=== PATIENT | female | born 1940 | race Caucasian/White ===

== ENCOUNTER 2016-12-24 16:09 | Inpatient (IN) | payer OTHER ==
--- NOTE | 2016-12-24 16:29 | CPEKG ---
Heart Rate: 126 RR Interval: 476 QRSD Interval: 78 QT Interval: 280 QTC Interval: 406 QRS [place]: -33 T Wave [place]: 169 EKG Severity - ABNORMAL ECG - EKG Impression: ATRIAL FIBRILLATION, V-RATE 95-158 EKG Impression: LEFT AXIS DEVIATION EKG Impression: PROBABLE LVH WITH SECONDARY REPOL ABNRM EKG Impression: ANTERIOR Q WAVES, POSSIBLY DUE TO LVH Electronically Signed By: Letty Arceo 24-Dec-2016 21:12:29
--- NOTE | 2016-12-24 16:29 | EDPHY ---
H & P Time Seen by Provider: 12/24/16 16:26 HPI/ROS: CHIEF COMPLAINT: Tachycardia HISTORY OF PRESENT ILLNESS: The patient is a 76-year-old female with a history of atrial fibrillation who presents from Urgent Care for tachycardia. Onset rapid heart rate evening and persistent since then. Associated with vague chest discomfort. No other associated symptoms. No known alleviating or aggravating factors. She took her usual medications today, without recent change in dosing. She is also complaining of increased urinary frequency and dysuria. No abdominal pain, vomiting, diarrhea, fever. She is anticoagulated on Warfarin. REVIEW OF SYSTEMS: A complete 10-point review of systems was performed and is negative except for those items mentioned in the HPI. Past Medical/Surgical History: Atrial fibrillation, hypertension, hyperlipidemia, hypothyroidism, pacemaker, TIA, 3 cardiac stents, L4/L5 fusion, right hip replacement, tonsillectomy, sleep apnea, vertigo. Social History: Former smoker. Smoking Status: Former smoker Physical Exam: General Appearance: Alert, pleasant Eyes: Pupils equal and round, no conjunctival pallor or injection ENT, Mouth: Mucous membranes moist Neck: Normal inspection Respiratory: Lungs are clear to auscultation Cardiovascular: Irregularly irregular tachycardia Gastrointestinal: Abdomen is soft and non-tender Neurological: A&O, nonfocal exam Skin: Warm and dry, no rash Extremities: Nontender, no pedal edema Psychiatric: Mood and affect normal Constitutional: Initial Vital Signs Temperature (C) 36.3 C 12/24/16 16:22 Heart Rate 148 H 12/24/16 16:22 Respiratory Rate 18 12/24/16 16:22 Blood Pressure 152/110 H 12/24/16 16:22 O2 Sat (%) 94 12/24/16 16:22 O2 Delivery Mode Room Air O2 (L/minute) 2 Allergies/Adverse Reactions: diphenhydramine HCl [From Benadryl] Allergy (Mild, Verified 12/24/16 16:24) Anxiety amiodarone Allergy (Verified 12/24/16 19:38) Rash rosuvastatin calcium [From Crestor] Allergy (Verified 12/24/16 19:38) Swelling/ Rash Home Medications: Medication Instructions Recorded Cholecalciferol Vit D3 [Vitamin D3 4,000 units PO DAILY 03/18/13 2000 units] Herbals/Supplements -Info Only 1 each PO AD 05/21/13 LORazepam [Ativan (*)] 0.25 mg PO HS PRN 03/18/13 Levothyroxine [Synthroid 75 mcg 75 mcg PO DAILY06 03/18/13 (*)] Nitroglycerin [Nitrostat 0.4 mg 0.4 mg SL PRN PRN 03/18/13 (*)] Digoxin [Lanoxin 0.125 mg] 0.125 mg PO DAILY 10/02/13 Diltiazem Xr [Dilacor Xr 180 MG 180 mg PO DAILY@1800 10/02/13 (RX)] Acetaminophen [Tylenol ES 500 mg 500 mg PO BID PRN 02/13/14 (*)] Ipratropium 0.06% Nasal [Atrovent 1 sprays EACHNARE DAILY PRN 02/13/14 0.06% Nasal] Warfarin Sodium [Coumadin 1MG (*)] 1 mg PO TUTHSA@16 11/12/14 Warfarin Sodium [Coumadin 2MG (*)] 2 mg PO SUMOWEFR@16 11/12/14 Aspirin EC [Aspirin EC 325 mg (*)] 325 mg PO DAILY PRN 12/24/16 Atorvastatin Calcium [Lipitor 20 20 mg PO HS 12/24/16 mg (*)] Clopidogrel Bisulfate [Plavix (*)] 75 mg PO DAILY 12/24/16 Loratadine [Claritin 10 mg] 10 mg PO DAILY 12/24/16 Losartan Potassium [Cozaar 25 mg 25 mg PO HS 12/24/16 (*)] Losartan Potassium [Cozaar 25 mg 50 mg PO DAILY 12/24/16 (*)] Medical Decision Making ED Course/Re-evaluation: Patient presents in rapid atrial fibrillation. An IV was established and labs ordered. EKG obtained. 10mg IV Diltiazem bolus and Diltiazem drip 5mg/hr IV administered for rapid afib. Repeat heart rate 90-100. Blood pressure remained adequate. I re-evaluated the patient x2. She felt much better with heart rate reduction. Patient's urine consistent with UTI. Keflex 500 mg orally given. Urine culture was sent. 1755: Consulted with Dr. Rojas, hospitalist. He accepts admission. This patient utilized 35 minutes of critical care time exclusive of unbundled procedures. Differential Diagnosis: Differential diagnosis includes though it is not limited to pneumonia, pneumothorax, pulmonary embolism, aortic dissection, pericarditis, acute coronary syndrome. - Data Points Laboratory Results: Laboratory Results 12/24/16 16:32 12/25/16 06:00 Microbiology Results: MICROBIOLOGY 12/24/16 16:35 Urine,Clean Catch Urine Culture - Preliminary Escherichia Coli Medications Given: Discontinued Medications Cephalexin HCl (Keflex) 500 mg PO EDNOW ONE PRN Reason: Protocol Stop: 12/24/16 17:21 Last Admin: 12/24/16 17:43 Dose: 500 mg Diltiazem HCl (Cardizem 25 Mg/5 Ml Vial) 10 mg IVP EDNOW ONE Stop: 12/24/16 16:57 Last Admin: 12/24/16 17:05 Dose: 10 mg Diltiazem HCl 125 mg/ Dextrose 125 mls @ 0 mls/hr IV EDNOW ONE; As Directed PRN Reason: Protocol Stop: 12/24/16 16:57 Last Admin: 12/24/16 18:19 Dose: 125 mls Sodium Chloride (Ns) 1,000 mls @ 125 mls/hr IV CONT JALEESA Stop: 06/22/17 18:29 Last Admin: 12/24/16 21:13 Dose: 1,000 mls Departure - Departure Disposition: [facility] Inpatient Acute Clinical Impression: Atrial fibrillation with RVR UTI (urinary tract infection) Qualifiers: Urinary tract infection type: site unspecified Hematuria presence: without hematuria Qualified Code(s): N39.0 - Urinary tract infection, site not specified Condition: Fair Report Scribed for: Letty Arceo Report Scribed by: Ehsan Shields Date of Report: 12/24/16 Time of Report: 16:28 Physician Review and Approval Statement: 12/24/16 16:28 Portions of this note were transcribed by a medical secretary receptionist. I personally performed a history, physical exam, medical decision making, and confirmed accuracy of information the transcribed note.
[2016-12-24 16:45] LABS: % IMMATURE GRANULYOCYTES 0.4 % (0.0-1.1); ABSOLUTE IMMATURE GRANULOCYTES 0.05 10^3/uL (0.00-0.10); ADD DIFF? NO; ADD MORPH? NO; ADD SCAN? NO; ATYPICAL LYMPHOCYTE FLAG 0 (0-99); FRAGMENT RBC FLAG 0 (0-99); HEMATOCRIT 44.4 % (38.0-47.0); HEMOGLOBIN 15.2 g/dL (12.6-16.3); LEFT SHIFT FLG 0 (0-99); LIPEMIA HEMOLYSIS FLAG 90 (0-99); MEAN CELL HEMOGLOBIN 33.3 pg (27.9-34.1); MEAN CELL HEMOGLOBIN CONCENTR. 34.2 g/dL (32.4-36.7); MEAN CELL VOLUME 97.4 fL (81.5-99.8); MEAN PLATELET VOLUME 9.5 fL (8.7-11.7); PLATELET CLUMPS FLAG 10 (0-99); PLATELET COUNT 215 10^3/uL (150-400); RED BLOOD CELL COUNT 4.56 10^6/uL (4.18-5.33); RED CELL DISTRIBUTION WIDTH 13.4 % (11.5-15.2)
[2016-12-24 16:55] LABS: INR 1.88 (0.83-1.16); PROTIME(PATIENT) 21.7 SEC (12.0-15.0)
[2016-12-24] MEDS ORDERED: DILTIAZEM 125 MG in D5W 125 ML IV ONE (16:56)
[2016-12-24] MEDS ORDERED: DILTIAZEM 25 MG/5 ML VIAL IVP ONE (16:56)
[2016-12-24 17:03] LABS: ANION GAP 12 mEq/L (8-16); CALCIUM 9.9 mg/dL (8.5-10.4); CARBON DIOXIDE 22 mEq/l (22-31); CHLORIDE 103 mEq/L (97-110); CREATININE 0.9 mg/dL (0.6-1.0); GLOMERULAR FILTRATION RATE > 60; GLUCOSE 110 mg/dL (70-100); POTASSIUM 3.8 mEq/L (3.5-5.2); SODIUM 137 mEq/L (134-144)
[2016-12-24 17:08] LABS: COLOR YELLOW; LEUKOCYTE ESTERASE,URINE 3+ (NEGATIVE); NITRITE,URINE NEGATIVE (NEGATIVE)
[2016-12-24 17:13] LABS: TROPONIN I < 0.012 ng/mL (0-0.034)
[2016-12-24 17:17] LABS: BACTERIA 2+ /hpf (NONE SEEN); MUCUS TRACE /lpf (NONE-1+); RBC,URINE 50-182 /hpf (0-3); WBC,URINE 50-182 /hpf (0-3)
[2016-12-24] MEDS ORDERED: CEPHALEXIN 500 MG CAP PO ONE (17:20)
[2016-12-24] MEDS ORDERED: ONDANSETRON DISINTEGRATING 4 MG TAB PO PRN (18:29)
[2016-12-24] MEDS ORDERED: ONDANSETRON 4 MG/2 ML VIAL IVP PRN (18:29)
[2016-12-24] MEDS ORDERED: DILTIAZEM 125 MG in D5W 125 ML IV SCH (18:30)
[2016-12-24] MEDS ORDERED: NS 1,000 ML IV SCH (18:30)
--- NOTE | 2016-12-24 19:01 | GHP ---
DATE OF ADMISSION: 12/24/2016 HISTORY OF PRESENT ILLNESS: The patient is a pleasant 76-year-old female with a history of atrial f ibrillation and coronary artery disease who presents with fluttering in her chest, as well as dysuri a and urgency that began last night. She also has had some shaking chills. She does not commonly g et urinary tract infections, but she had somewhat abrupt-onset urgency last night. She has had some subjective fevers. No chills. No cough. No sputum. She has had some vague chest pressure. Rega rding her atrial fibrillation, she is uncertain of when she is in and out of it. She is on metoprol ol and a beta megan. No heart failure symptoms. REVIEW OF SYSTEMS: A complete 10-point review of systems was conducted and negative except as noted in the HPI. PAST MEDICAL HISTORY: 1. Atrial fibrillation. 2. Coronary artery disease with stents. 3. Hypertension. 4. Hyperlipidemia. ALLERGIES: Benadryl, amiodarone, and rosuvastatin. HOME MEDICATIONS: Losartan, Percocet, warfarin, Prasugrel, fish oil, nitroglycerin, metoprolol mayb e, levothyroxine, Ativan, ipratropium, diltiazem, digoxin, vitamin D3, atorvastatin, aspirin, Tyleno l. SOCIAL HISTORY: 2-3 glasses of wine a day. Lives alone in [place]. Originally from [place]. Lived [facility] for much of her life. FAMILY HISTORY: Parents . PHYSICAL EXAMINATION: VITAL SIGNS: Temp 36.3, blood pressure 150/110, pulse 148 and now 90, breath ing 18 times a minute, 94% on room air. GENERAL: No acute distress. HEENT: Sclerae anicteric. O ropharynx clear. Mucous membranes are moist. NECK: Supple, without lymphadenopathy or JVD. LUNGS : Clear to auscultation bilaterally. HEART: S1, S2. ABDOMEN: Soft, nontender, nondistended. LO WER EXTREMITIES: Without edema. Calves nontender. SKIN: Without rash. NEUROLOGIC: Exam is nonf ocal. LABORATORY DATA: INR is 1.9. White count 14, hematocrit 44, platelets 215,000. Sodium 137, potass ium 3.8, chloride 103, bicarb 22, BUN 11, creatinine 0.9, glucose 110. Troponin less than 0.012. U A is positive with 50-180 red cells, 50-180 white cells, 3+ leukocyte esterase, and 2+ bacteria. To x screen: Digoxin level is 1.2. EKG interpreted by me shows rapid atrial fibrillation at 126, with borderline left axis deviation. She has ST depression in V5, V6, I, and L. I have discussed the case with Dr. Joanne Arceo. ASSESSMENT AND PLAN: This is a 76-year-old female with rapid atrial fibrillation and a urinary trac t infection. 1. Urinary tract infection with subjective fever and leukocytosis. Warrants IV antibiotics. We wi ll start ceftriaxone. 2. Sepsis. She has a rapid heart rate, focus of infection, and leukocytosis. This is sepsis. We will treat it. She will receive IV fluids. 3. Atrial fibrillation, rapid, in the setting of infection. We will treat with a diltiazem drip. We will reconcile her medicines when available. 4. Atrial fibrillation/stroke prevention. She is anticoagulated. 5. Prophylaxis. She is therapeutically anticoagulated. 6. Disposition: Observation status. /[id number]/MODL
[2016-12-24] MEDS ORDERED: ASPIRIN EC 325 MG TAB PO PRN (20:02)
[2016-12-24] MEDS ORDERED: NITROGLYCERIN 0.4 MG BTL SL PRN (20:02)
[2016-12-24] MEDS ORDERED: IPRATROPIUM 0.06% NASAL SPRAY EACHNARE PRN (20:02)
[2016-12-24] MEDS: ATORVASTATIN CALCIUM 20 MG TAB PO SCH (21:35)
[2016-12-24] MEDS: LOSARTAN POTASSIUM 25 MG TAB PO SCH (21:35)
[2016-12-24] MEDS: ACETAMINOPHEN 325 MG TAB PO PRN (21:57)
[2016-12-24] MEDS: LORazepam 0.5 MG TAB PO PRN (22:53)
[2016-12-24] MEDS: oxyCODONE IR 5 MG TAB PO PRN (22:54)
[2016-12-25] MEDS: LEVOTHYROXINE 75 MCG TAB PO SCH (05:59)
[2016-12-25 06:34] LABS: ANION GAP 8 mEq/L (8-16); CALCIUM 9.3 mg/dL (8.5-10.4); CARBON DIOXIDE 24 mEq/l (22-31); CHLORIDE 106 mEq/L (97-110); CREATININE 0.8 mg/dL (0.6-1.0); GLOMERULAR FILTRATION RATE > 60; GLUCOSE 115 mg/dL (70-100); POTASSIUM 4.3 mEq/L (3.5-5.2); SODIUM 138 mEq/L (134-144)
[2016-12-25] MEDS: ACETAMINOPHEN 325 MG TAB PO PRN (08:23)
[2016-12-25] MEDS: LOSARTAN POTASSIUM 25 MG TAB PO SCH ×2 (08:24→21:00)
[2016-12-25] MEDS: CHOLECALCIFEROL VIT D3 2,000 UNITS TAB/CAP PO SCH (08:24)
[2016-12-25] MEDS: CETIRIZINE 10 MG TAB PO SCH (08:24)
[2016-12-25] MEDS: DIGOXIN 125 MCG TAB PO SCH (08:24)
[2016-12-25] MEDS: CLOPIDOGREL BISULFATE 75 MG TAB PO SCH (08:24)
[2016-12-25] MEDS ORDERED: DILTIAZEM CD 180 MG CAP PO SCH ×2 (09:06→18:00)
[2016-12-25 09:32] LABS: INR 1.7 (0.83-1.16)
[2016-12-25] MEDS: DILTIAZEM CD 180 MG CAP PO SCH (10:44)
--- NOTE | 2016-12-25 13:01 | PDCARCONS ---
Cardiology Consult Reason for Consult: Atrial fibrillation Chief Complaint: difficulty urinating with fever and chills Requesting Physician: Bob History of Present Illness: 76-year-old female well known to me history of coronary artery disease with PCI , history of CVA in the setting of paroxysmal atrial fibrillation chronically anticoagulated with a permanent pacemaker, hypertension, and hyperlipidemia admitted to the hospital with a several day history of increasing weakness complicated by difficulty urinating and urinary frequency. She was found to be in atrial fibrillation with a rapid ventricular response of 140 beats per minute she had stable blood pressure. She was also found to have a urinary tract infection has been started on therapy. She is feeling improved overall weak. Patient has known coronary disease she had an acute coronary syndrome in 2014. At that time she received PCI of the LAD and right coronary. She had a permanent pacemaker replaced in 2014. her left ventricular function has been preserved. I have not seen her since 2014. Blood pressure and hyperlipidemia been well controlled. Cardiac review of systems is negative for chest pain, shortness of breath, PND , orthopnea. She has had no peripheral edema. She does suffer from some mild to moderate cognitive dysfunction. History Information - Allergies/Home Medication List Allergies/Adverse Reactions: diphenhydramine HCl [From Benadryl] Allergy (Mild, Verified 12/24/16 16:24) Anxiety amiodarone Allergy (Verified 12/24/16 19:38) Rash rosuvastatin calcium [From Crestor] Allergy (Verified 12/24/16 19:38) Swelling/ Rash Home Medications: Cholecalciferol Vit D3 [Vitamin D3 2000 units] 4,000 units PO DAILY 03/18/13 [ Last Taken 11/09/14] Herbals/Supplements -Info Only 1 each PO AD 03/18/13 [Last Taken 02/07/14] LORazepam [Ativan (*)] 0.25 mg PO HS PRN 03/18/13 [Last Taken 02/07/14] Levothyroxine [Synthroid 75 mcg (*)] 75 mcg PO DAILY06 03/18/13 [Last Taken ] Nitroglycerin [Nitrostat 0.4 mg (*)] 0.4 mg SL PRN PRN 03/18/13 [Last Taken 08:00] Digoxin [Lanoxin 0.125 mg] 0.125 mg PO DAILY 10/02/13 [Last Taken 12/24/16] Diltiazem Xr [Dilacor Xr 180 MG (RX)] 180 mg PO DAILY@1800 10/02/13 [Last Taken 12/23/16] Acetaminophen [Tylenol ES 500 mg (*)] 500 mg PO BID PRN 02/13/14 [Last Taken Unknown] Ipratropium 0.06% Nasal [Atrovent 0.06% Nasal] 1 sprays EACHNARE DAILY PRN 02/13 [Last Taken Unknown] Warfarin Sodium [Coumadin 1MG (*)] 1 mg PO TUTHSA@16 11/12/14 [Last Taken ] Warfarin Sodium [Coumadin 2MG (*)] 2 mg PO SUMOWEFR@16 11/12/14 [Last Taken ] Aspirin EC [Aspirin EC 325 mg (*)] 325 mg PO DAILY PRN 12/24/16 [Last Taken Unknown] Atorvastatin Calcium [Lipitor 20 mg (*)] 20 mg PO HS 12/24/16 [Last Taken ] Clopidogrel Bisulfate [Plavix (*)] 75 mg PO DAILY 12/24/16 [Last Taken 12/24/16] Loratadine [Claritin 10 mg] 10 mg PO DAILY 12/24/16 [Last Taken 12/23/16] Losartan Potassium [Cozaar 25 mg (*)] 25 mg PO HS 12/24/16 [Last Taken 12/23/16] Losartan Potassium [Cozaar 25 mg (*)] 50 mg PO DAILY 12/24/16 [Last Taken ] I have personally reviewed and updated: family history, medical history, social history, surgical history - Past Medical History atrial fibrillation, coronary artery disease, CVA, hypertension, hyperlipidemia - Surgical History Reports: pacemaker/AICD - Family History Positive for: non-pertinent - Social History Smoking Status: Former smoker Cardiac History - Cardiac History Past Cardiac History: CAD, PCI, PACEMAKER Cardiac Risk Factors: hypertension (>140/90), lipidemia, age > 65 Physical Exam Temp Pulse Resp BP Pulse Ox 36.4 C 84 19 144/95 H 96 12/25/16 08:00 12/25/16 10:44 12/25/16 08:00 12/25/16 10:44 12/25/16 08:00 O2 (L/minute) 2 Lab and Imaging 12/24/16 16:32 12/25/16 06:00 WBC 14.02 10^3/uL (3.80-9.50) H 12/24/16 16:32 RBC 4.56 10^6/uL (4.18-5.33) 12/24/16 16:32 Hgb 15.2 g/dL (12.6-16.3) 12/24/16 16:32 Hct 44.4 % (38.0-47.0) 12/24/16 16:32 MCV 97.4 fL (81.5-99.8) 12/24/16 16:32 MCH 33.3 pg (27.9-34.1) 12/24/16 16:32 MCHC 34.2 g/dL (32.4-36.7) 12/24/16 16:32 RDW 13.4 % (11.5-15.2) 12/24/16 16:32 Plt Count 215 10^3/uL (150-400) 12/24/16 16:32 MPV 9.5 fL (8.7-11.7) 12/24/16 16:32 Neut % (Auto) 85.6 % (39.3-74.2) H 12/24/16 16:32 Lymph % (Auto) 8.0 % (15.0-45.0) L 12/24/16 16:32 [place] % (Auto) 5.5 % (4.5-13.0) 12/24/16 16:32 Eos % (Auto) 0.2 % (0.6-7.6) L 12/24/16 16:32 Baso % (Auto) 0.3 % (0.3-1.7) 12/24/16 16:32 Nucleat RBC Rel Count 0.0 % (0.0-0.2) 12/24/16 16:32 Absolute Neuts (auto) 12.01 10^3/uL (1.70-6.50) H 12/24/16 16:32 Absolute Lymphs (auto) 1.12 10^3/uL (1.00-3.00) 12/24/16 16:32 Absolute Monos (auto) 0.77 10^3/uL (0.30-0.80) 12/24/16 16:32 Absolute Eos (auto) 0.03 10^3/uL (0.03-0.40) 12/24/16 16:32 Absolute Basos (auto) 0.04 10^3/uL (0.02-0.10) 12/24/16 16:32 Absolute Nucleated RBC 0.00 10^3/uL (0-0.01) 12/24/16 16:32 Immature Gran % 0.4 % (0.0-1.1) 12/24/16 16:32 Immature Gran # 0.05 10^3/uL (0.00-0.10) 12/24/16 16:32 PT 20.0 SEC (12.0-15.0) H 12/25/16 09:20 INR 1.70 (0.83-1.16) H 12/25/16 09:20 Sodium 138 mEq/L (134-144) 12/25/16 06:00 Potassium 4.3 mEq/L (3.5-5.2) 12/25/16 06:00 Chloride 106 mEq/L (97-110) 12/25/16 06:00 Carbon Dioxide 24 mEq/l (22-31) 12/25/16 06:00 Anion Gap 8 mEq/L (8-16) 12/25/16 06:00 BUN 12 mg/dL (7-23) 12/25/16 06:00 Creatinine 0.8 mg/dL (0.6-1.0) 12/25/16 06:00 Estimated GFR > 60 12/25/16 06:00 Glucose 115 mg/dL (70-100) H 12/25/16 06:00 Calcium 9.3 mg/dL (8.5-10.4) 12/25/16 06:00 Troponin I 0.015 ng/mL (0-0.034) 12/24/16 21:45 Urine Color YELLOW 12/24/16 16:35 Urine Appearance MODERATELY TURBID 12/24/16 16:35 Urine pH 7.0 (5.0-7.5) 12/24/16 16:35 Ur Specific [place] 1.015 (1.002-1.030) 12/24/16 16:35 Urine Protein 2+ (NEGATIVE) H 12/24/16 16:35 Urine Ketones NEGATIVE (NEGATIVE) 12/24/16 16:35 Urine Blood 3+ (NEGATIVE) H 12/24/16 16:35 Urine Nitrate NEGATIVE (NEGATIVE) 12/24/16 16:35 Urine Bilirubin NEGATIVE (NEGATIVE) 12/24/16 16:35 Urine Urobilinogen NEGATIVE EU (0.2-1.0) 12/24/16 16:35 Ur Leukocyte Esterase 3+ (NEGATIVE) H 12/24/16 16:35 Urine RBC 50-182 /hpf (0-3) H 12/24/16 16:35 Urine WBC 50-182 /hpf (0-3) H 12/24/16 16:35 Ur Epithelial Cells NONE SEEN /lpf (NONE-1+) 12/24/16 16:35 Urine Bacteria 2+ /hpf (NONE SEEN) H 12/24/16 16:35 Urine Mucus TRACE /lpf (NONE-1+) 12/24/16 16:35 Urine Glucose NEGATIVE (NEGATIVE) 12/24/16 16:35 Digoxin 1.2 ng/mL (0.8-2.0) 12/24/16 16:30 A/P Assessment: Impression: Atrial fibrillation with rapid ventricular response. Patient has longstanding history of this off and on. She is on beta-megan and did for rate control. ECG suggest that she has been using her medication with ST-T changes consistent with chronic digoxin use. We have attempted to use antiarrhythmics in the past for chronic rhythm management, she is intolerant of amiodarone. Her atrial fibrillation has been complicated by CVA. She is properly anticoagulated. Her rate control is improving as treatment for her urinary tract infection begins. There is no evidence of unstable angina or heart failure based on clinical history, exam, laboratory. Patient is on dual antiplatelet therapy for history of multivessel PCI in the setting of acute coronary syndrome. Risk factors have been well modified. Plan: recommendations are to continue chronic anticoagulation. Continue rate control with beta-megan and digoxin. Continue aggressive treatment for underlying urinary tract infection with clinical follow-up. No indications for cardioversion at this point. No indications for further evaluation for progressive coronary disease. We will follow up with her during her hospitalization and as an outpatient. Past Medical History - Personal History Current Tetanus/Diphtheria Vaccine: Unsure Tetanus Vaccine Date: UNKNOWN - Medical/Surgical History Hx Asthma: Yes Hx Chronic Respiratory Disease: No Hx Cardiac Disease: Yes Hx Diabetes: No Hx Renal Disease: No Hx Alcoholism: No Hx Cirrhosis: No Hx HIV/AIDS: No Hx Splenectomy or Spleen Trauma: No Other PMH: medical- afib, HTN, HLD, hypothyroid, pacemaker, O2 hs, 2009 TIA. surgical- x3 stents 2000, L 4-5 fusion, R hip replaced, tonsilectomy, tendon transplant, cervical conization, sleep apnea, PVD, TIA, vertigo - Social History Smoking Status: Former smoker Review of Systems - Review of Systems Constitutional: chills, fever, weakness Respiratory: no symptoms reported Cardiac: palpitations. denies: chest pain, edema, irregular heart rate, lightheadedness Gastrointestinal/Abdominal: no symptoms reported Genitourinary: frequency, urgency Musculoskelatal: joint pain Skin: no symptoms Neurological: no symptoms
[2016-12-25] MEDS ORDERED: WARFARIN SODIUM 2 MG TAB PO SCH (16:00)
--- NOTE | 2016-12-25 16:25 | HOSPPROG ---
Hospitalist Progress Note Assessment/Plan: 76 yo F w/hx of A fib and CAD presenting with chest fluttering and urinary burning found to be in a fib w/rvr and to have UTI # a fib w/rvr: longstanding hx of this, appreciate Dr. Sheppard's evaluation. Has been on a dilt gtt and transitioned back to her usual home meds, likely driven by infection as next. Continue dilt/dig and warfarin. # UTI: with culture s/s pending, continue ctx for now and will tailor when more information available # acute encephalopathy: patient with evidence of delerium in the setting of likely underlying dementia. Has had some agitation as the day goes on suggestive of ing. # sepsis: in setting of uti, meeting sirs with leukocytosis and tachycardia, improved hr, will recheck cbc in am # CAD: continue op meds # dispo: observation status, will likely need < 48 hours stay for eval/mgmt of above Patient new to my care. Old records reviewed and summarized as above. Subjective: no significant overnight events, patient currently feeling better, no more burning with urination Objective: Vital Signs Temp Pulse Resp BP Pulse Ox 37.4 C 104 H 18 144/88 H 89 L 12/25/16 15:14 12/25/16 15:14 12/25/16 15:14 12/25/16 15:14 12/25/16 15:14 PT 20.0 SEC (12.0-15.0) H 12/25/16 09:20 INR 1.70 (0.83-1.16) H 12/25/16 09:20 awake alert anicteric op clear irreg irreg tachy cta b soft nt nd no cce warm dry well perfused oriented but tangential - Time Spent With Patient Time Spent with Patient: greater than 35 minutes Time Spent with Patient: Greater than 35 minutes spent on this patients care, greater than 50% of time spent counseling, educating, and coordinating care regarding the above mentioned plan. ICD10 Worksheet Patient Problems: Problems Problem Status Onset Brain lesion Acute Coronary atherosclerosis Acute Hypertension Acute Hyperlipidemia Acute Peripheral vascular disease Acute Chest pain Acute Atrial fibrillation Acute Chronic anticoagulation Acute MRSA (methicillin resistant Staphylococcus aureus) Acute 08/14/16 Atrial fibrillation with RVR Acute UTI (urinary tract infection) Acute
[2016-12-25 19:43] VITALS: O2SAT 93
[2016-12-25] MEDS: LORazepam 0.5 MG TAB PO PRN (20:59)
[2016-12-25] MEDS: ATORVASTATIN CALCIUM 20 MG TAB PO SCH (20:59)
[2016-12-25] MEDS: oxyCODONE IR 5 MG TAB PO PRN (21:00)
[2016-12-26] MEDS: LEVOTHYROXINE 75 MCG TAB PO SCH (04:44)
[2016-12-26 05:12] LABS: INR 1.35 (0.83-1.16); PROTIME(PATIENT) 16.7 SEC (12.0-15.0)
[2016-12-26] MEDS ORDERED: DILTIAZEM 30 MG TAB PO SCH (08:59)
[2016-12-26] MEDS: CHOLECALCIFEROL VIT D3 2,000 UNITS TAB/CAP PO SCH (09:35)
[2016-12-26] MEDS: CETIRIZINE 10 MG TAB PO SCH (09:38)
[2016-12-26] MEDS: DIGOXIN 125 MCG TAB PO SCH (09:38)
[2016-12-26] MEDS: CLOPIDOGREL BISULFATE 75 MG TAB PO SCH (09:45)
[2016-12-26] MEDS: DILTIAZEM CD 180 MG CAP PO SCH (10:25)
[2016-12-26 10:28] VITALS: BP 119/62; PULSE 102
[2016-12-26] MEDS: LOSARTAN POTASSIUM 25 MG TAB PO SCH (10:31)
[2016-12-26 10:40] VITALS: RESP 16; TEMP 98.2
[2016-12-26] MEDS ORDERED: WARFARIN SODIUM 1 MG TAB PO SCH (16:00)
--- NOTE | 2016-12-27 20:16 | PDDCSUM ---
Discharge Summary Discharge Summary: Dates of service 12/24-12/26/16 Discharge dx: # a fib w/rvr # uti # acute encephalopathy # cognitive dysfunction # sepsis # cad Procedures/consultations: none Hospital course by problem: # a fib w/rvr: longstanding hx of this, appreciate Dr. Sheppard's evaluation. Has been on a dilt gtt and transitioned back to her usual home meds, likely driven by infection as next. Continue dilt/dig and warfarin. # UTI: treated with ctx and dc' on levofloxacin # acute encephalopathy: patient with evidence of delerium in the setting of likely underlying dementia. resolved # sepsis: in setting of uti, HD stable, resolved # CAD: continue op meds Dispo: dc home f/u with pcp > 35 min spent in dc of patient more than half in face to face counseling
== END 2016-12-26 15:40 | disposition home or self-care (01) | DRG 871 ==
LOC: F1N 20:06 → OBSVTOIN 12-25 14:02
PROVIDERS: ADMIT Internal Medicine; ATTEND Internal Medicine
DX: A41.9 Sepsis, unspecified organism (principal); N39.0 Urinary tract infection, site not specified; G93.40 Encephalopathy, unspecified; I48.0 Paroxysmal atrial fibrillation; I25.10 Atherosclerotic heart disease of native coronary artery without angina pectoris; I10 Essential (primary) hypertension; E78.5 Hyperlipidemia, unspecified; E03.9 Hypothyroidism, unspecified; Z95.0 Presence of cardiac pacemaker; Z95.5 Presence of coronary angioplasty implant and graft; Z86.73 Personal history of transient ischemic attack (TIA), and cerebral infarction without residual deficits; Z79.01 Long term (current) use of anticoagulants
CPT/HCPCS: 96374; G0378; J0696

== ENCOUNTER 2017-01-18 11:05 | Emergency (ER) | payer OTHER ==
--- NOTE | 2017-01-18 11:31 | CPEKG ---
Heart Rate: 118 RR Interval: 508 QRSD Interval: 72 QT Interval: 272 QTC Interval: 382 QRS [place]: -22 T Wave [place]: 200 EKG Severity - ABNORMAL ECG - EKG Impression: ATRIAL FIBRILLATION, V-RATE 73-172 EKG Impression: BORDERLINE LEFT AXIS DEVIATION EKG Impression: REPOL ABNRM SUGGESTS ISCHEMIA, DIFFUSE LEADS Electronically Signed By: Clarissa Byrd 18-Jan-2017 15:18:44
--- NOTE | 2017-01-18 12:15 | EDPHY ---
H & P Time Seen by Provider: 01/18/17 11:39 HPI/ROS: CHIEF COMPLAINT: Palpitations HISTORY OF PRESENT ILLNESS: Patient is a 68-year-old female with a history of atrial fibrillation with recent admission to the hospital on 12/24/2016 who presents emergency department with ongoing palpitations. Patient has a history of atrial fibrillation. She is currently taking digoxin, diltiazem, warfarin, aspirin and Plavix. She states she saw on the day of discharge on 12/26/2016. Since that time she has had intermittent episodes of palpitations. She feels they have worsened over the past few days. She denies any chest pain. No shortness of breath. No nausea or vomiting. No fevers or chills. She has had no cough. No leg pain or swelling. REVIEW OF SYSTEMS: My complete review of systems is negative except as mentioned in the HPI. Past Medical/Surgical History: Atrial fibrillation with RVR, encephalopathy, cognitive dysfunction, coronary artery disease, hyperlipidemia, hypertension, hypothyroidism, TIA Past surgical history: Includes cardiac stents, spinal fusion, hip replacement , tonsillectomy, Social History: The patient lives at home alone. She has a history of smoking but does not smoke currently. Smoking Status: Former smoker Physical Exam: 36.7, 146/104, 132, 17, 96. When I was in the room her heart rate ranged between 90 and 103. GENERAL: Well-appearing, in no acute distress, alert. HEENT: Eyes normal to inspection, normal pharynx, no signs of dehydration. NECK: No thyromegaly, no lymphadenopathy, supple. RESPIRATORY: Clear to auscultation bilaterally, no rales, rhonchi or wheezing. CVS: Irregular rhythm, no rubs, murmurs, or gallops. ABDOMEN: Soft, nontender, nondistended, no organomegaly. BACK: Normal to inspection, no CVA tenderness. SKIN: Normal color, no rash, warm, dry. No pallor. EXTREMITIES: No pedal edema, no calf tenderness, no Homans sign or cords, no joint swelling. NEURO/PSYCH: Alert and oriented x3, normal mood and affect, normal motor sensory exam. No obvious cranial nerve deficit. Constitutional: Initial Vital Signs Temperature (C) 36.7 C 01/18/17 11:10 Heart Rate 132 H 01/18/17 11:10 Respiratory Rate 17 03/23/17 11:10 Blood Pressure 146/104 H 01/18/17 11:10 O2 Sat (%) 96 01/18/17 11:10 O2 Delivery Mode Room Air Allergies/Adverse Reactions: diphenhydramine HCl [From Benadryl] Allergy (Mild, Verified 01/18/17 11:07) Anxiety amiodarone Allergy (Verified 01/18/17 11:07) Rash rosuvastatin calcium [From Crestor] Allergy (Verified 01/18/17 11:07) Swelling/ Rash Home Medications: Medication Instructions Recorded Cholecalciferol Vit D3 [Vitamin D3 4,000 units PO DAILY 03/18/13 2000 units] Herbals/Supplements -Info Only 1 each PO AD 03/18/13 LORazepam [Ativan (*)] 0.25 mg PO HS PRN 03/18/13 Nitroglycerin [Nitrostat 0.4 mg 0.4 mg SL PRN PRN 03/18/13 (*)] Digoxin [Lanoxin 0.125 mg] 0.125 mg PO DAILY 10/02/13 Diltiazem Xr [Dilacor Xr 180 MG 180 mg PO DAILY@1800 10/02/13 (RX)] Acetaminophen [Tylenol ES 500 mg 500 mg PO BID PRN 02/13/14 (*)] Ipratropium 0.06% Nasal [Atrovent 1 sprays EACHNARE DAILY PRN 02/13/14 0.06% Nasal] Warfarin Sodium [Coumadin 1MG (*)] 1 mg PO TUTHSA@16 11/12/14 Warfarin Sodium [Coumadin 2MG (*)] 2 mg PO SUMOWEFR@16 11/12/14 Aspirin EC [Aspirin EC 325 mg (*)] 325 mg PO DAILY PRN 12/24/16 Atorvastatin Calcium [Lipitor 20 20 mg PO HS 12/24/16 mg (*)] Clopidogrel Bisulfate [Plavix (*)] 75 mg PO DAILY 12/24/16 Loratadine [Claritin 10 mg] 10 mg PO DAILY 12/24/16 Losartan Potassium [Cozaar 25 mg 25 mg PO HS 12/24/16 (*)] Losartan Potassium [Cozaar 25 mg 50 mg PO DAILY 12/24/16 (*)] Clopidogrel 01/18/17 Diltiazem Xr [Dilacor Xr] 240 mg PO DAILY #20 cap 01/18/17 Synthroid 01/18/17 Medical Decision Making ED Course/Re-evaluation: In the emergency department I discussed possible etiologies with the patient. I reviewed her previous hospital admission and discharge. I discussed the plan with the patient and answered all of her questions. Patient will have an IV placed. Laboratory studies, EKG and chest x-ray ordered. Atrial fibrillation at 118. Left axis deviation. Other intervals normal. ST depression I, II, V4 through V6. I obtained an old EKG. This was unchanged from her current EKG. Patient's laboratory studies were noted. Her INR is 1.6. CBC and chemistry panel unremarkable. Troponin negative. D-dimer 0.58. I paged Cardiology Services. I discussed the results including the elevated D- dimer. At this time patient will have her diltiazem increased from XR 180 to XR 240. They requested I write a prescription. I discussed this plan with the patient. I answered all her questions. She has no chest pain or shortness of breath. Her heart rate ranges from 90-114. She feels comfortable with the plan. Differential Diagnosis: My differential includes but is not limited to atrial fibrillation with RVR, electrolyte abnormality, sugar abnormality, thyroid disease, pulmonary embolus, pneumonia, pneumothorax, ACS, acute CT - Data Points Laboratory Results: Laboratory Results 01/18/17 11:30 01/18/17 11:30 01/18/17 01/18/17 01/18/17 11:30 11:30 11:30 WBC 11.21 10^3/uL H 10^3/uL (3.80-9.50) RBC 4.41 10^6/uL 10^6/uL (4.18-5.33) Hgb 14.4 g/dL g/dL (12.6-16.3) Hct 42.6 % % (38.0-47.0) MCV 96.6 fL fL (81.5-99.8) MCH 32.7 pg pg (27.9-34.1) MCHC 33.8 g/dL g/dL (32.4-36.7) RDW 13.2 % % (11.5-15.2) Plt Count 208 10^3/uL 10^3/uL (150-400) MPV 10.4 fL fL (8.7-11.7) Neut % (Auto) 82.3 % H % (39.3-74.2) Lymph % (Auto) 4.8 % L % (15.0-45.0) [place] % (Auto) 8.7 % % (4.5-13.0) Eos % (Auto) 3.5 % % (0.6-7.6) Baso % (Auto) 0.3 % % (0.3-1.7) Nucleat RBC Rel Count 0.0 % % (0.0-0.2) Absolute Neuts (auto) 9.24 10^3/uL H 10^3/uL (1.70-6.50) Absolute Lymphs (auto) 0.54 10^3/uL L 10^3/uL (1.00-3.00) Absolute Monos (auto) 0.97 10^3/uL H 10^3/uL (0.30-0.80) Absolute Eos (auto) 0.39 10^3/uL 10^3/uL (0.03-0.40) Absolute Basos (auto) 0.03 10^3/uL 10^3/uL (0.02-0.10) Absolute Nucleated RBC 0.00 10^3/uL 10^3/uL (0-0.01) Immature Gran % 0.4 % % (0.0-1.1) Immature Gran # 0.04 10^3/uL 10^3/uL (0.00-0.10) PT 19.2 SEC H SEC (12.0-15.0) INR 1.61 H (0.83-1.16) APTT 39.4 SEC H SEC (23.0-38.0) D-Dimer 0.58 ug/mLFEU H ug/mLFEU (0.00-0.50) Sodium 139 mEq/L mEq/L (134-144) Potassium 3.8 mEq/L mEq/L (3.5-5.2) Chloride 103 mEq/L mEq/L (97-110) Carbon Dioxide 22 mEq/l mEq/l (22-31) Anion Gap 14 mEq/L mEq/L (8-16) BUN 21 mg/dL mg/dL (7-23) Creatinine 1.0 mg/dL mg/dL (0.6-1.0) Estimated GFR 54 Glucose 106 mg/dL H mg/dL (70-100) Calcium 9.5 mg/dL mg/dL (8.5-10.4) Troponin I < 0.012 ng/mL ng/mL (0-0.034) Digoxin 1.6 ng/mL ng/mL (0.8-2.0) Departure - Departure Disposition: Home, Routine, Self-Care Clinical Impression: Atrial fibrillation with RVR Condition: Good Instructions: A-fib (Atrial Fibrillation) (ED) Additional Instructions: 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 You been given a prescription for this new medication. Discontinue your old diltiazem prescription. Return to the emergency department with increased palpitations, shortness of breath, chest pain or any other concerns. Referrals: Elly Terrell MD [Primary Care Provider] - As per Instructions Aleks Sheppard MD [Medical Doctor] - 2-3 days, if not improved Prescriptions: Diltiazem Xr [Dilacor Xr] 240 mg PO DAILY #20 cap
[2017-01-18 12:52] LABS: % IMMATURE GRANULYOCYTES 0.4 % (0.0-1.1); ABSOLUTE IMMATURE GRANULOCYTES 0.04 10^3/uL (0.00-0.10); ADD DIFF? NO; ADD MORPH? NO; ADD SCAN? NO; ATYPICAL LYMPHOCYTE FLAG 0 (0-99); FRAGMENT RBC FLAG 0 (0-99); HEMATOCRIT 42.6 % (38.0-47.0); HEMOGLOBIN 14.4 g/dL (12.6-16.3); LEFT SHIFT FLG 0 (0-99); LIPEMIA HEMOLYSIS FLAG 90 (0-99); MEAN CELL HEMOGLOBIN 32.7 pg (27.9-34.1); MEAN CELL HEMOGLOBIN CONCENTR. 33.8 g/dL (32.4-36.7); MEAN CELL VOLUME 96.6 fL (81.5-99.8); MEAN PLATELET VOLUME 10.4 fL (8.7-11.7); PLATELET CLUMPS FLAG 0 (0-99); PLATELET COUNT 208 10^3/uL (150-400); RED BLOOD CELL COUNT 4.41 10^6/uL (4.18-5.33); RED CELL DISTRIBUTION WIDTH 13.2 % (11.5-15.2)
[2017-01-18 12:57] LABS: INR 1.61 (0.83-1.16); PROTIME(PATIENT) 19.2 SEC (12.0-15.0)
[2017-01-18 12:58] LABS: APTT 39.4 SEC (23.0-38.0)
[2017-01-18 13:01] LABS: ANION GAP 14 mEq/L (8-16); CALCIUM 9.5 mg/dL (8.5-10.4); CARBON DIOXIDE 22 mEq/l (22-31); CHLORIDE 103 mEq/L (97-110); DIGOXIN 1.6 ng/mL (0.8-2.0); GLOMERULAR FILTRATION RATE 54; GLUCOSE 106 mg/dL (70-100); POTASSIUM 3.8 mEq/L (3.5-5.2); SODIUM 139 mEq/L (134-144)
[2017-01-18 13:09] LABS: TROPONIN I < 0.012 ng/mL (0-0.034)
[2017-01-18 13:19] VITALS: TEMP 98.4
[2017-01-18 14:30] VITALS: BP 158/94; PULSE 92; RESP 14; O2SAT 94
== END 2017-01-18 14:29 | disposition home or self-care (01) ==
DX: I48.91 Unspecified atrial fibrillation (principal); I25.10 Atherosclerotic heart disease of native coronary artery without angina pectoris; I10 Essential (primary) hypertension; Z79.01 Long term (current) use of anticoagulants; Z79.82 Long term (current) use of aspirin; Z95.5 Presence of coronary angioplasty implant and graft; Z86.73 Personal history of transient ischemic attack (TIA), and cerebral infarction without residual deficits; Z87.891 Personal history of nicotine dependence

== ENCOUNTER → 2017-01-22 | Outpatient (CLI) | payer OTHER | LOC: BHFA 11:15 | PROVIDERS: ATTEND Internal Medicine Interventional Cardiology | DX: I63.9 Cerebral infarction, unspecified (principal); Z95.5 Presence of coronary angioplasty implant and graft; I10 Essential (primary) hypertension; I48.91 Unspecified atrial fibrillation; I25.10 Atherosclerotic heart disease of native coronary artery without angina pectoris ==

== ENCOUNTER 2017-01-23 00:51 | Observation (INO) | payer OTHER ==
--- NOTE | 2017-01-23 00:59 | CPEKG ---
Heart Rate: 119 RR Interval: 504 QRSD Interval: 74 QT Interval: 272 QTC Interval: 383 QRS [place]: -29 T Wave [place]: 178 EKG Severity - ABNORMAL ECG - EKG Impression: ATRIAL FIBRILLATION, V-RATE 89-143 EKG Impression: BORDERLINE LEFT AXIS DEVIATION EKG Impression: CONSIDER ANTEROSEPTAL INFARCT EKG Impression: REPOL ABNRM SUGGESTS ISCHEMIA, ANT-LAT LEADS Electronically Signed By: Beti Cho 23-Jan-2017 07:29:43
[2017-01-23 01:15] LABS: % IMMATURE GRANULYOCYTES 0.5 % (0.0-1.1); ABSOLUTE IMMATURE GRANULOCYTES 0.05 10^3/uL (0.00-0.10); ADD DIFF? NO; ADD MORPH? NO; ADD SCAN? NO; ATYPICAL LYMPHOCYTE FLAG 10 (0-99); FRAGMENT RBC FLAG 0 (0-99); HEMOGLOBIN 16.2 g/dL (12.6-16.3); LEFT SHIFT FLG 0 (0-99); LIPEMIA HEMOLYSIS FLAG 90 (0-99); MEAN CELL HEMOGLOBIN 32.3 pg (27.9-34.1); MEAN CELL HEMOGLOBIN CONCENTR. 33.8 g/dL (32.4-36.7); MEAN CELL VOLUME 95.6 fL (81.5-99.8); MEAN PLATELET VOLUME 9.7 fL (8.7-11.7); PLATELET CLUMPS FLAG 0 (0-99); PLATELET COUNT 243 10^3/uL (150-400); RED BLOOD CELL COUNT 5.02 10^6/uL (4.18-5.33); RED CELL DISTRIBUTION WIDTH 13.6 % (11.5-15.2)
[2017-01-23 01:17] LABS: APTT 41.8 SEC (23.0-38.0); INR 2.23 (0.83-1.16); PROTIME(PATIENT) 24.9 SEC (12.0-15.0)
[2017-01-23 01:18] LABS: ANION GAP 15 mEq/L (8-16); CALCIUM 10.6 mg/dL (8.5-10.4); CARBON DIOXIDE 26 mEq/l (22-31); CHLORIDE 104 mEq/L (97-110); CREATININE 0.9 mg/dL (0.6-1.0); GLOMERULAR FILTRATION RATE > 60; GLUCOSE 95 mg/dL (70-100); POTASSIUM 4.4 mEq/L (3.5-5.2); SODIUM 145 mEq/L (134-144)
[2017-01-23 01:30] LABS: TROPONIN I < 0.012 ng/mL (0-0.034)
[2017-01-23 02:52] LABS: COLOR YELLOW; LEUKOCYTE ESTERASE,URINE TRACE (NEGATIVE); NITRITE,URINE NEGATIVE (NEGATIVE)
--- NOTE | 2017-01-23 04:01 | EDPHY ---
H & P Stated Complaint: Chest Pain Time Seen by Provider: 01/23/17 01:42 HPI/ROS: HPI The patient presents with chest pain which began about 3 hours prior to presentation while at rest. It is described as a left-sided cramping sensation which is associated with shortness of breath. She was doing some work around the house when the pain 1st came on. She has not had any nausea, vomiting, diaphoresis. She has no prior history of similar pain. She does have a history of atrial fibrillation with RVR and was recently seen in the emergency room for this about 5 days ago. Her diltiazem dose was increased, however this possibly caused a rash on her legs and she decided to lower her dose to her previous dose. She is otherwise taking the rest of her medications. She does have a history of CAD and is status post PCI in 2015.. REVIEW OF SYSTEMS Constitutional: No fever, no chills. Eyes: No discharge. ENT: No sore throat. Cardiovascular: No chest pain, no palpitations. Respiratory: No cough, no shortness of breath. Gastrointestinal: No abdominal pain, no vomiting. Genitourinary: No hematuria. Musculoskeletal: No back pain. Skin: No rashes. Neurological: No headache. PMHx: Atrial fibrillation CHF, hypertension, CAD Soc Hx: Housed PHYSICAL General Appearance: Alert, no distress Eyes: Pupils equal and round no pallor or injection ENT, Mouth: Mucous membranes moist Respiratory: There are no retractions, lungs are clear to auscultation Cardiovascular: Regular rate and rhythm Gastrointestinal: Abdomen is soft and non-tender, no masses, bowel sounds normal Neurological: A&O, moves all extremities Skin: Warm and dry, no rashes Musculoskeletal: Neck is supple non tender Extremities: symmetrical, full range of motion Psychiatric: Patient is oriented X 3, there is no agitation Source: Patient, EMS - Personal History Current Tetanus/Diphtheria Vaccine: Unsure Current Tetanus Diphtheria and Acellular Pertussis (TDAP): Unsure Tetanus Vaccine Date: UNKNOWN - Medical/Surgical History Hx Asthma: Yes Hx Chronic Respiratory Disease: No Hx Diabetes: No Hx Cardiac Disease: Yes Hx Renal Disease: No Hx Cirrhosis: No Hx Alcoholism: No Hx HIV/AIDS: No Hx Splenectomy or Spleen Trauma: No Other PMH: medical- afib, HTN, HLD, hypothyroid, pacemaker, O2 hs, 2009 TIA. surgical- x3 stents 2000, L 4-5 fusion, R hip replaced, tonsilectomy, tendon transplant, cervical conization, sleep apnea, PVD, TIA, vertigo - Social History Smoking Status: Former smoker Constitutional: Initial Vital Signs Temperature (C) 36.7 C 01/23/17 00:57 Heart Rate 116 H 01/23/17 00:57 Respiratory Rate 26 H 01/23/17 00:57 Blood Pressure 208/142 H 01/23/17 00:57 O2 Sat (%) 93 01/23/17 00:57 O2 Delivery Mode Room Air Allergies/Adverse Reactions: diphenhydramine HCl [From Benadryl] Allergy (Mild, Verified 01/18/17 11:07) Anxiety amiodarone Allergy (Verified 01/18/17 11:07) Rash rosuvastatin calcium [From Crestor] Allergy (Verified 01/18/17 11:07) Swelling/ Rash Home Medications: Medication Instructions Recorded Cholecalciferol Vit D3 [Vitamin D3 4,000 units PO DAILY 03/18/13 2000 units] Herbals/Supplements -Info Only 1 each PO AD 03/18/13 LORazepam [Ativan (*)] 0.25 mg PO HS PRN 03/18/13 Nitroglycerin [Nitrostat 0.4 mg 0.4 mg SL PRN PRN 03/18/13 (*)] Digoxin [Lanoxin 0.125 mg] 0.125 mg PO DAILY 10/02/13 Diltiazem Xr [Dilacor Xr 180 MG 180 mg PO DAILY@1800 10/02/13 (RX)] Acetaminophen [Tylenol ES 500 mg 500 mg PO BID PRN 02/13/14 (*)] Ipratropium 0.06% Nasal [Atrovent 1 sprays EACHNARE DAILY PRN 02/13/14 0.06% Nasal] Warfarin Sodium [Coumadin 1MG (*)] 1 mg PO TUTHSA@11/12/14 Warfarin Sodium [Coumadin 2MG (*)] 2 mg PO SUMOWEFR@16 11/12/14 Aspirin EC [Aspirin EC 325 mg (*)] 325 mg PO DAILY PRN 12/24/16 Atorvastatin Calcium [Lipitor 20 20 mg PO HS 12/24/16 mg (*)] Clopidogrel Bisulfate [Plavix (*)] 75 mg PO DAILY 12/24/16 Loratadine [Claritin 10 mg] 10 mg PO DAILY 12/24/16 Losartan Potassium [Cozaar 25 mg 25 mg PO HS 12/24/16 (*)] Losartan Potassium [Cozaar 25 mg 50 mg PO DAILY 12/24/16 (*)] Clopidogrel 01/18/17 Diltiazem Xr [Dilacor Xr] 240 mg PO DAILY #20 cap 01/18/17 Synthroid 01/18/17 Medical Decision Making - Diagnostics EKG Interpretation: EKG: Complete interpretation has been separately recorded in the [facility] archive. Summary impression: Atrial fibrillation with rate of about 120, ST segment depression in 1, aVL, V5 and V6, similar to prior EKG Imaging: Chest x-ray shows no cardiomegaly, no infiltrate, reviewed by me, radiology interpretation is pending. Differential Diagnosis: This is a 76-year-old female with atrial fibrillation, hypertension, CAD who presents from home with an episode of chest pain, pain is now mostly resolved. On exam, she is in atrial fibrillation, otherwise her exam is unremarkable. Differential diagnosis includes ACS, musculoskeletal pain, pneumonia, pneumothorax. In the emergency room, the patient was monitored with no recurrence of her pain. Labs were checked and her troponin was unremarkable. Her EKG is abnormal , however is similar to prior EKGs. I feel she should likely be admitted given her history of CAD with this chest pain. I have discussed the case with the hospitalist Dr. Guzman and we plan to admit her to the hospital. She is in agreement with this plan. - Data Points Laboratory Results: Laboratory Results 01/23/17 00:55 01/23/17 00:55 01/23/17 01/23/17 01/23/17 02:47 00:55 00:55 WBC RBC Hgb Hct MCV MCH MCHC RDW Plt Count MPV Neut % (Auto) Lymph % (Auto) [place] % (Auto) Eos % (Auto) Baso % (Auto) Nucleat RBC Rel Count Absolute Neuts (auto) Absolute Lymphs (auto) Absolute Monos (auto) Absolute Eos (auto) Absolute Basos (auto) Absolute Nucleated RBC Immature Gran % Immature Gran # PT 24.9 SEC H SEC (12.0-15.0) INR 2.23 H (0.83-1.16) APTT 41.8 SEC H SEC (23.0-38.0) Sodium 145 mEq/L H mEq/L (134-144) Potassium 4.4 mEq/L mEq/L (3.5-5.2) Chloride 104 mEq/L mEq/L (97-110) Carbon Dioxide 26 mEq/l mEq/l (22-31) Anion Gap 15 mEq/L mEq/L (8-16) BUN 16 mg/dL mg/dL (7-23) Creatinine 0.9 mg/dL mg/dL (0.6-1.0) Estimated GFR > 60 Glucose 95 mg/dL mg/dL (70-100) Calcium 10.6 mg/dL H mg/dL (8.5-10.4) Troponin I < 0.012 ng/mL ng/mL (0-0.034) NT-Pro-B Natriuret Pep 760 pg/mL H pg/mL (0-450) Urine Color YELLOW Urine Appearance CLEAR Urine pH 6.0 (5.0-7.5) Ur Specific [place] 1.014 (1.002-1.030) Urine Protein 2+ H (NEGATIVE) Urine Ketones NEGATIVE (NEGATIVE) Urine Blood NEGATIVE (NEGATIVE) Urine Nitrate NEGATIVE (NEGATIVE) Urine Bilirubin NEGATIVE (NEGATIVE) Urine Urobilinogen NEGATIVE EU EU (0.2-1.0) Ur Leukocyte Esterase TRACE H (NEGATIVE) Urine RBC 5-10 /hpf H /hpf (0-3) Urine WBC 1-3 /hpf /hpf (0-3) Ur Epithelial Cells TRACE /lpf /lpf (NONE-1+) Ur Culture Indicated? INDICATED H (NI) Urine Glucose NEGATIVE (NEGATIVE) Digoxin 1.0 ng/mL ng/mL (0.8-2.0) 01/23/17 00:55 WBC 9.91 10^3/uL H 10^3/uL (3.80-9.50) RBC 5.02 10^6/uL 10^6/uL (4.18-5.33) Hgb 16.2 g/dL g/dL (12.6-16.3) Hct 48.0 % H % (38.0-47.0) MCV 95.6 fL fL (81.5-99.8) MCH 32.3 pg pg (27.9-34.1) MCHC 33.8 g/dL g/dL (32.4-36.7) RDW 13.6 % % (11.5-15.2) Plt Count 243 10^3/uL 10^3/uL (150-400) MPV 9.7 fL fL (8.7-11.7) Neut % (Auto) 61.9 % % (39.3-74.2) Lymph % (Auto) 20.3 % % (15.0-45.0) [place] % (Auto) 7.6 % % (4.5-13.0) Eos % (Auto) 9.0 % H % (0.6-7.6) Baso % (Auto) 0.7 % % (0.3-1.7) Nucleat RBC Rel Count 0.0 % % (0.0-0.2) Absolute Neuts (auto) 6.14 10^3/uL 10^3/uL (1.70-6.50) Absolute Lymphs (auto) 2.01 10^3/uL 10^3/uL (1.00-3.00) Absolute Monos (auto) 0.75 10^3/uL 10^3/uL (0.30-0.80) Absolute Eos (auto) 0.89 10^3/uL H 10^3/uL (0.03-0.40) Absolute Basos (auto) 0.07 10^3/uL 10^3/uL (0.02-0.10) Absolute Nucleated RBC 0.00 10^3/uL 10^3/uL (0-0.01) Immature Gran % 0.5 % % (0.0-1.1) Immature Gran # 0.05 10^3/uL 10^3/uL (0.00-0.10) PT INR APTT Sodium Potassium Chloride Carbon Dioxide Anion Gap BUN Creatinine Estimated GFR Glucose Calcium Troponin I NT-Pro-B Natriuret Pep Urine Color Urine Appearance Urine pH Ur Specific [place] Urine Protein Urine Ketones Urine Blood Urine Nitrate Urine Bilirubin Urine Urobilinogen Ur Leukocyte Esterase Urine RBC Urine WBC Ur Epithelial Cells Ur Culture Indicated? Urine Glucose Digoxin Medications Given: Discontinued Medications Lorazepam (Ativan) 0.25 mg PO ONCE ONE Stop: 01/23/17 05:15 Last Admin: 01/23/17 05:24 Dose: 0.25 mg Departure - Departure Disposition: [facility] Acute Condition: Fair
[2017-01-23] MEDS ORDERED: ACETAMINOPHEN 325 MG TAB PO PRN (05:11)
[2017-01-23] MEDS ORDERED: ONDANSETRON 4 MG/2 ML VIAL IVP PRN (05:11)
[2017-01-23] MEDS ORDERED: HYDROCODONE/APAP 5/325 TAB PO PRN (05:11)
[2017-01-23] MEDS ORDERED: ONDANSETRON DISINTEGRATING 4 MG TAB PO PRN (05:11)
[2017-01-23] MEDS ORDERED: LORazepam 0.5 MG TAB PO ONE (05:14)
--- NOTE | 2017-01-23 05:32 | PDGENHP ---
History and Physical - Chief Complaint chest pain - History of Present Illness Patient is a 76-year-old female with a history of atrial fibrillation on warfarin, CAD S/P multiple PCIs, hypertension, hyperlipidemia who presents to the ED with complaint of chest pain. Patient was recently hospitalized 12/24-12/27 for afib with rvr and UTI. Her rate was controlled with her home diltiazem and she was treated for her UTI without complicating event. On 01/18, patient presented to the ED with complaint of palpitations, was again noted to be in AFib with RVR. Cardiology was called by the ED and patient's home diltiazem dose was increased from 180 mg to 240 mg and patient was discharged home. Patient states shortly after she started taking the increased diltiazem dose, she developed a petechial, bilateral lower extremity nonpruritic macular rash and she reverted back to her 180 mg daily dosing. Today, patient presents complaining of sharp/stabbing, nonradiating substernal chest pain. She states the symptom started in the late evening with squeezing/ sharp pain, that sometimes seemed to be associated with movement. The pain would become intense for several seconds, then remit without intervention. This occurred several times throughout the night, so she decided to come to the ED for further evaluation. Pain was associated with mild diaphoresis, but no palpitations, nausea, dizziness. She also denies any obvious trauma or repetitive coughing recently. Denies fevers/chills, headache. On arrival to the ED, patient was afebrile but noted to be significantly hypertensive. EKG showed afib with chronic st/t wave changes laterally, unchanged from previous EKGs. Labs revealed normal cbc, bmp and troponin, mildly elevated BNP. She was then admitted to the hospitalist service for further management. History Information - Allergies/Home Medication List Allergies/Adverse Reactions: diphenhydramine HCl [From Benadryl] Allergy (Mild, Verified 01/18/17 11:07) Anxiety amiodarone Allergy (Verified 01/18/17 11:07) Rash rosuvastatin calcium [From Crestor] Allergy (Verified 01/18/17 11:07) Swelling/ Rash Home Medications: Cholecalciferol Vit D3 [Vitamin D3 2000 units] 4,000 units PO DAILY 03/18/13 [ Last Taken 11/09/14] Herbals/Supplements -Info Only 1 each PO AD 03/18/13 [Last Taken 02/07/14] LORazepam [Ativan (*)] 0.25 mg PO HS PRN 03/18/13 [Last Taken 02/07/14] Nitroglycerin [Nitrostat 0.4 mg (*)] 0.4 mg SL PRN PRN 03/18/13 [Last Taken 08:00] Digoxin [Lanoxin 0.125 mg] 0.125 mg PO DAILY 10/02/13 [Last Taken 12/24/16] Diltiazem Xr [Dilacor Xr 180 MG (RX)] 180 mg PO DAILY@1800 10/02/13 [Last Taken 12/23/16] Acetaminophen [Tylenol ES 500 mg (*)] 500 mg PO BID PRN 02/13/14 [Last Taken Unknown] Ipratropium 0.06% Nasal [Atrovent 0.06% Nasal] 1 sprays EACHNARE DAILY PRN 02/13 [Last Taken Unknown] Warfarin Sodium [Coumadin 1MG (*)] 1 mg PO TUTHSA@16 11/12/14 [Last Taken ] Warfarin Sodium [Coumadin 2MG (*)] 2 mg PO SUMOWEFR@16 11/12/14 [Last Taken ] Aspirin EC [Aspirin EC 325 mg (*)] 325 mg PO DAILY PRN 12/24/16 [Last Taken Unknown] Atorvastatin Calcium [Lipitor 20 mg (*)] 20 mg PO HS 12/24/16 [Last Taken ] Clopidogrel Bisulfate [Plavix (*)] 75 mg PO DAILY 12/24/16 [Last Taken 12/24/16] Loratadine [Claritin 10 mg] 10 mg PO DAILY 12/24/16 [Last Taken 12/23/16] Losartan Potassium [Cozaar 25 mg (*)] 25 mg PO HS 12/24/16 [Last Taken 12/23/16] Losartan Potassium [Cozaar 25 mg (*)] 50 mg PO DAILY 12/24/16 [Last Taken ] Clopidogrel 01/18/17 [Last Taken Unknown] Synthroid 01/18/17 [Last Taken Unknown] I have personally reviewed and updated: family history, medical history, social history, surgical history - Past Medical History atrial fibrillation, coronary artery disease, CVA, hypertension, hyperlipidemia - Surgical History Reports: pacemaker/AICD Additional surgical history: tonsillectomy. L4/L5 kyphoplasty. R hip replacement. bilateral carotid endarterectomy - Family History Positive for: non-pertinent - Social History Smoking Status: Former smoker (x 20 years, quit 30 years ago) Alcohol Use: Occasionally (drinks 1-2 glasses of wine nightly) Drug Use: None Additional social history: Patient lives alone, has no children. Originally from [place]. Review of Systems ROS: 10pt was reviewed & negative except for what was stated in HPI & below Physical Exam Temp Pulse Resp BP Pulse Ox 36.7 C 97 17 174/106 H 94 01/23/17 04:30 01/23/17 04:30 01/23/17 04:30 01/23/17 04:30 01/23/17 04:30 Constitutional: no apparent distress, appears nourished, not in pain Eyes: PERRL, anicteric sclera, EOMI Ears, Nose, Mouth, Throat: moist mucous membranes, hearing normal, ears appear normal, no oral mucosal ulcers Cardiovascular: no murmur, rub, or gallop, irregularly irregular, pulses symmetric bilaterally, No JVD, No edema Peripheral Pulses: 2+: dorsalis-pedis (R), dorsalis-pedis (L) Respiratory: no respiratory distress, no rales or rhonchi, clear to auscultation Gastrointestinal: normoactive bowel sounds, soft, non-tender abdomen, no palpable masses, No guarding, No rebound, No distension Genitourinary: no bladder fullness, no bladder tenderness Skin: warm, normal color, no fluctuance, erythema (macular erythematous petechial rash on bilateral lower extremities), No mottled Musculoskeletal: full muscle strength, no muscle tenderness, normal joint ROM, no joint effusions Neurologic: AAOx3, sensation intact bilaterally, CN II-XII Intact, No weakness, No numbness, No facial droop Psychiatric: interacting appropriately, not anxious, not encephalopathic, thought process linear Lab Data & Imaging Review 01/23/17 00:55 01/23/17 00:55 WBC 9.91 10^3/uL (3.80-9.50) H 01/23/17 00:55 RBC 5.02 10^6/uL (4.18-5.33) 01/23/17 00:55 Hgb 16.2 g/dL (12.6-16.3) 01/23/17 00:55 Hct 48.0 % (38.0-47.0) H 01/23/17 00:55 MCV 95.6 fL (81.5-99.8) 01/23/17 00:55 MCH 32.3 pg (27.9-34.1) 01/23/17 00:55 MCHC 33.8 g/dL (32.4-36.7) 01/23/17 00:55 RDW 13.6 % (11.5-15.2) 01/23/17 00:55 Plt Count 243 10^3/uL (150-400) 01/23/17 00:55 MPV 9.7 fL (8.7-11.7) 01/23/17 00:55 Neut % (Auto) 61.9 % (39.3-74.2) 01/23/17 00:55 Lymph % (Auto) 20.3 % (15.0-45.0) 01/23/17 00:55 Rice % (Auto) 7.6 % (4.5-13.0) 01/23/17 00:55 Eos % (Auto) 9.0 % (0.6-7.6) H 01/23/17 00:55 Baso % (Auto) 0.7 % (0.3-1.7) 01/23/17 00:55 Nucleat RBC Rel Count 0.0 % (0.0-0.2) 01/23/17 00:55 Absolute Neuts (auto) 6.14 10^3/uL (1.70-6.50) 01/23/17 00:55 Absolute Lymphs (auto) 2.01 10^3/uL (1.00-3.00) 01/23/17 00:55 Absolute Monos (auto) 0.75 10^3/uL (0.30-0.80) 01/23/17 00:55 Absolute Eos (auto) 0.89 10^3/uL (0.03-0.40) H 01/23/17 00:55 Absolute Basos (auto) 0.07 10^3/uL (0.02-0.10) 01/23/17 00:55 Absolute Nucleated RBC 0.00 10^3/uL (0-0.01) 01/23/17 00:55 Immature Gran % 0.5 % (0.0-1.1) 01/23/17 00:55 Immature Gran # 0.05 10^3/uL (0.00-0.10) 01/23/17 00:55 PT 24.9 SEC (12.0-15.0) H 01/23/17 00:55 INR 2.23 (0.83-1.16) H 01/23/17 00:55 APTT 41.8 SEC (23.0-38.0) H 01/23/17 00:55 Sodium 145 mEq/L (134-144) H 01/23/17 00:55 Potassium 4.4 mEq/L (3.5-5.2) 01/23/17 00:55 Chloride 104 mEq/L (97-110) 01/23/17 00:55 Carbon Dioxide 26 mEq/l (22-31) 01/23/17 00:55 Anion Gap 15 mEq/L (8-16) 01/23/17 00:55 BUN 16 mg/dL (7-23) 01/23/17 00:55 Creatinine 0.9 mg/dL (0.6-1.0) 01/23/17 00:55 Estimated GFR > 60 01/23/17 00:55 Glucose 95 mg/dL (70-100) 01/23/17 00:55 Calcium 10.6 mg/dL (8.5-10.4) H 01/23/17 00:55 Troponin I < 0.012 ng/mL (0-0.034) 01/23/17 00:55 NT-Pro-B Natriuret Pep 760 pg/mL (0-450) H 01/23/17 00:55 Urine Color YELLOW 01/23/17 02:47 Urine Appearance CLEAR 01/23/17 02:47 Urine pH 6.0 (5.0-7.5) 01/23/17 02:47 Ur Specific [place] 1.014 (1.002-1.030) 01/23/17 02:47 Urine Protein 2+ (NEGATIVE) H 01/23/17 02:47 Urine Ketones NEGATIVE (NEGATIVE) 01/23/17 02:47 Urine Blood NEGATIVE (NEGATIVE) 01/23/17 02:47 Urine Nitrate NEGATIVE (NEGATIVE) 01/23/17 02:47 Urine Bilirubin NEGATIVE (NEGATIVE) 01/23/17 02:47 Urine Urobilinogen NEGATIVE EU (0.2-1.0) 01/23/17 02:47 Ur Leukocyte Esterase TRACE (NEGATIVE) H 01/23/17 02:47 Urine RBC 5-10 /hpf (0-3) H 01/23/17 02:47 Urine WBC 1-3 /hpf (0-3) 01/23/17 02:47 Ur Epithelial Cells TRACE /lpf (NONE-1+) 01/23/17 02:47 Ur Culture Indicated? INDICATED (NI) H 01/23/17 02:47 Urine Glucose NEGATIVE (NEGATIVE) 01/23/17 02:47 Digoxin 1.0 ng/mL (0.8-2.0) 01/23/17 00:55 Visualized and Interpreted Chest x-ray results: Yes Chest X-Ray results: no infiltrate, normal Visualized and Interpreted EKG results: Yes EKG additional interpertation: afib with ST depressions in II, V4-V6 (unchanged from prior) Assessment & Plan Assessment: Patient is a 76-year-old female with history of known CAD, atrial fibrillation, hypertension, hyperlipidemia who presents to the ED with complaint of chest pain. ED workup reveals unchanged EKG, negative troponin. Plan: # chest pain She describes substernal, squeezing-type pain. Given pt's positive history of CAD, former smoker and hypertension, cardiac etiology is concerning. Last PCI was in 2014 and patient cannot recall if she's had a stress test since then. Initial EKG is unchanged and troponin is negative. Will trend troponins, monitor EKGs and obtain lexiscan for further evaluation of pain. # lower extremity rash Macular rash of bilateral lower extremities concerning for drug reaction rash. Will hold patient's diltiazem, as she is attributing the rash to this. Consider dermatology consult. # afib HR is stable on today's presentation and INR is therapeutic. Will have to assess if rash is due to diltiazem and likely switch patient to different rate controlling med. # htn BP significantly elevated on presentation, possibly due to acute pain. BP not associated with any focal neurologic findings and improved without intervention. Will continue home antihypertensives. # HLD Cont statin. # dispo: admit under observation status for chest pain evaluation # gen: NPO DVT ppx: on coumadin Full code
[2017-01-23 07:54] LABS: % IMMATURE GRANULYOCYTES 0.2 % (0.0-1.1); ABSOLUTE IMMATURE GRANULOCYTES 0.02 10^3/uL (0.00-0.10); ADD DIFF? NO; ADD MORPH? NO; ADD SCAN? NO; ATYPICAL LYMPHOCYTE FLAG 0 (0-99); FRAGMENT RBC FLAG 0 (0-99); HEMOGLOBIN 13.6 g/dL (12.6-16.3); LEFT SHIFT FLG 0 (0-99); LIPEMIA HEMOLYSIS FLAG 90 (0-99); MEAN CELL VOLUME 97.1 fL (81.5-99.8); MEAN PLATELET VOLUME 9.6 fL (8.7-11.7); PLATELET CLUMPS FLAG 0 (0-99); PLATELET COUNT 193 10^3/uL (150-400); RED BLOOD CELL COUNT 4.12 10^6/uL (4.18-5.33); RED CELL DISTRIBUTION WIDTH 13.3 % (11.5-15.2)
[2017-01-23 08:04] LABS: INR 2.57 (0.83-1.16); PROTIME(PATIENT) 27.9 SEC (12.0-15.0)
[2017-01-23 08:05] LABS: APTT 43.9 SEC (23.0-38.0)
[2017-01-23 08:17] LABS: ANION GAP 9 mEq/L (8-16); CALCIUM 9.4 mg/dL (8.5-10.4); CARBON DIOXIDE 25 mEq/l (22-31); CHLORIDE 107 mEq/L (97-110); CREATININE 0.8 mg/dL (0.6-1.0); GLOMERULAR FILTRATION RATE > 60; GLUCOSE 94 mg/dL (70-100); POTASSIUM 4.3 mEq/L (3.5-5.2); SODIUM 141 mEq/L (134-144)
[2017-01-23 08:23] LABS: TROPONIN I < 0.012 ng/mL (0-0.034)
[2017-01-23] MEDS ORDERED: REGADENOSON 0.4 MG/5 ML SYR IVP ONE (10:02)
--- NOTE | 2017-01-23 11:08 | CPR ---
[f rep st] NONINVASIVE CARDIAC PROCEDURE REPORT PROCEDURE: Lexiscan injection and Lexiscan MPI study. INDICATION FOR PROCEDURE: Patient admitted for chest pressure, history of coronary artery disease, abnormal electrocardiogram. PRE: After obtaining informed consent, ensuring patient's n.p.o. status of caffeine for greater gerri n 12 hours, patient was placed on electrocardiogram. Initial EKG shows atrial fibrillation, leftwar d axis deviation, noted Q-waves in V1 and V2, questioning anterior septal infarction, nonspecific T waves in inferior leads. Patient denies any chest pain, shortness of breath, or symptoms suggesting ischemia. Initial blood pressure of 144/84, saturation 98% on 3 L nasal cannula. INJECTION: Patient was given Lexiscan slow IV push, followed by nuclear isotope. Patient initially reported mild shortness of breath, with elevation of heart rate up to 101 bpm, no significant EKG c hanges with injection. Within 5 minutes symptoms all subsided, blood pressure remained stable. IMPRESSION: A 76-year-old female with history of CAD, hospitalized with chest pressure and abnormal electrocardiogram. MPI study evaluation for ischemia, no significant EKG changes with Lexiscan inj ection, the patient reporting mild shortness of breath postinjection, which subsided within 5 minute s. Vital signs remained stable. The patient will finish post MPI imaging in nuclear medicine at th is time. /[id number]/MODL
[2017-01-23] MEDS: LOSARTAN POTASSIUM 50 MG TAB PO SCH (11:48)
[2017-01-23] MEDS: DILTIAZEM XR 240 MG CAP PO SCH (11:48)
[2017-01-23] MEDS ORDERED: NITROGLYCERIN 0.4 MG BTL SL PRN (12:26)
[2017-01-23] MEDS ORDERED: IPRATROPIUM 0.06% NASAL SPRAY EACHNARE PRN (12:26)
[2017-01-23] MEDS ORDERED: NON-FORMULARY NEW DRUG (Loratadine [Claritin 10 Mg] 10 MG) PO PRN (12:26)
[2017-01-23] MEDS ORDERED: ASPIRIN EC 325 MG TAB PO PRN (12:26)
[2017-01-23] MEDS ORDERED: LORazepam 0.5 MG TAB PO PRN (12:26)
[2017-01-23] MEDS ORDERED: CETIRIZINE 10 MG TAB PO PRN (12:36)
[2017-01-23] MEDS: DIGOXIN 125 MCG TAB PO SCH (12:42)
[2017-01-23] MEDS: CLOPIDOGREL BISULFATE 75 MG TAB PO SCH (12:42)
--- NOTE | 2017-01-23 13:04 | CPEKG ---
Heart Rate: 102 RR Interval: 588 QRSD Interval: 72 QT Interval: 332 QTC Interval: 433 QRS [place]: -29 T Wave [place]: 228 EKG Severity - ABNORMAL ECG - EKG Impression: ATRIAL FIBRILLATION, V-RATE 69-125 EKG Impression: BORDERLINE LEFT AXIS DEVIATION EKG Impression: CONSIDER ANTEROSEPTAL INFARCT EKG Impression: REPOL ABNRM SUGGESTS ISCHEMIA OR DIGITALIS EFFECT, DIFFUSE LEADS EKG Impression: Poor R-wave progression EKG Impression: No significant change from January 23, 2017, 0:56 Electronically Signed By: Todd Chambers 23-Jan-2017 18:22:13
[2017-01-23] MEDS ORDERED: WARFARIN SODIUM 1 MG TAB PO SCH (16:00)
[2017-01-23 16:02] LABS: ALBUMIN 3.7 g/dL (3.5-5.0); BILIRUBIN,TOTAL 1.3 mg/dL (0.1-1.4); BILIRUBIN-CONJUGATED 0.6 mg/dL (0.0-0.5); BILIRUBIN-UNCONJUGATED 0.7 mg/dL (0.0-1.1); TOTAL PROTEIN 6.1 g/dL (6.3-8.2)
--- NOTE | 2017-01-23 16:49 | HOSPPROG ---
Hospitalist Progress Note Assessment/Plan: Patient's chest discomfort has improved significantly, and she has had rule out for TX and no findings of ischemia on her myocardial perfusion imaging with stress. However at this point she is very lightheaded with attempting to ambulate and is not eating well. The cause of her symptoms is not entirely clear. I will continue to observe here over night to see how she progresses with vital signs and symptoms. I have asked for some hepatic enzymes to make sure that this is not potentially related to gallbladder liver. Her vital signs and atrial fibrillation remains stable at this point Objective: Vital Signs Temp Pulse Resp BP Pulse Ox 36.5 C 92 20 138/71 H 92 01/23/17 16:26 01/23/17 16:26 01/23/17 16:26 01/23/17 16:26 01/23/17 16:26 Laboratory Results 01/23/17 07:20 01/23/17 07:20 01/22/17 01/23/17 01/24/17 06:59 06:59 06:59 Intake Total 200 Output Total 50 300 Balance 150 -300 PT 27.9 SEC (12.0-15.0) H 01/23/17 07:20 INR 2.57 (0.83-1.16) H 01/23/17 07:20 ICD10 Worksheet Patient Problems: Problems Problem Status Onset Atrial fibrillation Acute Atrial fibrillation with RVR Acute Brain lesion Acute Chest pain Acute Chronic anticoagulation Acute Coronary atherosclerosis Acute Hyperlipidemia Acute Hypertension Acute MRSA (methicillin resistant Staphylococcus aureus) Acute 08/14/16 Peripheral vascular disease Acute UTI (urinary tract infection) Acute
[2017-01-23] MEDS ORDERED: TEMAZEPAM 15 MG CAP PO PRN (20:49)
[2017-01-23] MEDS ORDERED: LOSARTAN POTASSIUM 25 MG TAB PO SCH (21:00)
[2017-01-23] MEDS ORDERED: ATORVASTATIN CALCIUM 20 MG TAB PO SCH (21:00)
[2017-01-24 05:08] VITALS: RESP 16
[2017-01-24] MEDS ORDERED: LEVOTHYROXINE 75 MCG TAB PO SCH (06:00)
[2017-01-24] MEDS: DIGOXIN 125 MCG TAB PO SCH (08:17)
[2017-01-24] MEDS: LOSARTAN POTASSIUM 50 MG TAB PO SCH (08:17)
[2017-01-24] MEDS: CLOPIDOGREL BISULFATE 75 MG TAB PO SCH (08:17)
[2017-01-24] MEDS: DILTIAZEM XR 240 MG CAP PO SCH ×2 (08:18→09:58)
[2017-01-24] MEDS ORDERED: DILTIAZEM XR 240 MG CAP PO SCH (09:00)
[2017-01-24] MEDS ORDERED: CHOLECALCIFEROL VIT D3 1,000 UNITS TAB PO SCH (09:00)
[2017-01-24] MEDS ORDERED: LOSARTAN POTASSIUM 25 MG TAB PO SCH (09:00)
[2017-01-24] MEDS ORDERED: DILTIAZEM CD 180 MG CAP PO SCH (10:00)
[2017-01-24 13:10] VITALS: BP 157/83; PULSE 67; TEMP 97.4; O2SAT 91
--- NOTE | 2017-01-24 15:12 | PDDCSUM ---
Discharge Summary Discharge Summary: DISCHARGE DIAGNOSES: -chest pain, resolved, uncertain etiology -ruled out for myocardial infarction -no abnormalities on myocardial perfusion imaging with stress -History of coronary artery disease and atrial fibrillation, both appearing stable at this time PROCEDURES: Lexiscan stress test with myocardial perfusion imaging HOSPITAL COURSE SUMMARY: This patient presented to the hospital after chest pain episodes resolved spontaneously. The did not recur during her hospital stay here. Patient has coronary disease better current episode was atypical in that it was in a different location in her previous angina symptoms, and it was prominently a sharp stabbing kind of pain. She had no arrhythmia no heart failure and had stable vital signs. She rule out for myocardial infarction with enzymes and EKGs. She had a Lexiscan stress test with myocardial perfusion imaging with no evidence of ischemia. She is anticoagulated for her AFib with INR in the high 2s and there is no clinical suspicion at this time for PE. Liver enzymes and were normal and abdominal exam was normal. There is no evidence of pneumonia. At this time she is felt stable for discharge to home. She will follow up with her primary care physician and for any recurrence of symptoms. MEDICATION CHANGES: None Greater than 35 minutes bedside and care coordination time today
[2017-01-24] MEDS ORDERED: WARFARIN SODIUM 2 MG TAB PO SCH (16:00)
== END 2017-01-24 16:43 | disposition home or self-care (01) ==
LOC: EDUNIT# → F2W 04:20
PROVIDERS: ADMIT Internal Medicine; ATTEND Internal Medicine
DX: R07.9 Chest pain, unspecified (principal); I48.91 Unspecified atrial fibrillation; I25.10 Atherosclerotic heart disease of native coronary artery without angina pectoris; I10 Essential (primary) hypertension; E78.5 Hyperlipidemia, unspecified; Z95.0 Presence of cardiac pacemaker; Z98.1 Arthrodesis status; Z79.01 Long term (current) use of anticoagulants
CPT/HCPCS: 71010; 78452; 93005; 93017; A9500; G0378; J2785

== ENCOUNTER → 2017-02-08 | Outpatient (CLI) | payer OTHER | LOC: FIMAGING 12:44 | DX: Z12.31 Encounter for screening mammogram for malignant neoplasm of breast (principal) | CPT/HCPCS: G0202 ==

== ENCOUNTER → 2017-03-09 | Outpatient (CLI) | payer OTHER | LOC: BMCIMAGING 16:30 | PROVIDERS: ATTEND Internal Medicine | DX: H57.11 Ocular pain, right eye (principal); S09.90XD Unspecified injury of head, subsequent encounter | CPT/HCPCS: G0463-PO ==

== ENCOUNTER 2017-06-27 11:43 | Observation (INO) | payer OTHER ==
--- NOTE | 2017-06-27 12:16 | CPEKG ---
Heart Rate: 76 RR Interval: 789 QRSD Interval: 80 QT Interval: 348 QTC Interval: 392 QRS [place]: 88 T Wave [place]: 199 EKG Severity - ABNORMAL ECG - EKG Impression: AFIB/FLUT AND V-PACED COMPLEXES EKG Impression: BORDERLINE RIGHT AXIS DEVIATION EKG Impression: NONSPECIFIC REPOL ABNORMALITY, DIFFUSE LEADS Electronically Signed By: Teddy Roberts 27-Jun-2017 16:27:19
--- NOTE | 2017-06-27 13:38 | EDPHY ---
H & P Stated Complaint: l aRM SHOULDER AND NECK PAIN//CARDIAC HX Time Seen by Provider: 06/27/17 13:12 HPI/ROS: CHIEF COMPLAINT: Shoulder pain HISTORY OF PRESENT ILLNESS: 77-year-old female with a history of atrial fibrillation, atrial flutter, coronary artery disease, CABG x3 presenting with left shoulder pain. Patient reports that her left shoulder has been bothering her for up to several months. She initially thought it was related to the power steering in her car and overuse of the shoulder. However, this last week her pain has been worsening and today she developed left shoulder pain with radiation into her neck, down her arm, associated with some shortness of breath. Patient denies any diaphoresis. She denies any trauma to the arm. She denies fevers or chills. She denies anterior chest pain. She denies palpitations, lightheadedness, vomiting, diarrhea, or urinary complaints. She does have a pacemaker placed for her atrial fibrillation /atrial flutter. REVIEW OF SYSTEMS: Aside from elements discussed in the HPI, a comprehensive 10-point review of systems was reviewed and is negative. PAST MEDICAL HISTORY: Atrial fibrillation, atrial flutter, hypertension, pacemaker, O2 dependent at night. TIA in 2008. Coronary artery disease stents x3 placed in 2000. Left hip replacement. Sleep apnea. SOCIAL HISTORY: Nonsmoker. VITAL SIGNS Reviewed by me. GENERAL: Pleasant, elderly female. Appears uncomfortable when needing to use her left arm. Indicates pain is in the left humeral head. HEENT: Atraumatic. Eyes: No icterus, no injection. Mouth: moist mucous membranes. No erythema or lesions. Neck: supple with no adenopathy. No midline tenderness. LUNGS: Clear to auscultation bilaterally, no wheezes, rhonchi or rales. CARDIAC: Irregularly irregular. No murmurs. ABDOMEN: Soft, nontender, nondistended, bowel sounds normal. BACK: No CVA tenderness. EXTREMITIES: No obvious trauma to the left shoulder. Pain with any range of motion at the shoulder. No swelling noted. Neurovascularly intact. NEURO: Alert and oriented, grossly nonfocal. SKIN: Warm and dry, no rash. PSYCHIATRIC: Normal mentation, no agitation. - Personal History Current Tetanus/Diphtheria Vaccine: Yes Tetanus Vaccine Date: UNKNOWN - Medical/Surgical History Hx Asthma: Yes Hx Chronic Respiratory Disease: No Hx Diabetes: No Hx Cardiac Disease: Yes Hx Renal Disease: No Hx Cirrhosis: No Hx Alcoholism: No Hx HIV/AIDS: No Hx Splenectomy or Spleen Trauma: No Other PMH: medical- afib, HTN, HLD, hypothyroid, pacemaker, O2 hs, 2009 TIA. surgical- x3 stents 2000, L 4-5 fusion, R hip replaced, tonsilectomy, tendon transplant, cervical conization, sleep apnea, PVD, TIA, vertigo - Social History Smoking Status: Former smoker Constitutional: Initial Vital Signs Temperature (C) 36.9 C 06/27/17 11:47 Heart Rate 78 06/27/17 11:47 Respiratory Rate 20 06/27/17 11:47 Blood Pressure 131/87 H 06/27/17 11:47 O2 Sat (%) 94 06/27/17 11:47 O2 Delivery Mode Room Air Allergies/Adverse Reactions: diphenhydramine HCl [From Benadryl] Allergy (Mild, Verified 06/27/17 11:45) Anxiety amiodarone Allergy (Verified 06/27/17 11:45) Rash rosuvastatin calcium [From Crestor] Allergy (Verified 06/27/17 11:45) Swelling/ Rash Home Medications: Medication Instructions Recorded Cholecalciferol Vit D3 [Vitamin D3 4,000 units PO DAILY 03/18/13 2000 units] Herbals/Supplements -Info Only 1 each PO AD 03/18/13 LORazepam [Ativan (*)] 0.25 mg PO HS PRN 03/18/13 Nitroglycerin [Nitrostat 0.4 mg 0.4 mg SL PRN PRN 03/18/13 (*)] Digoxin [Lanoxin 0.125 mg] 0.125 mg PO DAILY 10/02/13 Acetaminophen [Tylenol ES 500 mg 500 mg PO DAILY PRN 02/13/14 (*)] Ipratropium 0.06% Nasal [Atrovent 2 sprays EACHNARE BID PRN 02/13/14 0.06% Nasal] Warfarin Sodium [Coumadin 1MG (*)] 1 mg PO TUTHSA@11/12/14 Warfarin Sodium [Coumadin 2MG (*)] 2 mg PO SUMOWEFR@11/12/14 Aspirin EC [Aspirin EC 325 mg (*)] 325 mg PO DAILY PRN 12/24/16 Atorvastatin Calcium [Lipitor 20 20 mg PO HS 12/24/16 mg (*)] Clopidogrel Bisulfate [Plavix (*)] 75 mg PO DAILY 12/24/16 Loratadine [Claritin 10 mg] 10 mg PO DAILY PRN 12/24/16 Losartan Potassium [Cozaar 25 mg 25 mg PO HS 12/24/16 (*)] Losartan Potassium [Cozaar 25 mg 50 mg PO DAILY 12/24/16 (*)] Levothyroxine [Synthroid 75 mcg 75 mcg PO DAILY06 01/23/17 (*)] Diltiazem Cd [Cardizem ER Q24hr] 180 mg PO DAILY #0 cap 01/24/17 Medical Decision Making - Diagnostics EKG Interpretation: 12-LEAD EKG: Please see the full report in [facility] Master. My interpretation: Intermittently paced rhythm, atrial fib fibrillation/atrial flutter. Nonspecific repolarization abnormalities. Possible digitalis effect. Imaging Results: Imaging Impressions Chest X-Ray 06/27/17 13:27 Impression: 1. Stable borderline cardiomegaly. 2. Stable fibrotic changes left base. 3. Arteriosclerotic calcification associated with the thoracic aorta with coronary stents on the left noted. Shoulder X-Ray 06/27/17 13:33 Impression: 1. Mild inferior subluxation of the left humeral head in the glenohumeral joint possibly from shoulder joint effusion. 2. Calcification superior to the humeral head possibly from calcifications and adenosis of the rotator cuff tendon. 3. Mild degenerative osteophytes around the left humeral head. ED Course/Re-evaluation: 77-year-old female with left shoulder pain. Pain has been chronic but worsening for several months. However, today she noticed pain in her shoulder, radiating into her forearm, across her chest, down her arm, into her jaw. Patient's EKG is nonischemic, it is paced and there are some repolarization abnormalities. Troponin is negative. Shoulder x-ray demonstrates subluxation possibly from a joint effusion. Patient is anticoagulated with an INR of 2.3. Her course was discussed with Dr. Allison. He advises follow-up as an outpatient. Patient received morphine 2 mg x2 with good pain relief. Course was discussed with the Dr. Montaño from [facility]. Advised to admit to the hospital for further evaluation of the patient's chest and shoulder discomfort from a cardiac standpoint. Patient is agreeable to this. Differential Diagnosis: After history and physical examination, the differential for patient's presenting complaints was considered, including but not limited to, myocardial ischemia, acute coronary syndrome, pulmonary embolus, chest wall pain, rotator cuff tear, shoulder pathology, joint effusion, septic joint, occult trauma. Consult/Admit Bed Type: Dr. Jerod Lamar, [facility] - Data Points Laboratory Results: Laboratory Results 06/27/17 13:00 06/27/17 13:00 06/27/17 06/27/17 06/27/17 13:00 13: 13:00 WBC 11.77 10^3/uL H 10^3/uL (3.80-9.50) RBC 4.52 10^6/uL 10^6/uL (4.18-5.33) Hgb 14.5 g/dL g/dL (12.6-16.3) Hct 43.0 % % (38.0-47.0) MCV 95.1 fL fL (81.5-99.8) MCH 32.1 pg pg (27.9-34.1) MCHC 33.7 g/dL g/dL (32.4-36.7) RDW 13.4 % % (11.5-15.2) Plt Count 255 10^3/uL 10^3/uL (150-400) MPV 9.9 fL fL (8.7-11.7) Neut % (Auto) 77.9 % H % (39.3-74.2) Lymph % (Auto) 13.6 % L % (15.0-45.0) Woods % (Auto) 6.8 % % (4.5-13.0) Eos % (Auto) 0.7 % % (0.6-7.6) Baso % (Auto) 0.5 % % (0.3-1.7) Nucleat RBC Rel Count 0.0 % % (0.0-0.2) Absolute Neuts (auto) 9.17 10^3/uL H 10^3/uL (1.70-6.50) Absolute Lymphs (auto) 1.60 10^3/uL 10^3/uL (1.00-3.00) Absolute Monos (auto) 0.80 10^3/uL 10^3/uL (0.30-0.80) Absolute Eos (auto) 0.08 10^3/uL 10^3/uL (0.03-0.40) Absolute Basos (auto) 0.06 10^3/uL 10^3/uL (0.02-0.10) Absolute Nucleated RBC 0.00 10^3/uL 10^3/uL (0-0.01) Immature Gran % 0.5 % % (0.0-1.1) Immature Gran # 0.06 10^3/uL 10^3/uL (0.00-0.10) PT 28.4 SEC H SEC (12.0-15.0) INR 2.63 H (0.83-1.16) APTT 42.1 SEC H SEC (23.0-38.0) Sodium 140 mEq/L mEq/L (134-144) Potassium 3.9 mEq/L mEq/L (3.5-5.2) Chloride 103 mEq/L mEq/L (97-110) Carbon Dioxide 21 mEq/l L mEq/l (22-31) Anion Gap 16 mEq/L mEq/L (8-16) BUN 12 mg/dL mg/dL (7-23) Creatinine 0.9 mg/dL mg/dL (0.6-1.0) Estimated GFR > 60 Glucose 133 mg/dL H mg/dL (70-100) Calcium 10.3 mg/dL mg/dL (8.5-10.4) Troponin I < 0.012 ng/mL ng/mL (0.000-0.034) Digoxin 06/27/17 12:20 WBC RBC Hgb Hct MCV MCH MCHC RDW Plt Count MPV Neut % (Auto) Lymph % (Auto) Woods % (Auto) Eos % (Auto) Baso % (Auto) Nucleat RBC Rel Count Absolute Neuts (auto) Absolute Lymphs (auto) Absolute Monos (auto) Absolute Eos (auto) Absolute Basos (auto) Absolute Nucleated RBC Immature Gran % Immature Gran # PT INR APTT Sodium Potassium Chloride Carbon Dioxide Anion Gap BUN Creatinine Estimated GFR Glucose Calcium Troponin I Digoxin 1.4 ng/mL ng/mL (0.8-2.0) Medications Given: Discontinued Medications Morphine Sulfate (Morphine) 2 mg IVP EDNOW ONE Stop: 06/27/17 13:33 Last Admin: 06/27/17 13:50 Dose: 2 mg Morphine Sulfate (Morphine) 2 mg IVP EDNOW ONE Stop: 06/27/17 15:43 Last Admin: 06/27/17 15:50 Dose: 2 mg Departure - Departure Disposition: [facility] Inpatient Acute Clinical Impression: r/o acute coronary syndrome Shoulder pain, left Qualifiers: Chronicity: acute Qualified Code(s): M25.512 - Pain in left shoulder Shoulder subluxation Qualifiers: Encounter type: initial encounter Laterality: left Qualified Code(s): S43.002A - Unspecified subluxation of left shoulder joint, initial encounter Condition: Fair Referrals: Elly Terrell MD [Primary Care Provider] - As per Instructions
[2017-06-27 13:39] LABS: % IMMATURE GRANULYOCYTES 0.5 % (0.0-1.1); ABSOLUTE IMMATURE GRANULOCYTES 0.06 10^3/uL (0.00-0.10); ADD DIFF? NO; ADD MORPH? NO; ADD SCAN? NO; ATYPICAL LYMPHOCYTE FLAG 0 (0-99); FRAGMENT RBC FLAG 0 (0-99); HEMOGLOBIN 14.5 g/dL (12.6-16.3); LEFT SHIFT FLG 0 (0-99); LIPEMIA HEMOLYSIS FLAG 80 (0-99); MEAN CELL HEMOGLOBIN 32.1 pg (27.9-34.1); MEAN CELL HEMOGLOBIN CONCENTR. 33.7 g/dL (32.4-36.7); MEAN CELL VOLUME 95.1 fL (81.5-99.8); MEAN PLATELET VOLUME 9.9 fL (8.7-11.7); PLATELET CLUMPS FLAG 0 (0-99); PLATELET COUNT 255 10^3/uL (150-400); RED BLOOD CELL COUNT 4.52 10^6/uL (4.18-5.33); RED CELL DISTRIBUTION WIDTH 13.4 % (11.5-15.2)
[2017-06-27 13:44] LABS: ANION GAP 16 mEq/L (8-16); CALCIUM 10.3 mg/dL (8.5-10.4); CARBON DIOXIDE 21 mEq/l (22-31); CHLORIDE 103 mEq/L (97-110); CREATININE 0.9 mg/dL (0.6-1.0); GLOMERULAR FILTRATION RATE > 60; GLUCOSE 133 mg/dL (70-100); POTASSIUM 3.9 mEq/L (3.5-5.2); SODIUM 140 mEq/L (134-144)
[2017-06-27 13:49] LABS: APTT 42.1 SEC (23.0-38.0); INR 2.63 (0.83-1.16); PROTIME(PATIENT) 28.4 SEC (12.0-15.0)
[2017-06-27 13:56] LABS: TROPONIN I < 0.012 ng/mL (0.000-0.034)
[2017-06-27] MEDS ORDERED: ONDANSETRON 4 MG/2 ML VIAL IVP PRN (17:39)
[2017-06-27] MEDS ORDERED: ONDANSETRON DISINTEGRATING 4 MG TAB PO PRN (17:39)
[2017-06-27] MEDS ORDERED: ACETAMINOPHEN 500 MG TAB PO PRN (17:41)
[2017-06-27] MEDS ORDERED: ASPIRIN EC 325 MG TAB PO PRN (17:41)
[2017-06-27] MEDS ORDERED: PROPYLENE GLYCOL EACHEYE PRN (17:41)
[2017-06-27] MEDS ORDERED: LORazepam 0.5 MG TAB PO PRN (17:41)
[2017-06-27] MEDS ORDERED: IPRATROPIUM 0.06% NASAL SPRAY EACHNARE PRN (17:41)
[2017-06-27] MEDS ORDERED: WARFARIN SODIUM 2 MG TAB PO SCH (18:30)
[2017-06-27] MEDS ORDERED: WARFARIN SODIUM 1 MG TAB PO SCH (18:30)
--- NOTE | 2017-06-27 18:41 | PDGENHP ---
History and Physical - Chief Complaint left shoulder pain - History of Present Illness 77 yo F with PMH of CAD s/p stents x 3, a fib/sss s/p PPM as well as CVA presenting with several weeks of left shoulder pain that has progressed and for a period today involved her jaw and arm. She has had this pain for quite some time and had arranged to see a PT for this about 4 weeks ago. She thought the pain began because the power steering is out on her car and she has been driving a lot and needs to use a lot of force to turn the wheel. Today she was at an eye doctor visit when she mentioned that the pain was now involving her jaw and her entire left arm. He suggested she discuss this with her PCP, and her PCP recommended she come to the ER. In the ER she was given morphine and the pain has improved significantly as has the mobility in her left arm. She has never had similar issues in the past, including prior to her 3 stents. She has no other associated complaints including no sob, lightheadedness or near syncope, no chest pain, no fever or chills. History Information - Allergies/Home Medication List Allergies/Adverse Reactions: diphenhydramine HCl [From Benadryl] Allergy (Mild, Verified 06/27/17 11:45) Anxiety amiodarone Allergy (Verified 06/27/17 11:45) Rash rosuvastatin calcium [From Crestor] Allergy (Verified 06/27/17 11:45) Swelling/ Rash Home Medications: Cholecalciferol Vit D3 [Vitamin D3 2000 units] 4,000 units PO DAILY 03/18/13 [ Last Taken 1 Week Ago] Herbals/Supplements -Info Only 1 each PO AD 03/18/13 [Last Taken 2 Weeks Ago] LORazepam [Ativan (*)] 0.25 mg PO HS PRN 03/18/13 [Last Taken 4 Days Ago] Nitroglycerin [Nitrostat 0.4 mg (*)] 0.4 mg SL PRN PRN 03/18/13 [Last Taken 08:00] Digoxin [Lanoxin 0.125 mg] 0.125 mg PO DAILY 10/02/13 [Last Taken 06/27/17] Acetaminophen [Tylenol ES 500 mg (*)] 500 mg PO HS PRN 02/13/14 [Last Taken Unknown] Ipratropium 0.06% Nasal [Atrovent 0.06% Nasal] 2 sprays EACHNARE BID PRN [Last Taken 2 Weeks Ago] Warfarin Sodium [Coumadin 1MG (*)] 1 mg PO SUWE@16 11/12/14 [Last Taken 06/24/17 ] Warfarin Sodium [Coumadin 2MG (*)] 2 mg PO MOTUTHFRSA@16 11/12/14 [Last Taken ] Aspirin EC [Aspirin EC 325 mg (*)] 325 mg PO DAILY PRN 12/24/16 [Last Taken 2 Weeks Ago] Atorvastatin Calcium [Lipitor 20 mg (*)] 20 mg PO HS 12/24/16 [Last Taken ] Clopidogrel Bisulfate [Plavix (*)] 75 mg PO DAILY 12/24/16 [Last Taken 06/27/17] Loratadine [Claritin 10 mg] 10 mg PO DAILY PRN 12/24/16 [Last Taken 12/23/16] Losartan Potassium [Cozaar 25 mg (*)] 25 mg PO HS 12/24/16 [Last Taken 06/26/17] Losartan Potassium [Cozaar 25 mg (*)] 50 mg PO DAILY 12/24/16 [Last Taken ] Levothyroxine [Synthroid 75 mcg (*)] 75 mcg PO DAILY06 01/23/17 [Last Taken ] Anthony-3 Fatty Acids [Fish Oil 1000 mg (*)] 1,000 mg PO DAILY 06/27/17 [Last Taken 1 Week Ago] Propylene Glycol [Lubricant Eye Drops] 1 drop EACHEYE QID PRN 06/27/17 [Last Taken Unknown] I have personally reviewed and updated: family history, medical history, social history, surgical history - Past Medical History atrial fibrillation, coronary artery disease, CHF (with preserved EF), CVA, hypertension, hyperlipidemia Additional medical history: MAYITO on nocturnal o2. PVD. hypothyroid - Surgical History Reports: pacemaker/AICD Additional surgical history: tonsillectomy. L4/L5 kyphoplasty. R hip replacement. bilateral carotid endarterectomy - Family History Positive for: non-pertinent - Social History Smoking Status: Former smoker (20 pack years) Alcohol Use: Occasionally Drug Use: None Additional social history: Patient lives alone, has no children. Originally from [place]. Review of Systems ROS: 10pt was reviewed & negative except for what was stated in HPI & below Physical Exam Temp Pulse Resp BP Pulse Ox 36.6 C 81 13 161/93 H 94 06/27/17 17:08 06/27/17 17:08 06/27/17 17:08 06/27/17 17:08 06/27/17 17:08 Constitutional: no apparent distress, appears nourished Eyes: PERRL Ears, Nose, Mouth, Throat: moist mucous membranes, hearing normal Cardiovascular: regular rate and rhythym, no murmur, rub, or gallop, edema ( trace ble edema) Respiratory: no respiratory distress, no rales or rhonchi Gastrointestinal: normoactive bowel sounds, soft, non-tender abdomen Genitourinary: no bladder tenderness Skin: warm, normal color Musculoskeletal: full muscle strength, no muscle tenderness Neurologic: AAOx3 Psychiatric: interacting appropriately, not anxious, not encephalopathic Lab Data & Imaging Review 06/27/17 13:00 06/27/17 13:00 WBC 11.77 10^3/uL (3.80-9.50) H 06/27/17 13:00 RBC 4.52 10^6/uL (4.18-5.33) 06/27/17 13:00 Hgb 14.5 g/dL (12.6-16.3) 06/27/17 13:00 Hct 43.0 % (38.0-47.0) 06/27/17 13:00 MCV 95.1 fL (81.5-99.8) 06/27/17 13:00 MCH 32.1 pg (27.9-34.1) 06/27/17 13:00 MCHC 33.7 g/dL (32.4-36.7) 06/27/17 13:00 RDW 13.4 % (11.5-15.2) 06/27/17 13:00 Plt Count 255 10^3/uL (150-400) 06/27/17 13:00 MPV 9.9 fL (8.7-11.7) 06/27/17 13:00 Neut % (Auto) 77.9 % (39.3-74.2) H 06/27/17 13:00 Lymph % (Auto) 13.6 % (15.0-45.0) L 06/27/17 13:00 Gates % (Auto) 6.8 % (4.5-13.0) 06/27/17 13:00 Eos % (Auto) 0.7 % (0.6-7.6) 06/27/17 13:00 Baso % (Auto) 0.5 % (0.3-1.7) 06/27/17 13:00 Nucleat RBC Rel Count 0.0 % (0.0-0.2) 06/27/17 13:00 Absolute Neuts (auto) 9.17 10^3/uL (1.70-6.50) H 06/27/17 13:00 Absolute Lymphs (auto) 1.60 10^3/uL (1.00-3.00) 06/27/17 13:00 Absolute Monos (auto) 0.80 10^3/uL (0.30-0.80) 06/27/17 13:00 Absolute Eos (auto) 0.08 10^3/uL (0.03-0.40) 06/27/17 13:00 Absolute Basos (auto) 0.06 10^3/uL (0.02-0.10) 06/27/17 13:00 Absolute Nucleated RBC 0.00 10^3/uL (0-0.01) 06/27/17 13:00 Immature Gran % 0.5 % (0.0-1.1) 06/27/17 13:00 Immature Gran # 0.06 10^3/uL (0.00-0.10) 06/27/17 13:00 PT 28.4 SEC (12.0-15.0) H 06/27/17 13:00 INR 2.63 (0.83-1.16) H 06/27/17 13:00 APTT 42.1 SEC (23.0-38.0) H 06/27/17 13:00 Sodium 140 mEq/L (134-144) 06/27/17 13:00 Potassium 3.9 mEq/L (3.5-5.2) 06/27/17 13:00 Chloride 103 mEq/L (97-110) 06/27/17 13:00 Carbon Dioxide 21 mEq/l (22-31) L 06/27/17 13:00 Anion Gap 16 mEq/L (8-16) 06/27/17 13:00 BUN 12 mg/dL (7-23) 06/27/17 13:00 Creatinine 0.9 mg/dL (0.6-1.0) 06/27/17 13:00 Estimated GFR > 60 06/27/17 13:00 Glucose 133 mg/dL (70-100) H 06/27/17 13:00 Calcium 10.3 mg/dL (8.5-10.4) 06/27/17 13:00 Troponin I < 0.012 ng/mL (0.000-0.034) 06/27/17 13:00 Digoxin 1.4 ng/mL (0.8-2.0) 06/27/17 12:20 Visualized and Interpreted Chest x-ray results: Yes Chest X-Ray results: no infiltrate Visualized and Interpreted imaging results: Yes Interpretation: rotator cuff tendon abnormalities Visualized and Interpreted EKG results: Yes EKG additional interpertation: a fib/flutter, diffuse repol abnormality, no sig change from prior Assessment & Plan Assessment: Shoulder pain, left (Acute) Shoulder subluxation (Acute) 77 yo F with hx of CAD, a fib, cva presenting with shoulder pain radiating to jaw # jaw/arm pain: in the setting of more subacute/chronic left shoulder pain as next, does have a significant cardiac history although this is not her typical anginal equivalent. Will monitor on tele with serial trops/ecgs and obtain a stress test in the am so long as trops remain negative. # shoulder pain: this sounds most c/w rotator cuff issues and has been present at least one month or longer, patient has been enrolled in PT. ER discussed case with ortho regional manager who recommend OP f/u. # a fib/flutter: now with PPM as well, ecg showing flutter and st depression in diffuse leads similar to old--? digoxin effect, dig levels wnl, monitoring on tele, rate controlled, continue AC for chads vasc of 5, currently therapeutic; continue digoxin and dilt # chronic diastolic chf: with mild BLE edema and no hypoxia or pulmonary edema # CAD: as above, hx of stenting in the past, continue op meds including asa, plavix, statin # h/o CVA: no residual sxs # MAYITO: continue nocturnal o2 # hypothyroid: continue synthroid # htn: continue losartan/dilt # observation status, will likely dc in am if stress test is unremarkable Patient new to my care. Old records reviewed and summarized as above. Care plan reviewed with ER doctor including plans for r/o ACS.
[2017-06-27] MEDS: ACETAMINOPHEN 325 MG TAB PO PRN ×2 (19:08→23:32)
[2017-06-27] MEDS: ATORVASTATIN CALCIUM 20 MG TAB PO SCH (20:30)
[2017-06-27] MEDS: LOSARTAN POTASSIUM 25 MG TAB PO SCH (20:30)
[2017-06-27] MEDS: oxyCODONE IR 5 MG TAB PO PRN (22:06)
[2017-06-28] MEDS: oxyCODONE IR 5 MG TAB PO PRN ×3 (02:01→12:18)
[2017-06-28] MEDS ORDERED: LEVOTHYROXINE 75 MCG TAB PO SCH (06:00)
--- NOTE | 2017-06-28 08:54 | CPEKG ---
Heart Rate: 117 RR Interval: 513 QRSD Interval: 78 QT Interval: 280 QTC Interval: 391 QRS [place]: -40 T Wave [place]: 187 EKG Severity - ABNORMAL ECG - EKG Impression: ATRIAL FIBRILLATION, V-RATE 82-156 EKG Impression: LEFT ANTERIOR FASCICULAR BLOCK EKG Impression: CONSIDER ANTEROSEPTAL INFARCT EKG Impression: REPOL ABNRM SUGGESTS ISCHEMIA, DIFFUSE LEADS Electronically Signed By: Adebayo Collier 28-Jun-2017 14:25:24
[2017-06-28] MEDS ORDERED: OMEGA-3 FATTY ACIDS 1,000 MG CAP PO SCH (09:00)
[2017-06-28] MEDS ORDERED: DIGOXIN 125 MCG TAB PO SCH (09:00)
[2017-06-28] MEDS ORDERED: CLOPIDOGREL BISULFATE 75 MG TAB PO SCH (09:00)
[2017-06-28] MEDS ORDERED: CHOLECALCIFEROL VIT D3 2,000 UNITS TAB/CAP PO SCH (09:00)
[2017-06-28] MEDS ORDERED: LOSARTAN POTASSIUM 25 MG TAB PO SCH (09:00)
[2017-06-28] MEDS ORDERED: CETIRIZINE 10 MG TAB PO PRN (09:00)
[2017-06-28] MEDS ORDERED: DILTIAZEM CD 180 MG CAP PO SCH (09:00)
[2017-06-28] MEDS ORDERED: REGADENOSON 0.4 MG/5 ML SYR IVP ONE (09:52)
--- NOTE | 2017-06-28 11:20 | CPR ---
[f rep st] NONINVASIVE CARDIAC PROCEDURE REPORT DATE OF PROCEDURE: 06/28/2017 PROCEDURE: Lexiscan nuclear stress test. REASON FOR TEST: 1. Known coronary artery disease with stent placement. 2. Shoulder pain radiating into neck and jaw. Resting EKG shows atrial fibrillation with a rate of 107. Anterior lateral leads show some repolari zation in V6, [address] depression. Resting blood pressure 190/100. Oxygen saturation 88%. STRESS PORTION: Lexiscan was injected followed by saline flush. Cardiolite was then injected, foll owed by saline flush per protocol. She felt slightly lightheaded after the injection. Blood pressu re 140/80. Peak heart rate 113. Oxygen saturation 93%. No EKG changes. RECOVERY: No EKG changes. Blood pressure 178/80, heart rate 97, oxygen saturation 91%. Lightheade dness subsided. At this time, she currently is stable for nuclear imaging. /[id number]/MODL
[2017-06-28 12:24] VITALS: BP 150/84; PULSE 88; RESP 16; TEMP 99.2; O2SAT 91
--- NOTE | 2017-06-28 13:44 | HOSPPROG ---
Hospitalist Progress Note Assessment/Plan: 77 yo F w cad. AF here w shoulder pain ortho injury neg cardiac eval see dc summary Subjective: neg stress Objective: Vital Signs Temp Pulse Resp BP Pulse Ox 37.3 C 88 16 150/84 H 91 L 06/28/17 12:00 06/28/17 12:00 06/28/17 12:00 06/28/17 12:00 06/28/17 12:00 06/27/17 06/28/17 06/29/17 05:59 05:59 05:59 Intake Total 400 120 Output Total 750 300 Balance -350 -180 PT 28.4 SEC (12.0-15.0) H 06/27/17 13:00 INR 2.63 (0.83-1.16) H 06/27/17 13:00 - Physical Exam Constitutional: no apparent distress, appears nourished Eyes: PERRL, anicteric sclera Ears, Nose, Mouth, Throat: moist mucous membranes, hearing normal Cardiovascular: regular rate and rhythym, no murmur, rub, or gallop Respiratory: no respiratory distress, no rales or rhonchi Gastrointestinal: normoactive bowel sounds, soft, non-tender abdomen Genitourinary: no bladder fullness, zarate in urethra Skin: warm Musculoskeletal: other (probable L shoulder efusion w limited abduction) Neurologic: AAOx3 ICD10 Worksheet Patient Problems: Problems Problem Status Onset Shoulder pain, left Acute Shoulder subluxation Acute Atrial fibrillation Acute Atrial fibrillation with RVR Acute Brain lesion Acute Chest pain Acute Chronic anticoagulation Acute Coronary atherosclerosis Acute Hyperlipidemia Acute Hypertension Acute MRSA (methicillin resistant Staphylococcus aureus) Acute 08/14/16 Peripheral vascular disease Acute UTI (urinary tract infection) Acute
--- NOTE | 2017-06-28 13:51 | PDIAF ---
- Diagnosis Diagnosis: shoulder injury Code Status: Full Code - Medication Management Discharge Medications: Medications to Continue on Transfer Cholecalciferol Vit D3 [Vitamin D3 2000 units] 4,000 units PO DAILY 03/18/13 [ Last Taken 1 Week Ago] Herbals/Supplements -Info Only 1 each PO AD 03/18/13 [Last Taken 2 Weeks Ago] LORazepam [Ativan (*)] 0.25 mg PO HS PRN 03/18/13 [Last Taken 4 Days Ago] Nitroglycerin [Nitrostat 0.4 mg (*)] 0.4 mg SL PRN PRN 03/18/13 [Last Taken 08:00] Digoxin [Lanoxin 0.125 mg] 0.125 mg PO DAILY 10/02/13 [Last Taken 06/27/17] Acetaminophen [Tylenol ES 500 mg (*)] 500 mg PO HS PRN 02/13/14 [Last Taken Unknown] Ipratropium 0.06% Nasal [Atrovent 0.06% Nasal] 2 sprays EACHNARE BID PRN [Last Taken 2 Weeks Ago] Warfarin Sodium [Coumadin 1MG (*)] 1 mg PO SUWE@16 11/12/14 [Last Taken 06/24/17 ] Warfarin Sodium [Coumadin 2MG (*)] 2 mg PO MOTUTHFRSA@16 11/12/14 [Last Taken ] Aspirin EC [Aspirin EC 325 mg (*)] 325 mg PO DAILY PRN 12/24/16 [Last Taken 2 Weeks Ago] Atorvastatin Calcium [Lipitor 20 mg (*)] 20 mg PO HS 12/24/16 [Last Taken ] Clopidogrel Bisulfate [Plavix (*)] 75 mg PO DAILY 12/24/16 [Last Taken 06/27/17] Loratadine [Claritin 10 mg] 10 mg PO DAILY PRN 12/24/16 [Last Taken 12/23/16] Losartan Potassium [Cozaar 25 mg (*)] 25 mg PO HS 12/24/16 [Last Taken 06/26/17] Losartan Potassium [Cozaar 25 mg (*)] 50 mg PO DAILY 12/24/16 [Last Taken ] Levothyroxine [Synthroid 75 mcg (*)] 75 mcg PO DAILY06 01/23/17 [Last Taken ] Diltiazem Cd [Cardizem ER Q24hr] 180 mg PO DAILY #0 cap 01/24/17 [Last Taken ] Alexander-3 Fatty Acids [Fish Oil 1000 mg (*)] 1,000 mg PO DAILY 06/27/17 [Last Taken 1 Week Ago] Propylene Glycol [Lubricant Eye Drops] 1 drop EACHEYE QID PRN 06/27/17 [Last Taken Unknown] Ibuprofen [Motrin (*)] 200 mg PO Q8 tab 06/28/17 [Last Taken Unknown] Discharge Medications: Refer to the Discharge Home Medication list for PRN reason. - Orders Services needed: Physical Therapy, Occupational Therapy - Follow Up Care Current Providers and Referrals: Elly Terrell MD [Primary Care Provider] - As per Instructions
[2017-06-28] MEDS ORDERED: IBUPROFEN 200 MG TAB PO SCH (14:00)
--- NOTE | 2017-06-28 14:26 | GDS ---
[f rep st] DISCHARGE SUMMARY DISCHARGE DIAGNOSES: 1. Suspected left rotator cuff tear. 2. History of coronary artery disease. 3. History of atrial fibrillation with pacer. Please see admission history and physical by Dr. Jerod Lamar. The patient presented with left s houlder pain. It sounds like it has been bothering her for a number of weeks. It is not associated with diaphoresis or shortness of breath and then it got abruptly worse. Notably her car's power st eering is broken. She is a 47 kg, 77-year-old female so wrenching on the steering wheel I suspect h as resulted in an orthopedic injury. She had a negative stress test and negative troponins and no events on telemetry other than atrial f ibrillation. She has a small joint effusion that is visible on physical exam. She had a film showing no fracture and displacement of the humeral head, possibly from joint effusion. She is unable to abduct her ar m or does so reluctantly because of pain. I suspect this is a rotator cuff tear, it cannot be prove n with an MRI given her pacemaker. I have had Physical Therapy see her. I have given her a short c ourse of ibuprofen and referred her to Orthopedics. /[id number]/MODL
[2017-06-28] MEDS ORDERED: LIDOCAINE 1% 300 MG/30 ML SDV ONE (15:05)
[2017-06-28] MEDS ORDERED: IOPAMIDOL (ISOVUE 370) 100 ML BTL IV ONE (15:06)
--- NOTE | 2017-06-28 15:46 | ASMTCASEMG ---
Living Arrangements What is your living Answers: Alone arrangement? Who do you live with? Type Of Residence What kind of residence do Answers: House you live in? Discharge Plan Comments Coordination Status Comments Notes: CM was notified that pt is being discharged. Dr. Rojas is recommending that pt has HC, PT/OT set up prior to d/c. CM met w/ pt to discuss dispo planning. Provided pt w/ a list of options for HC. Pt is agreeable to [facility]. Referral faxed over to [facility]. CM f/u with Elsi at [facility]. She will come in to speak to pt about services. HC services will start tomorrow. Date Signed: 06/28/2017 03:45 PM Electronically Signed By:Yoselin Haro
[2017-06-28] MEDS ORDERED: WARFARIN SODIUM 2 MG TAB PO SCH (16:00)
[2017-06-28] MEDS: LOSARTAN POTASSIUM 25 MG TAB PO SCH (17:59)
[2017-06-28] MEDS: ATORVASTATIN CALCIUM 20 MG TAB PO SCH (17:59)
--- NOTE | 2017-06-29 11:33 | ASDISCHSUM ---
Discharge Information Plan Status:Home with Home Health Medically Cleared to Leave:06/28/2017 Discharge Date:06/28/2017 06:20 PM CM D/C Disposition:Home Health Service [facility] D/C Disposition:[id number] Projected Discharge Date:06/28/2017 12:00 AM Transportation at D/C: Discharge Delay Reason: Follow-Up Date:06/29/2017 Discharge Slot: Final Diagnosis: Placement Information Referral Type:*Home Health Care Services Referral ID:[id number] Provider Name:[facility] [place] Address 1:[address] [address] Phone Number: Address 2: Fax Number: City:[place] Selection Factors: State:[place] Patient Contact Information Contact Name:RAFITA Relationship:Sister Address:[address] City:[place] Alternate Phone: State/Zip Code:[place] [address] Email: Financial Information Financial Class: Primary Plan Desc:MEDICARE OUTPATIENT Primary Plan Number:[id number] Secondary Plan Desc: Secondary Plan Number:[id number] Assessment Information [facility] Initial CM Assessment Living Arrangements What is your living Answers: Alone arrangement? Who do you live with? Type Of Residence What kind of residence do Answers: House you live in? Discharge Plan Comments Coordination Status Comments Notes: CM was notified that pt is being discharged. Dr. Rojas is recommending that pt has HC, PT/OT set up prior to d/c. CM met w/ pt to discuss dispo planning. Provided pt w/ a list of options for HC. Pt is agreeable to [facility]. Referral faxed over to [facility]. [place] f/u with Elsi at [facility]. She will come in to speak to pt about services. HC services will start tomorrow. Date Signed: 06/28/2017 03:45 PM Electronically Signed By:Yoselin Haro Intervention Information
== END 2017-06-28 18:20 | disposition home health service (06) ==
LOC: F2W 17:04
PROVIDERS: ADMIT Internal Medicine; ATTEND Internal Medicine
PROC: 3E0U3KZ Introduction of Other Diagnostic Substance into Joints, Percutaneous Approach (ICD-10-PCS; principal; 2017-06-28)
DX: S43.032A Inferior subluxation of left humerus, initial encounter (principal); M25.512 Pain in left shoulder; M75.102 Unspecified rotator cuff tear or rupture of left shoulder, not specified as traumatic; M25.412 Effusion, left shoulder; I25.10 Atherosclerotic heart disease of native coronary artery without angina pectoris; I48.91 Unspecified atrial fibrillation; I48.92 Unspecified atrial flutter; I11.0 Hypertensive heart disease with heart failure; G47.33 Obstructive sleep apnea (adult) (pediatric); E78.5 Hyperlipidemia, unspecified; E03.9 Hypothyroidism, unspecified; I73.9 Peripheral vascular disease, unspecified; I50.32 Chronic diastolic (congestive) heart failure; Z79.01 Long term (current) use of anticoagulants; Z87.891 Personal history of nicotine dependence; Z86.73 Personal history of transient ischemic attack (TIA), and cerebral infarction without residual deficits; Z95.1 Presence of aortocoronary bypass graft; Z95.5 Presence of coronary angioplasty implant and graft; Z95.0 Presence of cardiac pacemaker; Z96.642 Presence of left artificial hip joint; Z98.1 Arthrodesis status
CPT/HCPCS: 23350; 71020; 73030; 73200; 77002; 78452; 93005; 93017; 97161; 97165; A9500; G0378; G8978; G8979; G8980; G8987; G8988; G8989; J2785; Q9967

== ENCOUNTER 2017-07-31 17:12 | Inpatient (IN) | payer OTHER ==
--- NOTE | 2017-07-31 17:42 | CPEKG ---
Heart Rate: 131 RR Interval: 458 QRSD Interval: 74 QT Interval: 276 QTC Interval: 408 QRS [place]: -37 T Wave [place]: 188 EKG Severity - ABNORMAL ECG - EKG Impression: ATRIAL FIBRILLATION, V-RATE 93-153 EKG Impression: CONSIDER ANTEROSEPTAL INFARCT EKG Impression: ST depression laterally Electronically Signed By: Letty Arceo 31-Jul-2017 21:15:34
--- NOTE | 2017-07-31 18:00 | EDPHY ---
H & P Stated Complaint: sob/cough and hx afib Time Seen by Provider: 07/31/17 17:47 HPI/ROS: CHIEF COMPLAINT: Cough, shortness of breath HISTORY OF PRESENT ILLNESS: This patient is an anticoagulated (Warfarin) 77 year old female with history of atrial fibrillation complaining of cough and shortness of breath. Onset of cough one week ago and worsening over the last three days. Last Sunday, approximately one week ago, she had a very heavy nosebleed, and has not felt well since that time. She developed a dry cough and runny nose. Associated chills and occasional wheezes. She has felt increasingly short of breath over the last three days, mostly with exertion but occasionally at rest. She usually uses home oxygen at night but has been using it in the afternoons as well for the last couple days. She had called her primary care physician's office recently to discuss her symptoms, and they recommended she present to the emergency department but she did not feel that was necessary at that time. Today , she was feeling considerably more short of breath so presents for evaluation. She has noted occasional rapid heart rate as well. She denies chest pain or pressure, headache, fever, or other associated symptoms. REVIEW OF SYSTEMS: A 10 point review of systems was performed and is negative with the exception of the elements mentioned in the history of present illness. - Personal History Current Tetanus/Diphtheria Vaccine: Unsure Tetanus Vaccine Date: UNKNOWN - Medical/Surgical History PMH: 1. Atrial fibrillation (pacemaker) 2. Hypertension 3. Hyperlipidemia 4. Hypothyroid 5. Oxygen-dependent at night 6. History of TIA 2008 7. Multiple stents placed 2000 8. L4-5 fusion 9. Right hip replacement 10. Tonsillectomy 11. Sleep apnea, 12. Vertigo 13. Peripheral vascular disease Hx Asthma: Yes Hx Chronic Respiratory Disease: No Hx Diabetes: No Hx Cardiac Disease: Yes Hx Renal Disease: No Hx Cirrhosis: No Hx Alcoholism: No Hx HIV/AIDS: No Hx Splenectomy or Spleen Trauma: No Other PMH: medical- afib, HTN, HLD, hypothyroid, pacemaker, O2 hs, 2009 TIA. surgical- x3 stents 2000, L 4-5 fusion, R hip replaced, tonsilectomy, tendon transplant, cervical conization, sleep apnea, PVD, TIA, vertigo - Social History Smoking Status: Former smoker Additional Social History: Lives in [place]. Retired. Former smoker. - Physical Exam Exam: General Appearance: Alert, pleasant talkative Eyes: Pupils equal and round, no conjunctival pallor or injection ENT, Mouth: Mucous membranes moist Neck: Normal inspection Respiratory: Normal respiratory rate, Rales at bases bilaterally. Cardiovascular: Irregularly irregular tachycardia Gastrointestinal: Abdomen is soft and non-tender Neurological: A&O, nonfocal exam Skin: Warm and dry, no rash Extremities: Nontender, no pedal edema Psychiatric: Mood and affect normal Constitutional: Initial Vital Signs Temperature (C) 36.8 C 07/31/17 17:19 Heart Rate 152 H 07/31/17 17:19 Respiratory Rate 22 H 07/31/17 17:19 Blood Pressure 126/82 H 07/31/17 17:19 O2 Sat (%) 89 L 07/31/17 17:19 O2 Delivery Mode Room Air O2 (L/minute) 1 Allergies/Adverse Reactions: diphenhydramine HCl [From Benadryl] Allergy (Mild, Verified 07/31/17 17:18) Anxiety amiodarone Allergy (Verified 07/31/17 17:18) Rash rosuvastatin calcium [From Crestor] Allergy (Verified 07/31/17 17:18) Swelling/ Rash Home Medications: Medication Instructions Recorded Cholecalciferol Vit D3 [Vitamin D3 4,000 units PO DAILY 03/18/13 2000 units] Herbals/Supplements -Info Only 1 each PO AD 03/18/13 LORazepam [Ativan (*)] 0.25 mg PO HS PRN 03/18/13 Nitroglycerin [Nitrostat 0.4 mg 0.4 mg SL PRN PRN 03/18/13 (*)] Digoxin [Lanoxin 0.125 mg] 0.125 mg PO DAILY 10/02/13 Acetaminophen [Tylenol ES 500 mg 500 mg PO HS PRN 02/13/14 (*)] Ipratropium 0.06% Nasal [Atrovent 2 sprays EACHNARE BID PRN 02/13/14 0.06% Nasal] Warfarin Sodium [Coumadin 1MG (*)] 1 mg PO SUWE@11/12/14 Warfarin Sodium [Coumadin 2MG (*)] 2 mg PO MOTUTHFRSA@11/12/14 Aspirin EC [Aspirin EC 325 mg (*)] 325 mg PO DAILY PRN 12/24/16 Atorvastatin Calcium [Lipitor 20 20 mg PO HS 12/24/16 mg (*)] Clopidogrel Bisulfate [Plavix (*)] 75 mg PO DAILY 12/24/16 Loratadine [Claritin 10 mg] 10 mg PO DAILY PRN 12/24/16 Losartan Potassium [Cozaar 25 mg 25 mg PO HS 12/24/16 (*)] Losartan Potassium [Cozaar 25 mg 50 mg PO DAILY 12/24/16 (*)] Diltiazem Cd [Cardizem ER Q24hr] 180 mg PO DAILY #0 cap 01/24/17 [place]-3 Fatty Acids [Fish Oil 1000 1,000 mg PO DAILY 06/27/17 mg (*)] Ibuprofen [Motrin (*)] 200 mg PO Q8 tab 06/28/17 Azithromycin [Zithromax] 250 mg PO DAILY #5 tab 08/02/17 Fluticasone/Salmeter 250/50Mcg 1 puffs IH BID #1 disk 08/02/17 [Advair 250/50 (*)] Levothyroxine [Synthroid 50 mcg 50 mcg PO DAILY06 #30 tab 08/02/17 (*)] Tiotropium Inhaler [Spiriva 18 mcg IH DAILY #1 mdi 08/02/17 Handihaler] predniSONE 40 mg PO DAILY #6 tablet 08/02/17 Medical Decision Making - Diagnostics EKG Interpretation: EKG interpreted by me reveals atrial fibrillation, ventricular rate 131, Q waves in III + AVF, poor R wave progression, ST depression laterally. Imaging Results: Chest X-Ray 07/31/17 17:51 Impression: Nothing acute identified. No evidence for cardiac decompensation or pneumonia. Imaging: I viewed and interpreted images myself ED Course/Re-evaluation: 77 y/o female with history of atrial fibrillation presents with cough and shortness of breath worsening over the last week. SpO2 83% on room air on my initial evaluation. Exam reveals rales at lung bases bilaterally. Stat EKG reveals atrial fibrillation with RVR. Plan for chest x-ray to rule out pneumonia versus CHF. Plan to administer 10mg IV Diltiazem for rate control followed by Diltiazem drip. Potassium and calcium markedly low on initial labs. Will recheck lab to verify as I presume that this is a laboratory error. Heart rate now in the 90s on a diltiazem drip. Oxygen saturation in the mid 90s on 2 L by nasal cannula. Chest x-ray reveals no evidence of pneumonia. The patient feels better overall. Will admit for atrial fibrillation with RVR. Initial troponin negative and EKG reveals no evidence of ischemia. Will need serial troponins to ensure no evidence of acute coronary syndrome. 20:[address] Rojas, hospitalist. He accepts admission for atrial fibrillation with RVR, hypoxia. Differential Diagnosis: Differential diagnosis includes though it is not limited to pneumonia, pneumothorax, pulmonary embolism, aortic dissection, pericarditis, acute coronary syndrome. - Data Points Laboratory Results: Laboratory Results 08/01/17 04:14 08/01/17 04:14 Microbiology Results: MICROBIOLOGY 07/31/17 19:36 Blood Blood Culture - Preliminary 07/31/17 20:50 Blood Blood Culture - Preliminary Medications Given: Discontinued Medications Albuterol/Ipratropium (Duoneb) 3 ml IH Q6HRS PRN PRN Reason: Short of Breath/Dyspnea Stop: 01/27/18 22:58 Last Admin: 08/01/17 00:00 Dose: 3 ml Atorvastatin Calcium (Lipitor) 20 mg PO HS JALEESA Stop: 01/28/18 20:59 Last Admin: 08/01/17 22:31 Dose: 20 mg Azithromycin (Zithromax) 500 mg PO ONCE ONE PRN Reason: Protocol Stop: 08/01/17 00:16 Last Admin: 08/01/17 00:39 Dose: 500 mg Azithromycin (Zithromax) 250 mg PO DAILY JALEESA PRN Reason: Protocol Stop: 09/01/17 08:59 Last Admin: 08/02/17 09:53 Dose: 250 mg Clopidogrel Bisulfate (Plavix) 75 mg PO DAILY JALEESA Stop: 01/28/18 09:59 Last Admin: 08/02/17 09:53 Dose: 75 mg Digoxin (Lanoxin) 125 mcg PO DAILY JALEESA Stop: 01/28/18 09:59 Last Admin: 08/02/17 09:54 Dose: 125 mcg Diltiazem HCl (Cardizem 25 Mg/5 Ml Vial) 10 mg IVP EDNOW ONE Stop: 07/31/17 18:10 Last Admin: 07/31/17 18:25 Dose: 10 mg Diltiazem HCl (Cardizem Er Q24hr) 180 mg PO DAILY JALEESA Stop: 01/28/18 09:59 Last Admin: 08/02/17 09:53 Dose: 180 mg Diltiazem HCl 125 mg/ Dextrose 125 mls @ 0 mls/hr IV EDNOW ONE; As Directed PRN Reason: Protocol Stop: 07/31/17 18:10 Last Admin: 07/31/17 18:38 Dose: 125 mls Ipratropium [place] (Atrovent Neb) 0.5 mg IH Q6HRS JALEESA Stop: 01/28/18 11:59 Last Admin: 08/02/17 10:30 Dose: 0.5 mg Levothyroxine Sodium (Synthroid) 75 mcg PO DAILY06 JALEESA Stop: 01/28/18 09:59 Last Admin: 08/02/17 06:39 Dose: 75 mcg Losartan Potassium (Cozaar) 25 mg PO HS JALEESA Stop: 01/28/18 20:59 Last Admin: 08/01/17 22:31 Dose: 25 mg Losartan Potassium (Cozaar) 50 mg PO DAILY JALEESA Stop: 01/28/18 09:59 Last Admin: 08/02/17 09:52 Dose: 50 mg Prednisone (Prednisone) 40 mg PO DAILY JALEESA Stop: 08/05/17 08:59 Last Admin: 08/02/17 09:52 Dose: 40 mg Fluticasone/Salmeterol (Advair) 1 puffs IH BID JALEESA Stop: 01/28/18 09:59 Last Admin: 08/02/17 10:30 Dose: Not Given Trazodone HCl (Trazodone) 50 mg PO HS PRN PRN Reason: Sleep/Insomnia Stop: 01/27/18 22:59 Last Admin: 08/01/17 00:10 Dose: 50 mg Warfarin Sodium (Coumadin) 1 mg PO SUWE@16 [facility] Stop: 01/28/18 15:59 Last Admin: 08/01/17 15:50 Dose: 1 mg Departure - Departure Disposition: [facility] Acute Condition: Good Report Scribed for: Letty Arceo Report Scribed by: Shahrzad Sullivan Date of Report: 07/31/17 Time of Report: 17:53 Physician Review and Approval Statement: 07/31/17 17:53 Portions of this note were transcribed by a medical billing clerk. I personally performed a history, physical exam, medical decision making, and confirmed accuracy of information the transcribed note.
[2017-07-31] MEDS ORDERED: DILTIAZEM 125 MG in D5W 125 ML IV ONE (18:09)
[2017-07-31] MEDS ORDERED: DILTIAZEM 25 MG/5 ML VIAL IVP ONE (18:09)
[2017-07-31 19:57] LABS: % IMMATURE GRANULYOCYTES 1.4 % (0.0-1.1); ABSOLUTE IMMATURE GRANULOCYTES 0.21 10^3/uL (0.00-0.10); ADD DIFF? NO; ADD MORPH? NO; ADD SCAN? NO; ATYPICAL LYMPHOCYTE FLAG 0 (0-99); FRAGMENT RBC FLAG 0 (0-99); HEMATOCRIT 30.3 % (38.0-47.0); LEFT SHIFT FLG 30 (0-99); LIPEMIA HEMOLYSIS FLAG 80 (0-99); MEAN CELL HEMOGLOBIN 32.6 pg (27.9-34.1); MEAN CELL VOLUME 98.7 fL (81.5-99.8); MEAN PLATELET VOLUME 9.2 fL (8.7-11.7); PLATELET CLUMPS FLAG 0 (0-99); PLATELET COUNT 168 10^3/uL (150-400); RED BLOOD CELL COUNT 3.07 10^6/uL (4.18-5.33); RED CELL DISTRIBUTION WIDTH 13.1 % (11.5-15.2)
[2017-07-31 20:07] LABS: INR 4.29 (0.83-1.16)
[2017-07-31 20:10] LABS: ANION GAP 6 mEq/L (8-16); CARBON DIOXIDE 16 mEq/l (22-31); CHLORIDE 117 mEq/L (97-110); CREATININE 0.6 mg/dL (0.6-1.0); GLOMERULAR FILTRATION RATE > 60; GLUCOSE 89 mg/dL (70-100); SODIUM 139 mEq/L (134-144)
[2017-07-31 20:20] LABS: CALCIUM 5.2 mg/dL (8.5-10.4); POTASSIUM 2.4 mEq/L (3.5-5.2)
[2017-07-31 20:22] LABS: TROPONIN I < 0.012 ng/mL (0.000-0.034)
[2017-07-31 21:25] LABS: ANION GAP 12 mEq/L (8-16); CALCIUM 9.2 mg/dL (8.5-10.4); CARBON DIOXIDE 17 mEq/l (22-31); CHLORIDE 106 mEq/L (97-110); CREATININE 0.9 mg/dL (0.6-1.0); GLOMERULAR FILTRATION RATE > 60; GLUCOSE 115 mg/dL (70-100); POTASSIUM 4.8 mEq/L (3.5-5.2); SODIUM 135 mEq/L (134-144)
[2017-07-31] MEDS ORDERED: ALBUTEROL 3 ML DEYVIAL IH PRN (22:15)
[2017-07-31] MEDS ORDERED: ACETAMINOPHEN 325 MG TAB PO PRN (22:15)
[2017-07-31] MEDS ORDERED: ONDANSETRON DISINTEGRATING 4 MG TAB PO PRN (22:15)
[2017-07-31] MEDS ORDERED: ONDANSETRON 4 MG/2 ML VIAL IVP PRN (22:15)
[2017-07-31] MEDS ORDERED: DILTIAZEM 125 MG in D5W 125 ML IV SCH (22:30)
[2017-07-31] MEDS ORDERED: IPRATROPIUM/ALBUTEROL 3 ML DEYVIAL IH PRN (22:59)
[2017-07-31] MEDS ORDERED: traZODone 50 MG TAB PO PRN (23:00)
--- NOTE | 2017-07-31 23:52 | PDGENHP ---
History and Physical - Chief Complaint Cough - History of Present Illness 77 yo F w/ AF and CAD presents with several days of cough and shortness of breath. Patient first noticed a dry cough about 4-5 days ago. Since then, she developed shortness of breath and occasional palpitations. She decided to come to the ED when her shortness of breath progressed. She also began to notice wheezing with her cough. She has a ~20 pack year smoking history but quit many years ago. 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 She denies prior diagnosis of respiratory disease and takes no respiratory medications. History Information - Allergies/Home Medication List Allergies/Adverse Reactions: diphenhydramine HCl [From Benadryl] Allergy (Mild, Verified 07/31/17 17:18) Anxiety amiodarone Allergy (Verified 07/31/17 17:18) Rash rosuvastatin calcium [From Crestor] Allergy (Verified 07/31/17 17:18) Swelling/ Rash Home Medications: Cholecalciferol Vit D3 [Vitamin D3 2000 units] 4,000 units PO DAILY 03/18/13 [ Last Taken 1 Week Ago ~06/20/17] Herbals/Supplements -Info Only 1 each PO AD 03/18/13 [Last Taken 2 Weeks Ago ~] LORazepam [Ativan (*)] 0.25 mg PO HS PRN 03/18/13 [Last Taken 4 Days Ago ~] Nitroglycerin [Nitrostat 0.4 mg (*)] 0.4 mg SL PRN PRN 03/18/13 [Last Taken 08:00] Digoxin [Lanoxin 0.125 mg] 0.125 mg PO DAILY 10/02/13 [Last Taken 07/31/17] Acetaminophen [Tylenol ES 500 mg (*)] 500 mg PO HS PRN 02/13/14 [Last Taken 12/15] Ipratropium 0.06% Nasal [Atrovent 0.06% Nasal] 2 sprays EACHNARE BID PRN [Last Taken 2 Weeks Ago ~06/13/17] Warfarin Sodium [Coumadin 1MG (*)] 1 mg PO SUWE@16 01/15/15 [Last Taken 07/30/17 ] Warfarin Sodium [Coumadin 2MG (*)] 2 mg PO S[place]@16 11/12/14 [Last Taken ] Aspirin EC [Aspirin EC 325 mg (*)] 325 mg PO DAILY PRN 12/24/16 [Last Taken 12/15] Atorvastatin Calcium [Lipitor 20 mg (*)] 20 mg PO HS 12/24/16 [Last Taken ] Clopidogrel Bisulfate [Plavix (*)] 75 mg PO DAILY 12/24/16 [Last Taken 07/31/17] Loratadine [Claritin 10 mg] 10 mg PO DAILY PRN 12/24/16 [Last Taken 12/23/16] Losartan Potassium [Cozaar 25 mg (*)] 25 mg PO HS 12/24/16 [Last Taken 07/30/17] Losartan Potassium [Cozaar 25 mg (*)] 50 mg PO DAILY 12/24/16 [Last Taken ] Levothyroxine [Synthroid 75 mcg (*)] 75 mcg PO DAILY06 01/23/17 [Last Taken 01/12] [place]-3 Fatty Acids [Fish Oil 1000 mg (*)] 1,000 mg PO DAILY 06/27/17 [Last Taken 1 Week Ago ~06/20/17] I have personally reviewed and updated: family history, medical history - Past Medical History atrial fibrillation, coronary artery disease, CHF (with preserved EF), CVA, hypertension, hyperlipidemia Additional medical history: MAYITO on nocturnal o2. PVD. hypothyroid - Surgical History Reports: pacemaker/AICD Additional surgical history: tonsillectomy. L4/L5 kyphoplasty. R hip replacement. bilateral carotid endarterectomy - Family History Positive for: non-pertinent - Social History Smoking Status: Former smoker Additional social history: Patient lives alone, has no children. Originally from [place]. Review of Systems Review of Systems: ROS: 10pt was reviewed & negative except for what was stated in HPI & below Physical Exam Physical Exam: Temp Pulse Resp BP Pulse Ox 37.6 C 94 18 131/82 H 92 07/31/17 23:29 07/31/17 23:29 07/31/17 23:29 07/31/17 23:29 07/31/17 23:29 O2 (L/minute) 1 Constitutional: no apparent distress, appears nourished Eyes: PERRL, EOMI Ears, Nose, Mouth, Throat: moist mucous membranes, no oral mucosal ulcers Cardiovascular: no murmur, rub, or gallop, irregularly irregular Respiratory: no respiratory distress, expiratory wheeze Gastrointestinal: normoactive bowel sounds, soft, non-tender abdomen Skin: warm, no rashes or abrasions Musculoskeletal: full muscle strength, no muscle tenderness Neurologic: AAOx3, CN II-XII Intact Lab Data & Imaging Review 07/31/17 19:36 07/31/17 20:39 WBC 15.04 10^3/uL (3.80-9.50) H 07/31/17 19:36 RBC 3.07 10^6/uL (4.18-5.33) L 07/31/17 19:36 Hgb 10.0 g/dL (12.6-16.3) L 07/31/17 19:36 Hct 30.3 % (38.0-47.0) L 07/31/17 19:36 MCV 98.7 fL (81.5-99.8) 07/31/17 19:36 MCH 32.6 pg (27.9-34.1) 07/31/17 19:36 MCHC 33.0 g/dL (32.4-36.7) 07/31/17 19:36 RDW 13.1 % (11.5-15.2) 07/31/17 19:36 Plt Count 168 10^3/uL (150-400) 07/31/17 19:36 MPV 9.2 fL (8.7-11.7) 07/31/17 19:36 Neut % (Auto) 91.1 % (39.3-74.2) H 07/31/17 19:36 Lymph % (Auto) 1.4 % (15.0-45.0) L 07/31/17 19:36 [place] % (Auto) 3.9 % (4.5-13.0) L 07/31/17 19:36 Eos % (Auto) 2.1 % (0.6-7.6) 07/31/17 19:36 Baso % (Auto) 0.1 % (0.3-1.7) L 07/31/17 19:36 Nucleat RBC Rel Count 0.0 % (0.0-0.2) 07/31/17 19:36 Absolute Neuts (auto) 13.70 10^3/uL (1.70-6.50) H 07/31/17 19:36 Absolute Lymphs (auto) 0.21 10^3/uL (1.00-3.00) L 07/31/17 19:36 Absolute Monos (auto) 0.58 10^3/uL (0.30-0.80) 07/31/17 19:36 Absolute Eos (auto) 0.32 10^3/uL (0.03-0.40) 07/31/17 19:36 Absolute Basos (auto) 0.02 10^3/uL (0.02-0.10) 07/31/17 19:36 Absolute Nucleated RBC 0.00 10^3/uL (0-0.01) 07/31/17 19:36 Immature Gran % 1.4 % (0.0-1.1) H 07/31/17 19:36 Immature Gran # 0.21 10^3/uL (0.00-0.10) H 07/31/17 19:36 PT 42.0 SEC (12.0-15.0) H 07/31/17 19:36 INR 4.29 (0.83-1.16) H 07/31/17 19:36 D-Dimer 0.31 ug/mLFEU (0.00-0.50) 07/31/17 19:36 VBG Lactic Acid 0.7 mmol/L (0.7-2.1) 07/31/17 19:36 Sodium 135 mEq/L (134-144) 07/31/17 20:39 Potassium 4.8 mEq/L (3.5-5.2) 07/31/17 20:39 Chloride 106 mEq/L (97-110) D 07/31/17 20:39 Carbon Dioxide 17 mEq/l (22-31) L 07/31/17 20:39 Anion Gap 12 mEq/L (8-16) 07/31/17 20:39 BUN 11 mg/dL (7-23) 07/31/17 20:39 Creatinine 0.9 mg/dL (0.6-1.0) 07/31/17 20:39 Estimated GFR > 60 07/31/17 20:39 Glucose 115 mg/dL (70-100) H 07/31/17 20:39 Calcium 9.2 mg/dL (8.5-10.4) D 07/31/17 20:39 Troponin I < 0.012 ng/mL (0.000-0.034) 07/31/17 19:36 NT-Pro-B Natriuret Pep 984 pg/mL (0-450) H 07/31/17 19:36 Influenza A & B (PCR) NEGATIVE FOR FLU (NEGATIVE) 07/31/17 19:07 Visualized and Interpreted Chest x-ray results: Yes Chest X-Ray results: no infiltrate Visualized and Interpreted EKG results: Yes EKG Interpretation: Positive for: other (Afib w/ RVR) Assessment & Plan Assessment: 77 yo F presenting w/ URI, mild reactive airway exacerbation, and Afib w/ RVR. Plan: 1. Reactive airway exacerbation - Cough x4 days with expiratory wheezing noted on exam, likely triggered by viral URI. I suspect patient has undiagnosed COPD noting 20+ year smoking history. - Azithromycin, prednisone x5 days - Duonebs PRN - Recommend outpatient PFTs 2. Afib w/ RVR - Likely triggered by above. Patient on warfarin, diltiazem, and digoxin as an outpatient. She also has a PPM in place. - Diltiazem gtt started in ED, will continue - Will likely be able to transition back to home meds once acute illness improves 3. Hx CAD - On DAPT and statin as outpatient. 4. HTN - On Losartan and Diltiazem as outpatient. Diet - Regular Code - Full Ppx - warfarin Dispo - Admit to observation status
[2017-08-01] MEDS ORDERED: AZITHROMYCIN 250 MG TAB PO ONE (00:15)
[2017-08-01 05:37] LABS: % IMMATURE GRANULYOCYTES 0.8 % (0.0-1.1); ABSOLUTE IMMATURE GRANULOCYTES 0.13 10^3/uL (0.00-0.10); ADD DIFF? NO; ADD MORPH? NO; ADD SCAN? NO; ATYPICAL LYMPHOCYTE FLAG 0 (0-99); FRAGMENT RBC FLAG 0 (0-99); HEMATOCRIT 35.8 % (38.0-47.0); HEMOGLOBIN 11.7 g/dL (12.6-16.3); LEFT SHIFT FLG 10 (0-99); LIPEMIA HEMOLYSIS FLAG 80 (0-99); MEAN CELL HEMOGLOBIN 32.1 pg (27.9-34.1); MEAN CELL HEMOGLOBIN CONCENTR. 32.7 g/dL (32.4-36.7); MEAN CELL VOLUME 98.4 fL (81.5-99.8); MEAN PLATELET VOLUME 9.4 fL (8.7-11.7); PLATELET CLUMPS FLAG 0 (0-99); PLATELET COUNT 215 10^3/uL (150-400); RED BLOOD CELL COUNT 3.64 10^6/uL (4.18-5.33); RED CELL DISTRIBUTION WIDTH 13.2 % (11.5-15.2)
[2017-08-01 05:50] LABS: ANION GAP 9 mEq/L (8-16); CALCIUM 8.4 mg/dL (8.5-10.4); CARBON DIOXIDE 22 mEq/l (22-31); CHLORIDE 106 mEq/L (97-110); CREATININE 0.8 mg/dL (0.6-1.0); GLOMERULAR FILTRATION RATE > 60; GLUCOSE 87 mg/dL (70-100); MAGNESIUM 1.7 mg/dL (1.6-2.3); POTASSIUM 4.2 mEq/L (3.5-5.2); SODIUM 137 mEq/L (134-144)
[2017-08-01 05:58] LABS: INR 2.49 (0.83-1.16); PROTIME(PATIENT) 27.2 SEC (12.0-15.0)
[2017-08-01 06:58] LABS: PROCALCITONIN 1.23 ng/mL (0.02-0.10)
[2017-08-01] MEDS ORDERED: LORazepam 0.5 MG TAB PO PRN (09:53)
[2017-08-01] MEDS: predniSONE 20 MG TAB PO SCH (10:23)
[2017-08-01] MEDS: CLOPIDOGREL BISULFATE 75 MG TAB PO SCH (10:24)
[2017-08-01] MEDS: LEVOTHYROXINE 75 MCG TAB PO SCH (10:24)
[2017-08-01] MEDS: DILTIAZEM CD 180 MG CAP PO SCH (10:26)
[2017-08-01] MEDS: DIGOXIN 125 MCG TAB PO SCH (10:28)
[2017-08-01] MEDS: LOSARTAN POTASSIUM 25 MG TAB PO SCH (10:28)
[2017-08-01] MEDS: FLUTICASONE/SALMETER 250/50MCG DISKUS IH SCH ×2 (11:34→21:19)
[2017-08-01] MEDS: IPRATROPIUM BROMIDE 0.5 MG/2.5 ML DEYVIAL IH SCH ×3 (11:34→23:57)
--- NOTE | 2017-08-01 15:48 | ASMTCASEMG ---
Living Arrangements What is your living Answers: Alone arrangement? Who do you live with? Type Of Residence What kind of residence do Answers: House you live in? Discharge Plan Comments Coordination Status Comments Notes: Pt is a 77 y/o female admitted w/ atrial fibrillation with RVR and hypoxia. No therapies ordered at this time. Pt will most likely d/c independent when medically stable. CM available for changes. Date Signed: 08/01/2017 03:47 PM Electronically Signed By:RAFFAELE Savage
[2017-08-01] MEDS ORDERED: WARFARIN SODIUM 1 MG TAB PO SCH (16:00)
--- NOTE | 2017-08-01 16:11 | HOSPPROG ---
Hospitalist Progress Note Assessment/Plan: * RAD exacerbation - suspect underlying COPD -still borderline sats on RA -continue prednisone, nebs, azithro -outpatient PFT * Afib with RVR s/p PCM -suspect due to respiratory distress -IV dilt gtt off - monitor on usual home meds -continue warfarin * Possible dementia -cognitive deficits noted by nursing, unclear acuity -ST consult for cognition * Hypothyroidism - TSH over-suppressed -reduce levothyroxine * CAD/stents * PVD s/p bilateral CEA -Plavix, Lipitor * MAYITO - O2 at night Subjective: Perserverating. Hard to tell if she is feeling better. Poor historian Objective: Vital Signs Temp Pulse Resp BP Pulse Ox 36.4 C 76 20 116/76 93 08/01/17 15:30 08/01/17 15:30 08/01/17 15:30 08/01/17 15:30 08/01/17 15:30 Laboratory Results 08/01/17 04:14 08/01/17 04:14 07/31/17 08/01/17 08/02/17 05:59 05:59 05:59 Intake Total 200 240 Balance 200 240 PT 27.2 SEC (12.0-15.0) H D 08/01/17 04:14 INR 2.49 (0.83-1.16) H 08/01/17 04:14 tele reviewed - afib, still a little rapid rate, up to 110 CXR viewed, my personal interpretation is - no infiltrate - Physical Exam Constitutional: no apparent distress, appears nourished, not in pain Cardiovascular: regular rate and rhythym, no murmur, rub, or gallop Respiratory: no respiratory distress, no rales or rhonchi, clear to auscultation Gastrointestinal: normoactive bowel sounds, soft, non-tender abdomen, no palpable masses Skin: no rashes or abrasions, no fluctuance, no induration Neurologic: AAOx3, sensation intact bilaterally Psychiatric: anxious, poor insight, poor memory, No interacting appropriately ICD10 Worksheet Patient Problems: Problems Problem Status Onset Atrial fibrillation Acute Atrial fibrillation with RVR Acute Brain lesion Acute Chest pain Acute Chronic anticoagulation Acute Coronary atherosclerosis Acute Hyperlipidemia Acute Hypertension Acute MRSA (methicillin resistant Staphylococcus aureus) Acute 08/14/16 Peripheral vascular disease Acute Shoulder pain, left Acute Shoulder subluxation Acute UTI (urinary tract infection) Acute
[2017-08-01] MEDS ORDERED: LOSARTAN POTASSIUM 25 MG TAB PO SCH (21:00)
[2017-08-01] MEDS ORDERED: ATORVASTATIN CALCIUM 20 MG TAB PO SCH (21:00)
[2017-08-02 04:50] LABS: ABSOLUTE IMMATURE GRANULOCYTES 0.12 10^3/uL (0.00-0.10); ADD DIFF? NO; ADD MORPH? NO; ADD SCAN? NO; ATYPICAL LYMPHOCYTE FLAG 0 (0-99); FRAGMENT RBC FLAG 0 (0-99); HEMATOCRIT 35.3 % (38.0-47.0); HEMOGLOBIN 11.8 g/dL (12.6-16.3); LEFT SHIFT FLG 0 (0-99); LIPEMIA HEMOLYSIS FLAG 80 (0-99); MEAN CELL HEMOGLOBIN 32.2 pg (27.9-34.1); MEAN CELL HEMOGLOBIN CONCENTR. 33.4 g/dL (32.4-36.7); MEAN CELL VOLUME 96.4 fL (81.5-99.8); MEAN PLATELET VOLUME 9.7 fL (8.7-11.7); PLATELET CLUMPS FLAG 0 (0-99); PLATELET COUNT 239 10^3/uL (150-400); RED BLOOD CELL COUNT 3.66 10^6/uL (4.18-5.33); RED CELL DISTRIBUTION WIDTH 13.1 % (11.5-15.2)
[2017-08-02 04:57] LABS: POTASSIUM 4.3 mEq/L (3.5-5.2)
[2017-08-02 04:59] LABS: INR 2.21 (0.83-1.16); PROTIME(PATIENT) 24.7 SEC (12.0-15.0)
[2017-08-02 05:00] LABS: ANION GAP 11 mEq/L (8-16); CALCIUM 9.6 mg/dL (8.5-10.4); CARBON DIOXIDE 22 mEq/l (22-31); CHLORIDE 103 mEq/L (97-110); CREATININE 0.8 mg/dL (0.6-1.0); GLOMERULAR FILTRATION RATE > 60; GLUCOSE 127 mg/dL (70-100); SODIUM 136 mEq/L (134-144)
[2017-08-02] MEDS: IPRATROPIUM BROMIDE 0.5 MG/2.5 ML DEYVIAL IH SCH ×2 (05:26→10:30)
[2017-08-02] MEDS: LEVOTHYROXINE 75 MCG TAB PO SCH (06:39)
[2017-08-02 08:03] VITALS: BP 142/74; RESP 16; TEMP 97.9; O2SAT 98
[2017-08-02] MEDS ORDERED: AZITHROMYCIN 250 MG TAB PO SCH (09:00)
[2017-08-02] MEDS: LOSARTAN POTASSIUM 25 MG TAB PO SCH (09:52)
[2017-08-02] MEDS: predniSONE 20 MG TAB PO SCH (09:52)
[2017-08-02] MEDS: DILTIAZEM CD 180 MG CAP PO SCH (09:53)
[2017-08-02] MEDS: CLOPIDOGREL BISULFATE 75 MG TAB PO SCH (09:53)
[2017-08-02] MEDS: DIGOXIN 125 MCG TAB PO SCH (09:54)
[2017-08-02 09:57] VITALS: PULSE 89
--- NOTE | 2017-08-02 10:12 | PDMN ---
Medical Necessity Medical necessity: change to IP; los>2mn for RAD exacerbatopm rt COPD with borderline sats, , aifb with rvr; comorbid dementia, hypothyroidism, CAD/ stents , PVD, and MAYITO; per progress note 08/01/17
[2017-08-02] MEDS: FLUTICASONE/SALMETER 250/50MCG DISKUS IH SCH (10:30)
[2017-08-02] MEDS ORDERED: WARFARIN SODIUM 2 MG TAB PO SCH (16:00)
--- NOTE | 2017-08-02 19:12 | GDS ---
[f rep st] DISCHARGE SUMMARY DISCHARGE DIAGNOSES: 1. Reactive airways disease exacerbation. Possible underlying chronic obstructive pulmonary disease . 2. Atrial fibrillation with rapid ventricular response. 3. Previous pacemaker. 4. Hypothyroidism with oversuppression of thyroid-stimulating hormone. 5. Coronary artery disease, status post previous stents. 6. Peripheral vascular disease status post previous bilateral carotid endarterectomies. 7. Obstructive sleep apnea on oxygen at night. HISTORY: The patient is a 77-year-old female who presented with hypoxia, shortness of breath, and wh eezing consistent with a reactive airways disease exacerbation. The suspicion is that she actually h as underlying COPD. She was treated with prednisone, nebulizers, and azithromycin, and did improve a nd was able to wean off oxygen prior to discharge. Recommendations for outpatient PFT for formal maximiliano gnosis. 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 She also presented in rapid atrial fibrillation, which we suspected was due to her respiratory distre ss. Once her respiratory status stabilized, she remained with good rate control on her usual medicat ions. She remained anticoagulated on her usual warfarin. Incidentally noted was an oversuppressed T SH and her thyroid dose was reduced. DISCHARGE MEDICATIONS: Please see computerized record for full detailed list. NEW MEDICATIONS: 1. Prednisone 40 mg p.o. daily for 3 more days. 2. Azithromycin 250 mg p.o. daily for 5 more days. 3. Advair 250/50 one puff b.i.d.. 4. Synthroid reduced to 50 mcg p.o. daily. 5. Spiriva 1 puff daily. ADDITIONAL DISCHARGE INSTRUCTIONS: 1. Recheck TSH in 6 weeks. 2. Outpatient PFTs to evaluate for possible COPD. 3. Follow up with primary care. Greater than 30 minutes' time was spent arranging this discharge. Patient was seen and examined by joellen seo on date of discharge. /[id number]/MODL
--- NOTE | 2017-08-03 12:45 | ASDISCHSUM ---
Discharge Information Plan Status:Home with No Needs Medically Cleared to Leave:08/02/2017 Discharge Date:08/02/2017 12:12 PM CM D/C Disposition: ADT D/C Disposition:Home, Routine, Self-Care Projected Discharge Date:08/02/2017 12:00 AM Transportation at D/C: Discharge Delay Reason: Follow-Up Date:08/02/2017 12:00 AM Discharge Slot: Final Diagnosis: Placement Information Patient Contact Information Contact Name:RAFITA Relationship:Sister Address:[address] [place] [address] City:[place] Alternate Phone: State/[facility] Code:[place] [id number] Email: Financial Information Financial Class: Primary Plan Desc:MEDICARE INPATIENT Primary Plan Number:[id number] Secondary Plan Desc:CLARY Secondary Plan Number:[id number] Assessment Information [facility] Initial CM Assessment Living Arrangements What is your living Answers: Alone arrangement? Who do you live with? Type Of Residence What kind of residence do Answers: House you live in? Discharge Plan Comments Coordination Status Comments Notes: Pt is a 77 y/o female admitted w/ atrial fibrillation with RVR and hypoxia. No therapies ordered at this time. Pt will most likely d/c independent when medically stable. CM available for changes. Date Signed: 08/01/2017 03:47 PM Electronically Signed By:RAFFAELE Savage Intervention Information Intervention Type:*COBOS-Signed Date of Service:08/01/2017 09:22 AM Patient Type:Observation Staff Member:Rhoda Quintero Hours: Discipline: Severity: Comment: Intervention Type:*Darrion 72 Date of Service:08/02/2017 05:12 PM Patient Type:Inpatient Staff Member:IRMA Herrmann Susan Hours: Discipline: Severity: Comment:
== END 2017-08-02 12:12 | disposition home or self-care (01) | DRG 192 ==
LOC: F2W 22:39 → OBSVTOIN 08-01 16:06
PROVIDERS: ADMIT Internal Medicine; ATTEND Internal Medicine
DX: J44.1 Chronic obstructive pulmonary disease with (acute) exacerbation (principal); I48.91 Unspecified atrial fibrillation; I25.10 Atherosclerotic heart disease of native coronary artery without angina pectoris; G47.33 Obstructive sleep apnea (adult) (pediatric); F03.90 Unspecified dementia, unspecified severity, without behavioral disturbance, psychotic disturbance, mood disturbance, and anxiety; E03.9 Hypothyroidism, unspecified; I11.0 Hypertensive heart disease with heart failure; I50.9 Heart failure, unspecified; E78.5 Hyperlipidemia, unspecified; Z79.01 Long term (current) use of anticoagulants; Z95.5 Presence of coronary angioplasty implant and graft; Z98.1 Arthrodesis status; Z95.810 Presence of automatic (implantable) cardiac defibrillator; Z87.891 Personal history of nicotine dependence; Z96.641 Presence of right artificial hip joint; Z77.22 Contact with and (suspected) exposure to environmental tobacco smoke (acute) (chronic); Z86.73 Personal history of transient ischemic attack (TIA), and cerebral infarction without residual deficits
CPT/HCPCS: 92523-GN; 97165-GO; G0378; G8987-GO-CI; G8988-GO-CI; G8989-GO-CI

== ENCOUNTER → 2017-09-19 | Outpatient (CLI) | payer OTHER | LOC: FIMAGING 13:35 | PROVIDERS: ATTEND Internal Medicine | DX: M70.21 Olecranon bursitis, right elbow (principal); S10.83XA Contusion of other specified part of neck, initial encounter; Z79.01 Long term (current) use of anticoagulants ==

== ENCOUNTER 2017-12-19 17:05 | Inpatient (IN) | payer OTHER ==
--- NOTE | 2017-12-19 17:16 | CPEKG ---
Heart Rate: 111 RR Interval: 541 QRSD Interval: 78 QT Interval: 312 QTC Interval: 424 QRS [place]: -27 T Wave [place]: 189 EKG Severity - ABNORMAL ECG - EKG Impression: ATRIAL FIBRILLATION, V-RATE 66-143 EKG Impression: BORDERLINE LEFT AXIS DEVIATION EKG Impression: REPOL ABNRM SUGGESTS ISCHEMIA, DIFFUSE LEADS Electronically Signed By: Todd Kinsey 19-Dec-2017 18:56:14
--- NOTE | 2017-12-19 17:29 | EDPHY ---
H & P Time Seen by Provider: 12/19/17 17:08 HPI/ROS: Chief complaint. Rapid atrial fibrillation and hypertension HPI. 77-year-old female here by EMS. Saw her orthopedist today because of left shoulder pain that has been bothering her for several months. However at the orthopedist's office she was low lightheaded and somewhat weak and short of breath. She felt that her atrial fibrillation was much faster today than usual. She has some heaviness in her chest and pain in her left elbow as well as her left shoulder. No fever cough. Again slight shortness of breath. She is in chronic atrial fibrillation. ROS Constitutional. no fever/chills, no weakness Eyes. no problems with vision ENT. no sore throat, no nasal drainage Cardiovascular. Chest heaviness Respiratory. Shortness of breath Abdominal. no abdominal pain, no nausea/vomiting, no diarrhea . no problems urinating MS. Left shoulder pain Skin. no rash Lymph. no swollen glands Neuro. no headache, no dizziness, no difficulty walking or with speech Past Medical/Surgical History: Past medical history is significant for atrial fibrillation, coronary artery disease with stent, congestive heart failure, CVA, hypertension, dyslipidemia, peripheral vascular disease, hypothyroid, pacemaker, kyphoplasty, right hip replacement, bilateral carotid endarterectomy Social History: Single, lives alone, nonsmoker, no alcohol Smoking Status: Former smoker Physical Exam: General Appearance: Alert well-developed female moderate distress vital signs show heart rate 108 and initial blood pressure 210/121 Eyes: Pupils equal and round no pallor or injection. ENT, Mouth: Mucous membranes are moist. Respiratory: There are no retractions, lungs are clear to auscultation. Cardiovascular: Irregularly irregular rate and rhythm Gastrointestinal: Abdomen is soft and nontender, no masses, bowel sounds normal. Neurological: Awake and alert, sensory and motor exams grossly normal. Skin: Warm and dry, no rashes. Musculoskeletal: Neck is supple nontender. Extremities pain left shoulder with decreased range of motion Psychiatric: Patient is oriented X 3, there is no agitation. Constitutional: Initial Vital Signs Temperature (C) 36.6 C 12/19/17 17:05 Heart Rate 108 H 12/19/17 17:05 Respiratory Rate 16 12/19/17 17:05 Blood Pressure 210/121 H 12/19/17 17:05 O2 Sat (%) 95 12/19/17 17:05 O2 Delivery Mode Room Air Allergies/Adverse Reactions: diphenhydramine HCl [From Benadryl] Allergy (Mild, Verified 12/19/17 17:16) Anxiety amiodarone Allergy (Verified 12/19/17 17:16) Rash rosuvastatin calcium [From Crestor] Allergy (Verified 12/19/17 17:16) Swelling/ Rash Home Medications: Medication Instructions Recorded Cholecalciferol Vit D3 [Vitamin D3 4,000 units PO DAILY 03/18/13 2000 units] Herbals/Supplements -Info Only 1 each PO AD 03/18/13 Nitroglycerin [Nitrostat 0.4 mg 0.4 mg SL PRN PRN 03/18/13 (*)] Digoxin [Lanoxin 0.125 mg] 0.125 mg PO DAILY 10/02/13 Acetaminophen [Tylenol ES 500 mg 500 mg PO HS PRN 02/13/14 (*)] Warfarin Sodium [Coumadin 1MG (*)] 1 mg PO SUWE@16 11/12/14 Warfarin Sodium [Coumadin 2MG (*)] 2 mg PO MOTUTHFRSA@16 11/12/14 Aspirin EC [Aspirin EC 325 mg (*)] 325 mg PO DAILY PRN 12/24/16 Atorvastatin Calcium [Lipitor 20 20 mg PO HS 12/24/16 mg (*)] Clopidogrel Bisulfate [Plavix (*)] 75 mg PO DAILY 12/24/16 Loratadine [Claritin 10 mg] 10 mg PO DAILY PRN 12/24/16 Losartan Potassium [Cozaar 25 mg 25 mg PO HS 12/24/16 (*)] Losartan Potassium [Cozaar 25 mg 50 mg PO DAILY 12/24/16 (*)] Diltiazem Cd [Cardizem ER Q24hr] 180 mg PO DAILY #0 cap 01/24/17 Levothyroxine [Synthroid 75 mcg 75 mcg PO DAILY06 12/19/17 (*)] Medical Decision Making - Diagnostics EKG Interpretation: EKG interpreted by me shows atrial fibrillation with left axis deviation there is inferior lateral assess ST depression suggestive of ischemia. Ventricular response is 111 Imaging Results: Imaging Impressions Chest X-Ray 12/19/17 17:29 Impression: 1. Mild cardiomegaly and atherosclerotic tortuous aorta. 2. Pacemaker without pneumothorax. 3. Calcified granulomata left upper lobe. 4. Inferior left shoulder dislocation. 5. No definite pneumonia or pulmonary edema. Chest x-ray shows no evidence of pneumonia. There is a pacemaker present; evidence of inferior left shoulder dislocation Post reduction shoulder x-ray shows continued inferior dislocation/subluxation Procedures: IV normal saline, monitor. Diltiazem bolus and drip Procedure: Conscious sedation. Indication: Shoulder dislocation I performed the sedation and procedure The patient is an appropriate candidate to tolerate procedural sedation. The patient's vital signs and mental status are appropriate. The risks, benefits and alternatives of the sedation were discussed with the patient. The patient is ASA classification 2. The patient' s Mallampati airway score was 1 and the patient did meet the 3-3-2 airway measurements. A time out was completed. The patient was sedated with fentanyl the 100 mcg IV, propofol 20 mg IV. The patient was monitored with continuous pulse oximetry, site monitor and end tidal CO2. There were no complications and no significant hypoxemia. I performed both the sedation and the procedure. The total time I spent at the bedside during the procedural sedation was 20 minutes. The patient was examined after the procedural sedation and has returned to their pre-sedation baseline with normal vital signs and a normal examination. ED Course/Re-evaluation: Re-evaluation 6:20 p.m.. Heart rate is 108 and blood pressure 186/117 Good results from the diltiazem bolus and drip. Serial exams patient does not have chest discomfort and feels better. I consulted discussed case with Dr. Rojas, hospitalist, who agrees to the admission I consulted and discussed case with Dr. Kaylee CANTOR who will see the patient in consultation tomorrow for her shoulder dislocation Differential Diagnosis: Patient has an exacerbation of her chronic atrial fibrillation. She was significantly hypertensive with fast ventricular response to the atrial fibrillation. She also has a shoulder dislocation that has been likely dislocated for 2 months. I was unable to relocate it. Critical Care Time: Critical care time exclusive procedures 50 min - Data Points Laboratory Results: Laboratory Results 12/19/17 17:09 12/19/17 17:09 12/19/17 12/19/17 12/19/17 17:09 17:09 17: WBC 15.15 10^3/uL H 10^3/uL (3.80-9.50) RBC 4.88 10^6/uL 10^6/uL (4.18-5.33) Hgb 15.4 g/dL g/dL (12.6-16.3) Hct 45.4 % % (38.0-47.0) MCV 93.0 fL fL (81.5-99.8) MCH 31.6 pg pg (27.9-34.1) MCHC 33.9 g/dL g/dL (32.4-36.7) RDW 13.5 % % (11.5-15.2) Plt Count 246 10^3/uL 10^3/uL (150-400) MPV 9.5 fL fL (8.7-11.7) Neut % (Auto) 91.0 % H % (39.3-74.2) Lymph % (Auto) 4.5 % L % (15.0-45.0) Norman % (Auto) 3.8 % L % (4.5-13.0) Eos % (Auto) 0.0 % L % (0.6-7.6) Baso % (Auto) 0.2 % L % (0.3-1.7) Nucleat RBC Rel Count 0.0 % % (0.0-0.2) Absolute Neuts (auto) 13.79 10^3/uL H 10^3/uL (1.70-6.50) Absolute Lymphs (auto) 0.68 10^3/uL L 10^3/uL (1.00-3.00) Absolute Monos (auto) 0.57 10^3/uL 10^3/uL (0.30-0.80) Absolute Eos (auto) 0.00 10^3/uL L 10^3/uL (0.03-0.40) Absolute Basos (auto) 0.03 10^3/uL 10^3/uL (0.02-0.10) Absolute Nucleated RBC 0.00 10^3/uL 10^3/uL (0-0.01) Immature Gran % 0.5 % % (0.0-1.1) Immature Gran # 0.08 10^3/uL 10^3/uL (0.00-0.10) PT 33.5 SEC H SEC (12.0-15.0) INR 3.32 H (0.83-1.16) APTT 48.9 SEC H SEC (23.0-38.0) Sodium 138 mEq/L mEq/L (135-145) Potassium 4.0 mEq/L mEq/L (3.5-5.2) Chloride 100 mEq/L mEq/L (97-110) Carbon Dioxide 19 mEq/l L mEq/l (22-31) Anion Gap 19 mEq/L H mEq/L (8-16) BUN 11 mg/dL mg/dL (7-23) Creatinine 0.8 mg/dL mg/dL (0.6-1.0) Estimated GFR > 60 Glucose 156 mg/dL H mg/dL (70-100) Calcium 10.4 mg/dL mg/dL (8.5-10.4) Troponin I < 0.012 ng/mL ng/mL (0.000-0.034) NT-Pro-B Natriuret Pep 802 pg/mL H pg/mL (0-450) Medications Given: Discontinued Medications Diltiazem HCl (Cardizem 25 Mg/5 Ml Vial) 20 mg IVP EDNOW ONE Stop: 12/19/17 17:42 Last Admin: 12/19/17 18:11 Dose: 20 mg Fentanyl (Sublimaze) 100 mcg IVP EDNOW ONE Stop: 12/19/17 18:31 Last Admin: 12/19/17 18:54 Dose: 100 mcg Diltiazem HCl 125 mg/ Dextrose 125 mls @ 0 mls/hr IV EDNOW ONE; As Directed PRN Reason: Protocol Stop: 12/19/17 17:42 Last Admin: 12/19/17 18:26 Dose: 125 mls Propofol (Diprivan) 20 mg IVP EDNOW ONE Stop: 12/19/17 20:17 Last Admin: 12/19/17 20:08 Dose: 20 mg Departure - Departure Disposition: [facility] Inpatient Acute Clinical Impression: Atrial fibrillation with RVR Chest pain Qualifiers: Chest pain type: unspecified Qualified Code(s): R07.9 - Chest pain, unspecified Dislocation of left shoulder joint Qualifiers: Encounter type: initial encounter Qualified Code(s): S43.005A - Unspecified dislocation of left shoulder joint, initial encounter Condition: Fair
[2017-12-19 17:35] LABS: PLATELET COUNT 246 10^3/uL (150-400)
[2017-12-19] MEDS ORDERED: DILTIAZEM 25 MG/5 ML VIAL IVP ONE (17:41)
[2017-12-19] MEDS ORDERED: DILTIAZEM 125 MG in D5W 125 ML IV ONE (17:41)
[2017-12-19 17:43] LABS: INR 3.32 (0.83-1.16); PROTIME(PATIENT) 33.5 SEC (12.0-15.0)
[2017-12-19] MEDS ORDERED: fentaNYL 100 MCG/2 ML INJ IVP ONE (18:30)
[2017-12-19] MEDS ORDERED: PROPOFOL 200 MG/20 ML VIAL ONE (20:01)
[2017-12-19] MEDS ORDERED: PROPOFOL 200 MG/20 ML VIAL IVP ONE (20:16)
[2017-12-19] MEDS ORDERED: ACETAMINOPHEN 500 MG TAB PO PRN (21:37)
[2017-12-19] MEDS ORDERED: NITROGLYCERIN 0.4 MG BTL SL PRN (21:37)
[2017-12-19] MEDS ORDERED: ASPIRIN EC 325 MG TAB PO PRN (21:37)
[2017-12-19] MEDS ORDERED: ONDANSETRON 4 MG/2 ML VIAL IVP PRN (21:39)
[2017-12-19] MEDS ORDERED: ONDANSETRON DISINTEGRATING 4 MG TAB PO PRN (21:39)
--- NOTE | 2017-12-19 22:12 | GHP ---
[f rep st] HISTORY AND PHYSICAL DATE OF ADMISSION: 12/19/2017 HISTORY OF PRESENT ILLNESS: The patient is a pleasant 77-year-old female with history of atrial fibr illation and left shoulder pain with rotator cuff tear. She has had increasing pain. She was first diagnosed with this over the summer. She was admitted for similar symptoms. She had a negative stre ss test at that time. She had an extremity CT that confirms full-thickness tear of the distal supras pinatus tendon. She comes in today after going to see Dr. Jean-Paul Allison of Orthopedics for further manage ment. She was also complaining of some pain in her neck, and she knows that her atrial fibrillation was a bit faster, and so she was referred to the emergency department. In the emergency department, she was found to have inferior left shoulder dislocation. Attempts at reduction were unsuccessful. Because of her rapid atrial fibrillation and chest-neck symptoms, she was admitted for further evalua tion. When I speak with her, she describes symptoms in her left shoulder and neck that are mostly attributa ble to the pain in her shoulder. She has not had PND, orthopnea, or lower extremity edema. As I men tioned, she had negative stress test just 6 months ago. REVIEW OF SYSTEMS: Complete 10-point review of systems conducted and negative except as noted in the HPI. PAST MEDICAL HISTORY: 1. Atrial fibrillation. 2. Hypothyroidism. 3. Hypertension. 4. Left rotator cuff tear. 5. Coronary disease, CHF with preserved EF. 6. CVA. 7. Hypertension. 8. Hyperlipidemia. 9. MAYITO on nocturnal oxygen. ALLERGIES: Benadryl, amiodarone, rosuvastatin. BODY AFTER ALLERGIES: HOME MEDICATIONS: Digoxin, aspirin, atorvastatin, vitamin D3, clopidogrel, diltiazem, levothyroxine, loratadine, losartan, nitroglycerin, warfarin. SOCIAL HISTORY: She lives alone. Nonsmoker. Nondrinker. FAMILY HISTORY: Parents . PHYSICAL EXAMINATION: VITAL SIGNS: Blood pressure 186/91, pulse 84, breathing 15 times a minute, 92 % on room air. GENERAL: No acute distress. HEENT: Sclerae anicteric. Oropharynx clear. Mucous m embranes moist. NECK: Supple without lymphadenopathy or JVD. LUNGS: Clear to auscultation bilater ally. HEART: S1, S2. Irregularly irregular. ABDOMEN: Soft, nontender, nondistended. EXTREMITIES : Her left upper extremity is neurovascularly intact. There is sagging of the humeral head with vis ible deformity of her shoulder. NEUROLOGIC: Nonfocal. SKIN: Without rash. DATA REVIEWED: White count 15, hematocrit 45, platelets 246,000. INR is 3.3. Sodium 138, potassium 4.0, chloride 100, bicarb 19, BUN 11, creatinine 0.8. Troponin less than 0.012. BNP is 802 which i s lower than her baseline. Chest x-ray shows no acute cardiopulmonary disease, inferior dislocation of the shoulder, pacemaker. EKG interpreted by me. AFib at 111 with left axis deviation, T-wave inversion. Compared with prior EKGs, the AFib is not new, nor are the T-wave inversions. I discussed the case Dr. Todd Kinsey. ASSESSMENT AND PLAN: A 77-year-old female with shoulder dislocation, atrial fibrillation. 1. Atrial fibrillation. She appears to be at her baseline. She is on a diltiazem drip now. I have instructed the nurse to wean it off, tolerate rates of about 110 or less. Continue her norma agents . 2. Chest-arm symptoms. She has a negative stress test for similar symptoms. She had negative tropo yifan, nonischemic EKG, so we will go ahead and hold the workup there. 3. Shoulder dislocation. The patient has a known rotator cuff repair. I suspect secondary to that Orthopedics has been consulted and will see her. Bedside reduction has failed. 4. Hypothyroidism. She had a TSH in July that was slightly low at 0.088. We will repeat that. 5. Prophylaxis. Therapeutically anticoagulated. Check her INR in the morning. DISPOSITION: Observation status. /[id number]/MODL
[2017-12-19] MEDS: LOSARTAN POTASSIUM 25 MG TAB PO SCH (23:02)
[2017-12-19] MEDS: ATORVASTATIN CALCIUM 20 MG TAB PO SCH (23:02)
[2017-12-20 04:47] LABS: INR 3.53 (0.83-1.16); PROTIME(PATIENT) 35.1 SEC (12.0-15.0)
[2017-12-20] MEDS ORDERED: LEVOTHYROXINE 75 MCG TAB PO SCH ×2 (06:00→09:49)
[2017-12-20] MEDS: CETIRIZINE 10 MG TAB PO SCH (08:48)
[2017-12-20] MEDS: CLOPIDOGREL BISULFATE 75 MG TAB PO SCH (08:48)
[2017-12-20] MEDS: DIGOXIN 125 MCG TAB PO SCH (08:50)
[2017-12-20] MEDS: LOSARTAN POTASSIUM 25 MG TAB PO SCH ×2 (08:52→20:31)
[2017-12-20] MEDS ORDERED: CHOLECALCIFEROL VIT D3 1,000 UNITS TAB PO SCH (09:00)
[2017-12-20] MEDS ORDERED: DILTIAZEM CD 180 MG CAP PO SCH ×2 (09:00→09:48)
[2017-12-20] MEDS: ACETAMINOPHEN 325 MG TAB PO PRN (09:08)
[2017-12-20] MEDS ORDERED: traMADol 50 MG TAB PO PRN (10:00)
[2017-12-20] MEDS ORDERED: HYDROCODONE/APAP 5/325 TAB PO PRN (10:00)
[2017-12-20] MEDS ORDERED: DILTIAZEM XR 240 MG CAP PO SCH (10:00)
--- NOTE | 2017-12-20 10:05 | HOSPPROG ---
Hospitalist Progress Note Assessment/Plan: * Rapid afib/PCM -suspect due to pain from shoulder -patient is back on home meds with good control -offered slight uptitration of rate control meds - she refused -has been on higher dose diltiazem and metoprolol in past and "didn't do well " -continue to monitor -continue warfarin - goal INR 2-3 * HTN urgency - extreme BP elevation on admission -suspect this is also due to pain -continue to monitor on home meds * RC tear with Left shoulder dislocation s/p failed reduction in ER -Dr. Allison to see -improve pain control * Hypothyroidism -TSH slightly oversuppressed -she was reduced to 50mcg in Jul and TSH went to 11 -continue at current dose * CAD/stents -continue Plavix -recent stress test negative * PVD s/p bilateral CEA -Plavix/statin Subjective: Pain in shoulder 06/07 - not doing well at home with it Objective: Vital Signs Temp Pulse Resp BP Pulse Ox 36.6 C 91 18 143/88 H 94 12/20/17 08:00 12/20/17 08:53 12/20/17 08:00 12/20/17 08:53 12/20/17 08:00 Laboratory Results 12/20/17 03:57 PT 35.1 SEC (12.0-15.0) H 12/20/17 03:57 INR 3.53 (0.83-1.16) H 12/20/17 03:57 EKG viewed, my personal interpretation is - lateral ST depression and TWI - old chart reviewed - these changes are old c/w previous EKG CXR - negative - Physical Exam Constitutional: no apparent distress, appears nourished, not in pain Cardiovascular: no murmur, rub, or gallop, irregularly irregular, No JVD, No tachycardia, No edema Respiratory: no respiratory distress, no rales or rhonchi, clear to auscultation Gastrointestinal: normoactive bowel sounds, soft, non-tender abdomen, no palpable masses Skin: no rashes or abrasions, no fluctuance, no induration Neurologic: AAOx3, sensation intact bilaterally Psychiatric: interacting appropriately, not anxious, not encephalopathic, thought process linear ICD10 Worksheet Patient Problems: Problems Problem Status Onset Atrial fibrillation with RVR Acute Chest pain Acute Dislocation of left shoulder joint Acute Atrial fibrillation Acute Brain lesion Acute Chronic anticoagulation Acute Coronary atherosclerosis Acute Hyperlipidemia Acute Hypertension Acute MRSA (methicillin resistant Staphylococcus aureus) Acute 08/14/16 Peripheral vascular disease Acute Shoulder pain, left Acute Shoulder subluxation Acute UTI (urinary tract infection) Acute chronic disease mgmt/transitional care Acute
[2017-12-20] MEDS ORDERED: HYDROmorphone HCL/NS 0.5 MG/ML SYR IVP PRN (10:17)
--- NOTE | 2017-12-20 11:03 | PDMN ---
Medical Necessity Medical necessity: change to IP; los>2mn for rapid afib/PCM, hypertensive urgency, uncontrolled pain r/t RC tear w/L shoulder dislocation; requires improved pain control, continued monitoring of afib and BP, ortho consult; comorbid CAD/stents, and PVD/ s/p bilat CEA; per order and progress note 12/20/17
[2017-12-20] MEDS: oxyCODONE IR 5 MG TAB PO PRN ×2 (11:19→20:31)
--- NOTE | 2017-12-20 12:03 | SOAPPROG ---
SOAP Progress Note Assessment/Plan: Assessment: 77yo F with multiple medical problems and currently hyper- therapeutic anticoagulation, in addition to ASA and clopidogrel and L shoulder known CTA. She does not have any current clinical or rad findings of dislocation. Her shoulder condition often results in micro-instability and subluxation, as was seen on her admission XRs. She is currently not a candidate for any invasive procedure, including shoulder injection due to high risk of hemarthrosis and worsening her condition. If her medical condition can be stabilized, and her anticoagulation can be limited, I would proceed with an IA steroid injection and PT to attempt to manage her conservatively. She currently states she does not want any kind of surgery, nor is she a candidate at this time. Plan: Rest, ice, ice massage, heat, APAP prn. Position of comfort. Shoulder immobilizer prn, and limit wt bearing/lifting. She states she is unable to take NSAIDs due to her cardiac condition. PT/OT and activity as tolerated. F/ u with me in clinic, after evaluation by her PCP and manager wealth management, with consideration of d/c of any/all possible anti-coagulatin, and general risk stratification and medical fitness for possible elective surgery. Per my d/w Dr Loyola, she believes there is a good chance that the plavix can be d/c'd, and ASA has been d/c'd on this hospital stay. With the above, a shoulder steroid injection is safer and could be considered. If she fails conservative care, then the surgical treatment option would be reverse TSA. I've explained all of the above to Dr Loyola (who agrees with plan), RN and Emelyn. All questions have been answered and Emelyn is happy with her care to date. Please call with any questions. 12/20/17 12:08 Subjective: 77yo RHD female with mod-severe left shoulder pain. She is an established patient with Jean-Paul Allison MD. She was scheduled to see my partner, Dr Allison yesterday, but transferred to ER due to Afib. She is now admitted to [facility] on tele. She c/o chronic L shoulder weakness, pain and disability dating back to August of 2017, and possibly earlier (she can't remember). Occasional L hand numb/tingling in ulnar digits, o/w no significant distal M/S deficits. C/ o radiation of pain in to inf neck and trapezius. Dr Allison has asked that I assume her shoulder care due to the complexity of her known cuff tear arthropathy. Objective: Vital Signs Temp Pulse Resp BP Pulse Ox 36.6 C 91 18 143/88 H 94 12/20/17 08:00 12/20/17 08:53 12/20/17 08:00 12/20/17 08:53 12/20/17 08:00 PT 35.1 SEC (12.0-15.0) H 12/20/17 03:57 INR 3.53 (0.83-1.16) H 12/20/17 03:57 A+OX3. Cooperative and pleasant. L shoulder with area of ecchymosis anteromedial, mild edema and calor, no erythema. Skin intact. Diffuse TTP. ROM: FE 110, ER 30, with abd 80 - IR 30, ER 60, all limited by pain. Imp testing +. RTC strength: FE 4-/5, ER4-/5, IR 4+/5. Load/shift notable for Grade 2 ant, 1+ post translation and +sulcus. Elbow/wrist/hand baseline ROM and function. DNVI BUEs w/o deficit. Radiographs: Inferior sag (subluxation) of L glenohumeral joint with proximal humeral findings c/w massive RCT and cuff tear arthropathy. No fracture or dislocation. ICD10 Worksheet Patient Problems: Problems Problem Status Onset Atrial fibrillation with RVR Acute Chest pain Acute Dislocation of left shoulder joint Acute Atrial fibrillation Acute Brain lesion Acute Chronic anticoagulation Acute Coronary atherosclerosis Acute Hyperlipidemia Acute Hypertension Acute MRSA (methicillin resistant Staphylococcus aureus) Acute 08/14/16 Peripheral vascular disease Acute Shoulder pain, left Acute Shoulder subluxation Acute UTI (urinary tract infection) Acute chronic disease mgmt/transitional care Acute
--- NOTE | 2017-12-20 13:32 | ASMTCASEMG ---
Living Arrangements What is your living Answers: Alone arrangement? Who do you live with? Type Of Residence What kind of residence do Answers: House you live in? Discharge Plan Comments Coordination Status Comments Notes: Pts case discussed in morning rounds. Pt is a 77 y/o female admitted for chest pain, a fib and left shoulder dislocation. Therapies have been ordered and awaiting recommendations. Needs are TBD at this time. CM to follow. Plan: TBD Date Signed: 12/20/2017 01:31 PM Electronically Signed By:RAFFAELE Savage
[2017-12-20] MEDS ORDERED: WARFARIN SODIUM 2 MG TAB PO SCH (16:00)
[2017-12-20] MEDS: ATORVASTATIN CALCIUM 20 MG TAB PO SCH (20:31)
[2017-12-21] MEDS: oxyCODONE IR 5 MG TAB PO PRN ×2 (00:18→09:21)
[2017-12-21 04:25] LABS: PLATELET COUNT 218 10^3/uL (150-400)
[2017-12-21 04:36] LABS: INR 3.77 (0.83-1.16); PROTIME(PATIENT) 36.9 SEC (12.0-15.0)
[2017-12-21] MEDS ORDERED: LEVOTHYROXINE 50 MCG TAB PO SCH (06:00)
[2017-12-21] MEDS: LEVOTHYROXINE 75 MCG TAB PO SCH (06:22)
[2017-12-21] MEDS: DILTIAZEM CD 180 MG CAP PO SCH (09:02)
[2017-12-21] MEDS: LOSARTAN POTASSIUM 25 MG TAB PO SCH (09:03)
[2017-12-21] MEDS: CETIRIZINE 10 MG TAB PO SCH (09:05)
[2017-12-21] MEDS: DIGOXIN 125 MCG TAB PO SCH (09:05)
[2017-12-21] MEDS: CHOLECALCIFEROL VIT D3 2,000 UNITS TAB/CAP PO SCH (09:06)
[2017-12-21] MEDS: ACETAMINOPHEN 325 MG TAB PO PRN (09:21)
[2017-12-21] MEDS ORDERED: POLYETHYLENE GLYCOL 3350 17 GM PKT PO PRN (09:53)
[2017-12-21] MEDS ORDERED: MAGNESIUM HYDROXIDE 30 ML UDCUP PO PRN (09:53)
[2017-12-21] MEDS ORDERED: LACTULOSE 20 GM/30 ML UDCUP PO PRN (09:53)
[2017-12-21] MEDS ORDERED: BISACODYL 10 MG SUPP PR PRN (09:53)
[2017-12-21] MEDS: CLOPIDOGREL BISULFATE 75 MG TAB PO SCH (10:29)
[2017-12-21] MEDS ORDERED: hydrALAZINE 20 MG/ML VIAL IVP PRN (12:48)
--- NOTE | 2017-12-21 14:20 | GCON ---
[f rep st] CONSULTATION CARDIOLOGY CONSULTATION REFERRING PHYSICIAN: Radames Rojas MD CHIEF COMPLAINT: Left shoulder pain, atrial fibrillation. HISTORY OF PRESENT ILLNESS: This is a 77-year-old female with a history of chronic atrial fibrillati on, left shoulder pain from rotator cuff tear, coronary artery disease, hypertension, who was admitte d for increasing pain at the left shoulder. The patient came in to the emergency room, where her ECG showed controlled atrial fibrillation with nonspecific T-wave changes. It was consistent with her o ld ECGs from our office. She denied any active chest pain but did have shoulder pain, which was wors e with movement of the arm, indicating most likely an orthopedic origin. Troponins were negative x1 set. Currently, the patient's atrial fibrillation is rate controlled, however, her blood pressure wa s significantly elevated at 190 systolic. Currently, the blood pressure is down to 160 systolic. Sh e is resting quietly and denies any active chest pain or shortness of breath. PAST MEDICAL HISTORY: Significant for chronic atrial fibrillation, hypothyroidism, hypertension, lef t rotator cuff tear, history of coronary artery disease, CVA, hypertension. ALLERGIES: To beta-blockers, amiodarone, rosuvastatin, statin, Benadryl. HOME MEDICATIONS: Include digoxin, aspirin, Lipitor, Plavix, Synthroid, losartan, Coumadin. SOCIAL HISTORY: Nonsmoker, nondrinker. FAMILY HISTORY: Noncontributory. REVIEW OF SYSTEMS: Patient denies any visual changes. No headache. No palpitations. No chest pain . No back pain. She does indicate having left shoulder pain, worse with rotation and movement of he r left arm. No abdominal pain. No lower extremity pain. No edema. No new neurologic changes. PHYSICAL EXAM: VITAL SIGNS: The patient is currently afebrile, 98.6. Blood pressure 170/70, with a heart rate of 72. Respirations 12, sat 95% on room air. HEENT EXAM: Pupils equal, round, and reac tive to light and accommodation. Extraocular movements intact. CARDIOVASCULAR: Irregularly irregul ar, S1, S2. LUNGS: Clear to auscultation bilaterally. ABDOMEN: Soft, nontender, no guarding. EXT REMITIES: There is pain upon palpation of the shoulder joint itself and upon movement of the left sh oulder. NEUROLOGIC: The patient is alert, oriented x3. LABORATORY VALUES: Currently show sodium 135, potassium 3.6, chloride 100, bicarb 18, BUN 8, creatin ine 0.6. Troponins are negative x1 set. INR is 3.7. White cell count 12.9, hemoglobin 14.4, hemato crit 42.4, platelet count of 218. ASSESSMENT/PLAN: Left shoulder pain/atrial fibrillation/hypertension. At this time, the patient's l eft shoulder pain is most likely due to an underlying orthopedic condition as she is known to have a prior rotator cuff issue from this area and her pain is mostly upon movement of the shoulder. I do n ot think it is cardiac in etiology. Her atrial fibrillation is rate controlled. Would continue her Cardizem as well as digoxin. INR is supratherapeutic at this point, thus we can hold Coumadin until the INR is below 3. Her blood pressure is elevated, which may be secondary to chronic pain. Would c ontinue with pain control. If the blood pressure is still elevated, can utilize IV hydralazine p.r.n . as well as increase her losartan from 50 mg to 100 mg. /[id number]/MODL
--- NOTE | 2017-12-21 14:46 | HOSPPROG ---
Hospitalist Progress Note Assessment/Plan: * Rapid afib/PCM -HR controlled at rest - jumps up to > 130 with exertion -refuses increase diltiazem or addition of metoprolol -continue warfarin - goal INR 2-3 * HTN urgency - extreme BP elevation on admission -suspect this is worsened by acute pain -increase losartan * RC tear with Left shoulder dislocation s/p failed reduction in ER -needs steroid injection - if fails then reverse shoulder in OR -per Dr. Jewell - needs cardiac clearance for holding Plavix/warfarin prior to proceeding -follow-up outpatient -sling for comfort/stability * Hypothyroidism -TSH slightly oversuppressed -she was reduced to 50mcg in Jul and TSH went to 11 -continue at current dose * CAD/stents -continue Plavix -recent stress test negative * PVD s/p bilateral CEA -Plavix/statin * Cognitive dysfunction - noted by staff -concerning as she lives alone -ST consult for cog eval -rule out infection * New hypoxia -recheck CXR -suspect atelectasis due to shoulder immobility Subjective: no new complaints, anxious that we are going to change her meds without her consent Objective: Vital Signs Temp Pulse Resp BP Pulse Ox 36.3 C 77 17 155/92 H 94 12/21/17 11:35 12/21/17 11:35 12/21/17 11:35 12/21/17 11:35 12/21/17 11:35 Laboratory Results 12/21/17 03:45 12/20/17 12/21/17 12/22/17 05:59 05:59 05:59 Intake Total 1250 Balance 1250 PT 36.9 SEC (12.0-15.0) H 12/21/17 03:45 INR 3.77 (0.83-1.16) H 12/21/17 03:45 d/w Camren Jessica cardiology -cardiology consulted for improved BP/HR control - patient refuses to follow hospitalist recommendations tele - afib - HR jumps to > 130 with exertion - Physical Exam Constitutional: no apparent distress, appears nourished, not in pain Cardiovascular: irregularly irregular, tachycardia, No JVD, No edema Respiratory: no respiratory distress, no rales or rhonchi, clear to auscultation Gastrointestinal: normoactive bowel sounds, soft, non-tender abdomen, no palpable masses Skin: no rashes or abrasions, no fluctuance, no induration Neurologic: AAOx3, sensation intact bilaterally Psychiatric: interacting appropriately, not anxious, not encephalopathic, thought process linear ICD10 Worksheet Patient Problems: Problems Problem Status Onset Atrial fibrillation with RVR Acute Chest pain Acute Dislocation of left shoulder joint Acute Atrial fibrillation Acute Brain lesion Acute Chronic anticoagulation Acute Coronary atherosclerosis Acute Hyperlipidemia Acute Hypertension Acute MRSA (methicillin resistant Staphylococcus aureus) Acute 08/14/16 Peripheral vascular disease Acute Shoulder pain, left Acute Shoulder subluxation Acute UTI (urinary tract infection) Acute chronic disease mgmt/transitional care Acute
--- NOTE | 2017-12-21 15:39 | ASMTCMCOM ---
CM Note CM Note Notes: Pts case discussed in morning rounds. CM met w/ pt for dispo planning. PT is recommending home independent. OT is recommending SNF. Pt is uncertain of what type of services that she will need at time of d/c. Pt would like to speak to MD before making any decisions. It sounded like pt did not think she needs SNF. CM to follow. Plan: TBD Date Signed: 12/21/2017 03:38 PM Electronically Signed By:RAFFAELE Savage
[2017-12-21] MEDS ORDERED: METHYL SALICYLATE/MENTHOL OINTMENT TP PRN (16:17)
[2017-12-21] MEDS: SENNOSIDES/DOCUSATE SODIUM TAB PO SCH (20:11)
[2017-12-21] MEDS: LOSARTAN POTASSIUM 50 MG TAB PO SCH (20:11)
[2017-12-21] MEDS: ATORVASTATIN CALCIUM 20 MG TAB PO SCH (20:11)
[2017-12-22] MEDS: oxyCODONE IR 5 MG TAB PO PRN ×2 (02:34→21:29)
[2017-12-22] MEDS: ACETAMINOPHEN 325 MG TAB PO PRN ×3 (02:34→21:28)
[2017-12-22 04:35] LABS: INR 2.1 (0.83-1.16); PLATELET COUNT 223 10^3/uL (150-400); PROTIME(PATIENT) 23.6 SEC (12.0-15.0)
[2017-12-22] MEDS: LEVOTHYROXINE 75 MCG TAB PO SCH (05:41)
[2017-12-22] MEDS ORDERED: LOSARTAN POTASSIUM 50 MG TAB PO SCH (09:00)
[2017-12-22] MEDS: LOSARTAN POTASSIUM 50 MG TAB PO SCH ×2 (09:17→21:29)
[2017-12-22] MEDS: CHOLECALCIFEROL VIT D3 2,000 UNITS TAB/CAP PO SCH (09:17)
[2017-12-22] MEDS: DIGOXIN 125 MCG TAB PO SCH (09:17)
[2017-12-22] MEDS: SENNOSIDES/DOCUSATE SODIUM TAB PO SCH ×2 (09:18→21:29)
[2017-12-22] MEDS: DILTIAZEM CD 180 MG CAP PO SCH (09:18)
[2017-12-22] MEDS: CLOPIDOGREL BISULFATE 75 MG TAB PO SCH (09:18)
[2017-12-22] MEDS: CETIRIZINE 10 MG TAB PO SCH (09:33)
--- NOTE | 2017-12-22 12:49 | PDIAF ---
- Diagnosis Diagnosis: afib, hypertension, left shoulder dislocation Code Status: Full Code - Medication Management Discharge Medications: Medications to Continue on Transfer Cholecalciferol Vit D3 [Vitamin D3 2000 units] 4,000 units PO DAILY 03/18/13 [ Last Taken 12/19/17] Herbals/Supplements -Info Only 1 each PO AD 03/18/13 [Last Taken 12/19/17] Nitroglycerin [Nitrostat 0.4 mg (*)] 0.4 mg SL PRN PRN 03/18/13 [Last Taken 08:00] Digoxin [Lanoxin 0.125 mg] 0.125 mg PO DAILY 10/02/13 [Last Taken 12/19/17] Acetaminophen [Tylenol ES 500 mg (*)] 500 mg PO HS PRN 02/13/14 [Last Taken ] Warfarin Sodium [Coumadin 1MG (*)] 1 mg PO SUWE@16 11/12/14 [Last Taken 12/19/17 ] Warfarin Sodium [Coumadin 2MG (*)] 2 mg PO MOTUTHFRSA@16 11/12/14 [Last Taken ] Atorvastatin Calcium [Lipitor 20 mg (*)] 20 mg PO HS 12/24/16 [Last Taken ] Clopidogrel Bisulfate [Plavix (*)] 75 mg PO DAILY 12/24/16 [Last Taken 12/19/17] Loratadine [Claritin 10 mg] 10 mg PO DAILY PRN 12/24/16 [Last Taken 2 Weeks Ago ~12/05/17] Diltiazem Cd [Cardizem ER Q24hr] 180 mg PO DAILY #0 cap 01/24/17 [Last Taken ] Levothyroxine [Synthroid 75 mcg (*)] 75 mcg PO DAILY06 12/19/17 [Last Taken ] Losartan Potassium [Cozaar 50 mg (*)] 50 mg PO BID #60 tab 12/22/17 [Last Taken Unknown] Discharge Medications: Refer to the Discharge Home Medication list for PRN reason. - Orders Services needed: Home Care, Registered Nurse, Master [employer], Physical Therapy, Occupational Therapy Home Care Face to Face: I certify that this patient was under my care and that I had the required [id number] encounter meeting the encounter requirements on the discharge day. My findings support the fact that the patient is homebound as defined in Home Care Face to Face Continued: CMS Chapter 7 Medicare Benefits Manual 30.1.1 , The condition of the patient is such that there exists a normal inability to leave home and consequently, leaving home would require a considerable and taxing effort. Isolation Type: None Diet Recommendation: no restrictions on diet Wound Care Instructions: Follow-up outpatient with Dr. Jewell to arrange shoulder injection - will need cardiology clearance prior to procedure to arrange blood thinner management (warfarin + Plavix). Stop aspirin Activity/Weight Bearing Restrictions: sling left arm Additional: Home medication review. Home safety eval - Labs/Radiology PT/INR Date: 12/25/17 - Follow Up Care Current Providers and Referrals: Patient,NotPresent [Unknown] - As per Instructions Radames Jewell MD [Medical Doctor] - Elly Terrell MD [Primary Care Provider] -
--- NOTE | 2017-12-22 13:53 | ASMTLACE ---
LACE Length of stay for Answers: 2 days current admission Acuity / Level of Answers: Yes Care: Did the patient have an inpatient admission? Comorbidities - select Answers: Cerebrovascular disease all that apply (CVA, TIA, aneurysms, vasc ular dementia) Congestive heart failure Coronary Atery Disease Peripheral vascular disease # of Emergency department Answers: 1-2 visits in the last 6 months Score: 12 Date Signed: 12/22/2017 01:52 PM Electronically Signed By:Dinorah Hernandez RN
--- NOTE | 2017-12-22 14:25 | HOSPPROG ---
Hospitalist Progress Note Assessment/Plan: * Rapid afib/PCM -borderline heart rate control -refuses increase diltiazem or addition of metoprolol -continue warfarin - goal INR 2-3 * HTN urgency - extreme BP elevation on admission -increase losartan * RC tear with Left shoulder dislocation s/p failed reduction in ER -needs steroid injection - if fails then reverse shoulder in OR -per Dr. Jewell - needs cardiac clearance for holding Plavix/warfarin prior to proceeding -follow-up outpatient -sling for comfort/stability * Hypothyroidism -TSH slightly oversuppressed -she was reduced to 50mcg in Jul and TSH went to 11 -continue at current dose * CAD/stents -continue Plavix -recent stress test negative * PVD s/p bilateral CEA -Plavix/statin * Mild dementia -cog eval by [facility] for discharge home with Subjective: No new complaints Objective: Vital Signs Temp Pulse Resp BP Pulse Ox 36.6 C 119 H 20 115/67 92 12/22/17 11:00 12/22/17 11:00 12/22/17 11:00 12/22/17 11:00 12/22/17 11:00 Laboratory Results 12/22/17 04:06 12/22/17 04:06 12/21/17 12/22/17 12/23/17 05:59 05:59 05:59 Intake Total 1250 700 590 Output Total 900 100 Balance 1250 -200 490 PT 23.6 SEC (12.0-15.0) H D 12/22/17 04:06 INR 2.10 (0.83-1.16) H 12/22/17 04:06 CXR viewed, my personal interpretation is - negative tele reviewed - a fib, a little rapid at times - Physical Exam Constitutional: no apparent distress, appears nourished, not in pain Cardiovascular: regular rate and rhythym, no murmur, rub, or gallop Respiratory: no respiratory distress, no rales or rhonchi, clear to auscultation Gastrointestinal: normoactive bowel sounds, soft, non-tender abdomen, no palpable masses Skin: no rashes or abrasions, no fluctuance, no induration Neurologic: AAOx3, sensation intact bilaterally Psychiatric: interacting appropriately, not anxious, not encephalopathic, thought process linear ICD10 Worksheet Patient Problems: Problems Problem Status Onset Atrial fibrillation with RVR Acute Chest pain Acute Dislocation of left shoulder joint Acute Atrial fibrillation Acute Brain lesion Acute Chronic anticoagulation Acute Coronary atherosclerosis Acute Hyperlipidemia Acute Hypertension Acute MRSA (methicillin resistant Staphylococcus aureus) Acute 08/14/16 Peripheral vascular disease Acute Shoulder pain, left Acute Shoulder subluxation Acute UTI (urinary tract infection) Acute chronic disease mgmt/transitional care Acute
[2017-12-22] MEDS ORDERED: NS 1,000 ML IV SCH (14:30)
[2017-12-22] MEDS ORDERED: WARFARIN SODIUM 1 MG TAB PO ONE (16:00)
[2017-12-22] MEDS: OXYBUTYNIN 5 MG EXT REL TAB PO SCH (16:18)
[2017-12-22] MEDS: ATORVASTATIN CALCIUM 20 MG TAB PO SCH (21:29)
[2017-12-23] MEDS: LEVOTHYROXINE 75 MCG TAB PO SCH (03:57)
[2017-12-23 04:11] LABS: PLATELET COUNT 261 10^3/uL (150-400)
[2017-12-23 04:21] LABS: INR 1.54 (0.83-1.16); PROTIME(PATIENT) 18.6 SEC (12.0-15.0)
[2017-12-23 04:45] VITALS: RESP 18
[2017-12-23 07:34] VITALS: BP 165/102; TEMP 99.1; O2SAT 93
[2017-12-23 07:54] VITALS: PULSE 74
[2017-12-23] MEDS: LOSARTAN POTASSIUM 50 MG TAB PO SCH (08:55)
[2017-12-23] MEDS: OXYBUTYNIN 5 MG EXT REL TAB PO SCH (08:55)
[2017-12-23] MEDS: SENNOSIDES/DOCUSATE SODIUM TAB PO SCH (08:55)
[2017-12-23] MEDS: CHOLECALCIFEROL VIT D3 2,000 UNITS TAB/CAP PO SCH (08:55)
[2017-12-23] MEDS: CLOPIDOGREL BISULFATE 75 MG TAB PO SCH (08:56)
[2017-12-23] MEDS: DIGOXIN 125 MCG TAB PO SCH (08:56)
[2017-12-23] MEDS: DILTIAZEM CD 180 MG CAP PO SCH (08:56)
[2017-12-23] MEDS: CETIRIZINE 10 MG TAB PO SCH (08:57)
--- NOTE | 2017-12-23 09:50 | PDIAF ---
- Diagnosis Diagnosis: afib, hypertension, left shoulder dislocation Code Status: Full Code - Medication Management Discharge Medications: Medications to Continue on Transfer Cholecalciferol Vit D3 [Vitamin D3 2000 units] 4,000 units PO DAILY 03/18/13 [ Last Taken 12/19/17] Herbals/Supplements -Info Only 1 each PO AD 03/18/13 [Last Taken 12/19/17] Nitroglycerin [Nitrostat 0.4 mg (*)] 0.4 mg SL PRN PRN 03/18/13 [Last Taken 08:00] Digoxin [Lanoxin 0.125 mg] 0.125 mg PO DAILY 10/02/13 [Last Taken 12/19/17] Acetaminophen [Tylenol ES 500 mg (*)] 500 mg PO HS PRN 02/13/14 [Last Taken ] Warfarin Sodium [Coumadin 1MG (*)] 1 mg PO SUWE@16 11/12/14 [Last Taken 12/19/17 ] Warfarin Sodium [Coumadin 2MG (*)] 2 mg PO MOTUTHFRSA@16 11/12/14 [Last Taken ] Atorvastatin Calcium [Lipitor 20 mg (*)] 20 mg PO HS 12/24/16 [Last Taken ] Clopidogrel Bisulfate [Plavix (*)] 75 mg PO DAILY 12/24/16 [Last Taken 12/19/17] Loratadine [Claritin 10 mg] 10 mg PO DAILY PRN 12/24/16 [Last Taken 2 Weeks Ago ~12/05/17] Diltiazem Cd [Cardizem ER Q24hr] 180 mg PO DAILY #0 cap 01/24/17 [Last Taken ] Levothyroxine [Synthroid 75 mcg (*)] 75 mcg PO DAILY06 12/19/17 [Last Taken ] Losartan Potassium [Cozaar 50 mg (*)] 50 mg PO BID #60 tab 12/22/17 [Last Taken Unknown] Oxybutynin Chloride Xl [Ditropan Xl 5mg (*)] 5 mg PO DAILY #30 tab 12/23/17 [ Last Taken Unknown] Sertraline HCl [Zoloft 25mg (*)] 25 mg PO DAILY #30 tab 12/23/17 [Last Taken Unknown] Discharge Medications: Refer to the Discharge Home Medication list for PRN reason. - Orders Services needed: Home Care, Registered Nurse, Master Parking Enforcement Manager, Physical Therapy, Occupational Therapy Home Care Face to Face: I certify that this patient was under my care and that I had the required [id number] encounter meeting the encounter requirements on the discharge day. My findings support the fact that the patient is homebound as defined in Home Care Face to Face Continued: CMS Chapter 7 Medicare Benefits Manual 30.1.1 , The condition of the patient is such that there exists a normal inability to leave home and consequently, leaving home would require a considerable and taxing effort. Isolation Type: None Diet Recommendation: no restrictions on diet Wound Care Instructions: Follow-up outpatient with Dr. Jewell to arrange shoulder injection - will need cardiology clearance prior to procedure to arrange blood thinner management (warfarin + Plavix). Stop aspirin Activity/Weight Bearing Restrictions: sling left arm Additional: Home medication review. Home safety eval. Call Dr. Terrell with extreme blood pressure elevation - an additional agent may need to be added ( suggest clonidine or hydralazine) - Labs/Radiology PT/INR Date: 12/25/17 - Follow Up Care Current Providers and Referrals: Radames Jewell MD [Medical Doctor] - Elly Terrell MD [Primary Care Provider] - Patient,NotPresent [Unknown] - As per Instructions Aleks Sheppard MD [Medical Doctor] -
--- NOTE | 2017-12-23 15:03 | ASDISCHSUM ---
Discharge Information Plan Status:Home with Home Health Medically Cleared to Leave:12/22/2017 Discharge Date:12/23/2017 01:12 PM CM D/C Disposition:Home Health Service ADT D/C Disposition:Home Health Service Projected Discharge Date:12/22/2017 11:00 AM Transportation at D/C:Friend Discharge Delay Reason: Follow-Up Date:12/22/2017 11:00 AM Discharge Slot: Final Diagnosis: Placement Information Referral Type:*Home Health Care Services Referral ID:[id number] Provider Name:[facility] Care Address 1:[address] [place] [address] Address 2: City:[place] Selection Factors: State:[place] Patient Contact Information Contact Name:Bandar Relationship:Sister Address:[address] City:[place] Alternate Phone: State/Zip Code:[place] [address] Email: Financial Information Financial Class:Medicare Primary Plan Desc:MEDICARE INPATIENT Primary Plan Number:[id number] Secondary Plan Desc:CLARY Secondary Plan Number:[id number] Assessment Information LACE LACE Length of stay for Answers: 2 days current admission Acuity / Level of Answers: Yes Care: Did the patient have an inpatient admission? Comorbidities - select Answers: Cerebrovascular disease all that apply (CVA, TIA, aneurysms, vasc ular dementia) Congestive heart failure Coronary Atery Disease Peripheral vascular disease # of Emergency department Answers: 1-2 visits in the last 6 months Score: 12 Date Signed: 12/22/2017 01:52 PM Electronically Signed By:Dinorah Hernandez RN [facility] CM Assessment Living Arrangements What is your living Answers: Alone arrangement? Who do you live with? Type Of Residence What kind of residence do Answers: House you live in? Discharge Plan Comments Coordination Status Comments Notes: Pts case discussed in morning rounds. Pt is a 77 y/o female admitted for chest pain, a fib and left shoulder dislocation. Therapies have been ordered and awaiting recommendations. Needs are TBD at this time. CM to follow. Plan: TBD Date Signed: 12/20/2017 01:31 PM Electronically Signed By:RAFFAELE Savage [facility] CM Progress Note CM Note CM Note Notes: Pts case discussed in morning rounds. CM met w/ pt for dispo planning. PT is recommending home independent. OT is recommending SNF. Pt is uncertain of what type of services that she will need at time of d/c. Pt would like to speak to MD before making any decisions. It sounded like pt did not think she needs SNF. CM to follow. Plan: TBD Date Signed: 12/21/2017 03:38 PM Electronically Signed By:RAFFAELE Savage Case Management Discharge Plan Note Case Management Discharge Discharge Order Complete? Answers: Yes Patient to Obtain Answers: Independently Medications Transportation Arranged Answers: Family/Friends Faxed Final Orders Answers: Yes Agency/Facility Transfer Answers: Yes Report Printed & Faxed to Receiving Agency Discharge Comments Notes: 12/23/2017 Case Management Note Arranged home care through [facility]. Pt has [facility] previously but did not want to restart services. Pt has friend Camelia transporting her home. Confirmed home bound status, address and phone number. Primary MD is Dr. Turcios per pt. There are no other case management d/c needs identified. Date Signed: 12/23/2017 03:02 PM Electronically Signed By:Dinorah Hernandez RN Intervention Information Intervention Type:*COBOS-Signed Date of Service:12/20/2017 10:24 AM Patient Type:Observation Staff Member:Rhoda Quintero Hours: Discipline: Severity: Comment: Intervention Type:*IM-Signed Date of Service:12/22/2017 01:51 PM Patient Type:Inpatient Staff Member:IRMA Hernandez, Dinorah Hours:0.25 Discipline: Severity: Comment:
--- NOTE | 2017-12-23 15:33 | GDS ---
[f rep st] DISCHARGE SUMMARY DISCHARGE DIAGNOSES: 1. Rapid atrial fibrillation, status post pacemaker. 2. Hypertension crisis. 3. Rotator cuff tear with left shoulder dislocation. 4. Coronary artery disease, status post previous stents. 5. Peripheral vascular disease, status post bilateral carotid endarterectomy. 6. Mild dementia. HISTORY: The patient is a 77-year-old female, who has been suffering from a rotator cuff tear and ch ronic left shoulder dislocation. She was seen in the orthopedic office for an appointment with Dr. Demetria barajas. While she was there, she was noted to be in rapid AFib with a very elevated blood pressure, and she was sent to the emergency room. Blood pressure was greater than 200 on presentation. Upon admi ssion, however, once her pain was controlled from her shoulder, her blood pressures were better, and she was no longer in rapid AFib. She was seen here in consultation by Cardiology. They did not janki mmend any further medication changes at this time. We did increase her Cozaar to 50 mg p.o. b.i.d. The patient is very resistant to any further medication changes. I suggested increasing her diltiaze m from 180 to 240 mg p.o. daily, although she remembers having an adverse event the last time it was increased to that dose and she refused re-attempts at up titration. She also refused beta-blockers a nd has a previous listed intolerance to them. I think with adequate pain control, we will have lizzy r control of her blood pressure and atrial fibrillation. We are arranging for home health to monitor her closely as an outpatient. If she needs further agents for blood pressure control, I recommended initiating clonidine or hydralazine. She follows very closely with Dr. Terrell, and trusts Dr. Rg haley. I think she will have better results working with Dr. Terrell as an outpatient to get her blood pr essure under better control, and she was very resistant to any change during this hospitalization. Regarding her shoulder dislocation and rotator cuff tear, Dr. Jewell saw her here in consultation. He recommends starting with steroid injections to the shoulder and if those fail, then she will requ adela surgery for a reverse shoulder. Dr. Jewell requests cardiac clearance for management of Plavix and warfarin prior to proceeding with shoulder injection. He would like this to be pursued as an ou tpatient. I suspect it would be okay to hold her Plavix as her stents are quite a few years ago, and her warfarin can be held for AFib in order to obtain procedure. For now, she is in a sling for comf ort and stability. She was using oxycodone in the hospital for pain control; however, refused a pres cription for oxycodone upon hospital discharge as she is concerned about being addicted and does feel she gets adequate pain control with Tylenol alone. DISCHARGE MEDICATIONS: Please see computerized record for full detailed list. New medications: 1. Losartan increased to 50 mg p.o. b.i.d. 2. Oxybutynin XL 5 mg p.o. daily due to reported stress incontinence. 3. Zoloft 25 mg p.o. daily. The patient definitely has anxiety issues and is open to initiating an agent. Discontinued medications: Aspirin as needed. She is already on Plavix and warfarin. I do not think additional aspirin in addition to those medications is warranted. ADDITIONAL DISCHARGE INSTRUCTIONS: 1. Follow up as an outpatient with Dr. Jewell to arrange shoulder injection. He will need cardiac clearance prior to the procedure to arrange blood thinner management regarding warfarin and Plavix. 2. Home health, PT, OT, VNS including home safety evaluation is arranged. Recommend contacting Dr. Terrell if there are ongoing hypertension issues. I believe she has been suboptimally controlled for quite some time. It is difficult to up titrate her medications due to the patient's resistance. Greater than 30 minutes' time was spent arranging this discharge. Patient was seen and examined by joellen seo on the day of discharge. /[id number]/MODL
[2017-12-23] MEDS ORDERED: WARFARIN SODIUM 1 MG TAB PO SCH (16:00)
== END 2017-12-23 13:12 | disposition home health service (06) | DRG 309 ==
LOC: EDUNIT# → INTOOBSV 19:26 → F2W 20:50 → OBSVTOIN 12-20 10:00
PROVIDERS: ADMIT Internal Medicine; ATTEND Internal Medicine
PROC: 0RSKXZZ Reposition Left Shoulder Joint, External Approach (ICD-10-PCS; principal; 2017-12-19)
DX: I48.2 Chronic atrial fibrillation (principal); I16.9 Hypertensive crisis, unspecified; M75.102 Unspecified rotator cuff tear or rupture of left shoulder, not specified as traumatic; M24.412 Recurrent dislocation, left shoulder; Z95.5 Presence of coronary angioplasty implant and graft; I25.10 Atherosclerotic heart disease of native coronary artery without angina pectoris; F03.90 Unspecified dementia, unspecified severity, without behavioral disturbance, psychotic disturbance, mood disturbance, and anxiety; I73.9 Peripheral vascular disease, unspecified; I10 Essential (primary) hypertension; E78.5 Hyperlipidemia, unspecified; E03.9 Hypothyroidism, unspecified; G47.33 Obstructive sleep apnea (adult) (pediatric); Z86.73 Personal history of transient ischemic attack (TIA), and cerebral infarction without residual deficits; Z87.891 Personal history of nicotine dependence; Z95.0 Presence of cardiac pacemaker
CPT/HCPCS: 92523-GN; 96374; 97110-GO; 97116-GP; 97161-GP; 97166-GO; 97535-GO; G0378; G8978-GP-CI; G8979-GP-CI; G8980-GP-CI; G8987-GO-CK; G8988-GO-CI; G9168-GO-CI; G9169-GN-CI; G9170-GN-CI; J0360; J2704; J3010

== ENCOUNTER 2018-01-15 10:12 | Inpatient (IN) | payer OTHER ==
[2018-01-15] MEDS ORDERED: NS 1,000 ML IV ONE (10:20)
--- NOTE | 2018-01-15 10:22 | EDPHY ---
H & P Source: Patient Exam Limitations: No limitations - Personal History Tetanus Vaccine Date: UNKNOWN - Medical/Surgical History Hx Asthma: Yes Hx Chronic Respiratory Disease: No Hx Diabetes: No Hx Cardiac Disease: Yes Hx Renal Disease: No Hx Cirrhosis: No Hx Alcoholism: No Hx HIV/AIDS: No Hx Splenectomy or Spleen Trauma: No Other PMH: medical- afib, HTN, HLD, hypothyroid, pacemaker, O2 hs, 2009 TIA. surgical- x3 stents 2000, L 4-5 fusion, R hip replaced, tonsilectomy, tendon transplant, cervical conization, sleep apnea, PVD, TIA, vertigo - Family History Significant Family History: No pertinent family hx - Social History Smoking Status: Former smoker Alcohol Use: Sober Drug Use: None Time Seen by Provider: 01/15/18 10:17 HPI/ROS: CHIEF COMPLAINT: Lip laceration HISTORY OF PRESENT ILLNESS: Patient is a 77-year-old female who comes in as a limited +trauma. She was trying to put her pants on in the bathroom when she lost her balance fell forward and hit her lip on the counter. She has a upper lip laceration on the right. She also has a mild headache and neck pain. She denies other injuries. She does take Coumadin for history of AFib. REVIEW OF SYSTEMS: Constitutional: denies: chills, fever, recent illness, recent injury EENTM: denies: blurred vision, double vision, nose congestion Respiratory: denies: cough, shortness of breath Cardiac: denies: chest pain, irregular heart rate, lightheadedness, palpitations Gastrointestinal/Abdominal: denies: abdominal pain, diarrhea, nausea, vomiting, blood streaked stools Genitourinary: denies: dysuria, frequency, hematuria, pain Musculoskeletal: denies: joint pain, muscle pain Skin: See HPI Neurological: Mild headache denies: numbness, paresthesia, tingling, dizziness , weakness Hematologic/Lymphatic: denies: blood clots, easy bleeding, easy bruising Immunologic/allergic: denies: HIV/AIDS, transplant EXAM: GENERAL: Well-appearing, well-nourished and in no acute distress. HEAD: Atraumatic, normocephalic. Mild headache EYES: Pupils equal round and reactive to light, extraocular movements intact, sclera anicteric, conjunctiva are normal. ENT: Right upper lip laceration through and through, no dental fractures or laxity. TMs normal, nares patent, oropharynx clear without exudates. Moist mucous membranes. NECK: Normal range of motion, supple without lymphadenopathy or JVD. LUNGS: Breath sounds clear to auscultation bilaterally and equal. No wheezes rales or rhonchi. HEART: Regular rate and rhythm without murmurs, rubs or gallops. ABDOMEN: Soft, nontender, normoactive bowel sounds. No guarding, no rebound. No masses appreciated. BACK: No CVA tenderness, no spinal tenderness, step-offs or deformities EXTREMITIES: Normal range of motion, no pitting or edema. No clubbing or cyanosis. NEUROLOGICAL: Cranial nerves II through XII grossly intact. Normal speech, normal gait. 5/5 strength, normal movement in all extremities, normal sensation PSYCH: Normal mood, normal affect. SKIN: Lip laceration as above (Andrea Noriega) Constitutional: Initial Vital Signs Temperature (C) 36.6 C 01/15/18 10:33 Heart Rate 76 01/15/18 10:33 Respiratory Rate 18 01/15/18 10:33 Blood Pressure 186/86 H 01/15/18 10:33 O2 Sat (%) 95 01/15/18 10:33 O2 Delivery Mode Room Air Allergies/Adverse Reactions: diphenhydramine HCl [From Benadryl] Allergy (Mild, Verified 12/19/17 17:16) Anxiety metoprolol Allergy (Mild, Verified 12/22/17 12:42) Rash Beta-Blockers (Beta-Adrenergic Bloc [Beta-Blockers (Beta-Adrenergic Blocking Agts)] Allergy (Unknown, Unverified 12/22/17 14:52) amiodarone Allergy (Verified 12/19/17 17:16) Rash rosuvastatin calcium [From Crestor] Allergy (Verified 12/19/17 17:16) Swelling/ Rash tramadol Allergy (Verified 01/15/18 10:30) Home Medications: Medication Instructions Recorded Cholecalciferol Vit D3 [Vitamin D3 4,000 units PO DAILY 03/18/13 2000 units] Herbals/Supplements -Info Only 1 each PO AD 03/18/13 Nitroglycerin [Nitrostat 0.4 mg 0.4 mg SL PRN PRN 03/18/13 (*)] Digoxin [Lanoxin 0.125 mg] 0.125 mg PO DAILY 10/02/13 Acetaminophen [Tylenol ES 500 mg 500 mg PO BID PRN 02/13/14 (*)] Warfarin Sodium [Coumadin 1MG (*)] 1 mg PO SUWE@16 11/12/14 Warfarin Sodium [Coumadin 2MG (*)] 2 mg PO MOTUTHFRSA@16 11/12/14 Atorvastatin Calcium [Lipitor 20 20 mg PO HS 12/24/16 mg (*)] Clopidogrel Bisulfate [Plavix (*)] 75 mg PO DAILY 12/24/16 Loratadine [Claritin 10 mg] 10 mg PO DAILY PRN 12/24/16 Diltiazem Cd [Cardizem ER Q24hr] 180 mg PO DAILY #0 cap 01/24/17 Levothyroxine [Synthroid 75 mcg 75 mcg PO DAILY06 12/19/17 (*)] Losartan Potassium [Cozaar 50 mg 50 mg PO BID #60 tab 12/22/17 (*)] Oxybutynin Chloride Xl [Ditropan 5 mg PO DAILY #30 tab 12/23/17 Xl 5mg (*)] Sertraline HCl [Zoloft 25mg (*)] 25 mg PO DAILY #30 tab 12/23/17 Melatonin [Melatonin 3 MG (*)] 3 mg PO HS 01/15/18 Medical Decision Making - Diagnostics Imaging: Discussed imaging studies w/ banquet server on call Radiologist Procedures: 10:35 a.m. My involvement the care this patient is solely for procedure. Please see the note of the attending physician for all other aspects of care. I was asked to evaluate the patient for the lip laceration. She does have a complex upper lip laceration, right of midline. This does appear to be a through and through, full-thickness laceration measuring approximately 3 cm. PROCEDURE: Laceration repair Consent: Verbal Location: Upper lip, right of midline Length of repair: 3 cm Complexity: Complex Layer involvement: Full-thickness Anesthesia: Local per 1% lidocaine with epinephrine. 5 mL Irrigation: Extensive Debridement: Minimal Procedure description: Following good anesthesia, the wound was copiously irrigated. Wound bed was explored with a sterile glove, and there is no foreign body noted. Minimal excisional debridement performed. This is a very complex and partially macerated wound that does communicate through to the oral mucosa. I was able to approximate very well the external wound borders. Deep structures were approximated as best as could be with Vicryl. Oral mucosa was approximated with Vicryl as well. Tolerated well without complication. Suture/Staple material: Subcutaneous layer: 5-0 Vicryl, 7 simple interrupted. Oral mucosal layer: 5-0 Vicryl, 8 running simple sutures. Cutaneous layer, 6 -0 Prolene, 7 simple interrupted sutures Wound care: Routine as discussed Suture/Staple removal: 7 Days for cutaneous layer. (Tyron Welch) ED Course/Re-evaluation: 11:15 a.m. The patient has multiple subdurals and subarachnoid. I will start reversing her Coumadin and Plavix. I have spoken with Dr. Allen who will consult from Neurosurgery. I have also spoken with Dr. Llamas who will admit to the trauma service. (Andrea Noriega) Differential Diagnosis: Partial list of the Differential diagnosis considered include but were not limited to; intracranial hemorrhage, lip laceration, dental fracture and although unlikely based on the history and physical exam, I also considered neck injury, syncope, acute coronary disease. (Andrea Noriega) Critical Care Time: Critical care time spent by me, Dr. Noriega exclusive with this patient was 35 minutes, exclusive of the PA time exclusive of procedures. The organ system that was at risk was neurologic and I gave diagnosis, reversal agents and admission and consultation to prevent worsening of the patient's condition ( Andrea Noriega) - Data Points Laboratory Results: Laboratory Results 01/15/18 10:20 01/15/18 10:25 Medications Given: Atorvastatin Calcium (Lipitor) 20 mg PO HS JALEESA Stop: 07/14/18 20:59 Last Admin: 01/15/18 20:56 Dose: Not Given Digoxin (Lanoxin) 125 mcg PO DAILY JALEESA Stop: 07/15/18 08:59 Last Admin: 01/16/18 09:04 Dose: 125 mcg Sodium Chloride (Ns) 1,000 mls @ 100 mls/hr IV CONT JALEESA Stop: 07/14/18 12:14 Last Admin: 01/16/18 08:57 Dose: 1,000 mls Levetiracetam (Keppra (Premix)) 100 mls @ 400 mls/hr IV Q12H JALEESA Stop: 07/14/18 13:44 Last Admin: 01/16/18 13:31 Dose: 100 mls Nicardipine/Sodium Chloride (Cardene 0.1 Mg/Ml (Premix)) 200 mls @ 0 mls/hr IV CONT JALEESA; Titrate PRN Reason: Protocol Stop: 07/14/18 14:29 Last Admin: 01/16/18 08:55 Dose: 200 mls Levothyroxine Sodium (Synthroid) 75 mcg PO DAILY06 [facility] Stop: 07/15/18 05:59 Last Admin: 01/16/18 08:53 Dose: 75 mcg Morphine Sulfate (Morphine) 1 - 2 mg IVP Q1HR PRN PRN Reason: Pain, Severe Unable to Take PO Stop: 01/25/18 12:06 Last Admin: 01/16/18 04:08 Dose: 1 mg Oxycodone/Acetaminophen (Percocet 5/325) 1 - 2 tab PO Q4 PRN PRN Reason: Pain, Severe Able to Take PO Stop: 01/26/18 08:42 Last Admin: 01/16/18 13:15 Dose: 2 tab Sertraline HCl (Zoloft) 25 mg PO DAILY JALEESA Stop: 07/15/18 08:59 Last Admin: 01/16/18 09:04 Dose: 25 mg Discontinued Medications Desmopressin Acetate 13.8798 (mcg/ Sodium Chloride) 53.47 mls @ 100 mls/hr IV ONCE ONE Stop: 01/15/18 11:42 Last Admin: 01/15/18 12:07 Dose: 53.47 mls Prothrombin Complex Concent (Human) (Kcentra) 2,500 unit in 100 mls @ 0 mls/hr IV ONCE ONE; Per Protocol PRN Reason: Protocol Stop: 01/15/18 11:11 Last Admin: 01/15/18 12:16 Dose: 100 mls Phytonadione 10 mg/ Sodium (Chloride) 51 mls @ 102 mls/hr IV ONCE ONE Stop: 01/15/18 11:39 Last Admin: 01/15/18 12:02 Dose: 51 mls Tranexamic Acid 1,000 mg/ (Sodium Chloride) 110 mls @ 660 mls/hr IV ONCE ONE Stop: 01/15/18 11:19 Last Admin: 01/15/18 11:21 Dose: 110 mls Tranexamic Acid 1,000 mg/ (Sodium Chloride) 510 mls @ 63.75 mls/hr IV ONCE ONE Stop: 01/15/18 19:09 Last Admin: 01/15/18 12:08 Dose: 510 mls Ondansetron HCl (Zofran) 4 mg IVP ONCE ONE Stop: 01/15/18 11:58 Last Admin: 01/15/18 12:04 Dose: 4 mg Departure - Departure Disposition: [facility] Acute Clinical Impression: Intracranial hemorrhage Lip laceration Qualifiers: Encounter type: initial encounter Qualified Code(s): S01.511A - Laceration without foreign body of lip, initial encounter Condition: Critical
[2018-01-15 10:44] LABS: PLATELET COUNT 242 10^3/uL (150-400)
[2018-01-15 10:51] LABS: INR 2.56 (0.83-1.16); PROTIME(PATIENT) 27.5 SEC (12.0-15.0)
[2018-01-15] MEDS ORDERED: TRANEXAMIC ACID 1,000 MG in NS 100 ML IV ONE (11:10)
[2018-01-15] MEDS ORDERED: DESMOPRESSIN ACETATE IV ONE (11:10)
[2018-01-15] MEDS ORDERED: PHYTONADIONE 10 MG in NS 50 ML IV ONE (11:10)
[2018-01-15] MEDS ORDERED: HUMAN PROTHROMBIN COMPLX(PCC) 2,500 UNIT/100 ML VIAL IV ONE (11:10)
[2018-01-15] MEDS ORDERED: NS IV ONE (11:10)
[2018-01-15] MEDS ORDERED: TRANEXAMIC ACID 1,000 MG in NS 500 ML IV ONE (11:10)
[2018-01-15] MEDS ORDERED: ONDANSETRON 4 MG/2 ML VIAL ONE (11:27)
[2018-01-15] MEDS ORDERED: ONDANSETRON 4 MG/2 ML VIAL IVP ONE (11:57)
[2018-01-15] MEDS ORDERED: ONDANSETRON 4 MG/2 ML VIAL IVP PRN (12:07)
[2018-01-15] MEDS ORDERED: NALOXONE HCL 0.4 MG/ML INJ IVP PRN (12:07)
[2018-01-15] MEDS ORDERED: levETIRAcetam 500MG/NACL 100 ML IV SCH (12:30)
--- NOTE | 2018-01-15 12:56 | GHP ---
[f rep st] HISTORY AND PHYSICAL DATE OF ADMISSION: 01/15/2018 CHIEF COMPLAINT: Status post fall with facial and head trauma. HISTORY OF PRESENT ILLNESS: This is a 77-year-old female on warfarin and Plavix anticoagulation for atrial fibrillation and coronary stents. She was received at the [facility] Emergency Department as a limited trauma plus activation. The patient states that she was getting out of the bathroom. She was trying to put on her pants when she lost her balance, fell forward and believes that she hit her lip and face on the sink or the counter, striking her right side predominantly. She was able to call EMS who promptly brought her here. Once in the ED, she was evaluated by the ED physician and a head CT was ordered which showed multiple bleeds. On my examination, she is alert and oriented, complaining of a headache, but otherwise nonfocal. She is protecting her airway, her breathing is normal and she has adequate circulation. Complaints at this point in time are right lip pain, right facial pain as well as right chest pain. PAST MEDICAL HISTORY: Atrial fibrillation, hypertension, hyperlipidemia, hypothyroidism, pacemaker dependent, O2 at night, history of TIA, multiple coronary stents. PAST SURGICAL HISTORY: Multiple coronary stents, the latest of which was in 2000, L4-5 fusion, right hip replacement, tonsillectomy, tendon transplant, cervical conization. SOCIAL HISTORY: Lives alone in [place]. Has a family friend in the area who has been contacted. Denies illicit drug use. Used to smoke. REVIEW OF SYSTEMS: A full 10-point review was performed. CURRENT MEDICATIONS: Reviewed, but include warfarin and Plavix. ALLERGIES: Diphenhydramine, metoprolol, beta blockers, amiodarone, rosuvastatin , tramadol. REVIEW OF SYSTEMS: Full 10-point review was performed. PHYSICAL EXAMINATION: VITAL SIGNS: Temperature 36.6, blood pressure 196/86, heart rate is 76, and she is 95% on room air. CONSTITUTIONAL: She is in a mild amount of distress, appears uncomfortable, but is otherwise nonfocal. EYES: Her pupils are equal, round, and reactive to light. She has anicteric sclerae. Her extraocular movements are intact. She does have some bruising adjacent to her right eye. EARS, NOSE, MOUTH, THROAT: She has moist mucous membranes. She has a significant right-sided lip laceration which has been repaired but continues to ooze. Her dentition is normal. CARDIOVASCULAR: She is irregularly irregular. No appreciable murmurs. RESPIRATORY: She complains of right-sided chest pain. No palpable crepitus or step-offs. No respiratory distress and her lungs are otherwise clear to auscultation. GASTROINTESTINAL: She has normoactive bowel sounds. Her abdomen is soft, nondistended, nontender. SKIN: Again, multiple bruises on her right-sided face adjacent to her right lip. Her skin is otherwise friable, but normal color without any rashes. MUSCULOSKELETAL : Again, she is nonfocal. She moves everything spontaneously. She has full strength. No weakness. No tenderness with normal joint range of motion. NEUROLOGIC: She is alert and oriented x3. Her cranial nerves 2 through 12 are intact. No weakness. No numbness. PSYCHIATRIC: She is interacting appropriately. She is a little bit anxious but not encephalopathic. LYMPH/HEME /IMMUNOLOGIC: No cervical, groin, or supraclavicular lymphadenopathy. LABORATORY DATA: White blood cell count 10, H and H stable at 12 and 38, platelets are 242. Coags are significant for an elevated INR at 2.56. Chemistries are unremarkable with the exception of an elevated glucose at 119. Toxicology is negative. IMAGING: Imaging performed in the emergency department includes a head CT, as well as a cervical spine CT. Both of these images were personally reviewed. The head CT has multiple significant findings including a large right and moderate left subdural hematoma with midline shift to the left. There is also a thin subdural hematoma along the interhemispheric falx and left cerebellar tentorium. There is also a subarachnoid hemorrhage along the right parietal convexity and inferior bifrontal lobes. There is no adjacent skull fracture. Cervical spine is negative for any acute findings, but does show some longstanding degenerative disk disease. ASSESSMENT AND PLAN: 77-year-old female status post fall on anticoagulation with multiple significant head bleeds. The patient has had a consultation from the neurosurgical service. She has some moderately sized head bleeds at this point in time, which I anticipate will continue to blossom. Her INR is actively being reversed with multiple blood products including K-centra, platelets and TXA. The patient is aware that she may need operative evacuation of the bleeds should they continue to blossom and her neurologic status decline. Plan at this point in time will be to maintain n.p.o. status. Continue reversal of her elevated INR with repeat monitoring as well as repeat CT scan imaging of her head within the next 2 to 3 hours to evaluate the evolution of the bleeds. Plan has been discussed with the ED attending, neurosurgical service and the nurse caring for the patient in the ICU. /[id number]/MODL MTDD
[2018-01-15] MEDS ORDERED: ALTEPLASE 2 MG VIAL IVP PRN (13:58)
[2018-01-15 14:50] LABS: INR 1.05 (0.83-1.16); PROTIME(PATIENT) 13.9 SEC (12.0-15.0)
[2018-01-15] MEDS: levETIRAcetam 500MG/NACL 100 ML IV SCH (16:06)
[2018-01-15] MEDS: NS 1,000 ML IV SCH ×2 (16:20→23:57)
[2018-01-15] MEDS: niCARdipine/NACL 200 ML IV SCH ×2 (16:20→22:44)
--- NOTE | 2018-01-15 16:36 | PDMN ---
Medical Necessity Medical necessity: est los>2mn for large R and moderate L subdural hematomas w/ midline shift and other significant head bleeds, anticipated to increase; requires reversal of INR, admission to ICU, NS consult, repeat INR and CT head, possible surgical intervention; comorbid afib & cardiac stents on warfarin and Plavix; htn, hld, PPM. hx TIA, O2@ hs; per order and H&P 01/15/18
--- NOTE | 2018-01-15 17:47 | GCON ---
[f rep st] CONSULTATION EMERGENCY ROOM CONSULTATION DATE OF CONSULTATION: 01/15/2018 CHIEF COMPLAINT: Subdural hematoma. HISTORY OF PRESENT ILLNESS: The patient is a 77-year-old female who presented to the emergency room for a lip laceration. She was trying to put on her pants in the bathroom this morning and she felt that she lost her balance due to light headedness and fell forward hitting her lip on the counter. The patient has had her lip laceration sutured at the bedside. Patient denies any neck pain. She does complain of a splitting headache as well as some right shoulder pain, which she states is chronic. Patient has some tenderness in her right rib cage. Patient is unsure if she had a loss of consciousness at the time of the incident. REVIEW OF SYSTEMS: Ten-point review of systems was performed and negative aside from what was mentioned in the HPI. MEDICAL HISTORY: Atrial fibrillation, hypertension, hyperlipidemia, PVD, TIA, vertigo, sleep apnea SURGICAL HISTORY: L4-5 fusion, right total hip arthroplasty, cervical conization, cardiac stents x3, tonsillectomy CURRENT MEDICATIONS: Digoxin 0.125 mg daily; acetaminophen 500 mg p.o. q.h.s. p.r.n.; Coumadin 1 mg Sunday and Sunday; Coumadin 2 mg Sunday, , Sunday, Sunday; Lipitor 20 mg q.h.s.; Plavix 75 mg daily; Claritin 10 mg daily p.r.n.; diltiazem 180 mg p.o. daily; Synthroid 75 mcg daily; Cozaar 50 mg p.o. b.i.d.; oxybutynin chloride 5 mg p.o. daily; Zoloft 25 mg p.o. daily; nitroglycerin tabs 0.4 mg sublingual p.r.n. ALLERGIES: Amiodarone, IV Benadryl, beta-blockers. SOCIAL HISTORY: Patient lives alone. She drinks 1-2 glasses of wine per day. She is a former smoker. Quit smoking cigarettes in 1992. She denies any use of illicit drug use. Does not use marijuana. FAMILY HISTORY: Patient's mother and father both had cardiac history. No other pertinent history to her current condition. LAB RESULTS: White blood cell count 10.9, hemoglobin 12.6, hematocrit 37.8, platelet count is 242. PT 27.5, INR 2.56, APTT 35.7, sodium 140, potassium 4.0 , BUN 17, creatinine 0.8, glucose 119. Alcohol levels less than 10. DIAGNOSTIC IMAGING: CT of the cervical spine performed without contrast demonstrates no acute fracture or swelling of soft tissues. The patient does have severe degenerative disk disease at C4-5 and C6-7. CT of the brain performed without contrast today at 10:20 a.m., demonstrates a large right and moderate left subdural hematoma, resulting in minimal nkxqu-cr-miod shift and mass effect upon the right lateral ventricle. There is a thin subdural hematoma along the interhemispheric falx and left cerebellum tentorium. Minimal subarachnoid hemorrhage along the high right parietal convexity inferior bifrontal lobes. PHYSICAL EXAMINATION: VITAL SIGNS: Blood pressure is 186/86, heart rate 76, respiratory rate 18, oxygen saturation 95% on room air, temperature is 36.6 degrees Celsius. HEENT: Head is normocephalic. The patient has a right-sided lip laceration that has been sutured. Pupils are equal, round, reactive to light. EOMI is intact. Full visual puri by confrontation. Ears are patent. Nose is patent. RESPIRATORY AND CARDIAC: Deferred. ABDOMEN: Soft and nontender. The patient does have some tenderness noted in the right rib cage. GENITOURINARY AND RECTAL: Deferred. NEUROLOGIC: Patient is awake and alert, oriented to person, place, and time, although she did initially feel it was Sunday and it is Sunday. Speech: No aphasia or dysphonia. Cranial nerves 2 through 12 are grossly intact. Motor: Patient has 5/5 strength in all muscle groups in the bilateral upper and lower extremities including the deltoids, biceps, triceps, brachioradialis, wrist flexors and extensors, ophthalmic medical technician, intrinsic fingers, iliopsoas, quadriceps, hamstrings, plantar flexion, dorsiflexion, EHL testing. Sensation is grossly intact to light touch throughout all dermatomal distributions of bilateral lower extremities. Reflexes: Biceps, triceps, brachioradialis, knee jerk, and ankle jerk are 2+ out of 4. Toes are downgoing bilaterally. Song sign is negative. Babinski is negative and there is no evidence of clonus. ASSESSMENT AND PLAN: Patient is a 77-year-old female who presented in the emergency department this morning following a fall in her bathroom, where she hit her face on the sink. She suffered a lip laceration, which has been sutured at the bedside in the emergency department, and underwent a CT of the brain without contrast earlier this morning. CT of the brain showed bilateral subdural hematomas, which is worse on the right. Currently, the patient is neurologically intact, but toward the end of our assessment, she did begin to perseverate, repeating her story to us several times. The patient's presenting INR was 2.56. She has received PCC, DDAVP, and is receiving a pack of platelets at this time. The patient will be started on TXA and we will repeat her INR at 1300 and we will repeat a CT of her brain at 1330. The possibility of a craniotomy was discussed at length with the patient, including risks and benefits. Patient understands that if her symptoms progress, she may be unable to consent to surgery and she has been consented at this time. If patient's neurological status declines or her head CT worsens, we will take her to the operating room for a right craniotomy for subdural evacuation, possible a bilateral craniotomy for subdural evacuation. The patient was seen and examined by Dr. Fink in the emergency department today, January 15, 2018, at 11:16 a.m. Please call Neurosurgery with any questions or concerns. /[id number]/MODL MTDD
--- NOTE | 2018-01-15 20:14 | GCON ---
[f rep st] CONSULTATION CRITICAL CARE CONSULTATION DATE OF CONSULTATION: 01/15/2018 HISTORY OF PRESENT ILLNESS: This is a 77-year-old female with a history of atrial fibrillation on an ticoagulation, who had a mechanical fall while getting out of the bathroom. She lost her balance and fell forward and hit her head on the counter and called EMS and [facility] showed multiple bleeds. She did have a headache, but was otherwise feeling mary ellen sonably well. She was on warfarin and Plavix and was treated appropriately for these issues. Otherw ise, she does also complain of right-sided chest pain when she takes a deep breath. REVIEW OF SYSTEMS: Otherwise negative. PAST MEDICAL HISTORY: Atrial fibrillation, hypertension, hyperlipidemia, hypothyroidism, pacemaker, sleep apnea using oxygen alone at night, history of TIAs and multiple coronary stents. PAST SURGICAL HISTORY: Coronary stents, the last one was in 2000; previous back surgery; right hip r eplacement; tonsillectomy; tendon transplant. SOCIAL HISTORY: She lives alone. Denies current tobacco or alcohol. CURRENT MEDICATIONS: Keppra, morphine, nicardipine p.r.n., Zofran, tranexamic acid. PHYSICAL EXAMINATION: On exam, she was awake and alert. Her a blood pressure 117/68, heart rate 109 , respirations 18, oxygen saturation 98% on 2 L. She is awake and alert, oriented x3, able to speak in full sentences without using accessory muscles for breathing. She did have scattered ecchymoses o n her face, but her pupils are equally round and reactive to light, nonicteric, noninjected, mucous m embranes moist without, erythema. NECK: Supple without adenopathy. Breath sounds were clear to aus cultation bilaterally without wheezes rubs or rales. HEART: Regular rate and rhythm without murmurs , rubs, gallops. ABDOMEN: Soft, nontender, nondistended without hepatosplenomegaly. EXTREMITIES: N o clubbing, cyanosis, or edema. NEUROLOGIC: Nonfocal. OBJECTIVE DATA: White count of 10.9, hematocrit 37.8, platelets of 242. INR was initially 2.56, now 1.05. Basic metabolic panel was unremarkable. Alcohol was normal. Her initial head CT showed larg e right and moderate left subdural hematomas with minimal sjnlx-it-cthm shift, thin subdural hematoma , and a minimal a subarachnoid hemorrhage, but no skull fractures. ASSESSMENT AND PLAN: 1. Trauma with multiple intracranial bleeding sites. She has been treated with fresh frozen plasma and tranexamic acid, and appears to be showing signs of stability. Ongoing management by Neurosurger y and Trauma Services. 2. Sleep apnea. She does use oxygen alone, which we will continue at this point. I do not feel a n eed for CPAP urgently at this time. 3. Atrial fibrillation. We will continue to monitor for any arrhythmias at this time and continue w ith her previous medications. /[id number]/MODL
[2018-01-15] MEDS: ATORVASTATIN CALCIUM 20 MG TAB PO SCH (20:56)
[2018-01-16] MEDS: levETIRAcetam 500MG/NACL 100 ML IV SCH ×2 (02:51→13:31)
[2018-01-16] MEDS: LEVOTHYROXINE 75 MCG TAB PO SCH ×2 (05:29→08:53)
--- NOTE | 2018-01-16 07:56 | NEUSURGPN ---
Assessment/Plan: 77 yo female bilateral acute subdural hematoma - neuro stable - hold anticoagulants due to bleed - tranexamic acid BID - Keppra - maintain SBP < 140 - resume diet today - if declines will require right craniotomy, possibly bilateral craniotomy for evacuation of hematoma - repeat head CT tomorrow am - continue ICU status Patient seen by myself and Dr. Fink. Subjective: Having headache. No nausea/vomiting. Objective: Awake. Alert. PERRL Speech fluent hearing grossly intact facial expression symmetrical muscle strength full at 5/5 Sensation intact - Physician Patient Seen by .: Aleks Neurosurgery Physical Exam - Vitals, I&O, Labs I and O 01/15/18 01/16/18 01/17/18 05:59 05:59 05:59 Intake Total 3238 Output Total 1575 200 Balance 1663 -200 Weight 46.26 kg Intake: IV Intake (ml) 2078 IV Infused (ml) 1160 Output: Urine (ml) 1575 200 Bedside Commode 1575 200 Other: Number of Voids Bedside Commode 2 Vital Signs Temp Pulse Resp BP Pulse Ox 37.1 C 93 16 135/72 H 98 01/16/18 06:00 01/16/18 07:00 01/16/18 07:00 01/16/18 07:00 01/16/18 07:00 Laboratory Results 01/15/18 18:30 ICD10 Worksheet Patient Problems: Problems Problem Status Onset Intracranial hemorrhage Acute Lip laceration Acute Atrial fibrillation Acute Atrial fibrillation with RVR Acute Brain lesion Acute Chest pain Acute Chronic anticoagulation Acute Coronary atherosclerosis Acute Dislocation of left shoulder joint Acute Hyperlipidemia Acute Hypertension Acute MRSA (methicillin resistant Staphylococcus aureus) Acute 08/14/16 Peripheral vascular disease Acute Shoulder pain, left Acute Shoulder subluxation Acute UTI (urinary tract infection) Acute chronic disease mgmt/transitional care Acute
[2018-01-16] MEDS: niCARdipine/NACL 200 ML IV SCH (08:55)
[2018-01-16] MEDS: NS 1,000 ML IV SCH (08:57)
[2018-01-16] MEDS: OXYCODONE/APAP 5/325 TAB PO PRN ×2 (09:01→13:15)
[2018-01-16] MEDS: SERTRALINE HCL 25 MG TAB PO SCH (09:04)
[2018-01-16] MEDS: DIGOXIN 125 MCG TAB PO SCH (09:04)
--- NOTE | 2018-01-16 09:37 | ASMTCASEMG ---
Living Arrangements What is your living Answers: Alone arrangement? Who do you live with? Type Of Residence What kind of residence do Answers: Apartment you live in? Discharge Plan Comments Coordination Status Comments Notes: Patient is a 77yo single female who fell at home and hit her face on the sink, striking her right side predominantly. Her CT scan showed multiple head bleeds. Patient has a hx of AFIB, hypertension, hyperlipidemia, hypothyroidism, pacemaker dependent, TIA, multiple coronary stents, and uses O2. She was admitted to monitor head bleeds, reverse INR. OT/PT/SPL/Inpatient rehab evals have been ordered. D/C plan TBD. CM will follow. Date Signed: 01/16/2018 09:37 AM Electronically Signed By:Radha Last LCSW
--- NOTE | 2018-01-16 10:20 | TRAUMAPN ---
Trauma Progress Note Assessment/Plan: 77 Y F s/p hx afib and coronary stents on Coumadin and plavix mechanical fall c head strike, B SDHs, lip laceration, acute on chronic R shoulder pain. INR now reversed. 1.08. Got Kcentra, TXA, platelets. B SDHs stable on repeat CT. Personally reviewed shoulder and humerus films. +OA. No acute fracture, dislocation, or separation. Lip lac. Repaired and intact. Possible malocclusion. Discussed with rads this am. Ordered 4 view mandible films but will include on repeat head CT tomorrow instead. Seen and examined with Dr. Diallo. Tertiary survey. Continue care. S: front teeth don't feel like they match. +right shoulder pain. has seen ortho as outpatient, injections previously considered. O: alert, nad, oriented pupils equal and round, normal speech no otorrhea no jaundice, mmm ctab, no crepitus irregularly irregular rhythm abd soft, nt ext wwp, bonilla x 4 Objective: Vital Signs Temp Pulse Resp BP Pulse Ox 36.8 C 106 H 25 H 121/67 H 98 01/16/18 08:00 01/16/18 09:00 01/16/18 09:00 01/16/18 09:00 01/16/18 09:00 Laboratory Results 01/16/18 08:25 01/15/18 01/16/18 01/17/18 05:59 05:59 05:59 Intake Total 3238 Output Total 1575 400 Balance 1663 -400 PT 13.9 SEC (12.0-15.0) D 01/15/18 14:20 INR 1.05 (0.83-1.16) 01/15/18 14:20
--- NOTE | 2018-01-16 12:43 | PDINTPN ---
Administration Intern Progress Note Assessment/Plan: Assessment/plan: 77 F anticoagulated with coumadin and plavix for afib and stents, s/p mechanical fall with substantial bilateral SDH. Treated in ED with Kcentra, TXA , and platelets with stabilization. No surgical intervention as of 01/16, bu tmay need eventual evacuation. Hx HTN currently controlled on cardene drip. * SDH- followed by trauma and neurosurgery and currently stable. Continued observation today. On Keppra for seizure prophylaxis * HTN- currently controlled on drip- would favor resume home meds and dc drip * Afib- currently rate controlled with digoxin * Shoulder pain- chronic issue- multiple films negative for fracture, pneumothorax, etc. Pain control 01/16/18 12:38 Subjective: no events Objective: Vital Signs Temp Pulse Resp BP Pulse Ox 37.5 C 105 H 15 100/57 L 97 01/16/18 12:00 01/16/18 12:00 01/16/18 12:00 01/16/18 12:00 01/16/18 12:00 Laboratory Results 01/16/18 08:25 01/15/18 01/16/18 01/17/18 05:59 05:59 05:59 Intake Total 3238 Output Total 1575 575 Balance 1663 -575 PT 13.9 SEC (12.0-15.0) D 01/15/18 14:20 INR 1.05 (0.83-1.16) 01/15/18 14:20 Physical Exam - Physical Exam General Appearance: WD/WN, alert, no apparent distress EENT: PERRL/EOMI Neck: supple Respiratory: lungs clear, normal breath sounds, No respiratory distress, No accessory muscle use Cardiac/Chest: irregularly irregular, No edema Abdomen: non-tender, soft, No distended Skin: normal color, warm/dry, No cyanosis Lymphatic: no adenopathy Extremities: No pedal edema Neuro/Psych: alert, normal mood/affect, oriented x 3 ICD10 Worksheet Patient Problems: Problems Problem Status Onset Intracranial hemorrhage Acute Lip laceration Acute Atrial fibrillation Acute Atrial fibrillation with RVR Acute Brain lesion Acute Chest pain Acute Chronic anticoagulation Acute Coronary atherosclerosis Acute Dislocation of left shoulder joint Acute Hyperlipidemia Acute Hypertension Acute MRSA (methicillin resistant Staphylococcus aureus) Acute 08/14/16 Peripheral vascular disease Acute Shoulder pain, left Acute Shoulder subluxation Acute UTI (urinary tract infection) Acute chronic disease mgmt/transitional care Acute
[2018-01-16] MEDS: ATORVASTATIN CALCIUM 20 MG TAB PO SCH (20:45)
--- NOTE | 2018-01-16 22:16 | SOAPPROG ---
SOAP Progress Note Assessment/Plan: Assessment: STABLE THIS THOUGH EVENING/NEURO STATUS CLEAR AND INTACT Plan: OBSERVATION/CT IN THE A.M. 01/16/18 22:16 Objective: Vital Signs Temp Pulse Resp BP Pulse Ox 37.0 C 108 H 16 134/68 H 93 01/16/18 16:00 01/16/18 19:00 01/16/18 19:00 01/16/18 19:00 01/16/18 19:00 Laboratory Results 01/16/18 08:25 01/15/18 01/16/18 01/17/18 05:59 05:59 05:59 Intake Total 3238 1764 Output Total 1575 1225 Balance 1663 539 PT 13.9 SEC (12.0-15.0) D 01/15/18 14:20 INR 1.05 (0.83-1.16) 01/15/18 14:20 ICD10 Worksheet Patient Problems: Problems Problem Status Onset Intracranial hemorrhage Acute Lip laceration Acute Atrial fibrillation Acute Atrial fibrillation with RVR Acute Brain lesion Acute Chest pain Acute Chronic anticoagulation Acute Coronary atherosclerosis Acute Dislocation of left shoulder joint Acute Hyperlipidemia Acute Hypertension Acute MRSA (methicillin resistant Staphylococcus aureus) Acute 08/14/16 Peripheral vascular disease Acute Shoulder pain, left Acute Shoulder subluxation Acute UTI (urinary tract infection) Acute chronic disease mgmt/transitional care Acute
--- NOTE | 2018-01-16 22:23 | SOAPPROG ---
SOAP Progress Note Assessment/Plan: Assessment: STABLE THIS THOUGH EVENING/NEURO STATUS CLEAR AND INTACT Plan: OBSERVATION/CT IN THE A.M. 01/16/18 22:16 01/16/18 22:20 TERTIARY EXAM COMPLETED THIS MORNING WITH VALARIE CANTOR DICTATED/PATIENT WITH BILATERAL SUBDURALS AFTER A FALL ON ANTICOAGULATION CHEST CLEAR AND SYMMETRIC COR REGULAR RHYTHM WITHOUT MURMURS NEURO EXAM INTACT AND SYMMETRIC PSYCH ALERT ORIENTED AND COOPERATIVE EXTREMITIES FULL RANGE OF MOTION FULL PULSES CONTINUE OBSERVATION AND FOLLOW-UP CT IN THE A.M. Objective: Vital Signs Temp Pulse Resp BP Pulse Ox 37.0 C 108 H 16 134/68 H 93 01/16/18 16:00 01/16/18 19:00 01/16/18 19:00 01/16/18 19:00 01/16/18 19:00 Laboratory Results 01/16/18 08:25 01/15/18 01/16/18 01/17/18 05:59 05:59 05:59 Intake Total 3238 1764 Output Total 1575 1225 Balance 1663 539 PT 13.9 SEC (12.0-15.0) D 01/15/18 14:20 INR 1.05 (0.83-1.16) 01/15/18 14:20 ICD10 Worksheet Patient Problems: Problems Problem Status Onset Intracranial hemorrhage Acute Lip laceration Acute Atrial fibrillation Acute Atrial fibrillation with RVR Acute Brain lesion Acute Chest pain Acute Chronic anticoagulation Acute Coronary atherosclerosis Acute Dislocation of left shoulder joint Acute Hyperlipidemia Acute Hypertension Acute MRSA (methicillin resistant Staphylococcus aureus) Acute 08/14/16 Peripheral vascular disease Acute Shoulder pain, left Acute Shoulder subluxation Acute UTI (urinary tract infection) Acute chronic disease mgmt/transitional care Acute
[2018-01-17] MEDS: levETIRAcetam 500MG/NACL 100 ML IV SCH ×2 (01:14→14:32)
[2018-01-17] MEDS: LEVOTHYROXINE 75 MCG TAB PO SCH (06:16)
--- NOTE | 2018-01-17 09:19 | NEUSURGPN ---
Assessment/Plan: 77 yo female bilateral acute subdural hematoma - neuro stable - hold anticoagulants due to bleed - tranexamic acid BID - Keppra - maintain SBP < 140 - resume diet today - if declines will require right craniotomy, possibly bilateral craniotomy for evacuation of hematoma. - repeat head CT done and reviewed by Dr. Fink. Appears stable to slightly improved. Report is pending. - Change to Q4 neuros per Dr Fink - continue ICU status Patient seen by myself and Dr. Fink. Subjective: Pt resting in bed, denies headache. Objective: Awake and alert but oriented only to self Pupils equal No droop CN II-XII grossly intact MAEx4 Follows all commands Motor 5/5 BUE/BLE +LT Urinary Catheter in Place: No - Physician Discussed Patient with : Aleks Patient Seen by : Aleks Neurosurgery Physical Exam - Vitals, I&O, Labs I and O 01/16/18 01/17/18 01/18/18 05:59 05:59 05:59 Intake Total 3238 2482 Output Total 1575 1725 Balance 1663 757 Weight 46.26 kg 45.89 kg Intake: Oral (ml) 500 IV Intake (ml) 2078 IV Infused (ml) 1160 1982 Ns 1,000 ml @ 100 mls/hr 1766 IV CONT JALEESA Rx#: [id number] niCARdipine/NACL 200 ml @ 216 Titrate IV CONT JALEESA Rx#: [id number] Output: Urine (ml) 1575 1725 Bedside Commode 1575 1725 Other: Intake Quantity Yes Sufficient Number of Voids Bedside Commode 2 3 Vital Signs Temp Pulse Resp BP Pulse Ox 37 C 109 H 14 129/72 H 99 01/16/18 23:00 01/17/18 06:00 01/17/18 06:00 01/17/18 06:00 01/17/18 06:00 Laboratory Results 01/17/18 06:50 ICD10 Worksheet Patient Problems: Problems Problem Status Onset Intracranial hemorrhage Acute Lip laceration Acute Atrial fibrillation Acute Atrial fibrillation with RVR Acute Brain lesion Acute Chest pain Acute Chronic anticoagulation Acute Coronary atherosclerosis Acute Dislocation of left shoulder joint Acute Hyperlipidemia Acute Hypertension Acute MRSA (methicillin resistant Staphylococcus aureus) Acute 08/14/16 Peripheral vascular disease Acute Shoulder pain, left Acute Shoulder subluxation Acute UTI (urinary tract infection) Acute chronic disease mgmt/transitional care Acute
[2018-01-17] MEDS: DIGOXIN 125 MCG TAB PO SCH (11:03)
[2018-01-17] MEDS: SERTRALINE HCL 25 MG TAB PO SCH (11:03)
--- NOTE | 2018-01-17 12:20 | PDINTPN ---
Video Network Engineer Progress Note Assessment/Plan: Assessment/plan: 77 F anticoagulated with coumadin and plavix for afib and stents, s/p mechanical fall with substantial bilateral SDH. Treated in ED with Kcentra, TXA , and platelets with stabilization. No surgical intervention as of 01/16, bu tmay need eventual evacuation. Hx HTN currently controlled on cardene drip. * SDH- followed by trauma and neurosurgery and currently stable. Head CT with slight reduction in SDH, and mental status normal for me. Right should dislocation not part of this injury and old with some residual weakness, so not acute. On Keppra for seizure prophylaxis * HTN- currently controlled on drip- would favor resume home meds and dc drip * Afib- currently rate controlled with digoxin * Shoulder pain- chronic issue- multiple films negative for fracture, pneumothorax, etc. Pain control Subjective: Some confusion reported earlier today Objective: Vital Signs Temp Pulse Resp BP Pulse Ox 37.1 C 107 H 16 137/93 H 98 01/17/18 08:00 01/17/18 11:00 01/17/18 11:00 01/17/18 11:00 01/17/18 11:00 Laboratory Results 01/17/18 06:50 01/16/18 01/17/18 01/18/18 05:59 05:59 05:59 Intake Total 3238 2482 Output Total 1575 1725 Balance 1663 757 PT 13.9 SEC (12.0-15.0) D 01/15/18 14:20 INR 1.05 (0.83-1.16) 01/15/18 14:20 Physical Exam - Physical Exam General Appearance: alert, no apparent distress EENT: PERRL/EOMI Neck: supple Respiratory: lungs clear, normal breath sounds, No respiratory distress, No accessory muscle use Cardiac/Chest: regular rate, rhythm, No edema Abdomen: non-tender, soft, No distended Skin: normal color, warm/dry, No cyanosis Lymphatic: no adenopathy Extremities: No pedal edema Neuro/Psych: alert, normal mood/affect, oriented x 3 ICD10 Worksheet Patient Problems: Problems Problem Status Onset Intracranial hemorrhage Acute Lip laceration Acute Atrial fibrillation Acute Atrial fibrillation with RVR Acute Brain lesion Acute Chest pain Acute Chronic anticoagulation Acute Coronary atherosclerosis Acute Dislocation of left shoulder joint Acute Hyperlipidemia Acute Hypertension Acute MRSA (methicillin resistant Staphylococcus aureus) Acute 08/14/16 Peripheral vascular disease Acute Shoulder pain, left Acute Shoulder subluxation Acute UTI (urinary tract infection) Acute chronic disease mgmt/transitional care Acute
--- NOTE | 2018-01-17 13:26 | ASMTCMCOM ---
CM Note CM Note Notes: Case review in rounds. 77 year old female lives alone s/p trauma. Fell and lacerated her lip. Poor STM per nursing. Attempted to reach her sister Yulia Corrales in [place] home [phone] or cell [phone], but was unable to contact. Patient to have inpatient therapy eval. CM to follow. Date Signed: 01/17/2018 01:25 PM Electronically Signed By:Alice Bui RN
--- NOTE | 2018-01-17 17:11 | SOAPPROG ---
SOAP Progress Note Assessment/Plan: Assessment: bilateral subdural, clinically stabilie Plan: monitor in icu, disposition per recomendations of neurosurgery. 01/17/18 17:10 Subjective: pt oriented as to year, place, amnestic for fall. no other compaints Objective: face with echymosis, lungs clear abd soft, benign. ct head with no change or slight improvement Vital Signs Temp Pulse Resp BP Pulse Ox 37.2 C 131 H 23 H 119/73 95 01/17/18 15:58 01/17/18 17:00 01/17/18 17:00 01/17/18 17:00 01/17/18 17:00 Laboratory Results 01/17/18 06:50 01/16/18 01/17/18 01/18/18 05:59 05:59 05:59 Intake Total 3238 2482 Output Total 1575 1725 Balance 1663 757 PT 13.9 SEC (12.0-15.0) D 01/15/18 14:20 INR 1.05 (0.83-1.16) 01/15/18 14:20 ICD10 Worksheet Patient Problems: Problems Problem Status Onset Intracranial hemorrhage Acute Lip laceration Acute Atrial fibrillation Acute Atrial fibrillation with RVR Acute Brain lesion Acute Chest pain Acute Chronic anticoagulation Acute Coronary atherosclerosis Acute Dislocation of left shoulder joint Acute Hyperlipidemia Acute Hypertension Acute MRSA (methicillin resistant Staphylococcus aureus) Acute 08/14/16 Peripheral vascular disease Acute Shoulder pain, left Acute Shoulder subluxation Acute UTI (urinary tract infection) Acute chronic disease mgmt/transitional care Acute
[2018-01-17] MEDS: niCARdipine/NACL 200 ML IV SCH (18:52)
[2018-01-17] MEDS: NS 1,000 ML IV SCH (19:30)
[2018-01-17] MEDS: ATORVASTATIN CALCIUM 20 MG TAB PO SCH (21:23)
[2018-01-17] MEDS: ACETAMINOPHEN 325 MG TAB PO PRN (21:31)
[2018-01-18] MEDS: levETIRAcetam 500MG/NACL 100 ML IV SCH ×2 (01:28→14:36)
[2018-01-18] MEDS: LEVOTHYROXINE 75 MCG TAB PO SCH (05:22)
[2018-01-18] MEDS: NS 1,000 ML IV SCH ×2 (05:31→16:12)
--- NOTE | 2018-01-18 06:20 | NEUSURGPN ---
Assessment/Plan: 77 yo female bilateral acute subdural hematoma, neurologically improving daily. Now complaining of shoulder pain. - defer to Trauma for evaluation of arm/shoulder pain/weakness, does not appear to be related to her SDH. - hold anticoagulants due to bleed - Keppra - maintain SBP < 140, transition to orals as needed. continue cardene for now. - ADAT - if declines will require right craniotomy, possibly bilateral craniotomy for evacuation of hematoma, but not likely at this point in time. - repeat head CT done and reviewed by Dr. Fink. Appears stable to slightly improved, - Q4 neuros per Dr Fink - continue ICU status while in need of cardene dw Dr. Fink Subjective: complaint of b/l shoulder pain and right arm weakness and inability to lift arm. Objective: AAOx3 PEArla, EOMI No droop, speech clear and fluent CN II-XII grossly intact MAEx4, 5/5 BLE, 5/5 ble Welt Beater, wrists, tc, bc, will not arms antigravity from deltoid d/t pain, difficult to assess fully. Follows all commands SILT - Physician Discussed Patient with : Aleks Neurosurgery Physical Exam - Vitals, I&O, Labs I and O 01/17/18 01/18/18 01/19/18 05:59 05:59 05:59 Intake Total 2482 3117.8 Output Total 1725 650 Balance 757 2467.8 Weight 45.89 kg Intake: Oral (ml) 500 400 IV Infused (ml) 1982 2717.8 Ns 1,000 ml @ 100 mls/hr 1766 2419 IV CONT JALEESA Rx#: [id number] levETIRAcetam 500MG/NACL 100 100 ml @ 400 mls/hr IV Q12H JALEESA Rx#:[id number] niCARdipine/NACL 200 ml @ 216 198.8 Titrate IV CONT JALEESA Rx#: [id number] Output: Urine (ml) 1725 650 Bedside Commode 1725 450 Toilet 200 Other: Intake Quantity Yes Sufficient Number of Voids Bedside Commode 3 1 Toilet 3 Vital Signs Temp Pulse Resp BP Pulse Ox 36.8 C 114 H 20 126/70 H 94 01/18/18 03:00 01/18/18 06:00 01/18/18 06:00 01/18/18 06:00 01/18/18 06:00 Laboratory Results 01/18/18 05:30 ICD10 Worksheet Patient Problems: Problems Problem Status Onset Intracranial hemorrhage Acute Lip laceration Acute Atrial fibrillation Acute Atrial fibrillation with RVR Acute Brain lesion Acute Chest pain Acute Chronic anticoagulation Acute Coronary atherosclerosis Acute Dislocation of left shoulder joint Acute Hyperlipidemia Acute Hypertension Acute MRSA (methicillin resistant Staphylococcus aureus) Acute 08/14/16 Peripheral vascular disease Acute Shoulder pain, left Acute Shoulder subluxation Acute UTI (urinary tract infection) Acute chronic disease mgmt/transitional care Acute
--- NOTE | 2018-01-18 08:41 | TRAUMAPN ---
Trauma Progress Note Assessment/Plan: Stable bilateral intracranial bleed status post fall. Seen by Neurosurgery repeat CT scan stable. No signs of cognitive decline. She is alert oriented no distress extraocular motions intact, pupils equal reactive. Global right shoulder weakness not thought to be related to her intracranial hemorrhage. Possible evacuation of blood if the patient declines. She had been on Plavix and warfarin for atrial fibrillation and coronary disease these have been held for now. Continue to monitor in step-down or ICU setting depending on her other comorbid conditions Hold anticoagulation for now MRI of right shoulder for continued pain and weakness not thought to be due to intracranial process PT OT Wean Cardene drip step-down unit if able Subjective: This is a 77-year-old status post fall from standing height after taking a shower. She recalls hitting the right side of her face in the right side of her body. She had sustained bilateral sub arachnoid hemorrhages. She was on anticoagulation and admitted for monitoring to the ICU. Neurologic checks have been normal. Her other complaints are of right shoulder pain which has been evaluated with plain films. MRI has been ordered for today. Objective: Vital Signs Temp Pulse Resp BP Pulse Ox 37.0 C 101 H 20 126/69 H 96 01/18/18 08:00 01/18/18 08:00 01/18/18 08:00 01/18/18 08:00 01/18/18 08:00 Laboratory Results 01/18/18 05:30 01/17/18 01/18/18 01/19/18 05:59 05:59 05:59 Intake Total 2482 3117.8 Output Total 1725 650 Balance 757 2467.8 PT 13.9 SEC (12.0-15.0) D 01/15/18 14:20 INR 1.05 (0.83-1.16) 01/15/18 14:20
[2018-01-18] MEDS: TRANEXAMIC ACID 650 MG TAB PO SCH ×2 (10:01→20:56)
[2018-01-18] MEDS: SERTRALINE HCL 25 MG TAB PO SCH (10:01)
[2018-01-18] MEDS: DIGOXIN 125 MCG TAB PO SCH (10:03)
[2018-01-18] MEDS: DILTIAZEM CD 180 MG CAP PO SCH (12:15)
[2018-01-18] MEDS: ACETAMINOPHEN 325 MG TAB PO PRN ×3 (12:15→20:56)
[2018-01-18] MEDS: LOSARTAN POTASSIUM 50 MG TAB PO SCH ×2 (12:18→20:59)
--- NOTE | 2018-01-18 14:03 | ASMTCMCOM ---
CM Note CM Note Notes: Patient case reviewed in rounds. Patient is tentatively accepted to Inpatient rehab. Plan transfer to inpt rehab when medically stable for discharge. CM to follow Date Signed: 01/18/2018 02:03 PM Electronically Signed By:Alice Bui RN
[2018-01-18] MEDS ORDERED: levETIRAcetam 500 MG TAB PO SCH (14:45)
--- NOTE | 2018-01-18 14:58 | PDINTPN ---
C[employer] Operator Insulation Progress Note Assessment/Plan: Assessment/plan: 77 F anticoagulated with coumadin and plavix for afib and stents, s/p mechanical fall with substantial bilateral SDH. Treated in ED with Kcentra, TXA , and platelets with stabilization. No surgical intervention as of 01/16, bu tmay need eventual evacuation. Hx HTN currently controlled on cardene drip. * SDH- followed by trauma and neurosurgery and currently stable. Head CT with slight reduction in SDH, and mental status normal for me. Right should dislocation not part of this injury and old with some residual weakness, so not acute. On Keppra for seizure prophylaxis. TXA resumed * HTN- off drip and BP drifting up, started home diltiazem CD today * Afib- currently rate controlled with digoxin * Shoulder pain- chronic issue- multiple films negative for fracture, pneumothorax, etc. Pain control 01/18/18 14:54 Subjective: no events. c/o headache treated with tylenol Objective: Vital Signs Temp Pulse Resp BP Pulse Ox 37.1 C 103 H 15 118/71 98 01/18/18 14:00 01/18/18 14:00 01/18/18 14:00 01/18/18 14:00 01/18/18 14:00 Laboratory Results 01/18/18 05:30 01/17/18 01/18/18 01/19/18 05:59 05:59 05:59 Intake Total 2482 3117.8 Output Total 1725 650 Balance 757 2467.8 PT 13.9 SEC (12.0-15.0) D 01/15/18 14:20 INR 1.05 (0.83-1.16) 01/15/18 14:20 Physical Exam - Physical Exam General Appearance: WD/WN, alert, no apparent distress EENT: PERRL/EOMI Neck: supple Respiratory: lungs clear, normal breath sounds, No respiratory distress, No accessory muscle use Cardiac/Chest: irregularly irregular, No edema Abdomen: non-tender, soft, No distended Skin: normal color, warm/dry, No cyanosis Lymphatic: no adenopathy Extremities: No pedal edema Neuro/Psych: alert, normal mood/affect, oriented x 3 ICD10 Worksheet Patient Problems: Problems Problem Status Onset Intracranial hemorrhage Acute Lip laceration Acute Atrial fibrillation Acute Atrial fibrillation with RVR Acute Brain lesion Acute Chest pain Acute Chronic anticoagulation Acute Coronary atherosclerosis Acute Dislocation of left shoulder joint Acute Hyperlipidemia Acute Hypertension Acute MRSA (methicillin resistant Staphylococcus aureus) Acute 08/14/16 Peripheral vascular disease Acute Shoulder pain, left Acute Shoulder subluxation Acute UTI (urinary tract infection) Acute chronic disease mgmt/transitional care Acute
[2018-01-18] MEDS: ATORVASTATIN CALCIUM 20 MG TAB PO SCH (20:56)
[2018-01-19] MEDS: ACETAMINOPHEN 325 MG TAB PO PRN ×3 (02:14→16:37)
[2018-01-19] MEDS: NS 1,000 ML IV SCH (02:14)
[2018-01-19] MEDS: levETIRAcetam 500 MG TAB PO SCH ×2 (03:40→16:32)
[2018-01-19] MEDS: LEVOTHYROXINE 75 MCG TAB PO SCH (05:47)
[2018-01-19] MEDS: DILTIAZEM CD 180 MG CAP PO SCH (09:17)
[2018-01-19] MEDS: SERTRALINE HCL 25 MG TAB PO SCH (09:17)
[2018-01-19] MEDS: TRANEXAMIC ACID 650 MG TAB PO SCH ×2 (09:18→21:43)
[2018-01-19] MEDS: DIGOXIN 125 MCG TAB PO SCH (09:18)
[2018-01-19] MEDS: LOSARTAN POTASSIUM 50 MG TAB PO SCH ×2 (09:18→21:43)
--- NOTE | 2018-01-19 09:53 | NEUSURGPN ---
Assessment/Plan: Assessment/Plan: 77 yo female bilateral acute subdural hematoma, neurologically improving daily. Now complaining of shoulder pain which is being looked at by ortho- no fracture identified. - Arm weakness does not appear to be coming from her SDH, more likely shoulder issues which trauma/ortho are looking into - hold anticoagulants due to bleed - Keppra -Continue TXA BID until she follows up as outpatient - maintain SBP < 140, transition to orals if needed. No longer requiring Cardene. - if declines will require right craniotomy, possibly bilateral craniotomy for evacuation of hematoma, but not likely at this point in time. - repeat head CT done 01/[address] Fink. Appears stable to slightly improved, - Q4 neuros ok - May transition to SDU status today, possibly to floor tomorrow Subjective: Doing well overall and improving daily. Has mild headache that comes and goes this morning but is mild. Continues to have shoulder pain and Dr. Nicole is here to look at this. 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 Follows all commands SILT - Physician Discussed Patient with : [facility] Physical Exam - Vitals, I&O, Labs I and O 01/18/18 01/19/18 01/20/18 05:59 05:59 05:59 Intake Total 3117.8 2926 Output Total 650 675 Balance 2467.8 2251 Intake: Oral (ml) 400 850 IV Infused (ml) 2717.8 2076 Ns 1,000 ml @ 100 mls/hr 2419 2076 IV CONT JALEESA Rx#: [id number] levETIRAcetam 500MG/NACL 100 100 ml @ 400 mls/hr IV Q12H JALEESA Rx#:[id number] niCARdipine/NACL 200 ml @ 198.8 Titrate IV CONT JALEESA Rx#: [id number] Output: Urine (ml) 650 675 Bedside Commode 450 300 Toilet 200 375 Other: Number of Voids Bedside Commode 1 Toilet 3 Number of Stools Toilet 0 Vital Signs Temp Pulse Resp BP Pulse Ox 36.8 C 78 22 H 117/61 98 01/19/18 08:00 01/19/18 08:00 01/19/18 08:00 01/19/18 08:00 01/19/18 08:00 Laboratory Results 01/19/18 03:50 ICD10 Worksheet Patient Problems: Problems Problem Status Onset Intracranial hemorrhage Acute Lip laceration Acute Atrial fibrillation Acute Atrial fibrillation with RVR Acute Brain lesion Acute Chest pain Acute Chronic anticoagulation Acute Coronary atherosclerosis Acute Dislocation of left shoulder joint Acute Hyperlipidemia Acute Hypertension Acute MRSA (methicillin resistant Staphylococcus aureus) Acute 08/14/16 Peripheral vascular disease Acute Shoulder pain, left Acute Shoulder subluxation Acute UTI (urinary tract infection) Acute chronic disease mgmt/transitional care Acute
--- NOTE | 2018-01-19 10:38 | SOAPPROG ---
SOAP Progress Note Assessment/Plan: Assessment: no overnight events. no TALAVERA. no visual changes. no neck pain. 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 off nicardipene. afebrile, bp 120's alert and appropriate. clean abrasion right lip PERRLA/EOMI heart regular lungs clear abd nontender ext tender right shoulder - no stepoff or deformity - no swelling bilat SAH right shoulder strain/hx chronic DJD plan reviewed with NS, ok to tx to stepdown cont TXA PT/OT holding anticoag / afib for now. Plan: 01/19/18 10:37 01/19/18 10:39 Objective: Vital Signs Temp Pulse Resp BP Pulse Ox 36.8 C 78 22 H 117/61 98 01/19/18 08:00 01/19/18 08:00 01/19/18 08:00 01/19/18 08:00 01/19/18 08:00 Laboratory Results 01/19/18 03:50 01/18/18 01/19/18 01/20/18 05:59 05:59 05:59 Intake Total 3117.8 2926 Output Total 650 675 Balance 2467.8 2251 PT 13.9 SEC (12.0-15.0) D 01/15/18 14:20 INR 1.05 (0.83-1.16) 01/15/18 14:20 ICD10 Worksheet Patient Problems: Problems Problem Status Onset Intracranial hemorrhage Acute Lip laceration Acute Atrial fibrillation Acute Atrial fibrillation with RVR Acute Brain lesion Acute Chest pain Acute Chronic anticoagulation Acute Coronary atherosclerosis Acute Dislocation of left shoulder joint Acute Hyperlipidemia Acute Hypertension Acute MRSA (methicillin resistant Staphylococcus aureus) Acute 08/14/16 Peripheral vascular disease Acute Shoulder pain, left Acute Shoulder subluxation Acute UTI (urinary tract infection) Acute chronic disease mgmt/transitional care Acute
[2018-01-19] MEDS ORDERED: POLYETHYLENE GLYCOL 3350 17 GM PKT PO PRN (10:46)
[2018-01-19] MEDS ORDERED: MAGNESIUM HYDROXIDE 30 ML UDCUP PO PRN (10:46)
[2018-01-19] MEDS ORDERED: LACTULOSE 20 GM/30 ML UDCUP PO PRN (10:46)
[2018-01-19] MEDS ORDERED: BISACODYL 10 MG SUPP PR PRN (10:46)
--- NOTE | 2018-01-19 11:43 | PDINTPN ---
Sample Book Maker Progress Note Assessment/Plan: Assessment/plan: 77 F anticoagulated with coumadin and plavix for afib and stents, s/p mechanical fall with substantial bilateral SDH. Treated in ED with Kcentra, TXA , and platelets with stabilization. No surgical intervention as of 01/16, bu tmay need eventual evacuation. Hx HTN currently controlled on cardene drip. * SDH- followed by trauma and neurosurgery and currently stable. Head CT with slight reduction in SDH, and mental status normal for me. Right should dislocation not part of this injury and old with some residual weakness, so not acute. On Keppra for seizure prophylaxis. TXA resumed. Now SDU status per NS/ trauma * HTN- off drip and BP drifting up, started home diltiazem CD and cozaar and stable * Afib- currently rate controlled with digoxin, dilt * Shoulder pain- chronic issue- multiple films negative for fracture, pneumothorax, etc. Pain control, PT/OT Subjective: TALAVERA improved Objective: Vital Signs Temp Pulse Resp BP Pulse Ox 36.8 C 91 20 137/73 H 93 01/19/18 08:00 01/19/18 10:00 01/19/18 10:00 01/19/18 10:00 01/19/18 10:00 Laboratory Results 01/19/18 03:50 01/18/18 01/19/18 01/20/18 05:59 05:59 05:59 Intake Total 3117.8 2926 Output Total 650 675 Balance 2467.8 2251 PT 13.9 SEC (12.0-15.0) D 01/15/18 14:20 INR 1.05 (0.83-1.16) 01/15/18 14:20 Physical Exam - Physical Exam General Appearance: WD/WN, alert, no apparent distress EENT: PERRL/EOMI Neck: supple Respiratory: lungs clear, normal breath sounds, No respiratory distress, No accessory muscle use Cardiac/Chest: irregularly irregular, No edema Abdomen: non-tender, soft, No distended Skin: normal color, warm/dry, No cyanosis Lymphatic: no adenopathy Extremities: No pedal edema Neuro/Psych: alert, normal mood/affect, oriented x 3 ICD10 Worksheet Patient Problems: Problems Problem Status Onset Intracranial hemorrhage Acute Lip laceration Acute Atrial fibrillation Acute Atrial fibrillation with RVR Acute Brain lesion Acute Chest pain Acute Chronic anticoagulation Acute Coronary atherosclerosis Acute Dislocation of left shoulder joint Acute Hyperlipidemia Acute Hypertension Acute MRSA (methicillin resistant Staphylococcus aureus) Acute 08/14/16 Peripheral vascular disease Acute Shoulder pain, left Acute Shoulder subluxation Acute UTI (urinary tract infection) Acute chronic disease mgmt/transitional care Acute
[2018-01-19] MEDS: SENNOSIDES/DOCUSATE SODIUM TAB PO SCH (21:43)
[2018-01-19] MEDS: ATORVASTATIN CALCIUM 20 MG TAB PO SCH (21:43)
[2018-01-19] MEDS: OXYCODONE/APAP 5/325 TAB PO PRN (21:45)
[2018-01-20] MEDS ORDERED: LORazepam 0.5 MG TAB PO ONE (02:00)
[2018-01-20] MEDS: levETIRAcetam 500 MG TAB PO SCH ×2 (06:01→15:50)
[2018-01-20] MEDS: LEVOTHYROXINE 75 MCG TAB PO SCH (06:01)
--- NOTE | 2018-01-20 08:58 | TRAUMAPN ---
Trauma Progress Note Assessment/Plan: 77yo F s/p fall c multiple SAH, lip laceration Neuro: Last scan was on the and was stable. Patient remains neurologically intact and nonfocal. Pain is well controlled Pulm: Stable on 3 L nasal cannula, discussed again aggressive pulmonary toilet. CV: Hemodynamically stable Abdomen: Soft nondistended nontender Renal: Voiding urine output appropriate Heme: Stable, holding blood thinners secondary to head bleed Id: Afebrile Dispo: Transfer to step-down yesterday, likely transfer to floor today. Has been accepted inpatient rehab, transfer when appropriate, which from trauma standpoint could be as early as this afternoon Subjective: doing well, has been walking. Objective: Vital Signs Temp Pulse Resp BP Pulse Ox 36.5 C 81 16 148/63 H 94 01/20/18 04:00 01/20/18 04:00 01/20/18 04:00 01/20/18 04:00 01/20/18 04:00 Laboratory Results 01/20/18 05:25 01/19/18 01/20/18 01/21/18 05:59 05:59 05:59 Intake Total 2926 700 Output Total 675 200 Balance 2251 500 PT 13.9 SEC (12.0-15.0) D 01/15/18 14:20 INR 1.05 (0.83-1.16) 01/15/18 14:20
[2018-01-20] MEDS: SENNOSIDES/DOCUSATE SODIUM TAB PO SCH ×2 (09:40→20:09)
[2018-01-20] MEDS: SERTRALINE HCL 25 MG TAB PO SCH (09:40)
[2018-01-20] MEDS: DILTIAZEM CD 180 MG CAP PO SCH (09:40)
[2018-01-20] MEDS: LOSARTAN POTASSIUM 50 MG TAB PO SCH ×2 (09:40→20:09)
[2018-01-20] MEDS: DIGOXIN 125 MCG TAB PO SCH (09:41)
[2018-01-20] MEDS: TRANEXAMIC ACID 650 MG TAB PO SCH ×2 (09:41→20:08)
--- NOTE | 2018-01-20 09:43 | NEUSURGPN ---
Assessment/Plan: Assessment/Plan: 77 yo female bilateral acute subdural hematoma, neurologically improving daily. Now complaining of shoulder pain which is being looked at by trauma- no fracture identified. - Arm weakness does not appear to be coming from her SDH, more likely shoulder issues which trauma saw and imaged no fracture - hold anticoagulants due to bleed - Keppra -Continue TXA BID until she follows up as outpatient - maintain SBP < 140, transition to orals if needed. No longer requiring Cardene. - if declines will require right craniotomy, possibly bilateral craniotomy for evacuation of hematoma, but not likely at this point in time. - repeat head CT done 01/[address] Fink. Appears stable to slightly improved, - Q4 neuros ok - May transition to the floor today from neurosurgery standpoint, will defer to trauma. Subjective: Doing well this morning. No changes, still having some mild headaches but managed well with tylenol. Did get up out of bed yesterday with walker and did well. Objective: AAOx3 PERRL, EOMI No droop, speech clear and fluent Ecchymoses on right side of face CN II-XII grossly intact MAEx4, 5/5 BLE, 5/5 ble Cheese Cutter, wrists, tc, bc, will not arms antigravity from deltoid d/t pain, difficult to assess fully. Follows all commands SILT - Physician Discussed Patient with : [facility] Physical Exam - Vitals, I&O, Labs I and O 01/19/18 01/20/18 01/21/18 05:59 05:59 05:59 Intake Total 2926 700 Output Total 675 200 Balance 2251 500 Intake: Oral (ml) 850 700 IV Infused (ml) 2076 Ns 1,000 ml @ 100 mls/hr 207 IV CONT JALEESA Rx#: [id number] Output: Urine (ml) 675 200 Bedside Commode 300 Toilet 375 200 Other: Output Comment Toilet Bowel protocol started today Number of Voids Toilet 2 Number of Stools Toilet 0 0 Vital Signs Temp Pulse Resp BP Pulse Ox 36.5 C 81 16 148/63 H 94 01/20/18 04:00 01/20/18 04:00 01/20/18 04:00 01/20/18 04:00 01/20/18 04:00 Laboratory Results 01/20/18 05:25 ICD10 Worksheet Patient Problems: Problems Problem Status Onset Intracranial hemorrhage Acute Lip laceration Acute Atrial fibrillation Acute Atrial fibrillation with RVR Acute Brain lesion Acute Chest pain Acute Chronic anticoagulation Acute Coronary atherosclerosis Acute Dislocation of left shoulder joint Acute Hyperlipidemia Acute Hypertension Acute MRSA (methicillin resistant Staphylococcus aureus) Acute 08/14/16 Peripheral vascular disease Acute Shoulder pain, left Acute Shoulder subluxation Acute UTI (urinary tract infection) Acute chronic disease mgmt/transitional care Acute
[2018-01-20] MEDS: OXYCODONE/APAP 5/325 TAB PO PRN (10:00)
[2018-01-20] MEDS: hydrALAZINE 20 MG/ML VIAL IVP PRN (10:53)
--- NOTE | 2018-01-20 11:14 | PDINTPN ---
Weasand Trimmer Progress Note Assessment/Plan: Assessment/plan: 77 F anticoagulated with coumadin and plavix for afib and stents, s/p mechanical fall with substantial bilateral SDH. Treated in ED with Kcentra, TXA , and platelets with stabilization. No surgical intervention as of 01/16, bu tmay need eventual evacuation. Hx HTN currently controlled on cardene drip. * SDH- followed by trauma and neurosurgery and currently stable. Head CT with slight reduction in SDH, and mental status normal. On Keppra for seizure prophylaxis. TXA resumed. Now SDU status per NS/trauma and stable. ?Med/surg * HTN- off drip and BP drifting up, started home diltiazem CD and cozaar and stable; may need prn hydralazine and watch HR * Afib- currently rate controlled with digoxin, dilt * Shoulder pain- multiple films negative for fracture, pneumothorax, etc. MRI pending. Support sling. Pain control, PT/OT 01/20/18 11:12 Subjective: ongoing complaints of shoulder pain (right) Objective: Vital Signs Temp Pulse Resp BP Pulse Ox 36.5 C 101 H 13 167/92 H 100 01/20/18 04:00 01/20/18 09:41 01/20/18 09:41 01/20/18 10:53 01/20/18 09:41 Laboratory Results 01/20/18 05:25 01/19/18 01/20/18 01/21/18 05:59 05:59 05:59 Intake Total 2926 700 Output Total 675 200 Balance 2251 500 PT 13.9 SEC (12.0-15.0) D 01/15/18 14:20 INR 1.05 (0.83-1.16) 01/15/18 14:20 Physical Exam - Physical Exam General Appearance: WD/WN, alert, no apparent distress EENT: PERRL/EOMI Neck: supple Respiratory: lungs clear, normal breath sounds, No respiratory distress, No accessory muscle use Cardiac/Chest: irregularly irregular, No edema Abdomen: non-tender, soft, No distended Skin: normal color, warm/dry, No cyanosis Lymphatic: no adenopathy Extremities: No pedal edema Neuro/Psych: alert, normal mood/affect, oriented x 3 ICD10 Worksheet Patient Problems: Problems Problem Status Onset Intracranial hemorrhage Acute Lip laceration Acute Atrial fibrillation Acute Atrial fibrillation with RVR Acute Brain lesion Acute Chest pain Acute Chronic anticoagulation Acute Coronary atherosclerosis Acute Dislocation of left shoulder joint Acute Hyperlipidemia Acute Hypertension Acute MRSA (methicillin resistant Staphylococcus aureus) Acute 08/14/16 Peripheral vascular disease Acute Shoulder pain, left Acute Shoulder subluxation Acute UTI (urinary tract infection) Acute chronic disease mgmt/transitional care Acute
[2018-01-20] MEDS ORDERED: IOPAMIDOL (ISOVUE-300) 100 ML BTL ONE (13:50)
[2018-01-20] MEDS: ACETAMINOPHEN 325 MG TAB PO PRN (15:49)
[2018-01-20] MEDS: ATORVASTATIN CALCIUM 20 MG TAB PO SCH (20:08)
[2018-01-21] MEDS: hydrALAZINE 20 MG/ML VIAL IVP PRN (03:21)
[2018-01-21] MEDS: ACETAMINOPHEN 325 MG TAB PO PRN ×2 (03:21→09:55)
[2018-01-21] MEDS: levETIRAcetam 500 MG TAB PO SCH (03:21)
[2018-01-21] MEDS: LEVOTHYROXINE 75 MCG TAB PO SCH (05:16)
--- NOTE | 2018-01-21 07:57 | NEUSURGPN ---
Assessment/Plan: Assessment: 77 yo female with bilateral acute subdural hematoma, neurologically improving daily. Pt was complaining of shoulder pain which is being looked at by trauma- no fracture identified. Plan: -Arm weakness does not appear to be coming from her SDH, more likely shoulder issues which trauma saw and imaged no fracture -hold anticoagulants due to bleed -continue with Keppra -continue TXA BID until she follows up as outpatient in one month -maintain SBP at normal limits for any patient-avoid SBP above 160 -if declines will require right craniotomy, possibly bilateral craniotomy for evacuation of hematoma, but not likely at this point in time as she is improving daily -repeat head CT done 01/[address] Fink. Appears stable to slightly improved -Q4 neuros ok -may transition to rehab if cleared by trauma -call with any questions or concerns -d/w Dr Fink Subjective: Awake and alert. Pt with improving HAs and states that "I feell better today". No neck/chest/abd or gu complaints. No f/c/n/v/d. Objective: AAO x 3, PERRLA/EOMI no droop CN 2-12 grossly intact +lt touch 5/5 BUE/BLE = lip lac healing-crusted Neuro Check Frequency: per routine Urinary Catheter in Place: No - Physician Discussed Patient with : [facility] Physical Exam - Vitals, I&O, Labs I and O 01/20/18 01/21/18 01/22/18 05:59 05:59 05:59 Intake Total 700 700 Output Total 200 800 500 Balance 500 -100 -500 Intake: Oral (ml) 700 700 Output: Urine (ml) 200 800 500 Toilet 200 800 500 Other: Output Comment Toilet Bowel protocol started today Number of Voids Toilet 2 1 1 Number of Stools Toilet 0 Vital Signs Temp Pulse Resp BP Pulse Ox 36.9 C 88 19 145/80 H 93 01/21/18 03:12 01/21/18 03:12 01/21/18 03:12 01/21/18 03:59 01/21/18 03:12 Laboratory Results 01/21/18 04:27 ICD10 Worksheet Patient Problems: Problems Problem Status Onset Intracranial hemorrhage Acute Lip laceration Acute Atrial fibrillation Acute Atrial fibrillation with RVR Acute Brain lesion Acute Chest pain Acute Chronic anticoagulation Acute Coronary atherosclerosis Acute Dislocation of left shoulder joint Acute Hyperlipidemia Acute Hypertension Acute MRSA (methicillin resistant Staphylococcus aureus) Acute 08/14/16 Peripheral vascular disease Acute Shoulder pain, left Acute Shoulder subluxation Acute UTI (urinary tract infection) Acute chronic disease mgmt/transitional care Acute
--- NOTE | 2018-01-21 08:58 | SOAPPROG ---
SOAP Progress Note Assessment/Plan: Assessment/Plan 77 Y F s/p hx afib and coronary stents on Coumadin and plavix mechanical fall c head strike, B SDHs, lip laceration, acute on chronic R shoulder pain. Seen and examined with Dr. Diallo. D/c to inpatient rehab today. Hold plavix and coumadin. Continue Keppra and TXA per NS. No fracture on extremity CT. Suspect acute on chronic process. Outpatient f/u c ortho as planned. S: TALAVERA's better. O: alert, nad, oriented pupils equal and round, normal speech no otorrhea no jaundice, mmm ctab, no crepitus irregularly irregular rhythm abd soft, nt ext wwp, bonilla x 4 01/21/18 08:56 Objective: Vital Signs Temp Pulse Resp BP Pulse Ox 36.9 C 84 16 159/78 H 95 01/21/18 08:00 01/21/18 08:00 01/21/18 08:00 01/21/18 08:00 01/21/18 08:00 Laboratory Results 01/21/18 04:27 01/20/18 01/21/18 01/22/18 05:59 05:59 05:59 Intake Total 700 700 Output Total 200 800 500 Balance 500 -100 -500 PT 13.9 SEC (12.0-15.0) D 01/15/18 14:20 INR 1.05 (0.83-1.16) 01/15/18 14:20 ICD10 Worksheet Patient Problems: Problems Problem Status Onset Intracranial hemorrhage Acute Lip laceration Acute Atrial fibrillation Acute Atrial fibrillation with RVR Acute Brain lesion Acute Chest pain Acute Chronic anticoagulation Acute Coronary atherosclerosis Acute Dislocation of left shoulder joint Acute Hyperlipidemia Acute Hypertension Acute MRSA (methicillin resistant Staphylococcus aureus) Acute 08/14/16 Peripheral vascular disease Acute Shoulder pain, left Acute Shoulder subluxation Acute UTI (urinary tract infection) Acute chronic disease mgmt/transitional care Acute
--- NOTE | 2018-01-21 09:01 | SOAPPROG ---
SOAP Progress Note Assessment/Plan: Assessment: STABLE THIS THOUGH EVENING/NEURO STATUS CLEAR AND INTACT Plan: OBSERVATION/CT IN THE A.M. 01/16/18 22:16 01/16/18 22:20 TERTIARY EXAM COMPLETED THIS MORNING WITH VALARIE CANTOR DICTATED/PATIENT WITH BILATERAL SUBDURALS AFTER A FALL ON ANTICOAGULATION CHEST CLEAR AND SYMMETRIC COR REGULAR RHYTHM WITHOUT MURMURS NEURO EXAM INTACT AND SYMMETRIC PSYCH ALERT ORIENTED AND COOPERATIVE EXTREMITIES FULL RANGE OF MOTION FULL PULSES CONTINUE OBSERVATION AND FOLLOW-UP CT IN THE A.M. 01/21/18 09:00 NO REAL CHANGE/ STILL SOME MILD HEADACHES/ AFEBRILE/ VS STABLE/ BP OK/ TO REHAB SOON Objective: Vital Signs Temp Pulse Resp BP Pulse Ox 36.9 C 84 16 159/78 H 95 01/21/18 08:00 01/21/18 08:00 01/21/18 08:00 01/21/18 08:00 01/21/18 08:00 Laboratory Results 01/21/18 04:27 01/20/18 01/21/18 01/22/18 05:59 05:59 05:59 Intake Total 700 700 Output Total 200 800 500 Balance 500 -100 -500 PT 13.9 SEC (12.0-15.0) D 01/15/18 14:20 INR 1.05 (0.83-1.16) 01/15/18 14:20 ICD10 Worksheet Patient Problems: Problems Problem Status Onset Intracranial hemorrhage Acute Lip laceration Acute Atrial fibrillation Acute Atrial fibrillation with RVR Acute Brain lesion Acute Chest pain Acute Chronic anticoagulation Acute Coronary atherosclerosis Acute Dislocation of left shoulder joint Acute Hyperlipidemia Acute Hypertension Acute MRSA (methicillin resistant Staphylococcus aureus) Acute 08/14/16 Peripheral vascular disease Acute Shoulder pain, left Acute Shoulder subluxation Acute UTI (urinary tract infection) Acute chronic disease mgmt/transitional care Acute
--- NOTE | 2018-01-21 09:01 | PDIAF ---
- Diagnosis Diagnosis: s/p mechanical fall on anticoagulation, B SDHs, lip laceration Code Status: Full Code - Medication Management Discharge Medications: Medications to Continue on Transfer Cholecalciferol Vit D3 [Vitamin D3 2000 units] 4,000 units PO DAILY 03/18/13 [ Last Taken 01/11/18] Herbals/Supplements -Info Only 1 each PO AD 03/18/13 [Last Taken 12/19/17] Nitroglycerin [Nitrostat 0.4 mg (*)] 0.4 mg SL PRN PRN 03/18/13 [Last Taken 08:00] Digoxin [Lanoxin 0.125 mg] 0.125 mg PO DAILY 10/02/13 [Last Taken 01/14/18] Acetaminophen [Tylenol ES 500 mg (*)] 500 mg PO BID PRN 02/13/14 [Last Taken 21:00] Atorvastatin Calcium [Lipitor 20 mg (*)] 20 mg PO HS 12/24/16 [Last Taken ] Loratadine [Claritin 10 mg] 10 mg PO DAILY PRN 12/24/16 [Last Taken 2 Weeks Ago ~12/05/17] Diltiazem Cd [Cardizem ER Q24hr] 180 mg PO DAILY #0 cap 01/24/17 [Last Taken ] Levothyroxine [Synthroid 75 mcg (*)] 75 mcg PO DAILY06 12/19/17 [Last Taken ] Losartan Potassium [Cozaar 50 mg (*)] 50 mg PO BID #60 tab 12/22/17 [Last Taken 01/14/18 21:00] Oxybutynin Chloride Xl [Ditropan Xl 5mg (*)] 5 mg PO DAILY #30 tab 12/23/17 [ Last Taken 01/14/18] Sertraline HCl [Zoloft 25mg (*)] 25 mg PO DAILY #30 tab 12/23/17 [Last Taken ] Melatonin [Melatonin 3 MG (*)] 3 mg PO HS 01/15/18 [Last Taken 01/14/18] Acetaminophen [Tylenol 325mg (*)] 650 mg PO Q4HRS PRN tab 01/21/18 [Last Taken Unknown] Polyethylene Glycol 3350 [Miralax 17 gm (*)] 17 gm PO DAILY PRN pkt 01/21/18 [ Last Taken Unknown] Sennosides/Docusate Sodium [Senokot-S] 1 - 2 tab PO BID tab 01/21/18 [Last Taken Unknown] Tranexamic Acid 650 mg PO BID tab 01/21/18 [Last Taken Unknown] levETIRAcetam [Keppra 500 mg (*)] 500 mg PO Q12H tab 01/21/18 [Last Taken Unknown] oxyCODONE/APAP 5/325 [Percocet 5/325 (*)] 1 - 2 tab PO Q4 PRN #20 tab 01/21/18 [ Last Taken Unknown] Discharge Medications: Refer to the Discharge Home Medication list for PRN reason. PICC Care - Routine: N/A - Orders Services needed: Registered Nurse, Physical Therapy, Occupational Therapy, Speech Language Pathologist Isolation Type: None Diet Recommendation: no restrictions on diet Diet Texture: Regular Texture Diet Wound Care Instructions: Ok to shower and bath. Antiobiotic ointment over lip laceration wound daily until healed. Sutures/Fannie Site: may remove lip laceration sutures on 01/23. - Follow Up Care Current Providers and Referrals: Sy Diallo MD [Medical Doctor] - follow up in 2 weeks Cricket Fink MD [Medical Doctor] - (one month) Patient,NotPresent [Unknown] - As per Instructions
[2018-01-21] MEDS: TRANEXAMIC ACID 650 MG TAB PO SCH (09:50)
[2018-01-21] MEDS: DILTIAZEM CD 180 MG CAP PO SCH (09:50)
[2018-01-21] MEDS: DIGOXIN 125 MCG TAB PO SCH (09:50)
[2018-01-21] MEDS: SENNOSIDES/DOCUSATE SODIUM TAB PO SCH (09:51)
[2018-01-21] MEDS: SERTRALINE HCL 25 MG TAB PO SCH (09:51)
[2018-01-21] MEDS: LOSARTAN POTASSIUM 50 MG TAB PO SCH (09:51)
[2018-01-21 11:58] VITALS: BP 137/84
--- NOTE | 2018-01-21 15:53 | ASMTCMCOM ---
CM Note CM Note Notes: Pt medically stable for d/c to [facility] inpatient rehab. [facility] to transport and bill pt, pt aware of need for payment. Order to be obtained in [employer]. IRMA Jackson called report. Date Signed: 01/21/2018 03:52 PM Electronically Signed By:NAPOLEON Craig
--- NOTE | 2018-01-21 15:54 | ASDISCHSUM ---
Discharge Information Plan Status:Inpatient Rehab Medically Cleared to Leave: Discharge Date:01/21/2018 01:20 PM CM D/C Disposition:[facility] IP ADT D/C Disposition:[facility] IP Projected Discharge Date:01/21/2018 11:00 AM Transportation at D/C:Wheelchair Van Discharge Delay Reason: Follow-Up Date:01/21/2018 11:00 AM Discharge Slot: Final Diagnosis: Placement Information Referral Type:Rehabilitation Hospital Referral ID:[id number] Provider Name:[facility] Inpatient Rehab Address 1:[address] [place] Phone Number: Address 2: Fax Number: [facility]:[place] Selection Factors: State:[place] Patient Contact Information Contact Name:Bandar Relationship:Sister Address:[address] City:[place] Alternate Phone: State/Zip Code:[place] [address] Email: Financial Information Financial Class:Medicare Primary Plan Desc:MEDICARE INPATIENT Primary Plan Number:[id number] Secondary Plan Desc: Secondary Plan Number:[id number] Assessment Information [facility] Initial CM Assessment Living Arrangements What is your living Answers: Alone arrangement? Who do you live with? Type Of Residence What kind of residence do Answers: Apartment you live in? Discharge Plan Comments Coordination Status Comments Notes: Patient is a 77yo single female who fell at home and hit her face on the sink, striking her right side predominantly. Her CT scan showed multiple head bleeds. Patient has a hx of AFIB, hypertension, hyperlipidemia, hypothyroidism, pacemaker dependent, TIA, multiple coronary stents, and uses O2. She was admitted to monitor head bleeds, reverse INR. OT/PT/SPL/Inpatient rehab evals have been ordered. D/C plan TBD. CM will follow. Date Signed: 01/16/2018 09:37 AM Electronically Signed By:Radha Last LCSW [facility] CM Progress Note CM Note CM Note Notes: Case review in rounds. 77 year old female lives alone s/p trauma. Fell and lacerated her lip. Poor STM per nursing. Attempted to reach her sister Yulia Corrales in [place] home [phone] or cell [phone], but was unable to contact. Patient to have inpatient therapy eval. CM to follow. Date Signed: 01/17/2018 01:25 PM Electronically Signed By:Alice Bui RN [facility] CM Progress Note CM Note CM Note Notes: Patient case reviewed in rounds. Patient is tentatively accepted to Inpatient rehab. Plan transfer to inpt rehab when medically stable for discharge. CM to follow Date Signed: 01/18/2018 02:03 PM Electronically Signed By:Alice Bui RN [facility] CM Progress Note CM Note CM Note Notes: Pt medically stable for d/c to [facility] inpatient rehab. [place] to transport and bill pt, pt aware of need for payment. Order to be obtained in [employer] [facility] called report. Date Signed: 01/21/2018 03:52 PM Electronically Signed By:NAPOLEON Craig Intervention Information Intervention Type:*IM-Signed Date of Service:01/21/2018 09:24 AM Patient Type:Inpatient Staff Member:Rhoda Quintero Hours: Discipline: Severity: Comment:
--- NOTE | 2018-02-25 21:53 | GDS ---
[f rep st] DISCHARGE SUMMARY DISCHARGE DIAGNOSES: 1. Mechanical fall while anticoagulated with Plavix and Coumadin. 2. History of atrial fibrillation and coronary stents. 3. Lip laceration. 4. Large right and moderate left subdural hematoma with midline shift. 5. Subarachnoid hemorrhage. 6. Acute on chronic right shoulder pain. PROCEDURES: None. CONSULTATIONS: 1. Teddy Lucas MD, breastfeeding peer counselor. 2. Alix Hooper MD, Neurosurgery. SPECIAL TESTS: Please see reports for multiple head CTs done on 01/15 x2; 01/16 x1, and 01/17 x1. A lso face CT, extremity CT, and cervical spine CT. Shoulder x-ray. HOSPITAL COURSE: The patient Vangie is a very pleasant 78-year-old female who is anticoagulated with warfarin and Plavix for atrial fibrillation and coronary stents, who lost her balance while getting d ressed and hit a counter, largely on her right side. She was admitted to the emergency department as a trauma activation. She was found to have a large right and a moderate left subdural hematoma with a midline shift, as well as a subarachnoid hemorrhage, not associated with skull fracture. Her cerv ical spine was negative for acute problems. She also had a lip laceration, which was repaired. She was administered Kcentra, platelets, and TXA. Serial CT scans were performed without major change. No rib fractures were found on chest x-ray. She did have an x-ray and a CT for acute on chronic righ t shoulder pain, which had been watched by an outside orthopedist. She was kept on Keppra for seizur e prophylaxis, as well as oral TXA. She had no neurologic decline and so operative management was no t pursued. DISCHARGE INSTRUCTIONS: Ultimately patient was considered stable for discharge and was sent to [facility] inpatient rehabilitation with plans for outpatient followup with Neurosurgery, General Surgery, a nd Orthopedic Surgery. At the time of discharge, her warfarin and Plavix were continued to be held. /[id number]/MODL
== END 2018-01-21 13:20 | DRG 84 ==
LOC: EDUNIT# → OBSVTOIN 12:07 → F2N 13:40 → F3N 01-20 15:00
PROVIDERS: ADMIT Surgery; ATTEND Surgery
PROC: 30283B1 Transfusion of Nonautologous 4-Factor Prothrombin Complex Concentrate into Vein, Percutaneous Approach (ICD-10-PCS; principal; 2018-01-15)
PROC: 02HV33Z Insertion of Infusion Device into Superior Vena Cava, Percutaneous Approach (ICD-10-PCS; 2018-01-15)
PROC: 0CQ0XZZ Repair Upper Lip, External Approach (ICD-10-PCS; 2018-01-15)
DX: S06.5X9A Traumatic subdural hemorrhage with loss of consciousness of unspecified duration, initial encounter (principal); S01.511A Laceration without foreign body of lip, initial encounter; S49.91XA Unspecified injury of right shoulder and upper arm, initial encounter; W18.09XA Striking against other object with subsequent fall, initial encounter; Y92.002 Bathroom of unspecified non-institutional (private) residence as the place of occurrence of the external cause; Y93.E9 Activity, other interior property and clothing maintenance; I48.91 Unspecified atrial fibrillation; I10 Essential (primary) hypertension; E03.9 Hypothyroidism, unspecified; Z95.0 Presence of cardiac pacemaker; Z99.81 Dependence on supplemental oxygen; Z95.5 Presence of coronary angioplasty implant and graft; Z98.1 Arthrodesis status; Z96.641 Presence of right artificial hip joint; Z87.891 Personal history of nicotine dependence; Z79.01 Long term (current) use of anticoagulants; I25.10 Atherosclerotic heart disease of native coronary artery without angina pectoris; M47.812 Spondylosis without myelopathy or radiculopathy, cervical region
CPT/HCPCS: 92523-GN; 96374; 97110-GO; 97110-GP; 97112-GP; 97116-GP; 97162-GP; 97166-GO; 97530-GP; 97535-GO; C1751; C9132; G0390; G0480; G8978-GP-CJ; G8979-GP-CI; G8980-GP-CJ; G8987-GO-CK; G8988-GO-CI; G9168-GN-CL; G9169-GN-CJ; J0360; J1953; J2270; J2405; J2597; J2997; J3430; P9073; Q9967

== ENCOUNTER 2018-01-21 12:18 | Inpatient (IN) | payer OTHER ==
[2018-01-21] MEDS ORDERED: NON-FORMULARY NEW DRUG (Loratadine [Claritin 10 Mg] 10 MG) PO PRN (15:49)
[2018-01-21] MEDS ORDERED: NITROGLYCERIN 0.4 MG BTL SL PRN (15:49)
[2018-01-21] MEDS ORDERED: BISACODYL 10 MG SUPP PR PRN (15:52)
[2018-01-21] MEDS ORDERED: levETIRAcetam 500 MG TAB PO SCH (16:00)
[2018-01-21] MEDS ORDERED: CETIRIZINE 10 MG TAB PO PRN (16:07)
--- NOTE | 2018-01-21 16:09 | GHP ---
[f rep st] HISTORY AND PHYSICAL POST ADMISSION PHYSICIAN EVALUATION AND REHABILITATION TREATMENT PLAN DATE OF ADMISSION: 01/21/2018 DATE OF EVALUATION: 01/21/2018 TIME OF EVALUATION: 1455 REFERRING FACILITY: [facility] REFERRING PHYSICIAN: Steven Llamas MD IMPAIRMENT GROUP: 2.21 DATE OF ONSET: 01/15/2018 CONSULTING PHYSICIANS: There were consultations with Dr. Fink of Neurosurgery and by Pulmonary and Critical Care, Dr. Lucas. REHABILITATION DIAGNOSIS: Debility, status post fall and bilateral subdural hematomas. ETIOLOGIC DIAGNOSIS: Traumatic, open injury. HISTORY OF PRESENT ILLNESS: This patient has atrial fibrillation and has had multiple coronary stents, so she was medicated with warfarin as well as clopidogrel. She had a fall preceded by lightheadedness in her bathroom. She fell forward and hit her lip, head and right side. It is unclear whether she had loss of consciousness. She was evaluated in the emergency department. Head CT showed a large right and moderate left subdural hemorrhage with midline shift to the left. She had a lip laceration which was sutured in the emergency department. She was admitted to the intensive care unit for close monitoring and followed by Neurosurgery, who deemed her to not be a surgical candidate after serial CT scans. Her INR was reversed during her hospitalization and she was begun on tranexamic acid. LABS AND STUDIES DURING HER STAY: A final head CT on 01/18/2016 showed bilateral subdural hematomas, one over the left frontal lobe at 9 mm, one over the right anterior temporal lobe at the sylvian fissure at 9 mm and an inferior frontal cortical or subarachnoid hemorrhage. There was a minimal 3 mm right-to- left shift noted. She had a facial CT which showed no evidence of fractures or loosening of the teeth. She had a right shoulder CT for right shoulder pain. There were no fractures or dislocation and no AC separation. She has acromioclavicular and glenohumeral osteoarthritis, a small glenohumeral joint effusion and a probable chronic partial rotator cuff tear. Also noted was a small layering right pleural effusion resulting in right basilar compressive atelectasis and dilated ascending aorta of 4.3 cm. Laboratory study showed the development of anemia. Initially her hemoglobin and hematocrit were 14.5 and 43 , and these drifted down to 8.2 and 24.8 on January 20 and were stable on January 21. Anticoagulation was reversed and INR normalized. Serum chemistry overall showed normal renal function and electrolytes. Glucose was elevated at 119 on 01/15/2018. Troponin I was negative x3. Toxicology screen showed a therapeutic digoxin level at 1.4 and was negative for ethyl alcohol. PRECAUTIONS: She is a fall risk and she has seizure precautions. ACTIVE COMORBIDITIES: There are no active tier 1, tier 2 or tier 3 comorbidities. PAST MEDICAL HISTORY: 1. Coronary artery disease. 2. Hypothyroidism. 3. Hip arthritis. 4. Hypertension. 5. Dyslipidemia. 6. Sick sinus syndrome. 7. TIA in 2008. 8. Thalamic hemorrhage in 2013. 9. Degenerative disease of the lumbar spine. 10. Sleep apnea, managed with oxygen. 11. Peripheral vascular disease. PAST SURGICAL HISTORY: 1. She has had coronary artery stenting x3. 2. Pacemaker placement. 3. L4-5 spinal fusion. 4. Right hip replacement. 5. Tonsillectomy. 6. Tendon transplant. 7. Cervical conization. 8. Congestive heart failure with preserved ejection fraction. 9. L4-L5 kyphoplasty. 10. Bilateral carotid endarterectomy. MEDICATIONS PRIOR TO ADMISSION: 1. Cholecalciferol 4000 units p.o. daily. 2. Nitroglycerin 0.4 mg sublingual p.r.n. 3. Digoxin 0.125 mg p.o. daily. 4. Acetaminophen 500 mg p.o. twice daily p.r.n. 5. Warfarin. 6. Atorvastatin 20 mg p.o. at bedtime. 7. Clopidogrel 75 mg p.o. daily. 8. Loratadine 10 mg p.o. daily p.r.n. 9. Diltiazem 180 mg p.o. daily. 10. Levothyroxine 75 mcg p.o. daily. 11. Losartan 50 mg p.o. twice daily. 12. Oxybutynin 5 mg p.o. daily. 13. Sertraline 25 mg p.o. daily. 14. Melatonin 3 mg p.o. at bedtime. ADMISSION MEDICATIONS: 1. Acetaminophen 650 mg p.o. q.4 hours p.r.n. 2. Acetaminophen 500 mg p.o. twice daily p.r.n. 3. Atorvastatin 20 mg p.o. at bedtime. 4. Cholecalciferol 4000 units p.o. daily. 5. Digoxin 0.125 mg p.o. daily. 6. Diltiazem 100 mg p.o. daily. 7. Levetiracetam 500 mg p.o. q.12 hours. 8. Levothyroxine 75 mcg p.o. daily. 9. Loratadine 50 mg p.o. twice daily. 10. Melatonin 3 mg p.o. at bedtime. 11. Nitroglycerin 0.4 mg sublingual p.r.n. 12. Oxybutynin 5 mg p.o. daily. 13. Oxycodone/acetaminophen 5/325, 1-2 tabs p.o. q.4 hours p.r.n. 14. Polyethylene glycol 17 g p.o. daily p.r.n. 15. Senna/docusate 1 to 2 tabs p.o. twice daily. 16. Sertraline 25 mg p.o. daily. 17. Tranexamic acid 650 mg p.o. twice daily. ALLERGIES: Listed to diphenhydramine, which caused anxiety, metoprolol which caused a rash, amiodarone which caused a rash, rosuvastatin which caused swelling and rash, and tramadol. PSYCHOSOCIAL HISTORY: She is single and lives alone. There are stairs to access her home if she enters on foot or an elevator if she enters through the garage. 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 She has a history of smoking, which she quit remotely. She drinks approximately 2 glasses of wine every evening. She has no local family, but has many local friends. She has a sister and [id number] who live in [place]. FAMILY HISTORY: Noncontributory. REVIEW OF SYSTEMS: She reports headaches. She denies vision changes. She does not have nausea when she has the headaches. The headaches are not positional. She reports bilateral upper extremity weakness which is not acute. She has normal sensation. She denies cough or dyspnea. She is aware of irregular heart rate and fast heart rate. She has not been sleeping well, but she reports she chronically has poor sleep. She denies cough or dyspnea. She denies fevers or chills. She denies nausea, vomiting, or diarrhea. She reports constipation, which has been relieved with laxatives. She denies abdominal pain. She denies urinary frequency or dysuria. She denies joint pain or joint swelling. Otherwise , a 10-point review of systems is negative. PHYSICAL EXAMINATION: VITAL SIGNS: Blood pressure is 141/91, heart rate is 81, respiratory rate is 18, oxygen saturation is 92% on room air, temperature is 36.8 degrees centigrade, her weight is 50.1 kg for a body mass index of 21.6. GENERAL: This is a well-nourished, well-developed, elderly woman, lying in bed, dressed in a hospital gown. Cooperative and in no acute distress. HEENT: Extraocular movements are intact. Pupils are equal, round, reactive to light. Mucous membranes are moist. Dentition is in good condition. She has a moderately crowded airway, Mallampati class 3. NECK: Supple. HEART: Rhythm is irregularly irregular. There are no murmurs, rubs, or gallops. There is no jugular venous distention. There is no edema. LUNGS: Clear to auscultation bilaterally. ABDOMEN: Soft, nontender, nondistended with normoactive bowel sounds and no hepatosplenomegaly. EXTREMITIES: There is no cyanosis, clubbing, or edema. Radial and dorsalis pedis pulses are 2+ bilaterally. NEUROLOGIC: She is alert. Orientation was not checked. She is aware of her current situation and her location. Cranial nerves 2-12 are grossly intact. She has bilateral upper extremity weakness. She does not abduct at the shoulders against gravity. Her hand dry cleaning machine operator helper are 4/5, her biceps and triceps are 3/5. She is minimally able to use her hands to assist in scooting across the bed. Lower extremity strength is 5/5 overall. Sensation is intact to light touch. Deep tendon reflexes are 2+ bilaterally at the biceps, and 1+ bilaterally at the patellar and Achilles tendons. There does not appear to be pronator drift, though she is unable to extend her arms fully with the palms up. SKIN: She has ecchymosis under the right eye. There is a sutured laceration of the right lower lip approximately 2 cm, with eschar. Otherwise, skin is warm and dry and intact. CURRENT LEVEL OF FUNCTION: Per the pre-admission screen, regarding diet, feeding, and swallowing, she was on a regular diet and required set up. Grooming was accomplished with moderate assistance. Bathing needed assistance. Dressing needed maximal assistance. Toileting needed assistance. Bed mobility required [id number] assistance. Transfers required moderate assistance. She used a 4-wheeled walker. Her endurance was poor. She ambulated 220 feet using 2 L of oxygen, contact guard to standby assist. She was noted to have severe cognitive dysfunction, and required moderate assistance. There are no significant functional changes on today's exam from the pre- admission screen. IMPRESSION: This is a 77-year-old chronically ill woman, who was on warfarin for atrial fibrillation as well as clopidogrel for history of coronary stenting. She fell and she suffered bilateral subdural hematomas including over the right cerebral convexity, the inferior left frontal lobe, and lateral temporal lob, and the anterior and posterior interhemispheric falx. She had minimal subarachnoid hemorrhage along the high right parietal convexity and along the low bifrontal lobes in the anterior fossa. These intracranial hemorrhages were stable and became smaller during the course of her hospital stay. She was treated with tranexamic acid to promote hemostasis. She was medically stabilized and ready for rehabilitation. She has atrial fibrillation and is at risk for cerebrovascular accident. She has reduced mobility and is at risk for DVT. However anticoagulation is contraindicated in setting of recent subdural hematoma. Her goal is to complete a rehabilitation stay and then she may discharge to an assisted living facility, either in [place] or near her sister in [place]. For a safe discharge she will need to achieve standby assist to modified independence with mobility and ADLs. She should be at supervision level for cognition. She will have therapy with physical therapy, occupational therapy, and speech and language pathology for 60 minutes per day for each discipline on 5-7 days of the week. Her expected duration of stay is 12-14 days. It is anticipated that upon discharge she will continue to benefit from home health services including speech and language pathology, occupational therapy, and physical therapy as well as a brain injury support group. PLAN: 1. Debility, status post fall and subdural hematomas in a frail elderly woman. Unclear if her bilateral upper extremity weakness has anything to do with the subdural hematomas versus bilateral shoulder pathology. She will have physical and occupational therapies to optimize her mobility and activities of daily living to the standby assist or modified independent level for mobility and ADLs. 2. Cognitive impairment. She has a history of prior thalamic hemorrhagic CVA and certainly had an episode of delirium during her hospitalization at that time. She may currently have symptoms of delirium versus worsening cognitive function status post traumatic brain injury. She will have assessment and treatment per Speech and Language Pathology. 3. Atrial fibrillation. Her CHADS2-VASC score is 7 points, corresponding with a stroke risk of up to 15.7% per year without anticoagulation. Her HAS-BLED score is 6, which corresponds to a bleeding risk with anticoagulation of greater than 9.1%. Anticoagulation is contraindicated in the short term. She will continue rate control with metoprolol and diltiazem, and she can consider resuming anticoagulation or initiating aspirin in consultation with Neurosurgery plus her cane pusher. 4. Hypertension. Continue losartan. 5. Hypothyroidism. Continue levothyroxine. 6. Presumed history of depression versus anxiety. Continue sertraline. 7. Poor sleep, would predispose to delirium. She is on melatonin which she may have been on for a long time. It is unclear whether or not it is having any affect. If she does not begin to sleep better out of the hospital and in the inpatient rehabilitation unit we will consider other hypnotics, probably with trazodone at a low dose as the 1st choice verses amitriptyline if she needs a headache preventive medication. 8. Seizure prophylaxis. Continue levetiracetam until followup with Neurosurgery. 9. Pain control. She reports she has taken oxycodone/acetaminophen 1 time in the hospital and is not sure that it was effective, and she thinks that the acetaminophen is not fully effective. We will discontinue oxycodone/ acetaminophen and initiate oxycodone at 5-10 mg every 3 hours p.r.n., and we will schedule the acetaminophen. 10. Marked bilateral upper extremity weakness. 11. Pleural effusion. Unclear etiology, incidental finding. May be related to congestive heart failure. Encourage incentive spirometry. 12. Aortic aneurysm. Incidental finding. Continue blood pressure and lipid control. Follow-up in 6-12 months after discharge. 13. Lip laceration. Per hospital discharge, sutures may be removed on 2017, and she has followup with trauma surgeon Dr. Diallo in approximately 2 weeks. 14. Prophylaxis. Anticoagulation is contraindicated at present, though she is at elevated risk of a DVT. We will initiate SCDs at night. Per Neurosurgery, she is to continue transexamic acid b.i.d until followup with Neurosurgery in approximately a month or in late January. /[id number]/[facility] and [id number], 01/21/18, [address] [facility]
--- NOTE | 2018-01-21 18:16 | PDOREHIP ---
Admission [facility] - Admission - 3 Day Assessment Period Admission Date/Day 1: 01/21/18 Day 2: 01/22/18 Day 3: 01/23/18 - Active Diagnoses Comorbidities and Co-existing Conditions at Admission: 38569. None of the Above - Skin Conditions Unhealed Pressure Ulcer (1 or more/Stage 1 or >)-Admission: 0. No
[2018-01-21] MEDS: SENNOSIDES/DOCUSATE SODIUM TAB PO SCH (19:03)
[2018-01-21] MEDS ORDERED: ACETAMINOPHEN 500 MG TAB ONE (19:49)
[2018-01-21] MEDS: ACETAMINOPHEN 500 MG TAB PO SCH (21:54)
[2018-01-21] MEDS: TRANEXAMIC ACID 650 MG TAB PO SCH (21:55)
[2018-01-21] MEDS: MELATONIN 3 MG TAB PO SCH (21:55)
[2018-01-21] MEDS: LOSARTAN POTASSIUM 50 MG TAB PO SCH (21:55)
[2018-01-21] MEDS: ATORVASTATIN CALCIUM 20 MG TAB PO SCH (21:55)
[2018-01-21] MEDS ORDERED: ACETAMINOPHEN 325 MG TAB PO SCH (22:00)
[2018-01-22] MEDS: ACETAMINOPHEN 500 MG TAB PO SCH ×3 (05:32→20:41)
[2018-01-22] MEDS: levETIRAcetam 500 MG TAB PO SCH ×2 (05:32→17:32)
[2018-01-22] MEDS: LEVOTHYROXINE 75 MCG TAB PO SCH (05:32)
[2018-01-22] MEDS: oxyCODONE IR 5 MG TAB PO PRN ×4 (05:34→23:45)
[2018-01-22] MEDS: DIGOXIN 125 MCG TAB PO SCH (08:41)
[2018-01-22] MEDS: DILTIAZEM CD 180 MG CAP PO SCH (08:43)
[2018-01-22] MEDS: OXYBUTYNIN 5 MG EXT REL TAB PO SCH (08:44)
[2018-01-22] MEDS: LOSARTAN POTASSIUM 50 MG TAB PO SCH ×2 (08:44→20:40)
[2018-01-22 08:46] LABS: PLATELET COUNT 349 10^3/uL (150-400)
[2018-01-22] MEDS: SERTRALINE HCL 25 MG TAB PO SCH (08:46)
[2018-01-22] MEDS: SENNOSIDES/DOCUSATE SODIUM TAB PO SCH ×2 (08:46→20:42)
[2018-01-22] MEDS: POLYETHYLENE GLYCOL 3350 17 GM PKT PO SCH (08:46)
[2018-01-22] MEDS: TRANEXAMIC ACID 650 MG TAB PO SCH ×2 (08:49→20:41)
[2018-01-22] MEDS ORDERED: CHOLECALCIFEROL VIT D3 1,000 UNITS TAB PO SCH (09:00)
--- NOTE | 2018-01-22 09:57 | SOAPPROG ---
SOAP Progress Note Assessment/Plan: Assessment: * Debility, status post fall and subdural hematomas in a frail elderly woman. Unclear if her bilateral upper extremity weakness has anything to do with the subdural hematomas versus bilateral shoulder pathology. * PT and OT to optimize her mobility and activities of daily living to the standby assist or modified independent level for mobility and ADLs. * Cognitive impairment. She has a history of prior thalamic hemorrhagic CVA and certainly had an episode of delirium during her hospitalization at that time. She may currently have symptoms of delirium versus worsening cognitive function status post traumatic brain injury. She will have assessment and treatment per Speech and Language Pathology. * Atrial fibrillation. * CHADS2-VASC score is 7 points, corresponding with a stroke risk of up to 15.7 % per year without anticoagulation. * HAS-BLED score is 6, which corresponds to a bleeding risk with anticoagulation of greater than 9.1%. * Anticoagulation is contraindicated in the short term. She will continue rate control with metoprolol and diltiazem, and she can consider resuming anticoagulation or initiating aspirin in consultation with Neurosurgery plus her electric needle specialist. * Hypertension. Continue losartan. Adequate control. * Hypothyroidism. Continue levothyroxine. * Presumed history of depression versus anxiety. Continue sertraline. *Poor sleep, would predispose to delirium. * Continue melatonin though it may not be having much effect. * Discussed trazodone and she is very hesitant to try it due to a movie that she saw with air adverse effects to trazodone. * Seizure prophylaxis. Continue levetiracetam until followup with Neurosurgery. * Pain control. * Continue scheduled acetaminophen. * Encouraged use of oxycodone. If she gets adequate pain control at bedtime she might sleep better. * Marked bilateral upper extremity weakness. Partial rotator cuff tear on right. Unclear if there is a neurologic component. * Pleural effusion. Unclear etiology, incidental finding. May be related to congestive heart failure. Encourage incentive spirometry. * Aortic aneurysm. Incidental finding. Continue blood pressure and lipid control. Follow-up in 6-12 months after discharge. * Lip laceration. Per hospital discharge, sutures may be removed on 01/23/2018 , and she has followup with trauma surgeon Dr. Diallo in approximately 2 weeks. * Prophylaxis. Anticoagulation is contraindicated at present, though she is at elevated risk of a DVT. We will initiate SCDs at night. Per Neurosurgery, she is to continue transexamic acid b.i.d until followup with Neurosurgery in approximately a month or in late January. Plan: 01/22/18 09:57 01/22/18 12:08 Subjective: Reports poor sleep last night and Ling somewhat sleepy today. Continues to headaches which were bothersome and for which she is acetaminophen. Used she is has not used oxycodone due to fear of addiction. Objective: Vital Signs Temp Pulse Resp BP Pulse Ox 36.8 C 75 16 130/79 H 90 L 01/22/18 08:00 01/22/18 08:43 01/22/18 08:00 01/22/18 08:44 01/22/18 08:00 Laboratory Results 01/22/18 06:00 01/22/18 06:00 01/21/18 01/22/18 01/23/18 05:59 05:59 05:59 Intake Total 480 Output Total 200 Balance 480 -200 Physical Exam - Physical Exam General Appearance: WD/WN, alert, no apparent distress Respiratory: normal breath sounds, No crackles, No rhonchi, No wheezing Cardiac/Chest: irregularly irregular, No edema, No diastolic murmur, No systolic murmur Skin: normal color, warm/dry, other (Dr. Ecchymoses under right eye with heavy cleaner color strong towards blue on cheek. The upper lip with proximally 2 cm area of eschar over sutures.) Neuro/Psych: alert, normal mood/affect, other (Ambulates with PT, no device, contact guard on gait belt, slightly wide-based) ICD10 Worksheet Patient Problems: Problems Problem Status Onset Atrial fibrillation Acute Atrial fibrillation with RVR Acute Brain lesion Acute Chest pain Acute Chronic anticoagulation Acute Coronary atherosclerosis Acute Dislocation of left shoulder joint Acute Hyperlipidemia Acute Hypertension Acute Intracranial hemorrhage Acute Lip laceration Acute MRSA (methicillin resistant Staphylococcus aureus) Acute 08/14/16 Peripheral vascular disease Acute Shoulder pain, left Acute Shoulder subluxation Acute UTI (urinary tract infection) Acute chronic disease mgmt/transitional care Acute
[2018-01-22] MEDS: ATORVASTATIN CALCIUM 20 MG TAB PO SCH (20:41)
[2018-01-22] MEDS: MELATONIN 3 MG TAB PO SCH (20:41)
[2018-01-23] MEDS: levETIRAcetam 500 MG TAB PO SCH ×2 (06:09→17:26)
[2018-01-23] MEDS: LEVOTHYROXINE 75 MCG TAB PO SCH (06:10)
[2018-01-23] MEDS: ACETAMINOPHEN 500 MG TAB PO SCH ×3 (06:10→21:40)
[2018-01-23] MEDS: CHOLECALCIFEROL VIT D3 2,000 UNITS TAB/CAP PO SCH (08:27)
[2018-01-23] MEDS: SERTRALINE HCL 25 MG TAB PO SCH (08:27)
[2018-01-23] MEDS: TRANEXAMIC ACID 650 MG TAB PO SCH ×2 (08:27→21:41)
[2018-01-23] MEDS: OXYBUTYNIN 5 MG EXT REL TAB PO SCH (08:29)
[2018-01-23] MEDS: oxyCODONE IR 5 MG TAB PO PRN ×4 (08:29→23:49)
[2018-01-23] MEDS: SENNOSIDES/DOCUSATE SODIUM TAB PO SCH ×2 (08:29→21:41)
[2018-01-23] MEDS: LOSARTAN POTASSIUM 50 MG TAB PO SCH ×2 (08:30→21:41)
[2018-01-23] MEDS: POLYETHYLENE GLYCOL 3350 17 GM PKT PO SCH (08:30)
[2018-01-23] MEDS: DIGOXIN 125 MCG TAB PO SCH (08:31)
[2018-01-23] MEDS: DILTIAZEM CD 180 MG CAP PO SCH (08:31)
--- NOTE | 2018-01-23 13:55 | SOAPPROG ---
SOAP Progress Note Assessment/Plan: Assessment: * Debility, status post fall and subdural hematomas in a frail elderly woman. Unclear if her bilateral upper extremity weakness has anything to do with the subdural hematomas versus bilateral shoulder pathology. * Initial functional independence measure 77 on 01/23/2018. Scored 36/56 on the Chan balance inventory and 21 sec for timed get up and go, corresponding with increased fall risk. Ambulated 150 ft contact guard assist to min assist, no device. Needs moderate assistance for upper body dressing. Lower body dressing is done with setup and cues and adaptive acute equipment. Contact guard to standby assist for bath transfer and toileting. * Continue PT and OT to optimize her mobility and activities of daily living to the standby assist or modified independent level for mobility and ADLs. * Cognitive impairment. She has a history of prior thalamic hemorrhagic CVA and certainly had an episode of delirium during her hospitalization at that time. She may currently have symptoms of delirium versus worsening cognitive function status post traumatic brain injury. * Has decreased memory, insight, and mental flexibility. [place] thinking. Worse with fatigue. * Continue Speech and Language Pathology. * Increased headache today 01/23/2018. Head CT essentially unchanged. Continue efforts at pain control.. * Atrial fibrillation. * CHADS2-VASC score is 7 points, corresponding with a stroke risk of up to 15.7 % per year without anticoagulation. * HAS-BLED score is 6, which corresponds to a bleeding risk with anticoagulation of greater than 9.1%. * Anticoagulation is contraindicated in the short term. 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 * Hypertension. Continue losartan. Adequate control. * Hypothyroidism. Continue levothyroxine. * Presumed history of depression versus anxiety. Continue sertraline. *Poor sleep, would predispose to delirium. * Continue melatonin though it may not be having much effect. * Discussed trazodone 01/22/2018 and she is very hesitant to try it due to a movie that she saw with adverse effects to trazodone. * Seizure prophylaxis. Continue levetiracetam until followup with Neurosurgery. * Pain control. * Continue scheduled acetaminophen. * Encouraged use of oxycodone. Dosing has increased from 2.5 mg doses yesterday to 5 mg doses today, 01/23/2018. * Marked bilateral upper extremity weakness. Partial rotator cuff tear on right. Unclear if there is a neurologic component. * Pleural effusion. Unclear etiology, incidental finding. May be related to congestive heart failure. Encourage incentive spirometry. * Aortic aneurysm. Incidental finding. Continue blood pressure and lipid control. Follow-up in 6-12 months after discharge. * Lip laceration. Per hospital discharge, sutures may be removed on 01/23/2018 , and she has followup with trauma surgeon Dr. Diallo in approximately 2 weeks. * Prophylaxis. Anticoagulation is contraindicated at present, though she is at elevated risk of a DVT. We will initiate SCDs at night. Per Neurosurgery, she is to continue transexamic acid b.i.d until followup with Neurosurgery in approximately a month or in late January. Attended staffing, 15 min. Discussed with case management, pharmacy, dietitian , nursing, PT, OT, MASTER AUTOMOTIVE TECHNICIAN. She is likely to continue to need supervision especially with important cognitive activities, and for safety with mobility and ADLs. Planning for discharge to assisted living facility on 02/08/2018. 01/23/18 13:51 01/23/18 16:43 Subjective: Increased headache today. Impairs concentration and interferes with function; for instance PT will not allow her to ambulate without front wheeled walker. No nausea or vomiting. No cough or dyspnea, no fevers or chills. Objective: Vital Signs Temp Pulse Resp BP Pulse Ox 36.4 C 89 16 164/76 H 96 01/23/18 06:24 01/23/18 08:31 01/23/18 06:24 01/23/18 08:31 01/23/18 06:24 Laboratory Results 01/22/18 06:00 01/22/18 10:15 01/22/18 01/23/18 01/24/18 05:59 05:59 05:59 Intake Total 480 890 340 Output Total 700 300 Balance 480 190 40 - Time Spent With Patient Time Spent With Patient: Greater than 35 min floor time today, including more than 50% of time in coordination of care during staffing, and counseling patient. Physical Exam - Physical Exam General Appearance: WD/WN, alert, no apparent distress Respiratory: normal breath sounds, No crackles, No rhonchi, No wheezing Cardiac/Chest: irregularly irregular, No diastolic murmur, No systolic murmur Skin: normal color, warm/dry Neuro/Psych: alert, normal mood/affect, other (No pronator drift), No abnormal meeting coordinator II-XII ICD10 Worksheet Patient Problems: Problems Problem Status Onset Atrial fibrillation Acute Atrial fibrillation with RVR Acute Brain lesion Acute Chest pain Acute Chronic anticoagulation Acute Coronary atherosclerosis Acute Dislocation of left shoulder joint Acute Hyperlipidemia Acute Hypertension Acute Intracranial hemorrhage Acute Lip laceration Acute MRSA (methicillin resistant Staphylococcus aureus) Acute 08/14/16 Peripheral vascular disease Acute Shoulder pain, left Acute Shoulder subluxation Acute UTI (urinary tract infection) Acute chronic disease mgmt/transitional care Acute
[2018-01-23] MEDS: ATORVASTATIN CALCIUM 20 MG TAB PO SCH (21:41)
[2018-01-23] MEDS: MELATONIN 3 MG TAB PO SCH (21:41)
[2018-01-24] MEDS: levETIRAcetam 500 MG TAB PO SCH ×2 (05:38→17:19)
[2018-01-24] MEDS: ACETAMINOPHEN 500 MG TAB PO SCH ×3 (05:38→21:13)
[2018-01-24] MEDS: LEVOTHYROXINE 75 MCG TAB PO SCH (05:38)
[2018-01-24] MEDS: POLYETHYLENE GLYCOL 3350 17 GM PKT PO SCH (09:27)
[2018-01-24] MEDS: SENNOSIDES/DOCUSATE SODIUM TAB PO SCH ×2 (09:27→20:48)
[2018-01-24] MEDS: SERTRALINE HCL 25 MG TAB PO SCH (09:27)
[2018-01-24] MEDS: TRANEXAMIC ACID 650 MG TAB PO SCH ×2 (09:27→20:49)
[2018-01-24] MEDS: OXYBUTYNIN 5 MG EXT REL TAB PO SCH (09:27)
[2018-01-24] MEDS: CHOLECALCIFEROL VIT D3 2,000 UNITS TAB/CAP PO SCH (09:27)
[2018-01-24] MEDS: DIGOXIN 125 MCG TAB PO SCH (09:29)
[2018-01-24] MEDS: LOSARTAN POTASSIUM 50 MG TAB PO SCH ×2 (09:29→20:48)
[2018-01-24] MEDS: DILTIAZEM CD 180 MG CAP PO SCH (09:29)
[2018-01-24] MEDS: oxyCODONE IR 5 MG TAB PO PRN ×3 (11:41→20:10)
[2018-01-24] MEDS: ATORVASTATIN CALCIUM 20 MG TAB PO SCH (20:49)
[2018-01-24] MEDS: MELATONIN 3 MG TAB PO SCH (20:49)
[2018-01-25] MEDS: oxyCODONE IR 5 MG TAB PO PRN ×4 (02:33→15:31)
[2018-01-25] MEDS: ACETAMINOPHEN 500 MG TAB PO SCH ×3 (06:20→21:02)
[2018-01-25] MEDS: LEVOTHYROXINE 75 MCG TAB PO SCH (06:20)
[2018-01-25] MEDS: levETIRAcetam 500 MG TAB PO SCH ×2 (06:20→17:57)
[2018-01-25] MEDS: OXYBUTYNIN 5 MG EXT REL TAB PO SCH (08:02)
[2018-01-25] MEDS: DIGOXIN 125 MCG TAB PO SCH (08:02)
[2018-01-25] MEDS: LOSARTAN POTASSIUM 50 MG TAB PO SCH ×2 (08:02→21:01)
[2018-01-25] MEDS: TRANEXAMIC ACID 650 MG TAB PO SCH ×2 (08:03→21:01)
[2018-01-25] MEDS: POLYETHYLENE GLYCOL 3350 17 GM PKT PO SCH (08:03)
[2018-01-25] MEDS: SERTRALINE HCL 25 MG TAB PO SCH (08:03)
[2018-01-25] MEDS: CHOLECALCIFEROL VIT D3 2,000 UNITS TAB/CAP PO SCH (08:03)
[2018-01-25] MEDS: DILTIAZEM CD 180 MG CAP PO SCH (08:03)
[2018-01-25] MEDS: SENNOSIDES/DOCUSATE SODIUM TAB PO SCH ×2 (08:03→21:02)
--- NOTE | 2018-01-25 09:29 | SOAPPROG ---
SOAP Progress Note Assessment/Plan: Assessment: * Debility, status post fall and subdural hematomas in a frail elderly woman. Unclear if her bilateral upper extremity weakness has anything to do with the subdural hematomas versus bilateral shoulder pathology. * Initial functional independence measure 77 on 01/23/2018. Scored 36/56 on the Chan balance inventory and 21 sec for timed get up and go, corresponding with increased fall risk. Ambulated 150 ft contact guard assist to min assist, no device. Needs moderate assistance for upper body dressing. Lower body dressing is done with setup and cues and adaptive equipment. Contact guard to standby assist for bath transfer and toileting. * Continue PT and OT to optimize her mobility and activities of daily living to the standby assist or modified independent level for mobility and ADLs. * Walk to meals starting 01/25/2018. * Cognitive impairment. She has a history of prior thalamic hemorrhagic CVA and certainly had an episode of delirium during her hospitalization at that time. She may currently have symptoms of delirium versus worsening cognitive function status post traumatic brain injury. * Has decreased memory, insight, and mental flexibility. [place] thinking. Worse with fatigue. * Continue Speech and Language Pathology. * Increased headache 01/23/2018. Head CT essentially unchanged. Continue efforts at pain control. * Will initiate amitriptyline 10 mg at HS starting 01/25/2018 to improve sleep and service headache prophylaxis. * Atrial fibrillation. * CHADS2-VASC score is 7 points, corresponding with a stroke risk of up to 15.7 % per year without anticoagulation. * HAS-BLED score is 6, which corresponds to a bleeding risk with anticoagulation of greater than 9.1%. * Anticoagulation is contraindicated in the short term. 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 * At present, given elevated risk for fall with Chan Balance Inventory of 36/56 and TGUG of 21, and need for alarms due to impulsivity and non-compliance with calling for assistance, risk for fall is significant, so risk for recurrent SDH due to fall while on anticoagulants likely exceeds risk for embolic CVA due to atrial fibrillation. Will reconsider reinstating anticoagulation when fall risk is less and/or compliance with requesting assistance is improved. * Hypertension. Continue losartan and diltiazem. * BP elevated this morning 01/25/2018. Unclear etiology; pain may contribute. Continue to monitor, consider increasing losartan. * Lip laceration. Per hospital discharge, sutures may be removed on 2017. Suture removal has been delayed due to eschar overlying sutures. Nurse to attempt to remove sutures today, 01/25/2018. *Poor sleep, would predispose to delirium. * Continue melatonin though it may not be having much effect. * Discussed trazodone 01/22/2018 and she is very hesitant to try it due to a movie that she saw with adverse effects to trazodone. * Initiate amitriptyline 10 mg at HS, 01/25/2018. * Seizure prophylaxis. Continue levetiracetam until followup with Neurosurgery. * Pain control. * Continue scheduled acetaminophen. * Encouraged use of oxycodone. * Marked bilateral upper extremity weakness. Partial rotator cuff tear on right. Unclear if there is a neurologic component. * Hyponatremia. * Resolved on labs . * Hypothyroidism. Continue levothyroxine. * Presumed history of depression versus anxiety. Continue sertraline. * Pleural effusion. Unclear etiology, incidental finding. May be related to congestive heart failure. Encourage incentive spirometry. * Aortic aneurysm. Incidental finding. Continue blood pressure and lipid control. Follow-up in 6-12 months after discharge. * Prophylaxis. Anticoagulation is contraindicated at present, though she is at elevated risk of a DVT. We will initiate SCDs at night. Per Neurosurgery, she is to continue transexamic acid b.i.d until followup with Neurosurgery in approximately a month or in late January. She is likely to continue to need supervision especially with important cognitive activities, and for safety with mobility and ADLs. Planning for discharge to assisted living facility on 02/08/2018. 01/25/18 11:31 01/25/18 16:44 Subjective: Nurse noted elevated blood pressure this morning. Patient also complains of jaw tightness. No cough or dyspnea, no fevers or chills. Objective: Vital Signs Temp Pulse Resp BP Pulse Ox 36.7 C 91 20 178/86 H 90 L 01/25/18 08:00 01/25/18 08:03 01/25/18 08:00 01/25/18 08:03 01/25/18 08:00 Laboratory Results 01/22/18 06:00 01/25/18 06:00 01/24/18 01/25/18 01/26/18 05:59 05:59 05:59 Intake Total 1050 390 Output Total 2443 788 300 Balance -757 -593 -911 Physical Exam - Physical Exam General Appearance: WD/WN, alert, no apparent distress Respiratory: normal breath sounds, No crackles, No rhonchi, No wheezing Cardiac/Chest: irregularly irregular, No diastolic murmur, No systolic murmur Skin: normal color, warm/dry, other (Ecchymosis under right eye and fading ecchymosis over right cheek) Neuro/Psych: alert, normal mood/affect, oriented x 3, abnormal gait (Slow and wide based, using front wheeled walker.) ICD10 Worksheet Patient Problems: Problems Problem Status Onset Atrial fibrillation Acute Atrial fibrillation with RVR Acute Brain lesion Acute Chest pain Acute Chronic anticoagulation Acute Coronary atherosclerosis Acute Dislocation of left shoulder joint Acute Hyperlipidemia Acute Hypertension Acute Intracranial hemorrhage Acute Lip laceration Acute MRSA (methicillin resistant Staphylococcus aureus) Acute 08/14/16 Peripheral vascular disease Acute Shoulder pain, left Acute Shoulder subluxation Acute UTI (urinary tract infection) Acute chronic disease mgmt/transitional care Acute
[2018-01-25] MEDS ORDERED: LIDOCAINE 2% JELLY 5 ML TUBE TP ONE (16:19)
[2018-01-25] MEDS: ATORVASTATIN CALCIUM 20 MG TAB PO SCH (21:02)
[2018-01-25] MEDS: AMITRIPTYLINE HCL 10 MG TAB PO SCH (21:02)
[2018-01-25] MEDS: MELATONIN 3 MG TAB PO SCH (21:02)
[2018-01-26] MEDS: oxyCODONE IR 5 MG TAB PO PRN ×4 (06:08→17:55)
[2018-01-26] MEDS: levETIRAcetam 500 MG TAB PO SCH ×2 (06:08→17:15)
[2018-01-26] MEDS: LEVOTHYROXINE 75 MCG TAB PO SCH (06:08)
[2018-01-26] MEDS: ACETAMINOPHEN 500 MG TAB PO SCH ×3 (06:08→20:15)
[2018-01-26] MEDS: DILTIAZEM CD 180 MG CAP PO SCH (09:28)
[2018-01-26] MEDS: SENNOSIDES/DOCUSATE SODIUM TAB PO SCH ×2 (09:29→20:19)
[2018-01-26] MEDS: OXYBUTYNIN 5 MG EXT REL TAB PO SCH (09:29)
[2018-01-26] MEDS: CHOLECALCIFEROL VIT D3 2,000 UNITS TAB/CAP PO SCH (09:29)
[2018-01-26] MEDS: TRANEXAMIC ACID 650 MG TAB PO SCH ×2 (09:29→20:16)
[2018-01-26] MEDS: LOSARTAN POTASSIUM 50 MG TAB PO SCH ×2 (09:29→20:15)
[2018-01-26] MEDS: SERTRALINE HCL 25 MG TAB PO SCH (09:29)
[2018-01-26] MEDS: DIGOXIN 125 MCG TAB PO SCH (09:29)
[2018-01-26] MEDS: POLYETHYLENE GLYCOL 3350 17 GM PKT PO SCH (09:30)
--- NOTE | 2018-01-26 10:16 | SOAPPROG ---
SOAP Progress Note Assessment/Plan: Assessment: * Debility, status post fall and subdural hematomas in a frail elderly woman. Unclear if her bilateral upper extremity weakness has anything to do with the subdural hematomas versus bilateral shoulder pathology. * Initial functional independence measure 77 on 01/23/2018. Scored 36/56 on the Chan balance inventory and 21 sec for timed get up and go, corresponding with increased fall risk. Ambulated 150 ft contact guard assist to min assist, no device. Needs moderate assistance for upper body dressing. Lower body dressing is done with setup and cues and adaptive equipment. Contact guard to standby assist for bath transfer and toileting. * Continue PT and OT to optimize her mobility and activities of daily living to the standby assist or modified independent level for mobility and ADLs. * Walk to meals starting 01/25/2018. * DEMONSTRATES GOOD BED MOBILITY ON TODAY'S EXAM. DEMONSTRATES EXCELLENT SIT TO STAND TRANSFER. AMBULATES WITH MINIMAL ASSISTANCE. * Cognitive impairment. She has a history of prior thalamic hemorrhagic CVA and certainly had an episode of delirium during her hospitalization at that time. She may currently have symptoms of delirium versus worsening cognitive function status post traumatic brain injury. NO EVIDENCE OF DELIRIUM ON TODAY'S EXAM. NURSING STAFF INDICATES THAT DEFICITS ARE MAINLY COGNITIVE. * Has decreased memory, insight, and mental flexibility. [place] thinking. Worse with fatigue. * Continue Speech and Language Pathology. * Increased headache 01/23/2018. Head CT essentially unchanged. Continue efforts at pain control. * Will initiate amitriptyline 10 mg at HS starting 01/25/2018 to improve sleep and service headache prophylaxis. * Atrial fibrillation. * CHADS2-VASC score is 7 points, corresponding with a stroke risk of up to 15.7 % per year without anticoagulation. * HAS-BLED score is 6, which corresponds to a bleeding risk with anticoagulation of greater than 9.1%. * Anticoagulation is contraindicated in the short term. 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 * At present, given elevated risk for fall with Chan Balance Inventory of 36/56 and TGUG of 21, and need for alarms due to impulsivity and non-compliance with calling for assistance, risk for fall is significant, so risk for recurrent SDH due to fall while on anticoagulants likely exceeds risk for embolic CVA due to atrial fibrillation. Will reconsider reinstating anticoagulation when fall risk is less and/or compliance with requesting assistance is improved. REINSTATE MIN OF ANTICOAGULATION WILL BE BASED ON NEXT NEUROSURGICAL EVALUATION. UNTIL THEN, TO MINIMIZE HER DVT RISK I HAVE ADVISED PATIENT AND HER NURSE TODAY TO HAVE HER WALKING IT LEAST 150 FT MANY TIMES PER DAY SHE CAN TOLERATE AND THE STAFF IS AVAILABLE. * Hypertension. Continue losartan and diltiazem. * BP elevated this morning 01/25/2018. Unclear etiology; pain may contribute. Continue to monitor, consider increasing losartan. * Lip laceration. Per hospital discharge, sutures may be removed on 2017. Suture removal has been delayed due to eschar overlying sutures. Nurse to attempt to remove sutures today, 01/25/2018. *Poor sleep, would predispose to delirium. * Continue melatonin though it may not be having much effect. * Discussed trazodone 01/22/2018 and she is very hesitant to try it due to a movie that she saw with adverse effects to trazodone. * Initiate amitriptyline 10 mg at HS, 01/25/2018. * Seizure prophylaxis. Continue levetiracetam until followup with Neurosurgery. * Pain control. * Continue scheduled acetaminophen. * Encouraged use of oxycodone. SHE IS TAKING OXYCODONE IR ON A FAIRLY REGULAR BASIS. * Marked bilateral upper extremity weakness. Partial rotator cuff tear on right. Unclear if there is a neurologic component. OCCUPATIONAL THERAPY OR PHYSICAL THERAPY TO PROVIDE EXERCISES TO STRENGTHEN THE ROTATOR CUFF MUSCLES AND SECONDARY SCAPULAR STABILIZERS. * Hyponatremia. * Resolved on labs . * Hypothyroidism. Continue levothyroxine. * Presumed history of depression versus anxiety. Continue sertraline. * Pleural effusion. Unclear etiology, incidental finding. May be related to congestive heart failure. Encourage incentive spirometry. * Aortic aneurysm. Incidental finding. Continue blood pressure and lipid control. Follow-up in 6-12 months after discharge. * Prophylaxis. Anticoagulation is contraindicated at present, though she is at elevated risk of a DVT. We will initiate SCDs at night. Per Neurosurgery, she is to continue transexamic acid b.i.d until followup with Neurosurgery in approximately a month or in late January. She is likely to continue to need supervision especially with important cognitive activities, and for safety with mobility and ADLs. Planning for discharge to assisted living facility on 02/08/2018. 01/25/18 11:31 01/25/18 16:44 Subjective: Nurse noted elevated blood pressure this morning. Patient also complains of jaw tightness. No cough or dyspnea, no fevers or chills. Objective: Plan: 01/26/18 10:11 Subjective: SHE COMPLAINS OF FACIAL PAIN AND HEADACHE. SHE DOES NOT REPORT JAW PAIN WHILE EATING. SHE REPORTS THAT HER THERAPIES ARE GOING WELL. NO PROBLEMS REPORTED BY NURSING STAFF. THEY REPORT THAT SHE DOES WELL WITH BED MOBILITY WELL AMBULATION WITH STANDBY ASSIST. Objective: Vital Signs Temp Pulse Resp BP Pulse Ox 36.7 C 90 18 157/90 H 93 01/26/18 08:00 01/26/18 09:29 01/26/18 08:00 01/26/18 09:29 01/26/18 08:00 Laboratory Results 01/22/18 06:00 01/25/18 06:00 01/25/18 01/26/18 01/27/18 05:59 05:59 05:59 Intake Total 390 900 Output Total 950 2000 Balance -560 -1100 Physical Exam - Physical Exam General Appearance: WD/WN, alert, no apparent distress EENT: other (HEALING ECCHYMOSES RIGHT SUB ORBITAL REGION, RIGHT UPPER LIP. HAS SOME CREPITANCE OVER RIGHT TMJ.) Neck: full range of motion, supple Respiratory: lungs clear, normal breath sounds Cardiac/Chest: irregularly irregular Abdomen: non-tender, soft Skin: normal color, warm/dry Extremities: No swelling, No Marquez's sign Neuro/Psych: cognition abnormalities ICD10 Worksheet Patient Problems: Problems Problem Status Onset Atrial fibrillation Acute Atrial fibrillation with RVR Acute Brain lesion Acute Chest pain Acute Chronic anticoagulation Acute Coronary atherosclerosis Acute Dislocation of left shoulder joint Acute Hyperlipidemia Acute Hypertension Acute Intracranial hemorrhage Acute Lip laceration Acute MRSA (methicillin resistant Staphylococcus aureus) Acute 08/14/16 Peripheral vascular disease Acute Shoulder pain, left Acute Shoulder subluxation Acute UTI (urinary tract infection) Acute chronic disease mgmt/transitional care Acute
[2018-01-26] MEDS: AMITRIPTYLINE HCL 10 MG TAB PO SCH (20:16)
[2018-01-26] MEDS: MELATONIN 3 MG TAB PO SCH (20:16)
[2018-01-26] MEDS: ATORVASTATIN CALCIUM 20 MG TAB PO SCH (20:16)
[2018-01-27] MEDS: oxyCODONE IR 5 MG TAB PO PRN (03:23)
[2018-01-27] MEDS: levETIRAcetam 500 MG TAB PO SCH (05:00)
[2018-01-27] MEDS: ACETAMINOPHEN 500 MG TAB PO SCH (05:00)
[2018-01-27] MEDS: LEVOTHYROXINE 75 MCG TAB PO SCH (05:00)
[2018-01-27] MEDS: TRANEXAMIC ACID 650 MG TAB PO SCH (08:41)
[2018-01-27] MEDS: LOSARTAN POTASSIUM 50 MG TAB PO SCH (08:42)
[2018-01-27] MEDS: DIGOXIN 125 MCG TAB PO SCH (08:42)
[2018-01-27] MEDS: DILTIAZEM CD 180 MG CAP PO SCH (08:42)
[2018-01-27] MEDS: SENNOSIDES/DOCUSATE SODIUM TAB PO SCH (08:43)
[2018-01-27] MEDS: CHOLECALCIFEROL VIT D3 2,000 UNITS TAB/CAP PO SCH (08:43)
[2018-01-27] MEDS: POLYETHYLENE GLYCOL 3350 17 GM PKT PO SCH (08:43)
[2018-01-27] MEDS: OXYBUTYNIN 5 MG EXT REL TAB PO SCH (08:43)
[2018-01-27] MEDS: SERTRALINE HCL 25 MG TAB PO SCH (08:43)
--- NOTE | 2018-01-27 09:02 | SOAPPROG ---
SOAP Progress Note Assessment/Plan: Assessment: * Debility, status post fall and subdural hematomas in a frail elderly woman. Unclear if her bilateral upper extremity weakness has anything to do with the subdural hematomas versus bilateral shoulder pathology. * Initial functional independence measure 77 on 01/23/2018. Scored 36/56 on the Chan balance inventory and 21 sec for timed get up and go, corresponding with increased fall risk. Ambulated 150 ft contact guard assist to min assist, no device. Needs moderate assistance for upper body dressing. Lower body dressing is done with setup and cues and adaptive equipment. Contact guard to standby assist for bath transfer and toileting. * Continue PT and OT to optimize her mobility and activities of daily living to the standby assist or modified independent level for mobility and ADLs. * Walk to meals starting 01/25/2018. * DEMONSTRATES GOOD BED MOBILITY ON TODAY'S EXAM. DEMONSTRATES EXCELLENT SIT TO STAND TRANSFER. AMBULATES WITH MINIMAL ASSISTANCE. * Cognitive impairment. She has a history of prior thalamic hemorrhagic CVA and certainly had an episode of delirium during her hospitalization at that time. She may currently have symptoms of delirium versus worsening cognitive function status post traumatic brain injury. * Has decreased memory, insight, and mental flexibility. [place] thinking. Worse with fatigue. * Continue Speech and Language Pathology. * Increased headache 01/23/2018. SHE CONTINUES TO REPORT HEADACHE PREDOMINANTLY IN THE FRONTAL SINUS REGION. HER MAR INDICATES THAT SHE HAS ZYRTEC WHICH SHE CAN TAKE P.R.N. BUT APPARENTLY SHE HAS NOT BEEN TAKING IT. WILL ASK NURSES TO REMIND HER TO ASK FOR IT DAILY. Head CT essentially unchanged. Continue efforts at pain control. * Will initiate amitriptyline 10 mg at HS starting 01/25/2018 to improve sleep and service headache prophylaxis. * Atrial fibrillation. * CHADS2-VASC score is 7 points, corresponding with a stroke risk of up to 15.7 % per year without anticoagulation. * HAS-BLED score is 6, which corresponds to a bleeding risk with anticoagulation of greater than 9.1%. * Anticoagulation is contraindicated in the short term. 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 * At present, given elevated risk for fall with Chan Balance Inventory of 36/56 and TGUG of 21, and need for alarms due to impulsivity and non-compliance with calling for assistance, risk for fall is significant, so risk for recurrent SDH due to fall while on anticoagulants likely exceeds risk for embolic CVA due to atrial fibrillation. Will reconsider reinstating anticoagulation when fall risk is less and/or compliance with requesting assistance is improved. REINSTATE MIN OF ANTICOAGULATION WILL BE BASED ON NEXT NEUROSURGICAL EVALUATION. UNTIL THEN, TO MINIMIZE HER DVT RISK I HAVE ADVISED PATIENT AND HER NURSE TODAY TO HAVE HER WALKING IT LEAST 150 FT MANY TIMES PER DAY SHE CAN TOLERATE AND THE STAFF IS AVAILABLE. * Hypertension. Continue losartan and diltiazem. * BLOOD PRESSURE WAS NOT ELEVATED THIS MORNING.. Unclear etiology; pain may contribute. Continue to monitor, consider increasing losartan. * Lip laceration. HEALING WELL. *Poor sleep, would predispose to delirium. * Continue melatonin though it may not be having much effect. * Discussed trazodone 01/22/2018 and she is very hesitant to try it due to a movie that she saw with adverse effects to trazodone. * Initiate amitriptyline 10 mg at HS, 01/25/2018. * Seizure prophylaxis. Continue levetiracetam until followup with Neurosurgery. * Pain control. * Continue scheduled acetaminophen. * Encouraged use of oxycodone. SHE IS TAKING OXYCODONE IR ON A FAIRLY REGULAR BASIS. * Marked bilateral upper extremity weakness. Partial rotator cuff tear on right. Unclear if there is a neurologic component. OCCUPATIONAL THERAPY OR PHYSICAL THERAPY TO PROVIDE EXERCISES TO STRENGTHEN THE ROTATOR CUFF MUSCLES AND SECONDARY SCAPULAR STABILIZERS. * Hyponatremia. * Resolved on labs . * Hypothyroidism. Continue levothyroxine. * Presumed history of depression versus anxiety. Continue sertraline. * Pleural effusion. Unclear etiology, incidental finding. May be related to congestive heart failure. Encourage incentive spirometry. * Aortic aneurysm. Incidental finding. Continue blood pressure and lipid control. Follow-up in 6-12 months after discharge. * Prophylaxis. Anticoagulation is contraindicated at present, though she is at elevated risk of a DVT. We will initiate SCDs at night. Per Neurosurgery, she is to continue transexamic acid b.i.d until followup with Neurosurgery in approximately a month or in late January. She is likely to continue to need supervision especially with important cognitive activities, and for safety with mobility and ADLs. Planning for discharge to assisted living facility on 02/08/2018. 01/27/18 08:59 Subjective: SHE COMPLAINS OF HAVING A HEADACHE ALONG THE FRONTAL SINUSES. DENIES SHORTNESS OF BREATH OR CHEST PAIN. DENIES DIZZINESS. SHE DENIES SUPRAPUBIC PAIN OR DYSURIA. Objective: Vital Signs Temp Pulse Resp BP Pulse Ox 36.8 C 93 16 136/76 H 95 01/27/18 06:04 01/27/18 08:42 01/27/18 06:04 01/27/18 08:42 01/27/18 06:04 Laboratory Results 01/22/18 06:00 01/25/18 06:00 01/26/18 01/27/18 01/28/18 05:59 05:59 05:59 Intake Total 900 660 Output Total 1999 1400 Balance -1100 -740 Physical Exam - Physical Exam General Appearance: WD/WN, alert, no apparent distress EENT: other (LACERATION OVER RIGHT UPPER LIP IS HEALING WELL. ECCHYMOSES BENEATH RIGHT HIGH SLOWLY RESOLVING.) Respiratory: lungs clear, normal breath sounds Abdomen: normal bowel sounds, non-tender, soft Skin: warm/dry Extremities: No swelling, No Marquez's sign Neuro/Psych: cognition abnormalities ICD10 Worksheet Patient Problems: Problems Problem Status Onset Atrial fibrillation Acute Atrial fibrillation with RVR Acute Brain lesion Acute Chest pain Acute Chronic anticoagulation Acute Coronary atherosclerosis Acute Dislocation of left shoulder joint Acute Hyperlipidemia Acute Hypertension Acute Intracranial hemorrhage Acute Lip laceration Acute MRSA (methicillin resistant Staphylococcus aureus) Acute 08/14/16 Peripheral vascular disease Acute Shoulder pain, left Acute Shoulder subluxation Acute UTI (urinary tract infection) Acute chronic disease mgmt/transitional care Acute
[2018-01-27 11:33] VITALS: BP 167/92
--- NOTE | 2018-02-13 15:56 | GDS ---
[f rep st] DISCHARGE SUMMARY PROCEDURES: There were none. CONSULTATIONS: There were none. COMPLICATIONS: She had persistent altered mental status and failure to progress. HISTORY AND HOSPITAL COURSE: This patient was admitted from [facility] after a fall. She had fallen forward at home and hit her lip and head and her right side. She w as taken to the hospital, where a head CT showed a large right and moderate left subdural hemorrhage with a midline shift from the left to the right. The lip laceration was sutured in the emergency dep artment. She was not a surgical candidate. She had been taking warfarin for atrial fibrillation. I NR was reversed, and she was begun on tranexamic acid, and when medically stable, she was discharged to inpatient rehabilitation. Her initial functional independence measure was 77 on 01/23/2018, which is consistent with nursing [facility] level of care. Her Chan balance score was 36/56, and her timed get up and go was 21 seconds, both of which are consistent with increased fall risk. She was, however, able to ambulate 150 feet with contact guard assist. She needed moderate assistance for upper body dressing. She had cognitive imp airment. It was not clear whether this was persisting delirium after hospitalization versus worsenin g cognitive function due to her head injury. She had decreased memory, insight and mental flexibilit y. There was concrete thinking, and she was worse with fatigue. On 01/27/2018, she was noted to hav e more somnolence and less ability to participate. She was sent to the emergency department for asse ssment. A head CT showed bilateral subdural hematomas with slight minimal decrease in size, without associated mass effect and atrophy and probable white matter small vessel disease. She was admitted to [facility] for further evaluation, including neurosurgical consultation. /[id number]/MODL
== END 2018-01-27 14:30 | DRG 945 ==
LOC: BREH 14:02
PROVIDERS: ADMIT Internal Medicine Hospice and Palliative Medicine; ATTEND Internal Medicine Hospice and Palliative Medicine
PROC: F08Z4ZZ Home Management Treatment (ICD-10-PCS; principal; 2018-01-21)
PROC: F0636ZZ Communicative/Cognitive Integration Skills Treatment of Neurological System - Whole Body (ICD-10-PCS; principal; 2018-01-21)
PROC: F08Z7ZZ Vocational Activities and Functional Community or Work Reintegration Skills Treatment (ICD-10-PCS; principal; 2018-01-21)
PROC: F07M3ZZ Motor Function Treatment of Musculoskeletal System - Whole Body (ICD-10-PCS; principal; 2018-01-21)
DX: S06.5X9D Traumatic subdural hemorrhage with loss of consciousness of unspecified duration, subsequent encounter (principal); W01.10XD Fall on same level from slipping, tripping and stumbling with subsequent striking against unspecified object, subsequent encounter; Y92.012 Bathroom of single-family (private) house as the place of occurrence of the external cause; R53.1 Weakness; R41.89 Other symptoms and signs involving cognitive functions and awareness; D64.9 Anemia, unspecified; J90 Pleural effusion, not elsewhere classified; I48.91 Unspecified atrial fibrillation; Z79.01 Long term (current) use of anticoagulants; I25.10 Atherosclerotic heart disease of native coronary artery without angina pectoris; Z95.5 Presence of coronary angioplasty implant and graft; Z79.02 Long term (current) use of antithrombotics/antiplatelets; I50.9 Heart failure, unspecified; I11.0 Hypertensive heart disease with heart failure; Z95.0 Presence of cardiac pacemaker; E03.9 Hypothyroidism, unspecified; E78.5 Hyperlipidemia, unspecified; F32.9 Major depressive disorder, single episode, unspecified; I71.9 Aortic aneurysm of unspecified site, without rupture; G47.30 Sleep apnea, unspecified; Z86.73 Personal history of transient ischemic attack (TIA), and cerebral infarction without residual deficits; Z98.1 Arthrodesis status; Z96.641 Presence of right artificial hip joint
CPT/HCPCS: 92507-GN; 92522-GN; 97110-GO; 97110-GP; 97112-GP; 97116-GP; 97162-GP; 97166-GO; 97530-GO; 97530-GP; 97535-GO

== ENCOUNTER 2018-01-27 12:51 | Inpatient (IN) | payer OTHER ==
--- NOTE | 2018-01-27 12:58 | EDPHY ---
H & P Time Seen by Provider: 01/27/18 12:51 HPI/ROS: CHIEF COMPLAINT: Headache and altered mental status HISTORY OF PRESENT ILLNESS: Patient transferred from rehab for altered mental status. She had surgery on November 29 and again on December 10 for a subdural hematoma and was admitted on December 18 to inpatient rehab. She had syncope the next day and was then admitted to [facility] with pulmonary embolism and subclavian steal. She presents today with decrease in her level of consciousness with altered mental status and worsening headache. Patient can't tell me how long this is going on. She says her symptoms are mild to moderate. Not better worse with anything. History and review of systems is somewhat limited by the patient's altered mental status. REVIEW OF SYSTEMS: Eye: no change in vision ENT: no sore throat Cardiac: Denies chest pain Pulmonary: Not short of breath Abdomen: no vomiting, diarrhea, abdominal pain Musculoskeletal: Bilateral shoulder pain Skin: no rash Neuro: HPI Constitutional: no fever : no urinary symptoms A comprehensive 10 point review of systems is otherwise negative aside from elements mentioned in the history of present illness. PAST MEDICAL HISTORY: As in HPI includes subdural hematoma, pulmonary embolism , hyponatremia, hypertension, hypothyroid, atrial fibrillation. Discharge summary dated 01/01/2018 personally reviewed. Social history: Currently resides at inpatient rehab General Appearance: Alert and conversant, cooperative. Eyes: No scleral icterus. Pupils 3 mm and reactive. ENT, Mouth: Normal mucous membranes. Respiratory: Normal respiratory effort, breath sounds equal, lungs are clear to auscultation. Cardiovascular: Regular rate and rhythm. Gastrointestinal: Abdomen is soft and non tender. Neurological: Patient is alert and says she is 77 years old but thinks it is November. Her speech is hesitant she has difficulty completing questions but she does follow commands and moves all 4 extremities. Skin: Bruising on the right side of her face. Musculoskeletal: No peripheral edema. No spinal tenderness. I can range both shoulders passively without change in symptoms or any pain perceptible. Psychiatric: Not agitated. Emergency Department course/MDM: Plan for labs and EKG, head CT, chest x-ray and urinalysis. Admission for encephalopathy. 1353: Carmen for Raquel. 1409: head CT reviewed with Dr. Sheriff not significantly changed since 3 days ago. Discussed with Dr. Molina at this time, , admit [facility] not back to rehab at this time. Further evaluation of encephalopathy. Smoking Status: Former smoker Constitutional: Initial Vital Signs Temperature (C) 36.8 C 01/27/18 13:03 Heart Rate 89 01/27/18 13:03 Respiratory Rate 16 01/27/18 13:03 Blood Pressure 158/84 H 01/27/18 13:03 O2 Sat (%) 93 01/27/18 13:03 O2 Delivery Mode Room Air O2 (L/minute) 2 Allergies/Adverse Reactions: Beta-Blockers (Beta-Adrenergic Bloc [Beta-Blockers (Beta-Adrenergic Blocking Agts)] Allergy (Mild, Verified 01/24/18 06:25) dry cough diphenhydramine HCl [From Benadryl] Allergy (Mild, Verified 12/19/17 17:16) Anxiety metoprolol Allergy (Mild, Verified 12/22/17 12:42) Rash tramadol Allergy (Mild, Verified 01/22/18 13:42) Rash amiodarone Allergy (Verified 12/19/17 17:16) Rash rosuvastatin calcium [From Crestor] Allergy (Verified 12/19/17 17:16) Swelling/ Rash Home Medications: Medication Instructions Recorded Cholecalciferol Vit D3 [Vitamin D3 4,000 units PO DAILY 03/18/13 2000 units] Herbals/Supplements -Info Only 1 each PO AD 03/18/13 Nitroglycerin [Nitrostat 0.4 mg 0.4 mg SL PRN PRN 03/18/13 (*)] Digoxin [Lanoxin 0.125 mg] 0.125 mg PO DAILY 10/02/13 Atorvastatin Calcium [Lipitor 20 20 mg PO HS 12/24/16 mg (*)] Loratadine [Claritin 10 mg] 10 mg PO DAILY PRN 12/24/16 Diltiazem Cd [Cardizem ER Q24hr] 180 mg PO DAILY #0 cap 01/24/17 Levothyroxine [Synthroid 75 mcg 75 mcg PO DAILY06 12/19/17 (*)] Losartan Potassium [Cozaar 50 mg 50 mg PO BID #60 tab 12/22/17 (*)] Oxybutynin Chloride Xl [Ditropan 5 mg PO DAILY #30 tab 12/23/17 Xl 5mg (*)] Sertraline HCl [Zoloft 25mg (*)] 25 mg PO DAILY #30 tab 12/23/17 Melatonin [Melatonin 3 MG (*)] 3 mg PO HS 01/15/18 Acetaminophen [Tylenol 325mg (*)] 650 mg PO Q4HRS PRN tab 01/21/18 Sennosides/Docusate Sodium 1 - 2 tab PO BID tab 01/21/18 [Senokot-S] Tranexamic Acid 650 mg PO BID tab 01/21/18 oxyCODONE/APAP 5/325 [Percocet 1 - 2 tab PO Q4 PRN #20 tab 01/21/18 5/325 (*)] Amitriptyline HCl [Elavil 10 mg 10 mg PO HS 01/27/18 (*)] Polyethylene Glycol 3350 [Miralax 17 gm PO DAILY 01/27/18 17 gm (*)] levETIRAcetam [Keppra 500 mg (*)] 500 mg PO BID@06,18 01/27/18 Medical Decision Making - Diagnostics EKG Interpretation: 12-lead EKG interpreted by me; official reading is in trace master. My interpretation is atrial sensed and V paced, rate 84 Imaging Results: Imaging Impressions Chest X-Ray 01/27/18 13:02 Impression: 1. Mild cardiac enlargement without pulmonary edema. 2. Atelectasis. Head CT 01/27/18 13:02 Impression: 1. Bilateral subdural hematomas with slight minimal decrease in size without associated mass effect. 2. Elderly brain with atrophy and probable white matter small vessel disease. Results called and discussed with Gus Jacobs MD on January 27, 2018 at 1413 hours. 1435: Chest Xray shows pacer, on pneumonia. Imaging: Discussed imaging studies w/ wharf labourer Radiologist Differential Diagnosis: Differential for altered mental status considered including but not limited to subdural, epidural, OUTSIDE MACHINIST APPRENTICE infection, metabolic abnormality, pneumonia or urinary tract infection. - Data Points Laboratory Results: Laboratory Results 01/27/18 13:08 01/27/18 13:08 01/27/18 01/27/18 01/27/18 13:40 13:08 13:08 WBC RBC Hgb Hct MCV MCH MCHC RDW Plt Count MPV Neut % (Auto) Lymph % (Auto) [place] % (Auto) Eos % (Auto) Baso % (Auto) Nucleat RBC Rel Count Absolute Neuts (auto) Absolute Lymphs (auto) Absolute Monos (auto) Absolute Eos (auto) Absolute Basos (auto) Absolute Nucleated RBC Immature Gran % Immature Gran # PT INR Sodium Potassium Chloride Carbon Dioxide Anion Gap BUN Creatinine Estimated GFR Glucose Calcium Troponin I Procalcitonin 0.07 ng/mL ng/mL (0.02-0.10) TSH 8.960 uIU/mL H uIU/mL (0.465-4.680) Urine Color YELLOW Urine Appearance CLEAR Urine pH 7.0 (5.0-7.5) Ur Specific [place] 1.010 (1.002-1.030) Urine Protein NEGATIVE (NEGATIVE) Urine Ketones NEGATIVE (NEGATIVE) Urine Blood NEGATIVE (NEGATIVE) Urine Nitrate NEGATIVE (NEGATIVE) Urine Bilirubin NEGATIVE (NEGATIVE) Urine Urobilinogen NEGATIVE EU EU (0.2-1.0) Ur Leukocyte Esterase NEGATIVE (NEGATIVE) Urine Glucose NEGATIVE (NEGATIVE) Digoxin 1.1 ng/mL ng/mL (0.8-2.0) 01/27/18 01/27/18 01/27/18 13:08 13:08 13:08 WBC 9.85 10^3/uL H 10^3/uL (3.80-9.50) RBC 3.45 10^6/uL L 10^6/uL (4.18-5.33) Hgb 10.5 g/dL L g/dL (12.6-16.3) Hct 32.8 % L % (38.0-47.0) MCV 95.1 fL fL (81.5-99.8) MCH 30.4 pg pg (27.9-34.1) MCHC 32.0 g/dL L g/dL (32.4-36.7) RDW 14.2 % % (11.5-15.2) Plt Count 466 10^3/uL H 10^3/uL (150-400) MPV 8.4 fL L fL (8.7-11.7) Neut % (Auto) 79.5 % H % (39.3-74.2) Lymph % (Auto) 11.7 % L % (15.0-45.0) [place] % (Auto) 6.2 % % (4.5-13.0) Eos % (Auto) 1.3 % % (0.6-7.6) Baso % (Auto) 0.6 % % (0.3-1.7) Nucleat RBC Rel Count 0.0 % % (0.0-0.2) Absolute Neuts (auto) 7.83 10^3/uL H 10^3/uL (1.70-6.50) Absolute Lymphs (auto) 1.15 10^3/uL 10^3/uL (1.00-3.00) Absolute Monos (auto) 0.61 10^3/uL 10^3/uL (0.30-0.80) Absolute Eos (auto) 0.13 10^3/uL 10^3/uL (0.03-0.40) Absolute Basos (auto) 0.06 10^3/uL 10^3/uL (0.02-0.10) Absolute Nucleated RBC 0.00 10^3/uL 10^3/uL (0-0.01) Immature Gran % 0.7 % % (0.0-1.1) Immature Gran # 0.07 10^3/uL 10^3/uL (0.00-0.10) PT 12.7 SEC SEC (12.0-15.0) INR 0.93 (0.83-1.16) Sodium 135 mEq/L mEq/L (135-145) Potassium 4.5 mEq/L mEq/L (3.5-5.2) Chloride 97 mEq/L mEq/L (97-110) Carbon Dioxide 24 mEq/l mEq/l (22-31) Anion Gap 14 mEq/L mEq/L (8-16) BUN 8 mg/dL mg/dL (7-23) Creatinine 0.7 mg/dL mg/dL (0.6-1.0) Estimated GFR > 60 Glucose 97 mg/dL mg/dL (70-100) Calcium 9.3 mg/dL mg/dL (8.5-10.4) Troponin I < 0.012 ng/mL ng/mL (0.000-0.034) Procalcitonin TSH Urine Color Urine Appearance Urine pH Ur Specific Soso Urine Protein Urine Ketones Urine Blood Urine Nitrate Urine Bilirubin Urine Urobilinogen Ur Leukocyte Esterase Urine Glucose Digoxin Departure - Departure Disposition: [facility] Acute Clinical Impression: Encephalopathy acute Condition: Fair
[2018-01-27 13:14] LABS: PLATELET COUNT 466 10^3/uL (150-400)
[2018-01-27 13:22] LABS: INR 0.93 (0.83-1.16); PROTIME(PATIENT) 12.7 SEC (12.0-15.0)
[2018-01-27] MEDS ORDERED: ONDANSETRON DISINTEGRATING 4 MG TAB PO PRN (14:20)
[2018-01-27] MEDS ORDERED: ONDANSETRON 4 MG/2 ML VIAL IVP PRN (14:20)
--- NOTE | 2018-01-27 14:33 | CPEKG ---
Heart Rate: 84 RR Interval: 714 P-R Interval: 151 QRSD Interval: 84 QT Interval: 348 QTC Interval: 412 P [place]: 0 QRS [place]: -25 T Wave [place]: 230 EKG Severity - ABNORMAL ECG - EKG Impression: ATRIAL-SENSED VENTRICULAR-PACED COMPLEXES EKG Impression: BORDERLINE LEFT AXIS DEVIATION EKG Impression: NONSPECIFIC REPOL ABNORMALITY, DIFFUSE LEADS Electronically Signed By: Gus Jacobs 27-Jan-2018 14:33:21
--- NOTE | 2018-01-27 14:49 | PDGENHP ---
History and Physical - Chief Complaint Acute encephalopathy - History of Present Illness 77-year-old female presenting with acute encephalopathy characterized as confusion, reduced arousability and somnolence with onset of symptoms on the morning of presentation and associated with a right-sided frontal headache as well as right maxillary pain. Per nurse report from inpatient rehab, the patient had been more arousable on initial assessment then on subsequent 1 on the morning of presentation. An NIH stroke scale was performed which demonstrated that the patient was not visually tracking and that she was barely arousable to verbal stimuli. There was no previous stroke scale for comparison. The patient has been consistently complaining of headache and jaw pain during her stay at inpatient rehab, and there was no evidence of her recently receiving narcotic pain medications. The only recent medication addition is amitriptyline 10 mg at bedtime. The patient is otherwise unable to provide additional history, only reporting that she does not recall having any dinner last night, does not recall having breakfast this morning, and feels like her bilateral cheeks are aching, somewhat exacerbated by palpation. History Information - Allergies/Home Medication List Allergies/Adverse Reactions: Beta-Blockers (Beta-Adrenergic Bloc [Beta-Blockers (Beta-Adrenergic Blocking Agts)] Allergy (Mild, Verified 01/24/18 06:25) dry cough diphenhydramine HCl [From Benadryl] Allergy (Mild, Verified 12/19/17 17:16) Anxiety metoprolol Allergy (Mild, Verified 12/22/17 12:42) Rash tramadol Allergy (Mild, Verified 01/22/18 13:42) Rash amiodarone Allergy (Verified 12/19/17 17:16) Rash rosuvastatin calcium [From Crestor] Allergy (Verified 12/19/17 17:16) Swelling/ Rash Home Medications: Cholecalciferol Vit D3 [Vitamin D3 2000 units] 4,000 units PO DAILY 03/18/13 [ Last Taken 01/11/18] Herbals/Supplements -Info Only 1 each PO AD 03/18/13 [Last Taken 12/19/17] Nitroglycerin [Nitrostat 0.4 mg (*)] 0.4 mg SL PRN PRN 03/18/13 [Last Taken 08:00] Digoxin [Lanoxin 0.125 mg] 0.125 mg PO DAILY 10/02/13 [Last Taken 01/21/18] Atorvastatin Calcium [Lipitor 20 mg (*)] 20 mg PO HS 12/24/16 [Last Taken ] Loratadine [Claritin 10 mg] 10 mg PO DAILY PRN 12/24/16 [Last Taken 2 Weeks Ago ~12/05/17] Levothyroxine [Synthroid 75 mcg (*)] 75 mcg PO DAILY06 12/19/17 [Last Taken ] Melatonin [Melatonin 3 MG (*)] 3 mg PO HS 01/15/18 [Last Taken 01/14/18] I have personally reviewed and updated: family history, medical history, social history, surgical history - Past Medical History atrial fibrillation (With sick sinus syndrome), coronary artery disease (With 3 cardiac stents), CHF (Diastolic), CVA (Thalamic), hypertension, hyperlipidemia Additional medical history: MAYITO on nocturnal o2. PVD. hypothyroid. Mechanical fall with subsequent bilateral subdural hematomas on 01/17/2018, non operative. Aortic aneurysm. Peripheral vascular disease - Surgical History Reports: pacemaker/AICD Additional surgical history: tonsillectomy. L4/L5 kyphoplasty. R hip replacement. bilateral carotid endarterectomy. Cardiac stent x3 - Family History Additional family history: Patient is encephalopathic and unable to provide - Social History Smoking Status: Former smoker Alcohol Use: Occasionally (Reportedly 2 drinks per night at home) Additional social history: Patient lives alone, has no children. Originally from [place]. Review of Systems Review of Systems: ROS: 10pt was reviewed & negative except for what was stated in HPI & below Neurological: Reports: other (Encephalopathy with confusion, somnolence) Physical Exam Physical Exam: Temp Pulse Resp BP Pulse Ox 36.8 C 89 16 158/84 H 97 01/27/18 13:03 01/27/18 13:03 01/27/18 13:03 01/27/18 13:03 01/27/18 13:15 Constitutional: no apparent distress, chronically ill appearing, uncomfortable, No not in pain (Mild in right cheek) Eyes: PERRL, anicteric sclera, EOMI Ears, Nose, Mouth, Throat: hard of hearing, other (Tacky mucous membranes, no right-sided cheek abrasions, no visible dental caries, no outer ear abnormalities on right, patent tympanic membrane) Cardiovascular: systolic murmur (2/6 at the sternum and apex), irregularly irregular, No tachycardia, No edema Respiratory: no respiratory distress, no rales or rhonchi, clear to auscultation , reduced air movement (Poor inspiratory effort) Gastrointestinal: normoactive bowel sounds, soft, non-tender abdomen, no palpable masses, No distension Skin: other (Tender ecchymoses over right cheek, fading with superior abrasion non erythematous) Neurologic: other (Alert awake oriented x2 to person and place not to time), No weakness (Motor strength 5/5 bilateral upper and lower extremities) Psychiatric: not anxious, encephalopathic (Somnolence, delayed speech, concentration 0/7), No agitated Lab Data & Imaging Review 01/27/18 13:08 01/27/18 13:08 WBC 9.85 10^3/uL (3.80-9.50) H 01/27/18 13:08 RBC 3.45 10^6/uL (4.18-5.33) L 01/27/18 13:08 Hgb 10.5 g/dL (12.6-16.3) L 01/27/18 13:08 Hct 32.8 % (38.0-47.0) L 01/27/18 13:08 MCV 95.1 fL (81.5-99.8) 01/27/18 13:08 MCH 30.4 pg (27.9-34.1) 01/27/18 13:08 MCHC 32.0 g/dL (32.4-36.7) L 01/27/18 13:08 RDW 14.2 % (11.5-15.2) 01/27/18 13:08 Plt Count 466 10^3/uL (150-400) H 01/27/18 13:08 MPV 8.4 fL (8.7-11.7) L 01/27/18 13:08 Neut % (Auto) 79.5 % (39.3-74.2) H 01/27/18 13:08 Lymph % (Auto) 11.7 % (15.0-45.0) L 01/27/18 13:08 [place] % (Auto) 6.2 % (4.5-13.0) 01/27/18 13:08 Eos % (Auto) 1.3 % (0.6-7.6) 01/27/18 13:08 Baso % (Auto) 0.6 % (0.3-1.7) 01/27/18 13:08 Nucleat RBC Rel Count 0.0 % (0.0-0.2) 01/27/18 13:08 Absolute Neuts (auto) 7.83 10^3/uL (1.70-6.50) H 01/27/18 13:08 Absolute Lymphs (auto) 1.15 10^3/uL (1.00-3.00) 01/27/18 13:08 Absolute Monos (auto) 0.61 10^3/uL (0.30-0.80) 01/27/18 13:08 Absolute Eos (auto) 0.13 10^3/uL (0.03-0.40) 01/27/18 13:08 Absolute Basos (auto) 0.06 10^3/uL (0.02-0.10) 01/27/18 13:08 Absolute Nucleated RBC 0.00 10^3/uL (0-0.01) 01/27/18 13:08 Immature Gran % 0.7 % (0.0-1.1) 01/27/18 13:08 Immature Gran # 0.07 10^3/uL (0.00-0.10) 01/27/18 13:08 PT 12.7 SEC (12.0-15.0) 01/27/18 13:08 INR 0.93 (0.83-1.16) 01/27/18 13:08 Sodium 135 mEq/L (135-145) 01/27/18 13:08 Potassium 4.5 mEq/L (3.5-5.2) 01/27/18 13:08 Chloride 97 mEq/L (97-110) 01/27/18 13:08 Carbon Dioxide 24 mEq/l (22-31) 01/27/18 13:08 Anion Gap 14 mEq/L (8-16) 01/27/18 13:08 BUN 8 mg/dL (7-23) 01/27/18 13:08 Creatinine 0.7 mg/dL (0.6-1.0) 01/27/18 13:08 Estimated GFR > 60 01/27/18 13:08 Glucose 97 mg/dL (70-100) 01/27/18 13:08 Calcium 9.3 mg/dL (8.5-10.4) 01/27/18 13:08 Troponin I < 0.012 ng/mL (0.000-0.034) 01/27/18 13:08 Urine Color YELLOW 01/27/18 13:40 Urine Appearance CLEAR 01/27/18 13:40 Urine pH 7.0 (5.0-7.5) 01/27/18 13:40 Ur Specific [place] 1.010 (1.002-1.030) 01/27/18 13:40 Urine Protein NEGATIVE (NEGATIVE) 01/27/18 13:40 Urine Ketones NEGATIVE (NEGATIVE) 01/27/18 13:40 Urine Blood NEGATIVE (NEGATIVE) 01/27/18 13:40 Urine Nitrate NEGATIVE (NEGATIVE) 01/27/18 13:40 Urine Bilirubin NEGATIVE (NEGATIVE) 01/27/18 13:40 Urine Urobilinogen NEGATIVE EU (0.2-1.0) 01/27/18 13:40 Ur Leukocyte Esterase NEGATIVE (NEGATIVE) 01/27/18 13:40 Urine Glucose NEGATIVE (NEGATIVE) 01/27/18 13:40 Digoxin 1.1 ng/mL (0.8-2.0) 01/27/18 13:08 Visualized and Interpreted Chest x-ray results: Yes Chest X-Ray results: no infiltrate Visualized and Interpreted EKG results: Yes EKG Interpretation: Positive for: other (AV paced) Assessment & Plan Assessment: 77-year-old female presents with acute encephalopathy Plan: 1. Acute encephalopathy. New problem this provider, further workup indicated. Evidenced by global brain dysfunction characterized as confusion, somnolence, poor arousability, poor concentration, all of which are reportedly acute changes from the patient's earlier assessment today and this impression has been corroborated by the patient's family, unclear etiology, rule out infectious causes with respiratory viral panel, procalcitonin level, blood cultures, monitor mild leukocytosis -monitor mental status closely -head CT demonstrating stable subdural hematomas without any worsening -digoxin level within normal limits 2. Subdural hematomas and traumatic brain injury. Patient recently sustained mechanical fall with subsequent subdural hematomas and closed head injury, reviewed outside records including 01/27/[address] Matthew Molina , provides patient's rehab mental status evaluation which demonstrated poor memory, poor insight, poor cognitive flexibility, worsened with fatigue, unclear as to the degree to which this has influenced above, likely places patient at lower threshold for encephalopathic changes with any kind of acute precipitant -she has been initiated on amitriptyline for sleep, will hold tonight given the possibility of negative med affect -continue melatonin HS -continue Keppra -continue cognitive, speech, physical, occupational therapies 3. Chronic diastolic congestive heart failure. No evidence of acute exacerbation, continue to monitor, provide gentle IV fluids given her reported poor oral intake 4. Permanent atrial fibrillation. History of sick sinus syndrome and permanent pacemaker placement, her chads 2 Vasc score 7 with 15% annual CVA risk, has blood score is 6 with a 9.1% annual risk of bleeding -will continue to hold anti-platelet and anticoagulant methods until patient is seen in consultation by her leaf sucker operator and neurosurgeon as an outpatient, given her radiographically persistent subdural hematomas -continue diltiazem and digoxin once reconciled 5. Hypertension. Chronic, continue losartan once reconciled 6. Chronic coronary artery disease. Continue home medications once reconciled Diet. Speech eval, cardiac as tolerated Prophylaxis. High risk patient, currently on SCDs given persistent subdural hematomas Code. Full per patient, her sister is MD POA Disposition. Anticipated discharge is 01/28, pending further workup and clinical improvement of conditions outlined above. I have discussed patient's presentation with Carmen Jessica, hospitalist provider , she has signed out the patient to me for evaluation.
[2018-01-27] MEDS ORDERED: NITROGLYCERIN 0.4 MG BTL SL PRN (17:00)
[2018-01-27] MEDS ORDERED: SENNOSIDES/DOCUSATE SODIUM TAB PO PRN (17:00)
[2018-01-27] MEDS ORDERED: POLYETHYLENE GLYCOL 3350 17 GM PKT PO PRN (17:00)
[2018-01-27] MEDS: ACETAMINOPHEN 325 MG TAB PO PRN (18:17)
[2018-01-27] MEDS: oxyCODONE IR 5 MG TAB PO PRN (18:17)
[2018-01-27] MEDS: levETIRAcetam 500 MG TAB PO SCH (18:19)
[2018-01-27] MEDS: CETIRIZINE 10 MG TAB PO SCH (18:22)
[2018-01-27] MEDS ORDERED: LOSARTAN POTASSIUM 50 MG TAB PO ONE (20:43)
[2018-01-27] MEDS: TRANEXAMIC ACID 650 MG TAB PO SCH (21:11)
[2018-01-27] MEDS: MELATONIN 3 MG TAB PO SCH (21:12)
[2018-01-27] MEDS: ATORVASTATIN CALCIUM 20 MG TAB PO SCH (21:12)
[2018-01-27] MEDS: LOSARTAN POTASSIUM 50 MG TAB PO SCH (21:13)
[2018-01-27] MEDS: hydrALAZINE 20 MG/ML VIAL IVP PRN (21:13)
[2018-01-28] MEDS: ACETAMINOPHEN 325 MG TAB PO PRN ×2 (02:29→12:07)
[2018-01-28 05:29] LABS: PLATELET COUNT 483 10^3/uL (150-400)
[2018-01-28] MEDS: levETIRAcetam 500 MG TAB PO SCH ×2 (05:49→17:38)
[2018-01-28] MEDS ORDERED: LEVOTHYROXINE 75 MCG TAB PO SCH (06:00)
[2018-01-28] MEDS: TRANEXAMIC ACID 650 MG TAB PO SCH ×2 (09:04→20:25)
[2018-01-28] MEDS: DILTIAZEM CD 180 MG CAP PO SCH (09:07)
[2018-01-28] MEDS: CHOLECALCIFEROL VIT D3 1,000 UNITS TAB PO SCH (09:07)
[2018-01-28] MEDS: DIGOXIN 125 MCG TAB PO SCH (09:08)
[2018-01-28] MEDS: SERTRALINE HCL 25 MG TAB PO SCH (09:08)
[2018-01-28] MEDS: OXYBUTYNIN 5 MG EXT REL TAB PO SCH (09:08)
[2018-01-28] MEDS: LOSARTAN POTASSIUM 50 MG TAB PO SCH ×2 (09:08→20:24)
[2018-01-28] MEDS: CETIRIZINE 10 MG TAB PO SCH (09:09)
[2018-01-28] MEDS: hydrALAZINE 20 MG/ML VIAL IVP PRN (11:59)
[2018-01-28] MEDS: oxyCODONE IR 5 MG TAB PO PRN ×2 (13:27→21:34)
--- NOTE | 2018-01-28 15:51 | ASMTCMCOM ---
CM Note CM Note Notes: Pt in from [facility] inpatient rehab with encephalopathy. Spoke with Lizzy in admissions at [facility] IPR, they will have to see how pt does with OT/PT/[facility] tomorrow to determine if they are able to take her back. Today OT/PT/[facility] rec inpatient rehab. Per Hospitalist Raquel pt may need SNF placement; referrals sent to [facility], [facility] and [facility]. Attempted to speak with pt about d/c plan of care, pt was not able to engage in conversation. CM to follow. Date Signed: 01/28/2018 03:50 PM Electronically Signed By:NAPOLEON Craig
--- NOTE | 2018-01-28 18:58 | HOSPPROG ---
Hospitalist Progress Note Assessment/Plan: Assessment: 77-year-old female presents with acute encephalopathy in setting of recent TBI/ SDH Plan: 1. Acute encephalopathy. Evidenced by global brain dysfunction characterized as confusion, somnolence, poor arousability, poor concentration, all of which are reportedly acute changes from the patient's earlier assessment 01/27 and worsening 4/ PM, warranting transfer from [facility] -d/w Dr. Keane at rehab, he reports that the patient's participation had been borderline, negatively impacted by her ongoing headache/discomfort, as well as reduction in cognitive capacity since TBI/SDH, effecting her concentration/ focus and acutely fluctuating based on sleep, Rx-effect (took amitriptyline 10 HS) -somewhat improved today, but continues to have poor memory/insight -stopped amitriptyline -melatonin HS -careful use of PRN oxy IR 2. Subdural hematomas and traumatic brain injury. Patient recently sustained mechanical fall with subsequent subdural hematomas, rehab admission mental status evaluation which demonstrated poor memory, poor insight, poor cognitive flexibility, worsened with fatigue, likely places patient at lower threshold for encephalopathic changes with any kind of acute precipitant -continue Keppra -continue cognitive, speech, physical, occupational therapies -d/w Dr. Keane, his intention had been to reassess how effectively she is participating in Inpt Rehab therapies today, and we agreed to repeat Inpt Rehab eval (tomorrow), and, if patient has too poor performance, then suggest SNF -make tylenol scheduled for headache/face pain mgmt, no fxr of face on CT 3. Chronic diastolic congestive heart failure. No evidence of acute exacerbation, continue to monitor, provide gentle IV fluids given her reported poor oral intake 4. Permanent atrial fibrillation. History of sick sinus syndrome and permanent pacemaker placement, her chads 2 Vasc score 7 with 15% annual CVA risk, has blood score is 6 with a 9.1% annual risk of bleeding -will continue to hold anti-platelet and anticoagulant methods until patient is seen in consultation by her humanities and languages professor and neurosurgeon as an outpatient, given her radiographically persistent subdural hematomas -continue diltiazem and digoxin 5. Hypertension. Chronic, continue losartan 6. Chronic coronary artery disease. Continue home medications Diet. Speech eval, cardiac as tolerated Prophylaxis. High risk patient, currently on SCDs given persistent subdural hematomas Code. Full per patient, her sister is MD CARL Disposition. Anticipated discharge is uncertain, upgrade to inpatient admission status as anticipated LOS > 48hrs for reasonable medical necessity including ongoing encephalopathy, high risk co-morbid recent SDH/TBI. Subjective: ongoing face pain and headache Objective: Vital Signs Temp Pulse Resp BP Pulse Ox 36.5 C 86 20 120/62 96 01/28/18 16:00 01/28/18 16:00 01/28/18 16:00 01/28/18 16:00 01/28/18 16:00 01/27/18 01/28/18 01/29/18 05:59 05:59 05:59 Intake Total 350 Output Total 300 Balance 50 PT 12.7 SEC (12.0-15.0) 01/27/18 13:08 INR 0.93 (0.83-1.16) 01/27/18 13:08 - Physical Exam Constitutional: no apparent distress, chronically ill appearing, uncomfortable, No not in pain (mild) Eyes: PERRL, EOMI Cardiovascular: regular rate and rhythym, systolic murmur (II/ at apex), No irregularly irregular, No tachycardia, No edema Respiratory: no respiratory distress, no rales or rhonchi, clear to auscultation Gastrointestinal: normoactive bowel sounds, soft, non-tender abdomen, no palpable masses Skin: other (ecchymoses R cheek, scab R lower lip w/o surrounding erythema, mild tenderness) Neurologic: AAOx3, sensation intact bilaterally, No weakness (motor 5/5 bilat UE /LE) Psychiatric: not anxious, flat affect, poor insight, poor memory, No agitated ICD10 Worksheet Patient Problems: Problems Problem Status Onset Dislocation of left shoulder joint Acute Intracranial hemorrhage Acute Lip laceration Acute Encephalopathy acute Acute chronic disease mgmt/transitional care Acute Brain lesion Acute Coronary atherosclerosis Acute Hypertension Acute Hyperlipidemia Acute Peripheral vascular disease Acute Chest pain Acute Atrial fibrillation Acute Chronic anticoagulation Acute MRSA (methicillin resistant Staphylococcus aureus) Acute 08/14/16 Atrial fibrillation with RVR Acute UTI (urinary tract infection) Acute Shoulder pain, left Acute Shoulder subluxation Acute
[2018-01-28] MEDS: ACETAMINOPHEN 500 MG TAB PO SCH (20:23)
[2018-01-28] MEDS: ATORVASTATIN CALCIUM 20 MG TAB PO SCH (20:24)
[2018-01-28] MEDS: MELATONIN 3 MG TAB PO SCH (20:25)
[2018-01-28] MEDS: SENNOSIDES/DOCUSATE SODIUM TAB PO SCH (20:25)
[2018-01-29 05:27] LABS: PLATELET COUNT 513 10^3/uL (150-400)
[2018-01-29] MEDS: LEVOTHYROXINE 88 MCG TAB PO SCH (05:30)
[2018-01-29] MEDS: ACETAMINOPHEN 500 MG TAB PO SCH ×4 (05:30→21:00)
[2018-01-29] MEDS: levETIRAcetam 500 MG TAB PO SCH ×2 (05:30→17:45)
--- NOTE | 2018-01-29 08:02 | PDMN ---
Medical Necessity Medical necessity: Change to IP, as of 01/28/18. per MD; los >2 mn for ongoing management of encephalopathy w/confusion, somnolence, poor arousability, poor concentration & ongoing headaches/facial pain; admit for further monitoring, med management & therapies; high risk comorbid recent subdural hematomas/ traumatic brain injury, advanced age, CHF, AFIB, SSS, CAD, HTN; per progress note & order 01/28/18
[2018-01-29] MEDS: TRANEXAMIC ACID 650 MG TAB PO SCH (08:22)
[2018-01-29] MEDS: DILTIAZEM CD 180 MG CAP PO SCH (08:22)
[2018-01-29] MEDS: SENNOSIDES/DOCUSATE SODIUM TAB PO SCH ×2 (08:22→21:01)
[2018-01-29] MEDS: CHOLECALCIFEROL VIT D3 1,000 UNITS TAB PO SCH (08:22)
[2018-01-29] MEDS: LOSARTAN POTASSIUM 50 MG TAB PO SCH ×2 (08:23→21:01)
[2018-01-29] MEDS: OXYBUTYNIN 5 MG EXT REL TAB PO SCH (08:23)
[2018-01-29] MEDS: DIGOXIN 125 MCG TAB PO SCH (08:23)
[2018-01-29] MEDS: SERTRALINE HCL 25 MG TAB PO SCH (08:23)
--- NOTE | 2018-01-29 13:52 | HOSPPROG ---
Hospitalist Progress Note Assessment/Plan: # Acute encephalopathy -with confusion and somnolence - which are improving overnight - this afternoon cooperating with PT and sitting up for lunch oxygen saturations 94% on room air - afebrile - WBC stable at 10 - continue limiting narcotic medications p.r.n. - continue hold sedating p.m. Medications - make tylenol scheduled for headache/face pain mgmt, no fxr of face on CT # Subdural hematomas and traumatic brain injury- pt with mechanical fall and subdural hematomas Rehab admission mental status evaluation demonstrated poor memory, poor insight, poor cognitive flexibility, worsened with fatigue CT head(personally reviewed and interpreted) shows improving subdural hematomas -continue Keppra -continue cognitive, speech, physical, occupational therapies - asked neurosurgeons to round on patient and verify near previous discharge baseline # Chronic diastolic congestive heart failure. No evidence of acute exacerbation , continue to monitor, provide gentle IV fluids given her reported poor oral intake # Permanent atrial fibrillation. History of sick sinus syndrome and permanent pacemaker placement, her chads 2 Vasc score 7 with 15% annual CVA risk -will continue to hold anti-platelet and anticoagulant until seen by her regional environmental manager and neurosurgeon as an outpatient -continue diltiazem and digoxin # Hypertension. Chronic, continue losartan # Chronic coronary artery disease. Continue home medications #Diet. Speech eval, cardiac as tolerated #Prophylaxis. High risk patient, currently on SCDs given persistent subdural hematomas # disposition-> 2 midnights as the patient requires ongoing monitoring and care as well as neurosurgical consultation I have discussed the case with the RN-we will plan for disposition back to rehab tomorrow if continues to make improvement overnight Subjective: Denies pain Objective: Vital Signs Temp Pulse Resp BP Pulse Ox 37.1 C 86 20 139/73 H 94 01/29/18 12:00 01/29/18 12:00 01/29/18 12:00 01/29/18 12:00 01/29/18 12:00 Laboratory Results 01/29/18 04:47 01/29/18 04:47 01/28/18 01/29/18 01/30/18 05:59 05:59 05:59 Intake Total 650 Output Total 975 Balance -325 PT 12.7 SEC (12.0-15.0) 01/27/18 13:08 INR 0.93 (0.83-1.16) 01/27/18 13:08 - Physical Exam Constitutional: chronically ill appearing Eyes: anicteric sclera Ears, Nose, Mouth, Throat: dry mucous membranes Cardiovascular: irregularly irregular Respiratory: no respiratory distress Gastrointestinal: normoactive bowel sounds Genitourinary: no bladder fullness Skin: warm Musculoskeletal: No asymmetric calves Neurologic: No AAOx3 Psychiatric: encephalopathic Lymph, Heme, Immunologic: no cervical LAD ICD10 Worksheet Patient Problems: Problems Problem Status Onset Encephalopathy acute Acute Atrial fibrillation Acute Atrial fibrillation with RVR Acute Brain lesion Acute Chest pain Acute Chronic anticoagulation Acute Coronary atherosclerosis Acute Dislocation of left shoulder joint Acute Hyperlipidemia Acute Hypertension Acute Intracranial hemorrhage Acute Lip laceration Acute MRSA (methicillin resistant Staphylococcus aureus) Acute 08/14/16 Peripheral vascular disease Acute Shoulder pain, left Acute Shoulder subluxation Acute UTI (urinary tract infection) Acute chronic disease mgmt/transitional care Acute
--- NOTE | 2018-01-29 14:08 | ASMTCMCOM ---
CM Note CM Note Notes: Patient has been accepted back to [facility] inpatient rehab. Per hospitalist, she is not ready today and will be seen by Neurosurgery. Possible d/c back to inpatient rehab tomorrow. Lizzy at inpatient rehab notified. Date Signed: 01/29/2018 02:07 PM Electronically Signed By:Brandie Ragland RN
--- NOTE | 2018-01-29 15:28 | NEUSURGPN ---
Assessment/Plan: Assessment: 77 yr old with AMS and recent history of bilateral subdural hematomas Plan: -Please see full dictated consult when available -Patient was seen and examined by myself and Dr Fink at 1350 today -CT head shows minimal decrease in subdural hematomas-no concerning findings from a surgical standpoint -Patient with mild right facial droop, perseverating, confusion -Consider MRI to eval for stroke with cardiac history -Consider neurology consult -Neurosurgery will sign off, please contact us with any questions/concerns Subjective: Unable to obtain Objective: Patient confused Does know its [place] Follows simple commands PERRL Mild right facial droop 5/5 strength BUE, BLE Neuro Check Frequency: per routine Urinary Catheter in Place: No - Physician Patient Seen by : Aleks Neurosurgery Physical Exam - Vitals, I&O, Labs I and O 01/28/18 01/29/18 01/30/18 05:59 05:59 05:59 Intake Total 650 Output Total 975 Balance -325 Weight 45.4 kg Intake: Oral (ml) 650 Output: Urine (ml) 975 Bedside Commode 400 Toilet 575 Other: Intake Quantity No: encourage to drink more Sufficient Number of Voids Bedside Commode 1 Toilet 1 1 Vital Signs Temp Pulse Resp BP Pulse Ox 37.1 C 86 20 139/73 H 94 01/29/18 12:00 01/29/18 12:00 01/29/18 12:00 01/29/18 12:00 01/29/18 12:00 Laboratory Results 01/29/18 04:47 01/29/18 04:47 ICD10 Worksheet Patient Problems: Problems Problem Status Onset Encephalopathy acute Acute Atrial fibrillation Acute Atrial fibrillation with RVR Acute Brain lesion Acute Chest pain Acute Chronic anticoagulation Acute Coronary atherosclerosis Acute Dislocation of left shoulder joint Acute Hyperlipidemia Acute Hypertension Acute Intracranial hemorrhage Acute Lip laceration Acute MRSA (methicillin resistant Staphylococcus aureus) Acute 08/14/16 Peripheral vascular disease Acute Shoulder pain, left Acute Shoulder subluxation Acute UTI (urinary tract infection) Acute chronic disease mgmt/transitional care Acute
[2018-01-29] MEDS ORDERED: NS 1,000 ML IV ONE (15:57)
--- NOTE | 2018-01-29 20:09 | GCON ---
[f rep st] CONSULTATION DATE OF CONSULTATION: 01/29/2018 CHIEF COMPLAINT: Subdural hematoma. HISTORY OF PRESENT ILLNESS: The patient is a 77-year-old, who presented to the emergency department approximately 2 weeks ago after suffering a fall and CT of brain demonstrated bilateral subdural hematomas. The patient was taking anticoagulants at the time for atrial fibrillation, and was hospitalized to monitor her neurologic status. The patient improved without surgical intervention and was ultimately discharged to [place] for rehabilitation. The patient presented back to the emergency department yesterday with increasing altered mental status. CT of the brain was performed, which demonstrated a mild improvement of the bilateral subdural hematomas. We were requested to consult on this patient to see if it was okay for her to transfer back to [place]. ALLERGIES: Beta blockers, Benadryl, Toprol, tramadol, amiodarone, Crestor. HOME MEDICATIONS: Herbal supplements, sublingual nitroglycerin p.r.n., digoxin 0.125 mg p.o. daily, Lipitor 20 mg at bedtime, Claritin 10 mg daily, levothyroxine 75 mcg p.o. daily, melatonin 3 mg at bedtime. PAST MEDICAL HISTORY: 1. Atrial fibrillation with sick sinus syndrome. 2. Coronary artery disease. History of 3 cardiac stents. 3. Congestive heart failure. 4. CVA thalamic. 5. Hypertension. 6. Hyperlipidemia. 7. Obstructive sleep apnea, uses nocturnal oxygen. 8. Peripheral vascular disease. 9. Hypothyroid. 10. Aortic aneurysm. SURGICAL HISTORY: Pacemaker, AICD placement, tonsillectomy, L4-5 kyphoplasty, right hip replacement, bilateral carotid endarterectomy, carotid stent placement x3. FAMILY HISTORY: Unable to obtain at this time due to patient's altered mental status. SOCIAL HISTORY: Obtained from previous medical chart. Patient is a former smoker. She drinks occasionally approximately 2 drinks per night at home. She lives alone, has no children. REVIEW OF SYSTEMS: A 10-point review of systems was performed and negative aside from what was mentioned in the HPI. DIAGNOSTICS: White blood cell count 10.79, hemoglobin 10.0, hematocrit 30.0, platelet count is 513. PT 12.7, performed on January 27. Sodium today 136, potassium 4.4, BUN 6, creatinine 0.6, glucose 91. DIAGNOSTIC IMAGING: CT of the brain performed without contrast on January 27, 2018 demonstrated bilateral subdural hematomas with a slight decrease in size without associated mass effect. Elderly brain with atrophy and probable white matter small-vessel disease. PHYSICAL EXAM: VITAL SIGNS: Blood pressure is 121/72, heart rate is 64, oxygen saturation is 90% on room air, respiratory rate is 12, temperature is 36.7 degrees Celsius. HEENT: Head is normocephalic. The patient does have ecchymosis healing on the right side of her face. Pupils are equal, round, reactive to light. EOMI is intact. Ears are patent. RESPIRATORY/CARDIAC: Deferred. ABDOMEN: Deferred. GENITOURINARY AND RECTAL: Deferred. NEUROLOGIC : The patient is awake. She is not oriented to place. States she is at "communicative". Does know that it is January and when asked who the president is , her answer was Kiara. She does follow all commands during physical examination, but was perseverating throughout. Cranial nerves 2-12 are grossly intact aside from a mild right facial droop. Motor: Patient had 5/5 strength in all muscle groups in the bilateral upper and lower extremities, to include deltoids, biceps, triceps, brachioradialis, wrist flexion, extensors, programmer analyst health it, intrinsic fingers, iliopsoas, quadriceps, hamstrings, plantar flexion, dorsiflexion, EHL testing. Sensation is grossly intact to light touch throughout all dermatomal distributions in bilateral lower extremities. Reflexes: Biceps, triceps, brachioradialis, knee jerk and ankle jerk are 2+/4. Babinski is negative. No evidence of clonus. ASSESSMENT/PLAN: Patient is a 77-year-old female, who presented to the emergency department approximately 2 weeks ago after a fall and suffered bilateral subdural hematomas. The patient was hospitalized and subsequently improved without surgical intervention and was discharged to [facility]. The patient had an increase in altered mental status and was readmitted yesterday to the emergency department. CT of the brain shows a mild improvement of her bilateral subdural hematomas. Dr. Fink and myself reviewed the CT scan and did not find any concerning findings of her subdural hematomas. We do not think that her altered mental status is currently related to the presence of her subdural hematomas. We would like Medicine team to consider Neurology consult as well as any imaging of the brain to evaluate for possible stroke. Patient has been off her anticoagulants and has an extensive cardiac history. The patient does have a pacemaker in place, so unfortunately she is unable to get an MRI of the brain. Neurosurgery will sign off on this patient. Please call Neurosurgery with any additional questions or concerns. Patient was seen and examined by myself and Dr. Fink at the patient's bedside today, January 29, 2017 at 1350. /[id number]/MODL MTDD
[2018-01-29] MEDS: ATORVASTATIN CALCIUM 20 MG TAB PO SCH (21:00)
[2018-01-29] MEDS: MELATONIN 3 MG TAB PO SCH (21:01)
[2018-01-30] MEDS: ACETAMINOPHEN 500 MG TAB PO SCH ×2 (05:16→11:25)
[2018-01-30] MEDS: LEVOTHYROXINE 88 MCG TAB PO SCH (05:16)
[2018-01-30] MEDS: levETIRAcetam 500 MG TAB PO SCH (05:16)
[2018-01-30 07:42] VITALS: BP 146/76; PULSE 68; RESP 13; TEMP 97.7
[2018-01-30] MEDS: CHOLECALCIFEROL VIT D3 1,000 UNITS TAB PO SCH (08:54)
[2018-01-30] MEDS: DIGOXIN 125 MCG TAB PO SCH (08:54)
[2018-01-30] MEDS: DILTIAZEM CD 180 MG CAP PO SCH (08:55)
[2018-01-30] MEDS: LOSARTAN POTASSIUM 50 MG TAB PO SCH (08:55)
[2018-01-30] MEDS: SENNOSIDES/DOCUSATE SODIUM TAB PO SCH (08:55)
[2018-01-30] MEDS: OXYBUTYNIN 5 MG EXT REL TAB PO SCH (08:55)
[2018-01-30] MEDS: SERTRALINE HCL 25 MG TAB PO SCH (08:55)
--- NOTE | 2018-01-30 09:35 | NEUROPROG ---
Assessment: [id number] - Neurology Consult: - CC: Confusion, B/L SDH - HPI: Pt on anticoagulation for afib on 01/17/18 when she had a mechanical fall and suffered bilateral subdural hematomas. The patient did not require surgery but was discharged to [facility] for cognitive issues. Apparently in rehab patient noted to be confused and somnolent. Pt admitted to [facility] on 01/27/18. Pts mentation improved but head CT showed stable B/L SDH so neurosurgery consulted. They did not feel the b/l SDH required any surgery but recommended neurology consultation. I initially saw the patient on 01/30/18. She was sleeping and when I awoke her to examine her she was not very cooperative in the neurologic exam due to tiredness. - PMHx: thalamic CVA, afib w/defibrillator, CAD w/stents, HTN, HLD, MAYITO, PVD, hypothyroid, mechanical fall with subsequent b/l SDH on 01/17/18 (non-operative) , aortic aneurysm - Home Meds: nitrostat, digoxin, lipitor, claritin, synthroid - SHx: former smoker FHx: Pt cannot provide details - ROS: Pt denied acute fever, total vision loss, active severe chest pain, respiratory failure, total body severe rash, total bowel/bladder incontinence, psychosis, active seizures, or active bleeding - O: VS reviewed General: Tired Eyes: Fundoscopic exam not able to visualize optic disks CV: Heart RRR, no murmur, no carotid bruit Lungs: Clear to auscultation bilaterally, no rhonchi or rales Neuro: - Mental: . Oriented x person but not place or date . concentration appears reduced . speech fluency/comprehension normal . memory appears reduced . fund of knowledge appear reduced - Cranial Nerves: . II: no obvious vision problems seen but patient too tired to cooperate with in depth testing . III/IV/: EOMI . V: facial sensation intact to LT . VII: face symmetric to eye closure and smile . VIII: hearing intact to conversation . IX/X: uvula raises symmetrically . XI: SCM 5/5 B/L strength . XII: tongue protrudes midline w/nl strength - Motor: . Tone: normal tone in all 4 extremity . Strength: no lateralizing weakness noted - Reflexes: B/L bic 2/4 - Sensory: all 4 extremity intact to light touch - Coord: FLAKITA wnl - Gait: deferred - Labs: 01/27/18- CBC Hct 32.8L WBC 9.85H Plt 466H, Chem wnl, UA neg - Rads: 01/27/18- Head CT w/o con: Bilateral subdural hematomas with slight minimal decrease in size without associated mass effect. Elderly brain with atrophy and probable white matter small vessel disease. (I personally visualized the images on 01/30/18) - Assessment: 1. Encephalopathy in setting bilateral subdural hematoma: I suspect the patient developed encephalopathy due to the fact that her brain is likely vulnerable to this due to her concurrent bilateral subdural hematoma. I doubt she has had a new ischemic stroke but that is also possible and unfortunately we cannot obtain a brain MRI (pacemaker). Neurosurgery feels no intervention of b/l SDH needed and patient improving form cognitive standpoint so I feel returning to inpatient rehab is reasonable. UA at admission showed no UTI and no clear infection found. There is no clear medical intervention required at this time so returning to inpatient rehab to help recovery is reasonable. - Plan: - No further w/u needed at this from a neurology standpoint, I feel the patient can return to inpatient rehab - She should f/u with neurosurgery after discharge to ensure resolution of the bilateral subdural hematoma Objective: Vital Signs Temp Pulse Resp BP Pulse Ox 36.5 C 68 13 146/76 H 98 01/30/18 07:40 01/30/18 07:40 01/30/18 07:40 01/30/18 07:40 01/30/18 07:40 Laboratory Results 01/29/18 04:47 01/30/18 04:57 01/29/18 01/30/18 01/31/18 05:59 05:59 05:59 Intake Total 650 275 Output Total 975 900 Balance -325 -625 PT 12.7 SEC (12.0-15.0) 01/27/18 13:08 INR 0.93 (0.83-1.16) 01/27/18 13:08 Allergies/Adverse Reactions: Beta-Blockers (Beta-Adrenergic Bloc [Beta-Blockers (Beta-Adrenergic Blocking Agts)] Allergy (Mild, Verified 01/24/18 06:25) dry cough diphenhydramine HCl [From Benadryl] Allergy (Mild, Verified 12/19/17 17:16) Anxiety metoprolol Allergy (Mild, Verified 12/22/17 12:42) Rash tramadol Allergy (Mild, Verified 01/22/18 13:42) Rash amiodarone Allergy (Verified 12/19/17 17:16) Rash rosuvastatin calcium [From Crestor] Allergy (Verified 12/19/17 17:16) Swelling/ Rash
--- NOTE | 2018-01-30 10:46 | PDIAF ---
- Diagnosis Diagnosis: stable subdural hematoma, metabolic encephalopathy Code Status: Full Code - Medication Management Discharge Medications: Medications to Continue on Transfer Cholecalciferol Vit D3 [Vitamin D3 2000 units] 4,000 units PO DAILY 03/18/13 [ Last Taken 01/27/18] Herbals/Supplements -Info Only 1 each PO AD 03/18/13 [Last Taken 12/19/17] Nitroglycerin [Nitrostat 0.4 mg (*)] 0.4 mg SL PRN PRN 03/18/13 [Last Taken 08:00] Digoxin [Lanoxin 0.125 mg] 0.125 mg PO DAILY 10/02/13 [Last Taken 01/27/18] Atorvastatin Calcium [Lipitor 20 mg (*)] 20 mg PO HS 12/24/16 [Last Taken ] Loratadine [Claritin 10 mg] 10 mg PO DAILY PRN 12/24/16 [Last Taken 2 Weeks Ago ~12/05/17] Diltiazem Cd [Cardizem ER Q24hr] 180 mg PO DAILY #0 cap 01/24/17 [Last Taken 11/15] Losartan Potassium [Cozaar 50 mg (*)] 50 mg PO BID #60 tab 12/22/17 [Last Taken 01/27/18 09:00] Oxybutynin Chloride Xl [Ditropan Xl 5mg (*)] 5 mg PO DAILY #30 tab 12/23/17 [ Last Taken 01/27/18] Sertraline HCl [Zoloft 25mg (*)] 25 mg PO DAILY #30 tab 12/23/17 [Last Taken 11/15] Melatonin [Melatonin 3 MG (*)] 3 mg PO HS 01/15/18 [Last Taken 01/26/18] Acetaminophen [Tylenol 325mg (*)] 650 mg PO Q4HRS PRN tab 01/21/18 [Last Taken 01/21/18 10:00] Tranexamic Acid 650 mg PO BID tab 01/21/18 [Last Taken 01/27/18 09:00] Amitriptyline HCl [Elavil 10 mg (*)] 10 mg PO HS 01/27/18 [Last Taken 01/26/18] Polyethylene Glycol 3350 [Miralax 17 gm (*)] 17 gm PO DAILY PRN 01/27/18 [Last Taken Unknown] Sennosides/Docusate Sodium [Senokot-S] 1 - 2 tab PO BID PRN 01/27/18 [Last Taken Unknown] levETIRAcetam [Keppra 500 mg (*)] 500 mg PO BID@01/27/18 [Last Taken 01/27 06:00] oxyCODONE IR [Oxycodone Ir (*)] 2.5 - 10 mg PO Q3 PRN 01/27/18 [Last Taken Unknown] Levothyroxine [Synthroid 88 mcg (*)] 88 mcg PO DAILY AT 6AM #30 tab 01/30/18 [ Last Taken Unknown] Discharge Medications: Refer to the Discharge Home Medication list for PRN reason. - Orders Services needed: Physical Therapy, Occupational Therapy, Speech Language Pathologist Isolation Type: None Diet Recommendation: no restrictions on diet - Follow Up Care Current Providers and Referrals: Patient,NotPresent [Unknown] - As per Instructions
[2018-01-30 11:28] VITALS: O2SAT 89
--- NOTE | 2018-01-30 12:32 | GDS ---
[f rep st] DISCHARGE SUMMARY DISCHARGE DIAGNOSES: 1. Metabolic encephalopathy. 2. Stable bilateral subdural hematomas. 3. Hypertension. 4. Atrial fibrillation. 5. Coronary artery disease, status post previous stents. 6. Pacemaker. 7. Peripheral vascular disease, status post bilateral carotid endarterectomies. 8. Mild dementia. 9. Rotator cuff tear with recurrent left shoulder dislocations. HISTORY: Emelyn Vences is a 77-year-old female, known very well to me from previous hospitalizations. She presented to the hospital after falling and developed bilateral subdural hematomas. She was adm itted to the trauma service. Her warfarin and Plavix were discontinued. She was transferred to [facility]. She was sent back to the hospital for acute mental status change. Both Neurosurgery an d Neurology evaluated her. Her head CT is stable with no worsening of her subdurals. They continue to recommend conservative management only. There was no surgical indication. Neurology saw her in c onsultation as well. They feel this is likely an encephalopath and she is likely to have waxing and waning mental status as she recovers from this event. Acute stroke was considered, however, she has an MRI so we cannot do a pacemaker. We are not able to resume any type of anticoagulation at this ti ne anyway. She is felt to be stable to return back to inpatient rehab. This patient is very well known to me from her previous hospitalization for a left shoulder dislocati on and a known rotator cuff tear. She is followed by Orthopedic surgery and they are recommending st eroid injections of the shoulder and if that fails then reverse shoulder surgery with Dr. Fanta murray be indicated. Plan was for her to follow up as an outpatient but in the meantime, she will remain in a sling for co mfort and stability. She has known borderline control of hypertension and rapid AFib. During the last hospitalization she refused any changes to her previous medications and only trusts Dr. Terrell regarding medication titr ation. It is unclear to me what type of follow up she has had since her hospital discharge regarding these medications. She is known to have mild dementia and cognition at baseline had some deficits a nd there was some concern regarding her safety at home but eventually we did decide she was safe to d ischarge with home health. Unfortunately she had fallen and had a poor outcome with these bilateral subdurals. Her local support system is marginal. She has baseline very high anxiety. My suspicion is returning back to independent living may not be possible for her. We will continue to hold her anticoagulation and Plavix and these can be restarted as an outpatient i n coordination with Neurosurgery and Cardiology. DISCHARGE MEDICATIONS: Please see computer record for full detailed list. NEW MEDICATIONS: Levothyroxine increased to 88 mcg p.o. daily. There are no other medication change s. We will continue to hold Plavix and warfarin and consideration for restarting these as an outpati ent with Cardiology and Neurosurgery. Her CHADS2 Vasc score is 7 which does give her 15% annual stro ke risk without these medications. DISCHARGE INSTRUCTIONS: 1. Transfer back to inpatient rehabilitation for further rehab. 2. Follow up as an outpatient with Cardiology and Neurosurgery regarding timing of restarting antico agulation. Greater than 30 minutes' time was spent arranging this discharge. Patient seen and examined by me on the day of discharge. /[id number]/MODL
--- NOTE | 2018-01-30 12:49 | ASMTCMCOM ---
CM Note CM Note Notes: Pt medically stable for d/c to [facility] inpatient rehab. Pt sister was updated. Michael krishnamurthy scheduled for 1200 to bill pt. Orders to be obtained via [employer]. IRMA Roy called report. Date Signed: 01/30/2018 12:48 PM Electronically Signed By:NAPOLEON Craig
--- NOTE | 2018-01-30 12:50 | ASDISCHSUM ---
Discharge Information Plan Status:Inpatient Rehab Medically Cleared to Leave: Discharge Date:01/30/2018 12:26 PM CM D/C Disposition:[facility] ADT D/C Disposition:[facility] Projected Discharge Date:01/29/2018 11:00 AM Transportation at D/C:Wheelchair Van Discharge Delay Reason: Follow-Up Date:01/29/2018 11:00 AM Discharge Slot: Final Diagnosis: Placement Information Referral Type:*Retirement/SNF Referral ID:[id number] Provider Name: Address 1: Phone Number: Address 2: Fax Number: City: Selection Factors: State: Referral Type:Rehabilitation Hospital Referral ID:[id number] Provider Name:[facility] Address 1:[address] [place] [address] Phone Number: Address 2: Fax Number: [facility]:[place] Selection Factors: State:[place] Patient Contact Information Contact Name:MelisalornakodakGEOFF Relationship:Sister Address:[address] [place] City:[place] Alternate Phone: State/Zip Code:[place] [address] Email: Financial Information Financial Class:Medicare Primary Plan Desc:MEDICARE INPATIENT Primary Plan Number:[id number] Secondary Plan Desc: Secondary Plan Number:[id number] Assessment Information [facility] CM Progress Note CM Note CM Note Notes: Pt in from [facility] inpatient rehab with encephalopathy. Spoke with Lizzy in admissions at [facility], they will have to see how pt does with OT/PT/[employer]NAGER [employer]ING tomorrow to determine if they are able to take her back. Today OT/PT/[employer] rec inpatient rehab. Per Hospitalist Raquel pt may need SNF placement; referrals sent to [facility] and [facility]. Attempted to speak with pt about d/c plan of care, pt was not able to engage in conversation. CM to follow. Date Signed: 01/28/2018 03:50 PM Electronically Signed By:NAPOLEON Craig [facility] CM Progress Note CM Note CM Note Notes: Patient has been accepted back to [facility] inpatient rehab. Per hospitalist, she is not ready today and will be seen by Neurosurgery. Possible d/c back to inpatient rehab tomorrow. Lizzy at inpatient rehab notified. Date Signed: 01/29/2018 02:07 PM Electronically Signed By:Brandie Ragland RN [facility] CM Progress Note CM Note CM Note Notes: Pt medically stable for d/c to [facility] inpatient rehab. Pt sister was updated. Michael krishnamurthy scheduled for 1200 to bill pt. Orders to be obtained via [email or web address]. IRMA Roy called report. Date Signed: 01/30/2018 12:48 PM Electronically Signed By:NAPOLEON Craig Intervention Information Intervention Type:COBOS-Not Delivered Date of Service:01/28/2018 11:31 AM Patient Type:Observation Staff Member:Rhoda Quintero Hours: Discipline: Severity: Comment:Patient was asleep on first attempt to visit with her for COBOS form. On second attempt, patient was awake but confused. I asked if she had someone I could call to go over the form with an d all she could express was that "she needed to get out of bed".
== END 2018-01-30 12:26 | DRG 71 ==
LOC: EDUNIT# → F3N 15:27 → OBSVTOIN 01-28 12:57 → INTOOBSV 01-28 12:57
PROVIDERS: ADMIT Internal Medicine; ATTEND Internal Medicine
DX: G93.41 Metabolic encephalopathy (principal); S06.5X9D Traumatic subdural hemorrhage with loss of consciousness of unspecified duration, subsequent encounter; E03.9 Hypothyroidism, unspecified; I25.10 Atherosclerotic heart disease of native coronary artery without angina pectoris; E87.1 Hypo-osmolality and hyponatremia; I48.2 Chronic atrial fibrillation; I11.0 Hypertensive heart disease with heart failure; I50.32 Chronic diastolic (congestive) heart failure; E78.5 Hyperlipidemia, unspecified; I49.5 Sick sinus syndrome; G47.33 Obstructive sleep apnea (adult) (pediatric); I73.9 Peripheral vascular disease, unspecified; Z86.73 Personal history of transient ischemic attack (TIA), and cerebral infarction without residual deficits; Z95.810 Presence of automatic (implantable) cardiac defibrillator; Z86.711 Personal history of pulmonary embolism; Z95.5 Presence of coronary angioplasty implant and graft; Z87.891 Personal history of nicotine dependence; Z96.641 Presence of right artificial hip joint; Z91.81 History of falling
CPT/HCPCS: 92507-GN; 92523-GN; 97116-GP; 97161-GP; 97166-GO; 97530-GP; 97535-GO; G0378; G8978-GP-CJ; G8979-GP-CI; G8987-GO-CJ; G8988-GO-CI; G9165-GN-CL; G9166-GN-CJ; J0360

== ENCOUNTER 2018-01-30 12:54 | Inpatient (IN) | payer OTHER ==
[2018-01-30] MEDS ORDERED: NITROGLYCERIN 0.4 MG BTL SL PRN (14:02)
[2018-01-30] MEDS ORDERED: SENNOSIDES/DOCUSATE SODIUM TAB PO PRN (14:02)
[2018-01-30] MEDS ORDERED: POLYETHYLENE GLYCOL 3350 17 GM PKT PO PRN (14:02)
[2018-01-30] MEDS ORDERED: NON-FORMULARY NEW DRUG (Loratadine [Claritin 10 Mg] 10 MG) PO PRN (14:02)
[2018-01-30] MEDS ORDERED: CETIRIZINE 10 MG TAB PO PRN (14:23)
[2018-01-30] MEDS: oxyCODONE IR 5 MG TAB PO PRN (14:42)
--- NOTE | 2018-01-30 14:53 | GHP ---
[f rep st] HISTORY AND PHYSICAL POST ADMISSION PHYSICIAN EVALUATION AND REHABILITATION TREATMENT PLAN DATE OF ADMISSION: 01/30/2018 DATE OF EVALUATION: 01/30/2018. TIME OF EVALUATION: 1325. REFERRING FACILITY: [facility]. IMPAIRMENT GROUP: [id number]. DATE OF ONSET: 01/15/2018. REFERRING PHYSICIAN: Dr. García. CONSULTING PHYSICIANS: She was seen in consultation by Dr. Richmond with Neurology and neurosurgeon Dr. Fink. REHABILITATION DIAGNOSIS: Debility status post fall and subdural hemorrhage. ETIOLOGIC DIAGNOSIS: Traumatic, closed injury. HISTORY OF PRESENT ILLNESS: This patient is readmitted to [facility] following a 3-day stay at [facility]. She was sent there for evaluation of altered mental status. She had a head CT which showed slight interval decrease in her subdural hematomas. EKG and chest x-ray were unrevealing. Laboratory studies revealed mild anemia and a mildly elevated white blood cell count. Serum chemistries were unrevealing as well. TSH was slightly elevated at 8.96, and her levothyroxine dose was increased. Urinalysis was negative. After consultation with Neurology and Neurosurgery, she was considered medically stable and safe for return to inpatient rehabilitation for continued therapies. PRECAUTIONS: She is a fall risk. She has seizure precautions. ACTIVE COMORBIDITIES: She has no active tier 1, tier 2, or tier 3 comorbidities. PAST MEDICAL HISTORY: 1. Hypertension. 2. Atrial fibrillation. 3. Coronary artery disease with history of stenting. 4. History of pacemaker placement. 5. Peripheral vascular disease, status post bilateral carotid endarterectomies. 6. Mild dementia. 7. Rotator cuff tear and recurrent shoulder dislocations. 8. Dyslipidemia. 9. Hypothyroidism. 10. Lumbar fusion, L4-L5. 11. Right hip replacement. 12. Tonsillectomy. 13. Tendon transplant. 14. Cervical conization. 15. Sleep apnea. 16. TIA. 17. Vertigo. PRE-HOSPITAL MEDICATIONS: Prior to her initial recent admission of 01/15/2018: 1. Cholecalciferol 4000 units p.o. daily. 2. Nitroglycerin 0.4 mg sublingual p.r.n. 3. Digoxin 0.125 mg p.o. daily. 4. Acetaminophen 500 mg p.o. b.i.d. p.r.n. 5. Warfarin. 6. Atorvastatin 20 mg p.o. q.h.s. 7. Clopidogrel 75 mg p.o. daily. 8. Loratadine 10 mg p.o. daily p.r.n. 9. Diltiazem ER 180 mg p.o. daily. 10. Levothyroxine 75 mcg p.o. daily. 11. Losartan 50 mg p.o. b.i.d. 12. Oxybutynin XL 5 mg p.o. daily. 13. Sertraline 25 mg p.o. daily. 14. Melatonin 3 mg p.o. q.h.s. ADMISSION MEDICATIONS: 1. Acetaminophen 1000 mg p.o. 4 times daily. 2. Atorvastatin 20 mg p.o. q.h.s. 3. Cholecalciferol 4000 units p.o. daily. 4. Digoxin 0.125 mg p.o. daily. 5. Diltiazem ER 180 mg p.o. daily. 6. Levetiracetam 500 mg p.o. b.i.d. 7. Levothyroxine 88 mcg p.o. daily. 8. Losartan 50 mg p.o. b.i.d. 9. Melatonin 3 mg p.o. q.h.s. 10. Nitroglycerin 0.4 mg sublingual p.r.n. 11. Oxybutynin XL 5 mg p.o. daily. 12. Oxycodone 2.5 to 5 mg p.o. q.4 hours p.r.n. 13. Polyethylene glycol 17 g p.o. daily p.r.n. 14. Senna/docusate 1 tab p.o. b.i.d. 15. Sertraline 25 mg p.o. daily. 16. Tranexamic acid 650 mg p.o. b.i.d. ALLERGIES: There are allergies listed to beta-blockers, diphenhydramine, tramadol, amiodarone, rosuvastatin. PSYCHOSOCIAL HISTORY: She lives alone. She has been in independent living. Her medical [id number] is her sister who lives in [place]. There is also a second cousin who lives in [place], who is somewhat involved in her care. She is a former smoker. REVIEW OF SYSTEMS: She continues to report a headache. She has some shoulder pain, especially when attempting to extend at the left shoulder. She denies cough, dyspnea, fevers, chills, chest pain or palpitations, nausea, vomiting, constipation, or diarrhea. Otherwise, a 10-point review of systems is negative. PHYSICAL EXAM: VITAL SIGNS: Blood pressure is 124/64, heart rate is 73, respiratory rate is 18, oxygen saturation is 94% on room air, temperature is 36.7 degrees centigrade. She has not been weighed yet on the inpatient rehabilitation unit, but her last weight this morning at the hospital was 45.4 kg for a body mass index of 19.5. GENERAL: This is a well-nourished, well- developed, elderly female lying in bed in street clothes, cooperative and in no acute distress. HEENT: Extraocular movements are intact. Pupils are equal, round, reactive to light. Mucous membranes are moist. Dentition is in good condition. NECK: Supple. HEART: Irregularly irregular with no murmurs, rubs , or gallops, and no jugular venous distention. LUNGS: Clear to auscultation bilaterally. ABDOMEN: Soft, nontender, nondistended with normoactive bowel sounds and no hepatosplenomegaly. EXTREMITIES: There is no cyanosis, clubbing , or edema. NEUROLOGIC: She is alert and oriented to her general situation. She knows the month is January. Cranial nerves 2-12 are grossly intact. There is weakness at the left shoulder with limitations in extension. Sensation is intact to light touch. There is no pronator drift. CURRENT LEVEL OF FUNCTION: Per the pre-admission screen. Regarding diet, feeding, and swallowing, she is on a regular texture with thin liquids. She required setup with voice cues to assist with fork to initiate eating. Regarding grooming, she required contact guard assist with voice cues. She was able to stand at the sink for hand washing. Regarding toileting, she required minimal assistance for won care and clothing management, and moderate assistance to make a toilet transfer. She was continent of bladder and bowel. Bed mobility required standby assist for supine to sit. Transfers were done with minimal assist for [id number] and minimal assist from bed to chair. She used a front-wheeled walker. Standing balance required minimal assist to contact guard with a front-wheeled walker. Endurance was fair. She ambulated 125 feet with the front-wheeled walker and contact guard with voice cues for safe use of the walker and to avoid obstacles in the navarro. Regarding communication, she was noted to have fxbyhloq-id-ycowqa communication deficits with components of aphasia and perseveration. Regarding cognition, she was noted to have wruxeeyf-bt-quvuak deficits in attention and memory. IMPRESSION: This is a 77-year-old woman with a history of atrial fibrillation and coronary stenting being treated with warfarin and clopidogrel, who fell on 01/15/2018, and sustained subdural hematomas. She was hospitalized and then came to inpatient rehabilitation on 01/21/2018, where she has had a variable course with waxing and waning mentation and poor sleep. Amitriptyline had been started to improve sleep and as a headache preventive at 10 mg q.h.s. After 2 nights of amitriptyline, the next day in the afternoon, she was noted to have reduced responsiveness and so was returned to [facility] on January 27, 2018. There she remained for 3 days while repeat head CT was done, labs were done to rule out infectious or metabolic etiology of mental status change, and she had consultation with Neurosurgery and Neurology. There were no changes in the plan or in the assessment based on these consultations. She was participating in therapies, medically stable, and appropriate to return to inpatient rehabilitation. Her goal is to complete a rehabilitation stay and consider discharge to home versus assisted living facility depending on her progress. For a safe discharge , it is anticipated that she will achieve independence with eating, grooming, and bed mobility; modified independence for dressing, transfers, and ambulation with the least restrictive device on level and unlevel surfaces. It is likely she will continue to need assistance for bathing, shopping, and household management. She may require a supervised setting depending on her progress with cognition. She will have therapy with physical therapy, occupational therapy, and speech and language pathology for 30-60 minutes per discipline per day on a modified schedule on 7 days of the week to total 15 hours a week or more of therapies. Her expected duration of stay is 7-10 days. It is anticipated that upon discharge she will continue to benefit from home health services including nursing, speech and language pathology, a nurse's aide , social work, occupational therapy, and physical therapy. She will also likely benefit from a brain injury support group. PLAN: 1. Debility, status post fall and subdural hemorrhages with deficits to ADLs and mobility. PT and OT to optimize mobility and ADLs toward independence to modified independence, though she is likely to continue to require assistance for bathing, shopping, and household management. 2. Cognitive impairment, likely pre-existing and exacerbated by fall and head injury. Continue treatment per speech and language pathology. 3. Atrial fibrillation with anticoagulation contraindicated. Her [id number] score of 7 indicates an annual risk for stroke of approximately 15% without anticoagulation. The HAS-BLED score predicts approximately a 9% per year risk for major bleeding on anticoagulation. Anticoagulation is contraindicated in the short term. She will have rate control. She will have blood pressure control to reduce risk of intracerebral hemorrhage, and the question of resuming anticoagulation will be addressed in coordination with Cardiology and Neurosurgery after her discharge. 4. Headaches. Continue acetaminophen. It should be on a scheduled basis though currently it has been ordered as p.r.n. Continue oxycodone on a p.r.n. basis. We will hold on amitriptyline at this time as it may have been etiologic in altered mental status, and it was unclear if it improved pain management at all. 5. Hypertension. Continue diltiazem and losartan. 6. Insomnia. Continue melatonin though, due to her chronicity of use, it may be having no effect at this point. Amitriptyline at low dose may have been etiologic in altered mental status. Consider trial of trazodone, but she was unwilling to try it in the past. She should have a low-stimulation environment. 7. Subdural hematomas. Continue levetiracetam for seizure prophylaxis until followup with Neurosurgery. Tranexamic acid is planned to continue for a month , through 02/14/2018. 8. History of partial rotator cuff tear on the right and marked bilateral upper extremity weakness. Continue efforts of physical and occupational therapy. 9. Hypothyroidism. Continue levothyroxine. She should have a follow-up TSH in 5 - 6 weeks, approximately 03/06/2018 10. Presumed history of depression versus anxiety. Continue sertraline. 11. Aortic aneurysm, incidental finding on imaging. Continue blood pressure and lipid control. She should have followup chest CT in 6-12 months. 12. Prophylaxis. She will have SCDs at night for elevated DVT risk. She will continue tranexamic acid until followup with Neurosurgery in late January, likely after her discharge from inpatient rehabilitation. /[id number]/MODL MTDD
[2018-01-30] MEDS ORDERED: ACETAMINOPHEN 325 MG TAB PO SCH (16:00)
[2018-01-30] MEDS: ACETAMINOPHEN 500 MG TAB PO SCH ×2 (16:59→21:41)
[2018-01-30] MEDS: levETIRAcetam 500 MG TAB PO SCH (17:01)
[2018-01-30] MEDS: LOSARTAN POTASSIUM 50 MG TAB PO SCH (21:43)
[2018-01-30] MEDS: TRANEXAMIC ACID 650 MG TAB PO SCH (21:43)
[2018-01-30] MEDS: ATORVASTATIN CALCIUM 20 MG TAB PO SCH (21:43)
[2018-01-30] MEDS: MELATONIN 3 MG TAB PO SCH (21:45)
[2018-01-31] MEDS: oxyCODONE IR 5 MG TAB PO PRN ×2 (05:13→17:26)
[2018-01-31] MEDS: LEVOTHYROXINE 88 MCG TAB PO SCH (05:14)
[2018-01-31] MEDS: levETIRAcetam 500 MG TAB PO SCH ×2 (05:14→17:26)
[2018-01-31] MEDS ORDERED: CHOLECALCIFEROL VIT D3 1,000 UNITS TAB PO SCH (09:00)
[2018-01-31] MEDS: ACETAMINOPHEN 500 MG TAB PO SCH ×3 (10:06→21:37)
[2018-01-31] MEDS: LOSARTAN POTASSIUM 50 MG TAB PO SCH ×2 (10:12→21:36)
[2018-01-31] MEDS: OXYBUTYNIN 5 MG EXT REL TAB PO SCH ×2 (10:12→11:57)
[2018-01-31] MEDS: DIGOXIN 125 MCG TAB PO SCH (10:12)
[2018-01-31] MEDS: CHOLECALCIFEROL VIT D3 2,000 UNITS TAB/CAP PO SCH (10:12)
[2018-01-31] MEDS: SERTRALINE HCL 25 MG TAB PO SCH (10:12)
[2018-01-31] MEDS: DILTIAZEM CD 180 MG CAP PO SCH ×2 (10:13→11:58)
[2018-01-31] MEDS: TRANEXAMIC ACID 650 MG TAB PO SCH ×3 (10:13→21:33)
[2018-01-31] MEDS: Herbals/Supplements -Info Only PO SCH (10:21)
[2018-01-31] MEDS ORDERED: DILTIAZEM 30 MG TAB TUBE ONE (10:44)
[2018-01-31] MEDS ORDERED: OXYBUTYNIN CHLORIDE 5 MG TAB TUBE SCH (10:45)
--- NOTE | 2018-01-31 10:49 | SOAPPROG ---
SOAP Progress Note Assessment/Plan: Assessment: 77-year-old female status post intracranial hemorrhage with dysphagia and long- acting medications assess sedating changed to short-acting, crush double versions Cross cover note: Approached by nursing that patient needs medications crushed in puree, holding the TXA pending review with Dr. Keane as I did not see it in his admission note. Patient may no longer need it. Will discuss with him shortly. Additionally changed the oxybutynin and diltiazem to immediate release versions. Discussed with Luis Alberto in pharmacy regarding dosing. Pharmacy cleared crushing of short-acting diltiazem as well as oxybutynin. 01/31/18 10:46 01/31/18 10:48 01/31/18 10:49 Subjective: Chief complaint: Dysphagia Was notified by nursing that the patient requires medications crushed in puree, some medications not appropriate to crush. Requested modification of these medications. Objective: Vital Signs Temp Pulse Resp BP Pulse Ox 36.9 C 102 H 14 146/48 H 95 01/31/18 07:54 01/31/18 10:12 01/31/18 07:54 01/31/18 10:12 01/31/18 07:54 01/30/18 01/31/18 02/01/18 05:59 05:59 05:59 Intake Total 450 100 Output Total 825 Balance -375 100 ICD10 Worksheet Patient Problems: Problems Problem Status Onset Atrial fibrillation Acute Atrial fibrillation with RVR Acute Brain lesion Acute Chest pain Acute Chronic anticoagulation Acute Coronary atherosclerosis Acute Dislocation of left shoulder joint Acute Encephalopathy acute Acute Hyperlipidemia Acute Hypertension Acute Intracranial hemorrhage Acute Lip laceration Acute MRSA (methicillin resistant Staphylococcus aureus) Acute 08/14/16 Peripheral vascular disease Acute Shoulder pain, left Acute Shoulder subluxation Acute UTI (urinary tract infection) Acute chronic disease mgmt/transitional care Acute
[2018-01-31] MEDS ORDERED: DILTIAZEM 30 MG TAB PO ONE (11:45)
[2018-01-31] MEDS ORDERED: OXYBUTYNIN CHLORIDE 5 MG TAB PO SCH (12:00)
--- NOTE | 2018-01-31 12:01 | SOAPPROG ---
SOAP Progress Note Assessment/Plan: Assessment: * Debility, status post fall and subdural hemorrhages with deficits to ADLs and mobility. PT and OT to optimize mobility and ADLs toward independence to modified independence, though she is likely to continue to require assistance for bathing, shopping, and household management. * Cognitive impairment, likely pre-existing and exacerbated by fall and head injury. * Noted to have reduced initiation, including with eating a meal, and to have language of confusion. * Continue treatment per speech and language pathology. * Atrial fibrillation with anticoagulation contraindicated. * Her [id number] score of 7 indicates an annual risk for stroke of approximately 15% without anticoagulation. The HAS-BLED score predicts approximately a 9% per year risk for major bleeding on anticoagulation. * Anticoagulation is contraindicated in the short term. She will have rate control. She will have blood pressure control to reduce risk of intracerebral hemorrhage, and the question of resuming anticoagulation will be addressed in coordination with Cardiology and Neurosurgery after her discharge. * Headaches. Continue scheduled acetaminophen. Continue oxycodone on a p.r.n. basis. * Will not continue amitriptyline at this time as it may have been etiologic in altered mental status, and it was unclear if it improved pain management at all. * Hypertension. Continue diltiazem and losartan. * Insomnia. Continue melatonin though, due to her chronicity of use, it may be having no effect at this point. Amitriptyline at low dose may have been etiologic in altered mental status. Consider trial of trazodone, but she was unwilling to try it in the past. She should have a low-stimulation environment. * Somnolence/inanition. Difficult to arouse in the morning noted 01/31/2018. Needing cueing to complete tasks such as eating. * Medications were changed to crushed this morning based on discussion between nursing and WORLDWIDE CHIEF CREATIVE OFFICER. Will not continue crushed meds. * Trial of methylphenidate starting 02/01/2018 at 2.5 mg BID upon arising in the morning and with lunch. * Subdural hematomas. Continue levetiracetam for seizure prophylaxis until followup with Neurosurgery. Tranexamic acid is planned to continue for a month , through 02/14/2018. * History of partial rotator cuff tear on the right and marked bilateral upper extremity weakness. Continue efforts of physical and occupational therapy. * Hypothyroidism. Continue levothyroxine. She should have a follow-up TSH in 5 - 6 weeks, approximately 03/06/2018 * Presumed history of depression versus anxiety. Continue sertraline. * Aortic aneurysm, incidental finding on imaging. Continue blood pressure and lipid control. She should have followup chest CT in 6-12 months. * Prophylaxis. She will have SCDs at night for elevated DVT risk. She will continue tranexamic acid until followup with Neurosurgery in late January, likely after her discharge from inpatient rehabilitation. 01/31/18 14:15 01/31/18 14:17 Subjective: No complaints. Perseverative on the word "unfortunately," and loses track of subject before she finishes a sentence. Objective: Vital Signs Temp Pulse Resp BP Pulse Ox 36.9 C 102 H 14 146/48 H 95 01/31/18 07:54 01/31/18 10:12 01/31/18 07:54 01/31/18 10:12 01/31/18 07:54 01/30/18 01/31/18 02/01/18 05:59 05:59 05:59 Intake Total 450 100 Output Total 825 200 Balance -375 -100 Physical Exam - Physical Exam General Appearance: WD/WN, alert, no apparent distress Respiratory: normal breath sounds (Bronchial breath sounds right lower lobe), No crackles, No rhonchi, No wheezing Cardiac/Chest: irregularly irregular, No edema, No JVD, No diastolic murmur, No systolic murmur Skin: normal color, warm/dry Neuro/Psych: alert, normal mood/affect, cognition abnormalities, other (Sitting at lunch table but has eaten very little) ICD10 Worksheet Patient Problems: Problems Problem Status Onset Atrial fibrillation Acute Atrial fibrillation with RVR Acute Brain lesion Acute Chest pain Acute Chronic anticoagulation Acute Coronary atherosclerosis Acute Dislocation of left shoulder joint Acute Encephalopathy acute Acute Hyperlipidemia Acute Hypertension Acute Intracranial hemorrhage Acute Lip laceration Acute MRSA (methicillin resistant Staphylococcus aureus) Acute 08/14/16 Peripheral vascular disease Acute Shoulder pain, left Acute Shoulder subluxation Acute UTI (urinary tract infection) Acute chronic disease mgmt/transitional care Acute
--- NOTE | 2018-01-31 14:20 | PDOREHIP ---
[facility]mission [facility] - Admission - 3 Day Assessment Period Admission Date/Day 1: 01/30/18 Day 2: 01/31/18 Day 3: 02/01/18 - Active Diagnoses Comorbidities and Co-existing Conditions at Admission: 13467. PVD or PAD - Skin Conditions Unhealed Pressure Ulcer (1 or more/Stage 1 or >)-Admission: 0. No
[2018-01-31] MEDS: DILTIAZEM 60 MG TAB PO SCH ×2 (14:46→21:34)
[2018-01-31] MEDS: MELATONIN 3 MG TAB PO SCH (21:32)
[2018-01-31] MEDS: ATORVASTATIN CALCIUM 20 MG TAB PO SCH (21:37)
[2018-02-01] MEDS: levETIRAcetam 500 MG TAB PO SCH ×2 (06:17→17:59)
[2018-02-01] MEDS: LEVOTHYROXINE 88 MCG TAB PO SCH (06:17)
[2018-02-01] MEDS ORDERED: DILTIAZEM XR 240 MG CAP PO SCH (09:00)
[2018-02-01] MEDS: DIGOXIN 125 MCG TAB PO SCH (09:28)
[2018-02-01] MEDS: oxyCODONE IR 5 MG TAB PO PRN (09:29)
[2018-02-01] MEDS: OXYBUTYNIN 5 MG EXT REL TAB PO SCH (09:32)
[2018-02-01] MEDS: DILTIAZEM CD 180 MG CAP PO SCH (09:34)
[2018-02-01] MEDS: LOSARTAN POTASSIUM 50 MG TAB PO SCH ×2 (09:35→20:20)
[2018-02-01] MEDS: TRANEXAMIC ACID 650 MG TAB PO SCH ×2 (09:36→20:20)
[2018-02-01] MEDS: SERTRALINE HCL 25 MG TAB PO SCH (09:37)
[2018-02-01] MEDS: ACETAMINOPHEN 500 MG TAB PO SCH ×3 (11:33→21:34)
[2018-02-01] MEDS: CHOLECALCIFEROL VIT D3 2,000 UNITS TAB/CAP PO SCH (11:35)
[2018-02-01] MEDS: SPIRONOLACTONE 25 MG TAB PO SCH (11:37)
[2018-02-01] MEDS: Herbals/Supplements -Info Only PO SCH (13:26)
--- NOTE | 2018-02-01 13:48 | SOAPPROG ---
SOAP Progress Note Assessment/Plan: Assessment: * Debility, status post fall and subdural hemorrhages with deficits to ADLs and mobility. PT and OT to optimize mobility and ADLs toward independence to modified independence, though she is likely to continue to require assistance for bathing, shopping, and household management. * Cognitive impairment, likely pre-existing and exacerbated by fall and head injury. * Noted to have reduced initiation, including with eating a meal, and to have language of confusion. * Continue treatment per speech and language pathology. * Atrial fibrillation with anticoagulation contraindicated. * Her [id number] score of 7 indicates an annual risk for stroke of approximately 15% without anticoagulation. The HAS-BLED score predicts approximately a 9% per year risk for major bleeding on anticoagulation. * Anticoagulation is contraindicated in the short term. She will have rate control. She will have blood pressure control to reduce risk of intracerebral hemorrhage, and the question of resuming anticoagulation will be addressed in coordination with Cardiology and Neurosurgery after her discharge. * Headaches. Continue scheduled acetaminophen. Continue oxycodone on a p.r.n. basis. * Will not continue amitriptyline at this time as it may have been etiologic in altered mental status, and it was unclear if it improved pain management. * Hypertension. Continue diltiazem and losartan. * Insomnia. Continue melatonin though, due to her chronicity of use, it may be having no effect at this point. Amitriptyline at low dose may have been etiologic in altered mental status. Consider trial of trazodone, but she was unwilling to try it in the past. She should have a low-stimulation environment. * Somnolence/inanition. Difficult to arouse in the morning noted 01/31/2018. Needing cueing to complete tasks such as eating. * Medications were changed to crushed this morning based on discussion between nursing and AQUATICS COORDINATOR. Will not continue crushed meds. * Trial of methylphenidate starting 02/01/2018 at 2.5 mg BID upon arising in the morning and with lunch; seems to have improved alertness. No adverse effects noted. Will increase to 5 mg starting 02/02/2018. * Subdural hematomas. Continue levetiracetam for seizure prophylaxis until followup with Neurosurgery. Tranexamic acid is planned to continue for a month , through 02/14/2018. * History of partial rotator cuff tear on the right and marked bilateral upper extremity weakness. Continue efforts of physical and occupational therapy. * Hypothyroidism. Continue levothyroxine. She should have a follow-up TSH in 5 - 6 weeks, approximately 03/06/2018 * Presumed history of depression versus anxiety. Continue sertraline. * Aortic aneurysm, incidental finding on imaging. Continue blood pressure and lipid control. She should have followup chest CT in 6-12 months. * Prophylaxis. She will have SCDs at night for elevated DVT risk. She will continue tranexamic acid until followup with Neurosurgery in late January, likely after her discharge from inpatient rehabilitation. 02/01/18 13:36 Subjective: No complaints. Nurse noted that it was difficult to get her going with ADLs this morning. However she had increased alertness later in the morning and during lunch today. Objective: Vital Signs Temp Pulse Resp BP Pulse Ox 36.9 C 93 16 145/82 H 92 02/01/18 05:59 02/01/18 09:34 02/01/18 05:59 02/01/18 09:35 02/01/18 09:14 01/31/18 02/01/18 02/02/18 05:59 05:59 05:59 Intake Total 450 468 100 Output Total 825 1300 375 [facility] 375 -832 -275 Physical Exam - Physical Exam General Appearance: WD/WN, alert, no apparent distress Respiratory: normal breath sounds, No crackles, No rhonchi, No wheezing Cardiac/Chest: irregularly irregular, No diastolic murmur, No systolic murmur Skin: normal color, warm/dry, other (Ecchymoses under right eye and down right cheek.) Neuro/Psych: alert, normal mood/affect, speech abnormalities (Loses track during mid sentence. Perseverative on the word"unfortunately"but cannot explain what she means.) ICD10 Worksheet Patient Problems: Problems Problem Status Onset Atrial fibrillation Acute Atrial fibrillation with RVR Acute Brain lesion Acute Chest pain Acute Chronic anticoagulation Acute Coronary atherosclerosis Acute Dislocation of left shoulder joint Acute Encephalopathy acute Acute Hyperlipidemia Acute Hypertension Acute Intracranial hemorrhage Acute Lip laceration Acute MRSA (methicillin resistant Staphylococcus aureus) Acute 08/14/16 Peripheral vascular disease Acute Shoulder pain, left Acute Shoulder subluxation Acute UTI (urinary tract infection) Acute chronic disease mgmt/transitional care Acute
[2018-02-01] MEDS: ATORVASTATIN CALCIUM 20 MG TAB PO SCH (20:20)
[2018-02-01] MEDS: MELATONIN 3 MG TAB PO SCH (20:20)
[2018-02-02] MEDS: LEVOTHYROXINE 88 MCG TAB PO SCH (05:01)
[2018-02-02] MEDS: levETIRAcetam 500 MG TAB PO SCH ×2 (05:01→17:40)
[2018-02-02] MEDS: ACETAMINOPHEN 500 MG TAB PO SCH ×3 (09:19→22:03)
[2018-02-02] MEDS: TRANEXAMIC ACID 650 MG TAB PO SCH ×3 (09:19→22:04)
[2018-02-02] MEDS: OXYBUTYNIN 5 MG EXT REL TAB PO SCH (09:19)
[2018-02-02] MEDS: DIGOXIN 125 MCG TAB PO SCH (09:20)
[2018-02-02] MEDS: SPIRONOLACTONE 25 MG TAB PO SCH (09:20)
[2018-02-02] MEDS: SERTRALINE HCL 25 MG TAB PO SCH (09:20)
[2018-02-02] MEDS: LOSARTAN POTASSIUM 50 MG TAB PO SCH ×2 (09:20→22:03)
[2018-02-02] MEDS: CHOLECALCIFEROL VIT D3 2,000 UNITS TAB/CAP PO SCH (09:20)
[2018-02-02] MEDS: DILTIAZEM CD 180 MG CAP PO SCH (09:20)
--- NOTE | 2018-02-02 12:30 | SOAPPROG ---
SOAP Progress Note Assessment/Plan: Assessment: * Debility, status post fall and subdural hemorrhages with deficits to ADLs and mobility. PT and OT to optimize mobility and ADLs toward independence to modified independence, though she is likely to continue to require assistance for bathing, shopping, and household management. * Cognitive impairment, likely pre-existing and exacerbated by fall and head injury. * Noted to have reduced initiation, including with eating a meal, and to have language of confusion. * Continue treatment per speech and language pathology. * Atrial fibrillation with anticoagulation contraindicated. * Her [id number] score of 7 indicates an annual risk for stroke of approximately 15% without anticoagulation. The HAS-BLED score predicts approximately a 9% per year risk for major bleeding on anticoagulation. * Anticoagulation is contraindicated in the short term. She will have rate control. She will have blood pressure control to reduce risk of intracerebral hemorrhage, and the question of resuming anticoagulation will be addressed in coordination with Cardiology and Neurosurgery after her discharge. * Headaches. Continue scheduled acetaminophen. Continue oxycodone on a p.r.n. basis. * Will not continue amitriptyline at this time as it may have been etiologic in altered mental status, and it was unclear if it improved pain management. * Hypertension. Continue diltiazem and losartan. * Insomnia. Continue melatonin though, due to her chronicity of use, it may be having no effect at this point. Amitriptyline at low dose may have been etiologic in altered mental status. Consider trial of trazodone, but she was unwilling to try it in the past. She should have a low-stimulation environment. * Somnolence/inanition. Difficult to arouse in the morning noted 01/31/2018. Needing cueing to complete tasks such as eating. * Medications were changed to crushed this morning based on discussion between nursing and HOG TRADER. Will not continue crushed meds. * Trial of methylphenidate starting 02/01/2018 at 2.5 mg BID upon arising in the morning and with lunch; seems to have improved alertness. No adverse effects noted. Will increase to 5 mg starting 02/02/2018. * Subdural hematomas. Continue levetiracetam for seizure prophylaxis until followup with Neurosurgery. Tranexamic acid is planned to continue for a month , through 02/14/2018. * History of partial rotator cuff tear on the right and marked bilateral upper extremity weakness. Continue efforts of physical and occupational therapy. * Hypothyroidism. Continue levothyroxine. She should have a follow-up TSH in 5 - 6 weeks, approximately 03/06/2018 * Presumed history of depression versus anxiety. Continue sertraline. * Aortic aneurysm, incidental finding on imaging. Continue blood pressure and lipid control. She should have followup chest CT in 6-12 months. * Prophylaxis. She will have SCDs at night for elevated DVT risk. She will continue tranexamic acid until followup with Neurosurgery in late January, likely after her discharge from inpatient rehabilitation. Plan: 02/02/18 12:28 Subjective: No new events. Remains significantly confused Objective: Vital Signs Temp Pulse Resp BP Pulse Ox 37.0 C 98 16 109/71 92 02/02/18 02:10 02/02/18 09:20 02/02/18 09:20 02/02/18 09:20 02/02/18 09:20 02/01/18 02/02/18 02/03/18 05:59 05:59 05:59 Intake Total 468 550 240 Output Total 1300 1475 Balance -832 -925 240 Physical Exam - Physical Exam General Appearance: WD/WN, alert, no apparent distress Respiratory: lungs clear, normal breath sounds Cardiac/Chest: irregularly irregular, No tachycardia Neuro/Psych: alert, normal mood/affect, No oriented x 3 ICD10 Worksheet Patient Problems: Problems Problem Status Onset Atrial fibrillation Acute Atrial fibrillation with RVR Acute Brain lesion Acute Chest pain Acute Chronic anticoagulation Acute Coronary atherosclerosis Acute Dislocation of left shoulder joint Acute Encephalopathy acute Acute Hyperlipidemia Acute Hypertension Acute Intracranial hemorrhage Acute Lip laceration Acute MRSA (methicillin resistant Staphylococcus aureus) Acute 08/14/16 Peripheral vascular disease Acute Shoulder pain, left Acute Shoulder subluxation Acute UTI (urinary tract infection) Acute chronic disease mgmt/transitional care Acute
[2018-02-02] MEDS: ATORVASTATIN CALCIUM 20 MG TAB PO SCH ×2 (20:04→22:04)
[2018-02-02] MEDS: MELATONIN 3 MG TAB PO SCH (20:04)
[2018-02-03] MEDS: LEVOTHYROXINE 88 MCG TAB PO SCH (05:03)
[2018-02-03] MEDS: levETIRAcetam 500 MG TAB PO SCH ×2 (05:03→17:25)
[2018-02-03] MEDS: SPIRONOLACTONE 25 MG TAB PO SCH (08:22)
[2018-02-03] MEDS: LOSARTAN POTASSIUM 50 MG TAB PO SCH ×2 (08:22→21:43)
[2018-02-03] MEDS: SERTRALINE HCL 25 MG TAB PO SCH (08:22)
[2018-02-03] MEDS: DIGOXIN 125 MCG TAB PO SCH (08:23)
[2018-02-03] MEDS: OXYBUTYNIN 5 MG EXT REL TAB PO SCH (08:23)
[2018-02-03] MEDS: CHOLECALCIFEROL VIT D3 2,000 UNITS TAB/CAP PO SCH (08:23)
[2018-02-03] MEDS: ACETAMINOPHEN 500 MG TAB PO SCH ×3 (08:23→21:43)
[2018-02-03] MEDS: DILTIAZEM CD 180 MG CAP PO SCH (08:23)
[2018-02-03] MEDS: TRANEXAMIC ACID 650 MG TAB PO SCH ×2 (12:21→21:44)
--- NOTE | 2018-02-03 20:52 | SOAPPROG ---
SOAP Progress Note Assessment/Plan: Assessment: * Debility, status post fall and subdural hemorrhages with deficits to ADLs and mobility. PT and OT to optimize mobility and ADLs toward independence to modified independence, though she is likely to continue to require assistance for bathing, shopping, and household management. * Cognitive impairment, likely pre-existing and exacerbated by fall and head injury. * Noted to have reduced initiation, including with eating a meal, and to have language of confusion. * Continue treatment per speech and language pathology. * Atrial fibrillation with anticoagulation contraindicated. * Her [id number] score of 7 indicates an annual risk for stroke of approximately 15% without anticoagulation. The HAS-BLED score predicts approximately a 9% per year risk for major bleeding on anticoagulation. * Anticoagulation is contraindicated in the short term. She will have rate control. She will have blood pressure control to reduce risk of intracerebral hemorrhage, and the question of resuming anticoagulation will be addressed in coordination with Cardiology and Neurosurgery after her discharge. * Headaches. Continue scheduled acetaminophen. Continue oxycodone on a p.r.n. basis. * Will not continue amitriptyline at this time as it may have been etiologic in altered mental status, and it was unclear if it improved pain management. * Hypertension. Continue diltiazem and losartan. * Insomnia. Continue melatonin though, due to her chronicity of use, it may be having no effect at this point. Amitriptyline at low dose may have been etiologic in altered mental status. Consider trial of trazodone, but she was unwilling to try it in the past. She should have a low-stimulation environment. * Somnolence/inanition. Difficult to arouse in the morning noted 01/31/2018. Needing cueing to complete tasks such as eating. * Medications were changed to crushed this morning based on discussion between nursing and PHARMACY TECH CUSTOMER SERVICE. Will not continue crushed meds. * Trial of methylphenidate starting 02/01/2018 at 2.5 mg BID upon arising in the morning and with lunch; seems to have improved alertness. No adverse effects noted. Will increase to 5 mg starting 02/02/2018. * Subdural hematomas. Continue levetiracetam for seizure prophylaxis until followup with Neurosurgery. Tranexamic acid is planned to continue for a month , through 02/14/2018. * History of partial rotator cuff tear on the right and marked bilateral upper extremity weakness. Continue efforts of physical and occupational therapy. * Hypothyroidism. Continue levothyroxine. She should have a follow-up TSH in 5 - 6 weeks, approximately 03/06/2018 * Presumed history of depression versus anxiety. Continue sertraline. * Aortic aneurysm, incidental finding on imaging. Continue blood pressure and lipid control. She should have followup chest CT in 6-12 months. * Prophylaxis. She will have SCDs at night for elevated DVT risk. She will continue tranexamic acid until followup with Neurosurgery in late January, likely after her discharge from inpatient rehabilitation. * family is planning for long-term placement - they would like her to go [facility]. Unsure when this will happen Plan: 02/02/18 12:28 02/03/18 20:53 Subjective: No new events or complaints Objective: Vital Signs Temp Pulse Resp BP Pulse Ox 36.3 C 96 20 132/81 H 96 02/03/18 18:18 02/03/18 18:18 02/03/18 18:18 02/03/18 18:18 02/03/18 18:18 02/02/18 02/03/18 02/04/18 05:59 05:59 05:59 Intake Total 550 640 148 Output Total 1475 500 350 Balance -925 140 -202 Physical Exam - Physical Exam General Appearance: WD/WN, alert, no apparent distress Respiratory: lungs clear Cardiac/Chest: irregularly irregular Skin: warm/dry Neuro/Psych: alert, normal mood/affect, No oriented x 3 ICD10 Worksheet Patient Problems: Problems Problem Status Onset Atrial fibrillation Acute Atrial fibrillation with RVR Acute Brain lesion Acute Chest pain Acute Chronic anticoagulation Acute Coronary atherosclerosis Acute Dislocation of left shoulder joint Acute Encephalopathy acute Acute Hyperlipidemia Acute Hypertension Acute Intracranial hemorrhage Acute Lip laceration Acute MRSA (methicillin resistant Staphylococcus aureus) Acute 08/14/16 Peripheral vascular disease Acute Shoulder pain, left Acute Shoulder subluxation Acute UTI (urinary tract infection) Acute chronic disease mgmt/transitional care Acute
[2018-02-03] MEDS: ATORVASTATIN CALCIUM 20 MG TAB PO SCH (21:43)
[2018-02-03] MEDS: MELATONIN 3 MG TAB PO SCH (21:43)
[2018-02-04] MEDS: LEVOTHYROXINE 88 MCG TAB PO SCH (05:43)
[2018-02-04] MEDS: levETIRAcetam 500 MG TAB PO SCH ×2 (05:44→17:29)
[2018-02-04] MEDS: CHOLECALCIFEROL VIT D3 2,000 UNITS TAB/CAP PO SCH (08:39)
[2018-02-04] MEDS: TRANEXAMIC ACID 650 MG TAB PO SCH ×2 (08:40→21:42)
[2018-02-04] MEDS: DILTIAZEM CD 180 MG CAP PO SCH (08:40)
[2018-02-04] MEDS: DIGOXIN 125 MCG TAB PO SCH (08:40)
[2018-02-04] MEDS: OXYBUTYNIN 5 MG EXT REL TAB PO SCH (08:40)
[2018-02-04] MEDS: SERTRALINE HCL 25 MG TAB PO SCH (08:41)
[2018-02-04] MEDS: ACETAMINOPHEN 500 MG TAB PO SCH ×3 (08:41→21:42)
[2018-02-04] MEDS: LOSARTAN POTASSIUM 50 MG TAB PO SCH ×2 (08:41→21:42)
[2018-02-04] MEDS: SPIRONOLACTONE 25 MG TAB PO SCH (08:52)
--- NOTE | 2018-02-04 16:22 | SOAPPROG ---
SOAP Progress Note Assessment/Plan: Assessment: * Debility, status post fall and subdural hemorrhages with deficits to ADLs and mobility. * FIM 56 as of 02/04/2018. Was 77 on prior rehabilitation stay on 01/23/2018. SBA and cues for transfers and ambulation up to 200 - 300'. 12 stairs 1 or 2 rails CGA and cues. Can initiate automatic activities e.g. grooming and hygiene but needs cues to persist. Dresses with minimal assistance. * Continue PT and OT to optimize mobility and ADLs toward independence to modified independence, though she is likely to continue to require assistance for bathing, shopping, and household management. * Cognitive impairment, likely pre-existing and exacerbated by fall and head injury. * Noted to have reduced initiation, including with eating a meal, and to have language of confusion. * Global cognitive deficits. More awake with methylphenidate. * Continue treatment per speech and language pathology. * Atrial fibrillation with anticoagulation contraindicated. * Her [id number] score of 7 indicates an annual risk for stroke of approximately 15% without anticoagulation. The HAS-BLED score predicts approximately a 9% per year risk for major bleeding on anticoagulation. * Anticoagulation is contraindicated in the short term. She will have rate control. She will have blood pressure control to reduce risk of intracerebral hemorrhage, and the question of resuming anticoagulation will be addressed in coordination with Cardiology and Neurosurgery after her discharge. * Headaches. Continue scheduled acetaminophen. Continue oxycodone on a p.r.n. basis. * Will not continue amitriptyline at this time as it may have been etiologic in altered mental status, and it was unclear if it improved pain management. * Hypertension. Continue diltiazem and losartan. * Insomnia. Resolved. Per nursing, sleeps 10 hr/night. * Somnolence/inanition. Difficult to arouse in the morning noted 01/31/2018. Needing cueing to complete tasks such as eating. * Trial of methylphenidate starting 02/01/2018 at 2.5 mg BID upon arising in the morning and with lunch; seems to have improved alertness. No adverse effects noted. Will increase to 5 mg starting 02/02/2018. * Improved. Continue methylphenidate. * Subdural hematomas. Continue levetiracetam for seizure prophylaxis until followup with Neurosurgery. Tranexamic acid is planned to continue for a month , through 02/14/2018. * History of partial rotator cuff tear on the right and marked bilateral upper extremity weakness. Continue efforts of physical and occupational therapy. * Hypothyroidism. Continue levothyroxine. She should have a follow-up TSH in 5 - 6 weeks, approximately 03/06/2018 * Presumed history of depression versus anxiety. Continue sertraline. * Aortic aneurysm, incidental finding on imaging. Continue blood pressure and lipid control. She should have followup chest CT in 6-12 months. * Prophylaxis. She will have SCDs at night for elevated DVT risk. She will continue tranexamic acid until followup with Neurosurgery in late January, likely after her discharge from inpatient rehabilitation. Attended staffing, 15 minutes. D/W case mgmt, nursing, control operator flow coat, PT, OT, PIPE LAYER HELPER. YULY is sister in [place]; 2nd cousin in [place] is also involved. Plan is to discharge to half-way facility. Might eventually move to [place] to be nearer to sister. Discharge date set for 02/06/2018. 02/04/18 16:08 Subjective: No complaints. Denies pain, fevers/chills, cough/dyspnea. Objective: Vital Signs Temp Pulse Resp BP Pulse Ox 36.8 C 95 15 173/92 H 93 02/04/18 07:45 02/04/18 08:40 02/04/18 02:29 02/04/18 08:41 02/04/18 07:45 Laboratory Results 02/04/18 06:00 02/03/18 02/04/18 02/05/18 05:59 05:59 05:59 Intake Total 640 448 581 Output Total 500 550 150 Balance 140 -102 431 - Time Spent With Patient Time Spent With Patient: Greater than 35 min floor time today, including more than 50% of time in coordination of care during staffing, and counseling patient. Physical Exam - Physical Exam General Appearance: WD/WN, alert, no apparent distress Respiratory: normal breath sounds, No crackles, No rhonchi, No wheezing Cardiac/Chest: irregularly irregular, No diastolic murmur, No systolic murmur Skin: normal color, warm/dry, other (Bruising under R eye) Neuro/Psych: alert, normal mood/affect, cognition abnormalities ICD10 Worksheet Patient Problems: Problems Problem Status Onset Atrial fibrillation Acute Atrial fibrillation with RVR Acute Brain lesion Acute Chest pain Acute Chronic anticoagulation Acute Coronary atherosclerosis Acute Dislocation of left shoulder joint Acute Encephalopathy acute Acute Hyperlipidemia Acute Hypertension Acute Intracranial hemorrhage Acute Lip laceration Acute MRSA (methicillin resistant Staphylococcus aureus) Acute 08/14/16 Peripheral vascular disease Acute Shoulder pain, left Acute Shoulder subluxation Acute UTI (urinary tract infection) Acute chronic disease mgmt/transitional care Acute
[2018-02-04] MEDS: MELATONIN 3 MG TAB PO SCH (21:42)
[2018-02-04] MEDS: ATORVASTATIN CALCIUM 20 MG TAB PO SCH (21:42)
[2018-02-05] MEDS: LEVOTHYROXINE 88 MCG TAB PO SCH (06:17)
[2018-02-05] MEDS: levETIRAcetam 500 MG TAB PO SCH (06:17)
[2018-02-05 08:41] VITALS: BP 167/96
[2018-02-05] MEDS: OXYBUTYNIN 5 MG EXT REL TAB PO SCH (08:47)
[2018-02-05] MEDS: SERTRALINE HCL 25 MG TAB PO SCH (08:55)
[2018-02-05] MEDS: DILTIAZEM CD 180 MG CAP PO SCH (08:55)
[2018-02-05] MEDS: TRANEXAMIC ACID 650 MG TAB PO SCH (08:56)
[2018-02-05] MEDS: CHOLECALCIFEROL VIT D3 2,000 UNITS TAB/CAP PO SCH (08:56)
[2018-02-05] MEDS: SPIRONOLACTONE 25 MG TAB PO SCH (08:56)
[2018-02-05] MEDS: DIGOXIN 125 MCG TAB PO SCH (08:56)
[2018-02-05] MEDS: ACETAMINOPHEN 500 MG TAB PO SCH (08:57)
[2018-02-05] MEDS: LOSARTAN POTASSIUM 50 MG TAB PO SCH (08:57)
--- NOTE | 2018-02-05 09:49 | PDOREHIP ---
Admission [facility] - Admission - 3 Day Assessment Period Admission Date/Day 1: 01/30/18 Day 2: 01/31/18 Day 3: 02/01/18 Discharge [facility] - Discharge - 3 Day Assessment Period 2 Days Prior to Anticipated Discharge Date: 02/04/18 1 Day Prior to Anticipated Discharge Date: 02/05/18 Anticipated Discharge Date: 02/06/18 - Discharge Skin Conditions Unhealed Pressure Ulcer (1 or more/Stage 1 or >)-Discharge: 0. No
--- NOTE | 2018-02-05 11:07 | PDDCSUM ---
Discharge Summary Discharge Summary: Name: Emelyn Vences Admission date: 01/30/2018 Discharge date: 02/05/2018 Discharging physician: Omar Sesay MD Admitting diagnosis: Subdural hematoma and encephalopathy, impairment group 2.22, traumatic brain injury closed injury. Discharge diagnosis: Same Comorbid diagnoses: Premorbid cognitive impairment, atrial fibrillation, headaches, hypertension, insomnia, somnolence, subdural hematomas, history of partial rotator cuff tear, hypothyroidism, history of possible depression versus anxiety, aortic aneurysm Consultations: physical therapy, occupational therapy, speech language pathology , dietary, social work Procedures: None Reason for admission: Please see the complete history and physical by Dr. Keane dated 01/30/2018 for full details. Briefly, the patient presented to [facility] for initial evaluation of altered mental status. Head CT demonstrated interval decrease in subdural hematomas. TSH was noted to be elevated at 8.96, and she was found to be medically stable and safe for inpatient rehabilitation. Rehabilitation course: She struggled on inpatient rehabilitation because of impaired cognition, she had decrease in function compared to prior rehabilitation stay in late December. Her cognitive status improved somewhat with methylphenidate but memory and cognition was still a significant barrier. She did not make significant progression in inpatient rehabilitation and the decision was made jointly with the family to [facility] a [facility] for lower intensive therapy. From a medical standpoint, she was stable. Atrial fibrillation was stable, anticoagulation was contraindicated in the setting of the intracranial hemorrhage and decision to restart will be a coordination between Cardiology Neurosurgery after discharge. She continued to have intermittent headaches that were helped with scheduled acetaminophen and oxycodone on an as-needed basis. Her hypertension was controlled with diltiazem and losartan. Her sleep improved, methylphenidate seem to help with daytime alertness. She continued on seizure prophylaxis following her subdural hematomas. Discharge plan: Discharged to penitentiary facility Condition: Functional independence measure was 56 as of 02/04/2018, she continues to require 1-1 supervision for meals, she is on a dysphagia 2 diet with thin liquids, meds whole in puree. She needs frequent reorientation. Her cousin is her durable [id number], and her sister is her healthcare power of wood die maker. The patient is in a do not resuscitate status. She has global cognitive deficits that are helped with methylphenidate it for daytime a weakness, insomnia has improved. Medications at discharge: Acetaminophen 1000 mg p.o. Three times daily Methylphenidate 5 mg p.o. Twice daily at 8 and noon Spironolactone 12.5 mg daily Cholecalciferol 4000 units daily Nitroglycerin 0.4 mg sublingual p.r.n. For chest pain Digoxin 0.125 mg p.o. Daily Loratadine 10 mg p. O. Daily as needed for allergies Atorvastatin 20 mg p.o. At bedtime Diltiazem ER 180 mg p. O. Daily Losartan 50 mg p.o. Twice daily Oxybutynin XL 5 mg p. O. Daily Sertraline 25 mg p. O. Daily Melatonin 3 mg p.o. At bedtime Levetiracetam 500 mg p. O. Twice daily at 6 and 1800 MiraLax 17 g p. O. Daily as needed for constipation Senna/docusate 1-2 tabs p. O. Twice daily p.r.n. For constipation Oxycodone IR 2.5-10 mg p.o. Q.3 hours p.r.n. For pain Levothyroxine 88 mcg daily at 6:00 a.m. transexamic acid 650 mg p.o. Twice daily, to stop on 02/14/2018 Pending studies: None Issues to be addressed at follow-up: Patient will need TSH checked at 5-6 weeks after discharge and a follow-up chest CT for aortic aneurysm in 6-12 months. Transexamic acid should stop on 02/14/2018. Consideration should be given to her polypharmacy as medications such as oxybutynin may be contributing to cognitive impairment. May need cardiac monitoring, to be decided with cardiology. Follow up: Cardiology, neurosurgery, primary care physician at the [facility]. Date of discharge discussion and exam: Met with patient's family and answered questions. Patient had no new concerns, no new shortness of breath or chest pain, no new numbness, tingling, or weakness. She was not oriented to place or date. Did not ask if she is oriented to self. Family said that this was baseline. Patient was in wheelchair, distal pulses were 2+, regular, no lower extremity swelling. Cousin was in the room who is the OA, clarified that the sister is the medical power of wood die maker.
== END 2018-02-05 15:40 | DRG 946 ==
LOC: BREH 12:54
PROVIDERS: ADMIT Internal Medicine; ATTEND Internal Medicine
PROC: F06 Physical Rehabilitation and Diagnostic Audiology, Rehabilitation, Speech Treatment (ICD-10-PCS; principal; 2018-01-30)
PROC: F08Z2FZ Grooming/Personal Hygiene Treatment using Assistive, Adaptive, Supportive or Protective Equipment (ICD-10-PCS; principal; 2018-01-30)
PROC: F07Z8FZ Transfer Training Treatment using Assistive, Adaptive, Supportive or Protective Equipment (ICD-10-PCS; principal; 2018-01-30)
PROC: F08Z3FZ Feeding/Eating Treatment using Assistive, Adaptive, Supportive or Protective Equipment (ICD-10-PCS; principal; 2018-01-30)
PROC: F07Z5FZ Bed Mobility Treatment using Assistive, Adaptive, Supportive or Protective Equipment (ICD-10-PCS; principal; 2018-01-30)
DX: S06.5X9D Traumatic subdural hemorrhage with loss of consciousness of unspecified duration, subsequent encounter (principal); G31.84 Mild cognitive impairment of uncertain or unknown etiology; Z91.81 History of falling; I10 Essential (primary) hypertension; I48.91 Unspecified atrial fibrillation; I25.10 Atherosclerotic heart disease of native coronary artery without angina pectoris; W19.XXXD Unspecified fall, subsequent encounter; G47.00 Insomnia, unspecified; M62.81 Muscle weakness (generalized); F32.9 Major depressive disorder, single episode, unspecified; I71.9 Aortic aneurysm of unspecified site, without rupture; Z95.5 Presence of coronary angioplasty implant and graft; Z95.0 Presence of cardiac pacemaker; Z79.01 Long term (current) use of anticoagulants; Z96.641 Presence of right artificial hip joint; Z98.1 Arthrodesis status
CPT/HCPCS: 92507-GN; 92522-GN; 92526-GN; 92610-GN; 97110-GO; 97116-GP; 97161-GP; 97166-GO; 97530-GO; 97530-GP; 97535-GO; G0515-GO

== ENCOUNTER → 2018-04-02 | Outpatient (CLI) | payer OTHER | LOC: FIMAGING 14:03 | PROVIDERS: ATTEND Physician Assistant | DX: S06.5X0D Traumatic subdural hemorrhage without loss of consciousness, subsequent encounter (principal) ==

== ENCOUNTER → 2018-07-15 | Outpatient (CLI) | payer OTHER | LOC: FIMAGING 09:47 | PROVIDERS: ATTEND Neurological Surgery | DX: G31.9 Degenerative disease of nervous system, unspecified (principal); Z87.820 Personal history of traumatic brain injury ==